=== PATIENT | female | born 1970 | race Hispanic/Latino ===

== ENCOUNTER 2017-07-20 21:20 | Emergency (ER) | payer SELFPAY ==
[~2017-07-20] VITALS: Ht 165.1 cm; Wt 136.1 kg
[2017-07-20] MEDS ORDERED: ONDANSETRON HCL INJ 2 MG/ML VIAL IV STA (21:45)
[2017-07-20] MEDS ORDERED: SODIUM CHLORIDE 0.9% 1000ML 1,000 ML IV ONE (21:45)
[2017-07-20] MEDS ORDERED: DIATRIZOATE MEGL/DIATRIZOA SOD 30 ML BTL PO ONE (21:54)
[2017-07-20 22:09] LABS: BILIRUBIN,URINE NEGATIVE (NEGATIVE); KETONES,URINE 2+ (NEGATIVE); LEUKOCYTE ESTERASE ,URINE NEGATIVE (NEGATIVE); NITRITE,URINE NEGATIVE (NEGATIVE); PROTEIN,URINE DIPSTICK 3+ (NEGATIVE); URINE UROBILINOGEN 0.2 mg/dL (0.2 - 1)
[2017-07-20 22:11] LABS: CLARITY,URINE CLEAR (CLEAR); COLOR,URINE YELLOW (YELLOW)
[2017-07-20 22:12] LABS: PREGNANCY TEST, URINE NEGATIVE (NEGATIVE)
[2017-07-20 22:20] LABS: BACTERIA,URINE FEW /HPF; EPITHELIAL CELLS,URINE MODERATE /LPF; RBC,URINE 0-5 /HPF (0-5); WBC,URINE (MAN) 0-5 /HPF (0-5)
[2017-07-20 22:31] LABS: BASOPHILS # (AUTO) 0.1 (0.0-0.1); BASOPHILS % 0.4 % (0.0-1.0); HEMATOCRIT 43.2 % (34.2-44.1); HEMOGLOBIN 14.4 g/dL (12.0-16.0); LYMPHOCYTES # (AUTO) 0.8 (1.0-3.2); MEAN CORPUSCULAR HEMOGLOBIN 28.3 pg (28-32); MEAN CORPUSCULAR HGB CONC 33.3 g/dL (31-35); MONOCYTES # (AUTO) 0.3 (0.2-0.8); MONOCYTES % 2.9 % (4.4-11.3); NEUTROPHILS # (AUTO) 10.1 (2.1-6.9); NEUTROPHILS % 89.2 % (38.7-80.0); PLATELET COUNT 350 x10e3/uL (140-360); RED BLOOD COUNT 5.08 x10e6/uL (3.6-5.1); RED CELL DISTRIBUTION WIDTH 14.6 % (11.7-14.4)
[2017-07-20 22:55] LABS: ALBUMIN/GLOBULIN RATIO 0.8 (0.8-2.0); ANION GAP 18.7 mmol/L (8-16); CALCIUM 9.8 mg/dL (8.4-10.2); CREATININE, SERUM 1.75 mg/dL (0.57-1.11); POTASSIUM 3.7 mmol/L (3.5-5.1)
--- NOTE | 2017-07-21 00:53 | Diagnostic Imaging Report ---
EXAM: CT Abdomen and Pelvis WITHOUT contrast INDICATION: Abdominal pain, vomiting, diarrhea COMPARISON: None. TECHNIQUE: Abdomen and pelvis were scanned utilizing a multidetector helical scanner from the lung base to the pubic symphysis without administration of IV contrast. Absence of intravenous contrast decreases sensitivity for detection of focal lesions and vascular pathology. Coronal and sagittal reformations were obtained. Routine protocol was performed. IV CONTRAST: None. ORAL CONTRAST: Gastrografin RADIATION DOSE: Total DLP: 1224.48 mGy*cm Estimated effective dose: (DLP x 0.015 x size factor) mSv COMPLICATIONS: None FINDINGS: LINES and TUBES: None. LOWER THORAX: Unremarkable HEPATOBILIARY: No focal hepatic lesions. No biliary ductal dilation. GALLBLADDER: There are cholecystectomy clips. SPLEEN: No splenomegaly. PANCREAS: No focal masses or ductal dilatation. ADRENALS: No adrenal nodules KIDNEYS/URETERS: No hydronephrosis. No cystic or solid mass lesions. No stones. GI TRACT: No abnormal distention, wall thickening, or evidence of bowel obstruction. There are diverticula within the colon without evidence of diverticulitis. Appendix is normal. PELVIC ORGANS/BLADDER: Fibroid uterus is visualized, slightly enlarged. The ovaries are present and appear normal. The bladder is compressed LYMPH NODES: No lymphadenopathy. VESSELS: There is mild atherosclerotic disease in the aorta and major arterial branches. PERITONEUM / RETROPERITONEUM: No free air or fluid. BONES: There are degenerative changes in the lumbar spine. SOFT TISSUES: Unremarkable. IMPRESSION: 1. No evidence of acute intra-abdominal or pelvic abnormality. 2. Enlarged multi fibroid uterus Signed by: Dr. Jeffery Martinez M.D. on 07/21/2017 12:50 AM
[2017-07-21] MEDS ORDERED: INSULIN REGULAR, HUMAN 100 UNIT/1 ML 3ML VIAL SQ ONE (01:00)
[2017-07-21] MEDS ORDERED: SODIUM CHLORIDE 0.9% 1000ML 1,000 ML IV ONE ×2 (01:00→03:15)
[2017-07-21 03:10] LABS: ANION GAP 17.4 mmol/L (8-16); CALCIUM 8.7 mg/dL (8.4-10.2); CREATININE, SERUM 1.48 mg/dL (0.57-1.11); POTASSIUM 3.4 mmol/L (3.5-5.1)
[2017-07-21] MEDS ORDERED: SODIUM CHLORIDE 0.9% 500ML 1,000 ML ONE (03:14)
== END 2017-07-21 06:20 | disposition home or self-care (01) ==
LOC: ER 21:20
DX: R10.33 Periumbilical pain (principal); R11.2 Nausea with vomiting, unspecified; R19.7 Diarrhea, unspecified; E86.9 Volume depletion, unspecified; E11.65 Type 2 diabetes mellitus with hyperglycemia; I10 Essential (primary) hypertension; J45.909 Unspecified asthma, uncomplicated
CPT/HCPCS: 36415; 74176; 80048; 80053; 81001; 81025; 82150; 82948; 83690; 85025; 87086; 93005; 96360; 96374; 99284; J2405; J7030 ×2; J7040

== ENCOUNTER 2019-11-22 20:04 | Inpatient (IN) | payer BC, MEDICARE ==
[~2019-11-22] VITALS: Ht 160 cm; Wt 148.5 kg
--- OUTSIDE RECORDS SUMMARY | 2019-11-22 20:09 | XMS REPORT ---
Author Author Admin, [employer] Organization Unknown Address Unknown Phone Unavailable PROBLEMS Condition Status Date Provider Notes Cough active Shawnee Curry DIABETES MELLITUS, TYPE II active Shawnee Curry Congestive heart failure active Shawnee Curry Hx of asthma active Shawnee Curry COPD active Shawnee Curry ENCOUNTERS Date Type Provider Location Encounter Diagn osis - Ambulatory Encounter Shawnee Curry Sa kellie Curry [facility] Practice UNK - Ambulatory Encounter Shawnee Curry Sa kellie Curry [facility] Practice UNK - Ambulatory Encounter Shawnee Sharathbee n Shawnee Currymac Chao [facility] Practice COPDHx of asth maCongestive heart failureDIABETES MELLITUS, TYPE IICough - Ambulatory Encounter Josefina ragland [facility] Contact Center UNK VITAL SIGNS Date Observation Value Provider temperature E&M 97.7 [degF] Shawnee Zapien " weight E&M 315 lbs. Kim Chao " weight in kilograms E&M 143.18 kg Iris Moisés terrell " height E&M 63 [in_i] Kim Chao " height in centimeters E&M 160.02 cm Iris G gloria Allergies No Known Allergy Information REASON FOR REFERRAL No Information Available RESULTS No Information Available HISTORY OF IMMUNIZATIONS No Information Available HISTORY OF MEDICATION USE Medication Instructions Dates Provider Comments ALBUTEROL SULFATE (2.5 MG/3ML) 0.083% INHALATION NEBUL IZATION SOLUTION 1 via Hand held neb every 4 - 6 hours as needed Shawnee Zapien SOCIAL HISTORY Date Observation Value Provider drug use, illicit Never Kim Chao " alcohol use Never Kim Chao " sex at Female Kim Chao " patient considered to be homeless No Kim Chao " if the patient is using/has used a vaping item, Current, Former, Never Used, Not asked No Kim Chao " smoking status never smoker Kim Chao FUNCTIONAL STATUS No Information Available MENTAL STATUS No Information Available MEDICAL EQUIPMENT No Information Available FAMILY HISTORY No Information Available INSURANCE PROVIDERS No Information Available ADVANCE DIRECTIVES No Information Available TREATMENT PLAN Date Name 2018 Novel Coronavirus (CoVI D-19), YAQUELIN Ofc Vst, New Level III Ofc Vst, New Level III HISTORY OF PROCEDURES No Information Available GOALS No Information Available HEALTH CONCERNS No Information Available
--- OUTSIDE RECORDS SUMMARY | 2019-11-22 20:09 | XMS REPORT ---
Author Author Admin, [employer] Organization Unknown Address Unknown Phone Unavailable PROBLEMS Condition Status Date Provider Notes Cough active Shawnee Curry DIABETES MELLITUS, TYPE II active Shawnee Curry Congestive heart failure active Shawnee Curry Hx of asthma active Shawnee Curry COPD active Shawnee Curry ENCOUNTERS Date Type Provider Location Encounter Diagn osis - Ambulatory Encounter Shawneeadriana Zapien [facility] Practice UNK - Ambulatory Encounter Shawneeadriana esparza Shawnee Curry [facility] UNK - Ambulatory Encounter Amanda Conner Teagan eric Marie [facility] UNK - Ambulatory Encounter Shawnee Curry Sa kellie Curry [facility] Practice UNK - Ambulatory Encounter Shawnee Curry Sa kellie Curry [facility] UNK - Ambulatory Encounter Shawnee Ron n Shawnee Curry Kim Chao [facility] Practice COPDHx of asth maCongestive heart failureDIABETES MELLITUS, TYPE IICough - Ambulatory Encounter Josefina Tinoco [facility] Contact Center UNK VITAL SIGNS Date Observation Value Provider oxygen saturation, oximetry 97 % Teagan eric Marie " temperature E&M 98.1 [degF] Zamzam Marie " pulse rate E&M 88 /min Zamzam Marie " blood pressure, diastolic 89 mm[Hg] Tia da Marie " blood pressure, systolic 164 mm[Hg] Griseld a Marie " method used to obtain blood pressure manual Zamzam Marie " temperature site oral Zamzam Ventur a " Blood Pressure Position 01 sitting Grise lda Marie " blood pressure, site #1 right arm Zamzam Marie " respiratory rate E&M 18 /min Zamzam Ve ntura " weight E&M 315 lbs. Zamzam Marie " weight in kilograms E&M 143.18 kg Zamzam Marie " height in centimeters E&M 160.02 cm Tia da Marie " height E&M 63 [in_i] Zamzam Marie temperature E&M 97.7 [degF] Shawnee Curry " weight E&M 315 lbs. Iris Jeremie " weight in kilograms E&M 143.18 kg Iris Gar xander " height E&M 63 [in_i] Iris Jeremie " height in centimeters E&M 160.02 cm Iris G gloria Allergies No Known Allergy Information REASON FOR REFERRAL No Information Available RESULTS Date Observation Value Provider Reference Range Interpretati on Location 2019NCoV (COVID-19) SARS cor onavirus 2 RNA ([facility]) in Respiratory specimen by YAQUELIN with probe detection (Other Lab) Not Detected [employer] Not Detected HISTORY OF IMMUNIZATIONS No Information Available HISTORY OF MEDICATION USE Medication Instructions Dates Provider Comments PROVENTIL HFA 108 (90 BASE) MCG/ACT INHALATION AEROSOL SOLUTION 2 puffs every 4 hours as needed Amanda Conner LANTUS 100 UNIT/ML SUBCUTANEOUS SOLUTION Amanda Conner CLONIDINE HCL 0.1 MG ORAL TABLET 1 by mouth twice a day Amanda Conner NIFEDIPINE ER TABLET EXTENDED RELEASE 24 HOUR Amanda Conner SINGULAIR 10 MG ORAL TABLET 1 by mouth nightly at bedtime 10/27 Amanda Conner TRADJENTA 5 MG ORAL TABLET Amanda Conner LEVOTHYROXINE SODIUM TABLET Amanda Conner IPRATROPIUM BROMIDE 0.02 % INHALATION SOLUTION Amanda Conner LISINOPRIL 20 MG ORAL TABLET 1 by mouth every day Columba Conner K-TAB 10 MEQ ORAL TABLET EXTENDED RELEASE 1 by mouth twice a day Amanda Ubaldo LASIX 40 MG ORAL TABLET 1 by mouth every am Amanda moon TESSALON PERLES 100 MG ORAL CAPSULE 1 by mouth 3 times a day as needed for cough Amanda Conner AZITHROMYCIN 250 MG ORAL TABLET 2 tablets by mouth on day one then one tablet by mouth each day for a total of 5 days Amandaemilie Conner ALBUTEROL SULFATE (2.5 MG/3ML) 0.083% INHALATION NEBUL IZATION SOLUTION 1 via Hand held neb every 4 - 6 hours as needed Shawnee Zapien SOCIAL HISTORY Date Observation Value Provider " is there any chance that you could be ? No Zamzam Marie " passive cigarette smoke exposure No Zamzam Marie " if the patient is using/has used a vaping item, Current, Former, Never Used, Not asked No Zamzam Marie " Exercise Program Referral T Tia Lott " Weight Management Counseling Provided T Zamzam Marie " Nutrition intervention T Zamzam Marie drug use, illicit Never Kim Chao " alcohol use Never Kim Chao " sex at Female Iris Jeremie " patient considered to be homeless No Kim Chao " if the patient is using/has used a vaping item, Current, Former, Never Used, Not asked No Kim Chao " smoking status never smoker Kim Chao FUNCTIONAL STATUS No Information Available MENTAL STATUS Date Observation Value Provider assessment of judgment and insight E&M fair Amanda Conner " mental status examination: orientation E &M oriented to time, place, and person Amanda Conner " assessment of mood and affect E&M no dep ression, anxiety, or agitation, very talkative- speaking in full sentences Amanda Conner MEDICAL EQUIPMENT No Information Available FAMILY HISTORY No Information Available INSURANCE PROVIDERS No Information Available ADVANCE DIRECTIVES No Information Available TREATMENT PLAN Date Name 2019 Novel Coronavirus (CoVI D-19), YAQUELIN 2019 Novel Coronavirus (CoVI D-19), YAQUELIN Est Patient Detailed - 50670 Ofc Vst, New Level III Ofc Vst, New Level III HISTORY OF PROCEDURES No Information Available GOALS No Information Available HEALTH CONCERNS No Information Available
--- OUTSIDE RECORDS SUMMARY | 2019-11-22 20:09 | XMS REPORT ---
Author Author Admin, [employer] [place] Organization Unknown Address Unknown Phone Unavailable PROBLEMS Condition Status Date Provider Notes Cough active Shawnee Curry DIABETES MELLITUS, TYPE II active Shawnee Curry Congestive heart failure active Shawnee Curry Hx of asthma active Shawnee Curry COPD active Shawnee Curry ENCOUNTERS Date Type Provider Location Encounter Diagn osis - Ambulatory Encounter Shawnee Zapien Sa kellieadriana Zapien [facility] Practice UNK - Ambulatory Encounter Shawneeadriana Velasquez n Shawnee Curry Kim Chao [facility] Practice COPDHx of asth maCongestive heart failureDIABETES MELLITUS, TYPE IICough - Ambulatory Encounter Josefina Tinoco [facility] Contact Center UNK VITAL SIGNS Date [...] No Information Available TREATMENT PLAN Date Name Ofc Vst, New Level III Ofc Vst, New Level III HISTORY OF PROCEDURES No Information Available GOALS No Information Available HEALTH CONCERNS No Information Available
--- OUTSIDE RECORDS SUMMARY | 2019-11-22 20:09 | XMS REPORT ---
Author Author [facility] Organization [facility] Address Unknown Phone Unavailable Care Team Providers Care [place] Room Worker Name Role Phone Tiffany BOYER Unavailable Unavailable Payers Payer Name Policy Type Policy Number Effective Date Expiration D ate Problems This patient has no known problems. Allergies, Adverse Reactions, Alerts Allergy Name Allergy Type Status Severity Reaction(s) Onset Date Inacti ve Date Treating Clinician Comments No Known Allergies DA Active U 2019-04-24 00:00:00 No Known Allergies DA Active U 2019-03-13 00:00:00 No Known Allergies DA Active U 2018-09-24 00:00:00 No Known Allergies DA Active U 2016-02-23 00:00:00 Medications This patient has no known medications. Encounters Start Date/Time End Date/Time Encounter Type Admission Type Att[facility] [place] Care Department Encounter ID 2019-11-18 00:00:00 2019-11-18 00:00:00 Outpatient [facility] [id number] 2019-09-24 10:52:11 2019-09-24 10:52:11 Outpatient [facility] [id number] 2019-09-23 00:00:00 2019-09-23 00:00:00 Outpatient [facility] [id number] 2019-09-22 00:00:00 2019-09-22 00:00:00 Outpatient [facility] [id number] 2019-09-20 15:02:05 2019-09-20 15:02:05 Outpatient [facility] [id number] 2019-09-01 00:00:00 2019-09-01 00:00:00 Outpatient [facility] [id number] 2019-08-26 12:08:26 2019-08-26 12:08:26 Outpatient [facility] [id number] 2019-08-26 10:40:08 2019-08-26 10:40:08 Outpatient [facility] [id number] 2019-08-26 00:00:00 2019-08-26 00:00:00 Outpatient [facility] [id number] 2019-08-09 11:15:46 2019-08-09 11:15:46 Outpatient [facility] [id number] 2019-08-09 10:19:01 2019-08-09 10:19:01 Outpatient [facility] [id number] 2019-08-09 00:00:00 2019-08-09 00:00:00 Outpatient [facility] [id number] 2019-07-22 11:54:11 2019-07-22 11:54:11 Outpatient [facility] [id number] 2019-07-22 11:00:23 2019-07-22 11:00:23 Outpatient [facility] [id number] 2019-06-28 00:00:00 2019-06-28 00:00:00 Outpatient [facility] [id number] 2019-06-16 00:00:00 2019-06-16 00:00:00 Outpatient [facility] [id number] 2019-06-04 00:00:00 2019-06-04 00:00:00 Outpatient [facility] [id number] 2019-05-25 13:07:41 2019-05-25 13:07:41 Outpatient [facility] [id number] 2019-05-14 00:00:00 2019-05-14 00:00:00 Outpatient [facility] [id number] 2019-05-14 00:00:00 2019-05-14 00:00:00 Outpatient [facility] [id number] 2019-05-13 14:10:19 2019-05-13 14:10:19 Outpatient [facility] [id number] 2019-05-13 13:22:07 2019-05-13 13:22:07 Outpatient [facility] [id number] 2019-05-13 00:00:00 2019-05-13 00:00:00 Outpatient [facility] [id number] 2019-05-03 15:07:21 2019-05-03 15:07:21 Outpatient [facility] [id number] 2019-05-03 13:55:13 2019-05-03 13:55:13 Outpatient [facility] [id number] 2019-05-03 00:00:00 2019-05-03 00:00:00 Outpatient [facility] [id number] 2019-04-30 00:00:00 2019-04-30 00:00:00 Outpatient [facility] [id number] 2019-04-30 00:00:00 2019-04-30 00:00:00 Outpatient [facility] [id number] 2019-04-22 13:19:50 2019-04-22 13:19:50 Outpatient [facility] [id number] 2019-04-08 00:00:00 2019-04-08 00:00:00 Outpatient [facility] [id number] 2019-04-05 13:51:24 2019-04-05 13:51:24 Outpatient [facility] [id number] 2019-04-05 12:46:24 2019-04-05 12:46:24 Outpatient [facility] [id number] 2019-04-05 00:00:00 2019-04-05 00:00:00 Outpatient [facility] [id number] 2019-03-22 09:36:10 2019-03-22 09:36:10 Outpatient [facility] [id number] 2019-03-22 09:35:51 2019-03-22 09:35:51 Outpatient [facility] [id number] 2019-03-03 10:18:48 2019-03-03 10:18:48 Outpatient [facility] [id number] 2019-03-03 00:00:00 2019-03-03 00:00:00 Outpatient [facility] [id number] 2019-02-15 14:47:15 2019-02-15 14:47:15 Outpatient [facility] [id number] 2019-02-11 00:00:00 2019-02-11 00:00:00 Outpatient [facility] [id number] 2019-02-11 00:00:00 2019-02-11 00:00:00 Outpatient [facility] [id number] 2019-01-29 00:00:00 2019-01-29 00:00:00 Outpatient [facility] [id number] 2019-01-29 00:00:00 2019-01-29 00:00:00 Outpatient [facility] [id number] 2019-01-08 09:00:51 2019-01-08 09:00:51 Outpatient [facility] [id number] 2019-01-08 08:49:29 2019-01-08 08:49:29 Outpatient [facility] [id number] 2019-01-08 00:00:00 2019-01-08 00:00:00 Outpatient [facility] [id number] 2019-01-08 00:00:00 2019-01-08 00:00:00 Outpatient [facility] [id number] 2019-01-08 00:00:00 2019-01-08 00:00:00 Outpatient [facility] [id number] 2018-12-17 00:00:00 2018-12-17 00:00:00 Outpatient [facility] [id number] 2018-12-16 00:00:00 2018-12-16 00:00:00 Outpatient [facility] [id number] 2018-12-16 00:00:00 2018-12-16 00:00:00 Outpatient [facility] [id number] 2018-12-14 10:25:36 2018-12-14 10:25:36 Outpatient [facility] [id number] 2018-12-14 08:51:48 2018-12-14 08:51:48 Outpatient [facility] [id number] 2018-12-03 00:00:00 2018-12-03 00:00:00 Outpatient [facility] [id number] 2018-11-30 00:00:00 2018-11-30 00:00:00 Outpatient [facility] [id number] 2018-11-19 16:42:28 2018-11-19 16:42:28 Outpatient [facility] [id number] 2018-11-19 14:04:12 2018-11-19 14:04:12 Outpatient [facility] [id number] 2018-11-18 00:00:00 2018-11-18 00:00:00 Outpatient [facility] [id number] 2018-11-18 00:00:00 2018-11-18 00:00:00 Outpatient [facility] [id number] 2018-11-17 13:05:44 2018-11-17 13:05:44 Outpatient [facility] [id number] 2018-11-11 14:52:54 2018-11-11 14:52:54 Outpatient [facility] [id number] 2018-11-11 12:55:18 2018-11-11 12:55:18 Outpatient [facility] [id number] 2018-11-04 00:00:00 2018-11-04 00:00:00 Outpatient [facility] [id number] 2018-10-30 12:08:49 2018-10-30 12:08:49 Outpatient [facility] [id number] 2018-10-20 14:51:05 2018-10-20 14:51:05 Outpatient [facility] [id number] 2018-10-20 13:37:40 2018-10-20 13:37:40 Outpatient [facility] [id number] 2018-10-09 09:22:36 2018-10-09 09:22:36 Outpatient [facility] [id number] 2018-10-08 11:41:18 2018-10-08 11:41:18 Outpatient [facility] [id number] 2018-10-08 00:00:00 2018-10-08 00:00:00 Outpatient [facility] [id number] 2018-09-28 08:50:26 2018-09-28 08:50:26 Outpatient [facility] [id number] 2018-09-21 00:00:00 2018-09-21 00:00:00 Outpatient [facility] [id number] 2018 14:51:22 2018 14:51:22 Outpatient [facility] [id number] 2018-09-07 15:22:38 2018-09-07 15:22:38 Outpatient [facility] [id number] 2018-09-07 13:44:27 2018-09-07 13:44:27 Outpatient [facility] [id number] 2018-09-03 00:00:00 2018-09-03 00:00:00 Outpatient [facility] [id number] 2018-08-20 00:00:00 2018-08-20 00:00:00 Outpatient [facility] [id number] 2018-08-13 00:00:00 2018-08-13 00:00:00 Outpatient [facility] [id number] 2018-07-31 00:00:00 2018-07-31 00:00:00 Outpatient [facility] [id number] 2018-07-23 00:00:00 2018-07-23 00:00:00 Outpatient [facility] [id number] 2018-07-15 14:04:51 2018-07-15 14:04:51 Outpatient [facility] [id number] 2018-07-13 11:49:05 2018-07-13 11:49:05 Outpatient [facility] [id number] 2018-07-02 00:00:00 2018-07-02 00:00:00 Outpatient [facility] [id number] 2018-06-25 00:00:00 2018-06-25 00:00:00 Outpatient [facility] [id number] 2018-05-27 00:00:00 2018-05-27 00:00:00 Outpatient [facility] [id number] 2018-05-08 00:00:00 2018-05-08 00:00:00 Outpatient [facility] [id number] 2018-05-04 00:00:00 2018-05-04 00:00:00 Outpatient [facility] [id number] 2018-05-01 00:00:00 2018-05-01 00:00:00 Outpatient [facility] [id number] 2018-04-23 00:00:00 2018-04-23 00:00:00 Outpatient [facility] [id number] 2018-04-22 00:00:00 2018-04-22 00:00:00 Outpatient [facility] [id number] 2018-04-20 00:00:00 2018-04-20 00:00:00 Outpatient [facility] [id number] 2018-04-20 00:00:00 2018-04-20 00:00:00 Outpatient [facility] [id number] 2018-04-17 00:00:00 2018-04-17 00:00:00 Outpatient [facility] [id number] 2018-04-13 00:00:00 2018-04-13 00:00:00 Outpatient [facility] [id number] 2018-04-09 00:00:00 2018-04-09 00:00:00 Outpatient [facility] [id number] 2018-04-07 00:00:00 2018-04-07 00:00:00 Outpatient [facility] [id number] 2018-04-07 00:00:00 2018-04-07 00:00:00 Outpatient [facility] [id number] 2018-03-30 13:49:36 2018-03-30 13:49:36 Outpatient [facility] [id number] 2018-03-25 00:00:00 2018-03-25 00:00:00 Outpatient [facility] [id number] 2018-03-20 13:00:27 2018-03-20 13:00:27 Outpatient [facility] [id number] 2018-03-16 00:00:00 2018-03-16 00:00:00 Outpatient [facility] [id number] 2018-03-10 00:00:00 2018-03-10 00:00:00 Outpatient [facility] [id number] 2018-02-26 14:10:38 2018-02-26 14:10:38 Outpatient [facility] [id number] 2018-02-19 00:00:00 2018-02-19 00:00:00 Outpatient [facility] [id number] 2018-02-13 00:00:00 2018-02-13 00:00:00 Outpatient [facility] [id number] 2018-02-10 00:00:00 2018-02-10 00:00:00 Outpatient [facility] [id number] 2018-02-09 00:00:00 2018-02-09 00:00:00 Outpatient [facility] [id number] 2018-02-09 00:00:00 2018-02-09 00:00:00 Outpatient [facility] [id number] 2018-01-29 12:54:51 2018-01-29 12:54:51 Outpatient [facility] [id number] 2018-01-26 11:47:35 2018-01-26 11:47:35 Outpatient [facility] [id number] 2018-01-26 09:23:23 2018-01-26 09:23:23 Outpatient [facility] [id number] 2018-01-19 09:20:12 2018-01-19 09:20:12 Outpatient [facility] [id number] 2018-01-19 08:02:16 2018-01-19 08:02:16 Outpatient [facility] [id number] 2017-12-15 00:00:00 2017-12-15 00:00:00 Outpatient [facility] [id number] 2017-11-13 11:13:36 2017-11-13 11:13:36 Outpatient [facility] [id number] 2017-11-07 00:00:00 2017-11-07 00:00:00 Outpatient [facility] [id number] 2017-10-30 00:00:00 2017-10-30 00:00:00 Outpatient [facility] [id number] 2017-10-23 00:00:00 2017-10-23 00:00:00 Outpatient [facility] [id number] 2017-10-16 15:43:24 2017-10-16 15:43:24 Outpatient [facility] [id number] 2017-10-16 00:00:00 2017-10-16 00:00:00 Outpatient [facility] [id number] 2017-09-02 11:14:56 2017-09-02 11:14:56 Outpatient [facility] [id number] 2017-09-02 09:48:40 2017-09-02 09:48:40 Outpatient [facility] [id number] 2017-09-02 00:00:00 2017-09-02 00:00:00 Outpatient [facility] [id number] 2017-08-28 00:00:00 2017-08-28 00:00:00 Outpatient [facility] [id number] 2017-08-14 15:06:22 2017-08-14 15:06:22 Outpatient [facility] [id number] 2017-06-26 00:00:00 2017-06-26 00:00:00 Outpatient [facility] [id number] 2017-06-26 00:00:00 2017-06-26 00:00:00 Outpatient [facility] [id number] 2017-06-18 00:00:00 2017-06-18 00:00:00 Outpatient [facility] [id number] 2017-06-16 00:00:00 2017-06-16 00:00:00 Outpatient [facility] [id number] 2017-05-19 00:00:00 2017-05-19 00:00:00 Outpatient [facility] [id number] 2017-04-24 10:42:54 2017-04-24 10:42:54 Outpatient [facility] [id number] 2017-04-24 08:40:25 2017-04-24 08:40:25 Outpatient [facility] [id number] 2012-11-19 08:14:32 2012-11-19 08:14:32 Outpatient [facility] [id number] Results Test Description Test Time Test Comments Text Results Atomic Results Result Comments BASIC METABOLIC PANEL 2019-10-22 14:32:00 SODIUM (test code = NA) 136 mmol/L 136-145 POTASSIUM (test code = K) 3.8 mmol/L 3.5-5.1 CHLORIDE (test code = CL) 103.0 mmol/L 98-107 CARBON DIOXIDE (test code = CO2) 27.0 mmol/L 21-32 ANION GAP (test code = GAP) 9.8 10-20 GLUCOSE (test code = GLU) 342 mg/dL 74-106 BLOOD UREA NITROGEN (test code = BUN) 20 mg/dL 7-18 GLOMERULAR FILTRATION RATE (test code = GFR) 40 mL/min >=6 0 Estimated GFR by using Modified MDRD formula.Chronic kidney disease is defined as either kidney damageor GFR <60 mL/min/1.73 m2 for >3 months. CREATININE (test code = CREAT) 1.40 mg/dL 0.55-1.02 * *Note change in reference range due to change in reagent. BUN/CREATININE RATIO (test code = BUN/CREA) 14.3 10-2 0 CALCIUM (test code = CA) 8.9 mg/dL 8.5-10.1 [id number] 14:32:00* Test Item Value Reference Range Comments TROPONIN-I (test code = TROPI) <0.015 ng/mL 0-0.045 BASIC METABOLIC [id number] 14:26:00* Test Item Value Reference Range Comments SODIUM (test code = NA) 136 mmol/L 136-145 POTASSIUM (test code = K) 3.8 mmol/L 3.5-5.1 CHLORIDE (test code = CL) 103.0 mmol/L 98-107 CARBON DIOXIDE (test code = CO2) mmol/L 21-32 ANION GAP (test code = GAP) 10-20 GLUCOSE (test code = GLU) mg/dL 74-106 BLOOD UREA NITROGEN (test code = BUN) mg/dL 7-18 GLOMERULAR FILTRATION RATE (test code = GFR) mL/min >=6 0 CREATININE (test code = CREAT) mg/dL 0.55-1.02 BUN/CREATININE RATIO (test code = BUN/CREA) 10-2 0 CALCIUM (test code = CA) mg/dL 8.5-10.1 [id number] 14:26:00* Test Item Value Reference Range Comments TROPONIN-I (test code = TROPI) ng/mL 0-0.045 - XR CHEST 1 [id number] 14:24:00 FAX: Lacho Ambrosio MD [phone] [place]: [address]: REG Name: MEÑO RYDER [facility] : 09/17[birth year]18 69 Age/S: 49/F [address] [facility] Unit #: [id number] Loc: [place] [address] Phys: Lacho Ambrosio MD Acct: [id number] Dis Date: Status: REG ER PHONE #: [phone] Exam Date: 10/22/2019 1403 FAX #: [phone] Reason: CHEST PAIN EXAMS: CPT CODE: [id number] XR CHEST 1 V 58794 HISTORY: Chest pain. COMPARISON: September 13, 2019. Location: [facility]. No acute infiltrates, effusion or congestion is noted. Suboptimal inspiration. Depe ndent changes. Cardiomegaly. IMPRESSION: No acute infiltrates, effusion or congestion. at 1424 Reported and sig ezequiel by: Jamil Norman M.D. CC: Lacho Ambrosio MD Technologist: KASANDRA CHAMORRO, RT(R) Trnscrd Date/Time/By: 10/22/2019 (3141) : By: [email or web address] Orig Print D/T: S: 10/22/2019 (6228) PAGE 1 Signed Report CBC W/O DIFF 2019-10-22 14:11:00* Test Item Value Reference Range Comments WHITE BLOOD CELL (test code = WBC) 5.3 K/mm3 4.5-12.5 RED BLOOD CELL (test code = RBC) 4.57 mill/mm3 3.7-5.2 HEMOGLOBIN (test code = HGB) 11.9 gram/dL 11.5-15.5 HEMATOCRIT (test code = HCT) 38.7 % 36.0-46.0 MEAN CELL VOLUME (test code = MCV) 84.7 fL 80-98 MEAN CELL HGB (test code = MCH) 26.0 picogram 27.0-33.0 MEAN CELL HGB CONCETRATION (test code = MCHC) 30.7 gram/dL 33 .0-36.0 RED CELL DISTRIBUTION WIDTH (test code = RDW) 14.7 % 11 .6-16.2 PLATELET COUNT (test code = PLT) 326 K/mm3 150-450 MEAN PLATELET VOLUME (test code = MPV) 9.7 fL 6.7-11.0 CBC W/O [id number] 14:10:00* Test Item Value Reference Range Comments WHITE BLOOD CELL (test code = WBC) K/mm3 4.5-12.5 RED BLOOD CELL (test code = RBC) mill/mm3 3.7-5.2 HEMOGLOBIN (test code = HGB) 11.9 gram/dL 11.5-15.5 HEMATOCRIT (test code = HCT) 38.7 % 36.0-46.0 MEAN CELL VOLUME (test code = MCV) fL 80-98 MEAN CELL HGB (test code = MCH) picogram 27.0-33.0 MEAN CELL HGB CONCETRATION (test code = MCHC) gram/dL 33 .0-36.0 RED CELL DISTRIBUTION WIDTH (test code = RDW) % 11 .6-16.2 PLATELET COUNT (test code = PLT) K/mm3 150-450 MEAN PLATELET VOLUME (test code = MPV) fL 6.7-11.0 [id number] 16:39:00* Test Item Value Reference Range Comments GLUBED (test code = GLUBED) 228 mg/dL 74-106 Perf ormed by certified toll relief operator at [facility] [id number] 14:14:00* Test Item Value Reference Range Comments GLUBED (test code = GLUBED) 243 mg/dL 74-106 Perf ormed by certified toll relief operator at [facility] [id number] 12:57:00* Test Item Value Reference Range Comments TROPONIN-I (test code = TROPI) 0.056 ng/mL 0-0.045 COMMENTS TO TACKER OFF: COLLECT 3 HOURS AFTER PREVIOUS SAMPLEBASIC METABOLIC [id number] 12:50:00* Test Item Value Reference Range Comments SODIUM (test code = NA) 139 mmol/L 136-145 POTASSIUM (test code = K) 3.6 mmol/L 3.5-5.1 CHLORIDE (test code = CL) 104.0 mmol/L 98-107 CARBON DIOXIDE (test code = CO2) 29.0 mmol/L 21-32 ANION GAP (test code = GAP) 9.6 10-20 GLUCOSE (test code = GLU) 261 mg/dL 74-106 BLOOD UREA NITROGEN (test code = BUN) 19 mg/dL 7-18 GLOMERULAR FILTRATION RATE (test code = GFR) 44 mL/min >=6 0 Estimated GFR by using Modified MDRD formula.Chronic kidney disease is defined as either kidney damageor GFR <60 mL/min/1.73 m2 for >3 months. CREATININE (test code = CREAT) 1.30 mg/dL 0.55-1.02 * *Note change in reference range due to change in reagent. BUN/CREATININE RATIO (test code = BUN/CREA) 14.6 10-2 0 CALCIUM (test code = CA) 8.9 mg/dL 8.5-10.1 LIPID PROFILE (CORONARY RISK)2019-09-14 12:50:00* Test Item Value Reference Range Comments TRIGLYCERIDES (test code = TRIG) 202 mg/dL 20-150 CHOLESTEROL (test code = CHOL) 146 mg/dL 0-200 CHOLESTEROL/HDL RATIO (test code = CHOLHDL) 2.0 RATIO 0-4. 9 RISK ASSOCIATED WITH CHOL/HDL RATIOS: Risk Male Female1/2 AVERAGE 3.43 3.27AVERAGE 4.97 4.442X AVERAGE 9.55 7.053X AVERAGE 23.39 11.04 REFERENCE VALUE IS RELATED TO RISK LEVELS ASRECOMMENDED BY THE DARI. HEART, LUNG, AND BLOOD INST. HDL CHOLESTEROL (test code = HDL) 62 mg/dL 40-60 LIPOPROTEIN LDL (test code = LDL) 59 mg/dL 100-129 Reference Interval: mg/dL mmol/L Optimal <100 <2.6Near/above optimal 100-129 2.6- 3.3Borderline High 130-159 3.4-4.1High 160-189 4.1-4.9Very High >=190 >=4.9========= This LDL result is a direct measurement.========= CBC W/AUTO [id number] 12:41:00* Test Item Value Reference Range Comments WHITE BLOOD CELL (test code = WBC) 4.6 K/mm3 4.5-12.5 RED BLOOD CELL (test code = RBC) 4.70 mill/mm3 3.7-5.2 HEMOGLOBIN (test code = HGB) 12.7 gram/dL 11.5-15.5 HEMATOCRIT (test code = HCT) 39.2 % 36.0-46.0 MEAN CELL VOLUME (test code = MCV) 83.4 fL 80-98 MEAN CELL HGB (test code = MCH) 27.0 picogram 27.0-33.0 MEAN CELL HGB CONCETRATION (test code = MCHC) 32.4 gram/dL 33 .0-36.0 RED CELL DISTRIBUTION WIDTH (test code = RDW) 13.6 % 11 .6-16.2 RED CELL DISTRIBUTION WIDTH SD (test code = RDW-SD) 41.4 fL 37.0-51.0 PLATELET COUNT (test code = PLT) 372 K/mm3 150-450 MEAN PLATELET VOLUME (test code = MPV) 9.7 fL 6.7-11.0 NEUTROPHIL % (test code = NT%) 57.9 % 39.0-69.0 IMMATURE GRANULOCYTE % (test code = IG%) 0.7 % 0.0-5.0 LYMPHOCYTE % (test code = LY%) 25.1 % 25.0-55.0 MONOCYTE % (test code = MO%) 12.6 % 0.0-10.0 EOSINOPHIL % (test code = EO%) 2.8 % 0.0-5.0 BASOPHIL % (test code = BA%) 0.9 % 0.0-1.0 NUCLEATED RBC % (test code = NRBC%) 0.0 % 0-0 NEUTROPHIL # (test code = NT#) 2.66 K/mm3 1.8-7.7 IMMATURE GRANULOCYTE # (test code = IG#) 0.03 x10 3/uL 0-0.03 LYMPHOCYTE # (test code = LY#) 1.15 K/mm3 1.0-5.0 MONOCYTE # (test code = MO#) 0.58 K/mm3 0-0.8 EOSINOPHIL # (test code = EO#) 0.13 K/mm3 0.0-0.5 BASOPHIL # (test code = BA#) 0.04 K/mm3 0.0-0.2 NUCLEATED RBC # (test code = NRBC#) 0.00 K/mm3 0.0-0.1 MANUAL DIFF REQUIRED (test code = MDIFF) NO [id number] 09:13:00* Test Item Value Reference Range Comments GLUBED (test code = GLUBED) 181 mg/dL 74-106 Perf ormed by certified toll relief operator at [facility] [id number] 06:09:00* Test Item Value Reference Range Comments TROPONIN-I (test code = TROPI) 0.078 ng/mL 0-0.045 P REVIOUSLY CALLED COMMENTS TO TACKER OFF: COLLECT 3 HOURS AFTER PREVIOUS SAMPLEPROTHROMBIN [id number] 23:27:00* Test Item Value Reference Range Comments PROTHROMBIN TIME PATIENT (test code = PTP) 10.2 seconds 9.0-1 4.0 INTERNATIONAL NORMAL RATIO (test code = INR) 0.9 0.8 -1.2 The therapeutic range for oral anticoagulant therapy formost indications is an international normalized ratio (INR)of between 2.0 and 3.0. The recommended therapeutic INRrange for various clinical situations is listed below: Clinical Situation INR range Pulmonary e mbolism treatment (2.0-3.0)Venous thrombosis treatmentVenous thrombosis prophylaxis (high risk surgery)Prevention of systemic embolism from: Acute myocardial infarction Valvular heart disease Atrial fibrillation Mechanical prosthetic heart valves (2.5-3.5) IS PATIENT ON ANTICOAGULANTS? NTHROMBOPLASTIN TIME [id number] 23:27:00* Test Item Value Reference Range Comments THROMBOPLASTIN TIME PARTIAL (test code = PTT) 34.3 seconds 25 .0-36.5 IS PATIENT ON ANTICOAGULANTS? NHEPATIC FUNCTION [id number] 23:17:00* Test Item Value Reference Range Comments TOTAL PROTEIN (test code = PROT) 7.9 gram/dL 6.4-8.2 ALBUMIN (test code = ALB) 3.5 g/dL 3.4-5.0 GLOBULIN (test code = GLOB) 4.4 gram/dL 2.7-4.2 ALBUMIN/GLOBULIN RATIO (test code = A/G) 0.8 0.75-1. 50 BILIRUBIN TOTAL (test code = BILT) 0.30 mg/dL 0.0-1.0 BILIRUBIN DIRECT (test code = BILD) 0.07 mg/dL 0.0-0.20 SGOT/AST (test code = AST) 35 IUnit/L 15-37 SGPT/ALT (test code = ALT) 40 IUnit/L 12-78 ALKALINE PHOSPHATASE TOTAL (test code = ALKP) 52 IUnit/L 45 -117 Note change in reference range due to change in reagent. THYROID STIMULATING [id number] 23:17:00* Test Item Value Reference Range Comments THYROID STIMULATING HORMONE (test code = TSH) 1.660 uIU/mL 0. 36-3.74 TSH REFERENCE RANGES: EUTHYROID: 0.35 - 4.3 mIU/mL HYPO : > 5.5 mIU/mL HYPER : < 0.35 mIU/mL [id number] 22:25:00* Test Item Value Reference Range Comments GLUBED (test code = GLUBED) 106 mg/dL 74-106 Perf ormed by certified toll relief operator at [facility] BASIC METABOLIC [id number] 19:03:00* Test Item Value Reference Range Comments SODIUM (test code = NA) 141 mmol/L 136-145 POTASSIUM (test code = K) 3.6 mmol/L 3.5-5.1 CHLORIDE (test code = CL) 107.0 mmol/L 98-107 CARBON DIOXIDE (test code = CO2) 32.0 mmol/L 21-32 ANION GAP (test code = GAP) 5.6 10-20 GLUCOSE (test code = GLU) 75 mg/dL 74-106 BLOOD UREA NITROGEN (test code = BUN) 17 mg/dL 7-18 GLOMERULAR FILTRATION RATE (test code = GFR) 48 mL/min >=6 0 Estimated GFR by using Modified MDRD formula.Chronic kidney disease is defined as either kidney damageor GFR <60 mL/min/1.73 m2 for >3 months. CREATININE (test code = CREAT) 1.20 mg/dL 0.55-1.02 * *Note change in reference range due to change in reagent. BUN/CREATININE RATIO (test code = BUN/CREA) 14.2 10-2 0 CALCIUM (test code = CA) 9.0 mg/dL 8.5-10.1 [id number] 19:03:00* Test Item Value Reference Range Comments TROPONIN-I (test code = TROPI) 0.180 ng/mL 0-0.045 R esults called to [id number] by [email or web address] 09/13/19 1902Critical results verified and read back by Nurse? Y BASIC METABOLIC [id number] 18:50:00* Test Item Value Reference Range Comments SODIUM (test code = NA) 141 mmol/L 136-145 POTASSIUM (test code = K) 3.6 mmol/L 3.5-5.1 CHLORIDE (test code = CL) 107.0 mmol/L 98-107 CARBON DIOXIDE (test code = CO2) mmol/L 21-32 ANION GAP (test code = GAP) 10-20 GLUCOSE (test code = GLU) mg/dL 74-106 BLOOD UREA NITROGEN (test code = BUN) mg/dL 7-18 GLOMERULAR FILTRATION RATE (test code = GFR) mL/min >=6 0 CREATININE (test code = CREAT) mg/dL 0.55-1.02 BUN/CREATININE RATIO (test code = BUN/CREA) 10-2 0 CALCIUM (test code = CA) mg/dL 8.5-10.1 [id number] 18:50:00* Test Item Value Reference Range Comments TROPONIN-I (test code = TROPI) ng/mL 0-0.045 BASIC METABOLIC [id number] 18:50:00* Test Item Value Reference Range Comments SODIUM (test code = NA) 141 mmol/L 136-145 POTASSIUM (test code = K) 3.6 mmol/L 3.5-5.1 CHLORIDE (test code = CL) 107.0 mmol/L 98-107 CARBON DIOXIDE (test code = CO2) mmol/L 21-32 ANION GAP (test code = GAP) 10-20 GLUCOSE (test code = GLU) mg/dL 74-106 BLOOD UREA NITROGEN (test code = BUN) mg/dL 7-18 GLOMERULAR FILTRATION RATE (test code = GFR) mL/min >=6 0 CREATININE (test code = CREAT) mg/dL 0.55-1.02 BUN/CREATININE RATIO (test code = BUN/CREA) 10-2 0 CALCIUM (test code = CA) 9.0 mg/dL 8.5-10.1 [id number] 18:50:00* Test Item Value Reference Range Comments TROPONIN-I (test code = TROPI) ng/mL 0-0.045 CBC W/O [id number] 18:43:00* Test Item Value Reference Range Comments WHITE BLOOD CELL (test code = WBC) 7.6 K/mm3 4.5-12.5 RED BLOOD CELL (test code = RBC) 4.69 mill/mm3 3.7-5.2 HEMOGLOBIN (test code = HGB) 12.6 gram/dL 11.5-15.5 HEMATOCRIT (test code = HCT) 39.9 % 36.0-46.0 MEAN CELL VOLUME (test code = MCV) 85.1 fL 80-98 MEAN CELL HGB (test code = MCH) 26.9 picogram 27.0-33.0 MEAN CELL HGB CONCETRATION (test code = MCHC) 31.6 gram/dL 33 .0-36.0 RED CELL DISTRIBUTION WIDTH (test code = RDW) 13.9 % 11 .6-16.2 PLATELET COUNT (test code = PLT) 392 K/mm3 150-450 MEAN PLATELET VOLUME (test code = MPV) 9.5 fL 6.7-11.0 CBC W/O [id number] 18:41:00* Test Item Value Reference Range Comments WHITE BLOOD CELL (test code = WBC) K/mm3 4.5-12.5 RED BLOOD CELL (test code = RBC) mill/mm3 3.7-5.2 HEMOGLOBIN (test code = HGB) 12.6 gram/dL 11.5-15.5 HEMATOCRIT (test code = HCT) 39.9 % 36.0-46.0 MEAN CELL VOLUME (test code = MCV) fL 80-98 MEAN CELL HGB (test code = MCH) picogram 27.0-33.0 MEAN CELL HGB CONCETRATION (test code = MCHC) gram/dL 33 .0-36.0 RED CELL DISTRIBUTION WIDTH (test code = RDW) % 11 .6-16.2 PLATELET COUNT (test code = PLT) K/mm3 150-450 MEAN PLATELET VOLUME (test code = MPV) fL 6.7-11.0 - XR CHEST 1 [id number] 14:55:00 FAX: Koby Hadley MD [place]: B St: PRE Name: MEÑO RYDER [facility] : [birth year] Age/S: 48/F [address] [facility] Unit #: [id number] Loc: [place] [address] Phys: Koby Hadley MD Acct: [id number] Dis Date: Status: PRE ER PHONE #: [phone] Exam Date: 09/13/2019 1445 FAX #: [phone] Reason: CHEST PAIN EXAMS: CPT CODE: [id number] XR CHEST 1 V 33916 HISTORY: Chest pain. COMPARISON: February 16, 2018. Location: [facility]. No acute infiltrates, effusion or congestion is noted. Suboptimal inspiration. Dep endent changes. Mild cardiomegaly. IMPRESSION: No acute infiltrates, effusion or congestion. Electronically Sign ed by Miriam Norman on 09/13/2019 at 1455 Reported a nd signed by: Jamil Norman M.D. CC: Koby Hadley MD Technologist: JORGE LEE(R) Trnscrd Date/Time/By: 09/13/2019 (4017) : By: Brianna [email or web address] Orig Print D/T: S: 09/13/2019 (0204) PAGE 1 Signed Report POLYP 2019-07-27 16:51:00 RUN DATE: 07/27/19 [facility] PAGE 1 RUN TIME: 1651 Specimen Inqui ry RUN USER: INTERFACE PATIENT: MEÑO MATA ACCT #: [id number] LOC: [facility] U #: [id number] AGE/SX: 48/F ROOM: RE07/23/19[facility] DR: Saad Norris MD : 68 BED: DIS: [place] [facility] [place]: SPEC #: [id number] RECD: 07/23/19-1409 STATUS: MACY QUIROGA #: [id number] ROLAND: 07/23/19-[address] [facility] [address]: Saad Norris MD ENTERED: 07/23/19140 SP TYPE: POLYP OTHR DR: Angela Doreen jolly or Family Physician No Primary Care PhysicianORDERED: GROSS COPIES TO: No Primary or Family Phys Saad Shepherd MD [address] [address] [phone] No Primary Care Physician Use by ED only for patient without primary care physician ED USE ONLY-Pt.w/o primary MD PROCEDURES: GROSS (-1505) TISSUES: TRANSVERSE COLON - BX CLINICAL HISTORY CO LLECTION DATE: 07/23/19 BLOOD IN STOOL FINAL DIAGNOSIS Transver se colon polyp, biopsy: COLONIC MUCOSA WITH MILD NONSPECIFIC CHRONIC INFL AMMATION AND REACTIVE EPITHELIAL CHANGE NO DISCRETE HYPERPLASTI C OR ADENOMATOUS CHANGE PRESENT NO CRYPTITIS OR CRYPT DISTORTION NEGATIVE FOR MALIGNANCY MULTIPLE LEVELS EXAMINED RRB/sm D 8 4915 CONTINUED ON NEXT PAGE R UN DATE: 07/27/19 [place] [facility] PAGE 2 RUN TIME: 1651 Specimen Inquiry RUN USER: INTERFACE SPEC #: [id number] PATIENT: MEÑO MATA #[id number] (Continued) MACROSCOPIC The specim en is received in formalin, labeled with the patient's name, identified as "haroldo scott polyp bx", and consists of kent biopsy tissue measuring 0.3 cm, submi tted for histologic evaluation. GROSS PERFORMED AT [facility] [address] [facility] [place] [address] (p)[phone] MICROSCOPIC All of the stains, including a ny controls performed, stain appropriately. MICROSCOPIC PERFORMED AT [facility] [address] [place] [address] [phone] PERFORMING SITE Diagnosis performed at : [facility] [address] [facility] [place] [address] --- --------- Signed SIGNATURE ON FILE Jarrod Schofield MD 1651 EN D OF REPORT BASIC METABOLIC [id number] 07:26:00* Test Item Value Reference Range Comments SODIUM (test code = NA) 139 mmol/L 136-145 POTASSIUM (test code = K) 3.3 mmol/L 3.5-5.1 CHLORIDE (test code = CL) 103.0 mmol/L 98-107 CARBON DIOXIDE (test code = CO2) 28.0 mmol/L 21-32 ANION GAP (test code = GAP) 11.3 10-20 GLUCOSE (test code = GLU) 107 mg/dL 74-106 BLOOD UREA NITROGEN (test code = BUN) 16 mg/dL 7-18 GLOMERULAR FILTRATION RATE (test code = GFR) 40 mL/min >=6 0 Estimated GFR by using Modified MDRD formula.Chronic kidney disease is defined as either kidney damageor GFR <60 mL/min/1.73 m2 for >3 months. CREATININE (test code = CREAT) 1.40 mg/dL 0.55-1.02 * *Note change in reference range due to change in reagent. BUN/CREATININE RATIO (test code = BUN/CREA) 11.4 10-2 0 CALCIUM (test code = CA) 8.5 mg/dL 8.5-10.1 [id number] 07:11:00* Test Item Value Reference Range Comments GLUBED (test code = GLUBED) 89 mg/dL 74-106 Perf ormed by certified toll relief operator at [facility] CBC W/AUTO [id number] 07:03:00* Test Item Value Reference Range Comments WHITE BLOOD CELL (test code = WBC) 5.9 K/mm3 4.5-12.5 RED BLOOD CELL (test code = RBC) 4.35 mill/mm3 3.7-5.2 HEMOGLOBIN (test code = HGB) 12.0 gram/dL 11.5-15.5 HEMATOCRIT (test code = HCT) 37.9 % 36.0-46.0 MEAN CELL VOLUME (test code = MCV) 87.1 fL 80-98 MEAN CELL HGB (test code = MCH) 27.6 picogram 27.0-33.0 MEAN CELL HGB CONCETRATION (test code = MCHC) 31.7 gram/dL 33 .0-36.0 RED CELL DISTRIBUTION WIDTH (test code = RDW) 14.1 % 11 .6-16.2 RED CELL DISTRIBUTION WIDTH SD (test code = RDW-SD) 45.1 fL 37.0-51.0 PLATELET COUNT (test code = PLT) 320 K/mm3 150-450 MEAN PLATELET VOLUME (test code = MPV) 9.3 fL 6.7-11.0 NEUTROPHIL % (test code = NT%) 57.7 % 39.0-69.0 IMMATURE GRANULOCYTE % (test code = IG%) 0.5 % 0.0-5.0 LYMPHOCYTE % (test code = LY%) 25.5 % 25.0-55.0 MONOCYTE % (test code = MO%) 11.7 % 0.0-10.0 EOSINOPHIL % (test code = EO%) 3.4 % 0.0-5.0 BASOPHIL % (test code = BA%) 1.2 % 0.0-1.0 NUCLEATED RBC % (test code = NRBC%) 0.0 % 0-0 NEUTROPHIL # (test code = NT#) 3.40 K/mm3 1.8-7.7 IMMATURE GRANULOCYTE # (test code = IG#) 0.03 x10 3/uL 0-0.03 LYMPHOCYTE # (test code = LY#) 1.50 K/mm3 1.0-5.0 MONOCYTE # (test code = MO#) 0.69 K/mm3 0-0.8 EOSINOPHIL # (test code = EO#) 0.20 K/mm3 0.0-0.5 BASOPHIL # (test code = BA#) 0.07 K/mm3 0.0-0.2 NUCLEATED RBC # (test code = NRBC#) 0.00 K/mm3 0.0-0.1 MANUAL DIFF REQUIRED (test code = MDIFF) NO - XR ABDOMEN AP 1 [id number] 11:55:00 FAX: Corinne Venegas DO [place]: B St: REG FAX: ISAURO GLOVER NP Name: MEÑO MATA [facility] : 1970 Age/S: 48/F [address] Unit #: [id number] Loc: [place] [address] Phys: ISAURO GLOVER NP Acct: [id number] Dis Date: Status: REG ER PHONE #: [phone] Exam Date: 04/24/2019 1146 FAX #: [phone] Reason: constipation EXAMS: CPT CODE: [id number] XR ABDOMEN AP 1 V 16504 HISTORY: constipation TECHNIQUE: AP abdomen x-ray COMPARISON: None FINDINGS: Mild rectosigmoid fecal retention. Nonspecific nonobstructed bowel gas pattern. No intra-abdominal mass effect. Cholecystectomy clips. Pelvic phleboliths. Degenerative changes of the spine and hips. IMPRESSION: Mild rectosigmoid fecal retention. Nonobstructive bowel gas pattern. at 1151 Reported and signed by: Leida Riley D.O. CC: Corinne Venegas DO; ISAURO GLOVER NP Technologist: RT DANETTE(Adán) Trnscrd Date/Time/By: 04/24/2019 (1 155) : By: [email or web address] Orig Print D/T: S: 04/24/2019 (8222) PAGE 1 Signed Report BASIC METABOLIC [id number] 11:51:00* Test Item Value Reference Range Comments SODIUM (test code = NA) 137 mmol/L 136-145 POTASSIUM (test code = K) 4.4 mmol/L 3.5-5.1 CHLORIDE (test code = CL) 105.0 mmol/L 98-107 CARBON DIOXIDE (test code = CO2) 27.0 mmol/L 21-32 ANION GAP (test code = GAP) 9.4 10-20 GLUCOSE (test code = GLU) 191 mg/dL 74-106 BLOOD UREA NITROGEN (test code = BUN) 20 mg/dL 7-18 GLOMERULAR FILTRATION RATE (test code = GFR) 34 mL/min >=6 0 Estimated GFR by using Modified MDRD formula.Chronic kidney disease is defined as either kidney damageor GFR <60 mL/min/1.73 m2 for >3 months. CREATININE (test code = CREAT) 1.60 mg/dL 0.55-1.02 * *Note change in reference range due to change in reagent. BUN/CREATININE RATIO (test code = BUN/CREA) 12.2 10-2 0 CALCIUM (test code = CA) 8.8 mg/dL 8.5-10.1 HEPATIC FUNCTION [id number] 11:51:00* Test Item Value Reference Range Comments TOTAL PROTEIN (test code = PROT) 7.8 gram/dL 6.4-8.2 ALBUMIN (test code = ALB) 3.5 g/dL 3.4-5.0 GLOBULIN (test code = GLOB) 4.3 gram/dL 2.7-4.2 ALBUMIN/GLOBULIN RATIO (test code = A/G) 0.8 0.75-1. 50 BILIRUBIN TOTAL (test code = BILT) 0.40 mg/dL 0.0-1.0 BILIRUBIN DIRECT (test code = BILD) 0.14 mg/dL 0.0-0.20 SGOT/AST (test code = AST) 64 IUnit/L 15-37 SGPT/ALT (test code = ALT) 60 IUnit/L 12-78 ALKALINE PHOSPHATASE TOTAL (test code = ALKP) 53 IUnit/L 45 -117 Note change in reference range due to change in reagent. [id number] 11:51:00* Test Item Value Reference Range Comments LIPASE (test code = LIP) 34 U/L 73.0-393.0 HCG SERUM [id number] 11:51:00* Test Item Value Reference Range Comments HCG SERUM QUAL (test code = HCGQL) NEGATIVE NEGATIVE This HCGQL test is NOT applicable for MALE patients.Check with nurse about probable order error.If Tumor Marker Test needed, nurse should order test "HCGTU"(Test #550.95024) BASIC METABOLIC [id number] 11:44:00* Test Item Value Reference Range Comments SODIUM (test code = NA) 137 mmol/L 136-145 POTASSIUM (test code = K) 4.4 mmol/L 3.5-5.1 CHLORIDE (test code = CL) 105.0 mmol/L 98-107 CARBON DIOXIDE (test code = CO2) mmol/L 21-32 ANION GAP (test code = GAP) 10-20 GLUCOSE (test code = GLU) mg/dL 74-106 BLOOD UREA NITROGEN (test code = BUN) mg/dL 7-18 GLOMERULAR FILTRATION RATE (test code = GFR) mL/min >=6 0 CREATININE (test code = CREAT) mg/dL 0.55-1.02 BUN/CREATININE RATIO (test code = BUN/CREA) 10-2 0 CALCIUM (test code = CA) mg/dL 8.5-10.1 HEPATIC FUNCTION [id number] 11:44:00* Test Item Value Reference Range Comments TOTAL PROTEIN (test code = PROT) gram/dL 6.4-8.2 ALBUMIN (test code = ALB) g/dL 3.4-5.0 GLOBULIN (test code = GLOB) gram/dL 2.7-4.2 ALBUMIN/GLOBULIN RATIO (test code = A/G) 0.75-1. 50 BILIRUBIN TOTAL (test code = BILT) mg/dL 0.0-1.0 BILIRUBIN DIRECT (test code = BILD) mg/dL 0.0-0.20 SGOT/AST (test code = AST) IUnit/L 15-37 SGPT/ALT (test code = ALT) IUnit/L 12-78 ALKALINE PHOSPHATASE TOTAL (test code = ALKP) IUnit/L 45 -117 [id number] 11:44:00* Test Item Value Reference Range Comments LIPASE (test code = LIP) U/L 73.0-393.0 HCG SERUM [id number] 11:44:00* Test Item Value Reference Range Comments HCG SERUM QUAL (test code = HCGQL) NEGATIVE NEGATIVE This HCGQL test is NOT applicable for MALE patients.Check with nurse about probable order error.If Tumor Marker Test needed, nurse should order test "HCGTU"(Test #550.27907) BASIC METABOLIC [id number] 11:42:00* Test Item Value Reference Range Comments SODIUM (test code = NA) mmol/L 136-145 POTASSIUM (test code = K) mmol/L 3.5-5.1 CHLORIDE (test code = CL) mmol/L 98-107 CARBON DIOXIDE (test code = CO2) mmol/L 21-32 ANION GAP (test code = GAP) 10-20 GLUCOSE (test code = GLU) mg/dL 74-106 BLOOD UREA NITROGEN (test code = BUN) mg/dL 7-18 GLOMERULAR FILTRATION RATE (test code = GFR) mL/min >=6 0 CREATININE (test code = CREAT) mg/dL 0.55-1.02 BUN/CREATININE RATIO (test code = BUN/CREA) 10-2 0 CALCIUM (test code = CA) mg/dL 8.5-10.1 HEPATIC FUNCTION [id number] 11:42:00* Test Item Value Reference Range Comments TOTAL PROTEIN (test code = PROT) gram/dL 6.4-8.2 ALBUMIN (test code = ALB) g/dL 3.4-5.0 GLOBULIN (test code = GLOB) gram/dL 2.7-4.2 ALBUMIN/GLOBULIN RATIO (test code = A/G) 0.75-1. 50 BILIRUBIN TOTAL (test code = BILT) mg/dL 0.0-1.0 BILIRUBIN DIRECT (test code = BILD) mg/dL 0.0-0.20 SGOT/AST (test code = AST) IUnit/L 15-37 SGPT/ALT (test code = ALT) IUnit/L 12-78 ALKALINE PHOSPHATASE TOTAL (test code = ALKP) IUnit/L 45 -117 [id number] 11:42:00* Test Item Value Reference Range Comments LIPASE (test code = LIP) U/L 73.0-393.0 HCG SERUM [id number] 11:42:00* Test Item Value Reference Range Comments HCG SERUM QUAL (test code = HCGQL) NEGATIVE NEGATIVE This HCGQL test is NOT applicable for MALE patients.Check with nurse about probable order error.If Tumor Marker Test needed, nurse should order test "HCGTU"(Test #550.50588) URINALYSIS [id number] 11:33:00* Test Item Value Reference Range Comments UA COLOR (test code = COLU) Dark-Yellow YELLOW UA APPEARANCE (test code = APPU) CLEAR CLEAR UA GLUCOSE DIPSTICK (test code = DGLUU) NEGATIVE mg/dL NEGATIVE UA BILIRUBIN DIPSTICK (test code = BILU) NEGATIVE mg/dL NEGATIV E UA KETONE DIPSTICK (test code = KETU) NEGATIVE mg/dL NEGATIVE UA SPECIFIC GRAVITY (test code = SGU) 1.011 1.001-1.03 5 UA BLOOD DIPSTICK (test code = RAZA) Negative mg/dL NEGATIVE UA PH DIPSTICK (test code = CHERYL) 6.5 5.0-8.0 UA PROTEIN DIPSTICK (test code = PROU) 10 (Trace) mg/dL NEGATIVE UA UROBILINIOGEN DIPSTICK (test code = URO) Normal mg/dL NEGA TIVE UA NITRITE DIPSTICK (test code = SONYA) NEGATIVE NEGATIVE UA LEUKOCYTE ESTERASE W REFLEX (test code = LEUUR) NEGATIVE Breanna/ uL NEGATIVE UA WBC (test code = WBCU) 0-5 per HPF 0-5 UA RBC (test code = RBCU) 0-2 #/HPF 0-5 UA EPITHELIAL CELLS (test code = EPIU) FEW per HPF FEW UA BACTERIA (test code = BACU) FEW #/HPF NONE UA MUCUS (test code = MUCU) FEW #/LPF FEW Urine Source? Clean CatchCBC W/O [id number] 11:28:00* Test Item Value Reference Range Comments WHITE BLOOD CELL (test code = WBC) 6.9 K/mm3 4.5-12.5 RED BLOOD CELL (test code = RBC) 5.03 mill/mm3 3.7-5.2 HEMOGLOBIN (test code = HGB) 13.4 gram/dL 11.5-15.5 HEMATOCRIT (test code = HCT) 41.2 % 36.0-46.0 MEAN CELL VOLUME (test code = MCV) 81.9 fL 80-98 MEAN CELL HGB (test code = MCH) 26.6 picogram 27.0-33.0 MEAN CELL HGB CONCETRATION (test code = MCHC) 32.5 gram/dL 33 .0-36.0 RED CELL DISTRIBUTION WIDTH (test code = RDW) 15.5 % 11 .6-16.2 PLATELET COUNT (test code = PLT) 369 K/mm3 150-450 MEAN PLATELET VOLUME (test code = MPV) 9.5 fL 6.7-11.0 URINALYSIS [id number] 19:17:00* Test Item Value Reference Range Comments UA COLOR (test code = COLU) Light-Yellow YELLOW UA APPEARANCE (test code = APPU) CLEAR CLEAR UA GLUCOSE DIPSTICK (test code = DGLUU) 200 (2+) mg/dL NEGATIVE UA BILIRUBIN DIPSTICK (test code = BILU) NEGATIVE mg/dL NEGATIV E UA KETONE DIPSTICK (test code = KETU) NEGATIVE mg/dL NEGATIVE UA SPECIFIC GRAVITY (test code = SGU) 1.011 1.001-1.03 5 UA BLOOD DIPSTICK (test code = RAZA) 0.03 mg/dL (Trace) mg/dL NEG ATIVE UA PH DIPSTICK (test code = CHERYL) 5.5 5.0-8.0 UA PROTEIN DIPSTICK (test code = PROU) 20 (Trace) mg/dL NEGATIVE UA UROBILINIOGEN DIPSTICK (test code = URO) Normal mg/dL NEGA TIVE UA NITRITE DIPSTICK (test code = SONYA) NEGATIVE NEGATIVE UA LEUKOCYTE ESTERASE W REFLEX (test code = LEUUR) 250 Breanna/u L (2+) Breanna/uL NEGATIVE UA WBC (test code = WBCU) 21-50 per HPF 0-5 UA RBC (test code = RBCU) 11-20 #/HPF 0-5 UA WBC CLUMPS (test code = WBCUCL) 7-10 /HPF NONE UA EPITHELIAL CELLS (test code = EPIU) FEW per HPF FEW UA BACTERIA (test code = BACU) FEW #/HPF NONE UA MUCUS (test code = MUCU) FEW #/LPF FEW Urine Source? Clean Catch- CT ABD PELVIS W/O [id number] 18:44:00 Name: MEÑO MATA [facility] : 1970 Age/S: 48 / F [address] [facility] Unit #: [id number] Loc: [place] [address] Phys: Romina Carey NP Acct: [id number] Di s Date: Status: REG ER PHONE #: [phone] Exam Date: 03/13/2019 1825 FAX #: [phone] Reason: Lower abdominal pain EXAMS: CPT CODE: [id number] CT ABD PELVIS W/O CONT 45167 HISTORY: Lower abdominal pain TECHNIQUE: 5mm axial CT images were obtained through the abd omen and pelvis without contrast. Sagittal and coronal reformatted images were generated. Automated exposure control for dose reduction. COMPARISON: 04/13/18 FINDINGS: Lung bases are cl ear. Cardiomegaly. Coronary artery calcification. Cholecystectomy. Hepatomegaly with fatty infiltration. Nonenhanced pancreas, spleen, adren al glands are unremarkable. Exophytic 2 cm inferior left renal hyp erdense cyst. Nonenhanced right kidney is unremarkable. No urinary calculu s or hydronephrosis. Limited evaluation the GI tract without oral contrast. Stomach, small bowel, appendix, and colon are unremarkable. No free air or free fluid. No lymphadenopathy. Aortoiliac athero sclerotic vascular calcification without aneurysm. Urinary bladder is unremarkable. Enlarged lobulated uterus suggesting underlying fibroids. Nonenhanced ovaries are grossly unremarkable. No pelvic free fluid. Small fat-containing umbilical hernia. Degenerative changes of the spine, sacral iliac joints, and hips. IMPRESSION: No acute findings on noncontrast CT of the abdomen/pelvis. at 1844 Reported and signed by: Leida Riley D.O. PAGE 1 Signed Report (CONTINUED) Name: MEÑO MATA [facility] : 01/1971 Age/S: 48 / F [address] [facility] Unit #: [id number] Loc: [place] [address] Phys: Rachell Carey NP Acct: [id number] Dis Sharad e: Status: REG ER PHONE #: [phone] Exam Date: 03/13/2019 182 FAX #: [phone] Reason: Lower abdominal pain EXAMS: CPT CODE: [id number] CT ABD PELVIS W/O CONT [id number] <Continued> CC: Rachell Carey WATERMELON INSPECTOR; Vladimir Leon DO Technologist:Yolette Hinkle RT(R)(CT) CTDI: DLP: Trnscb Date/Time: 03/13/2019 (1843) [email or web address] Orig Print D/T: S: 03/13/2019 (184) PAGE 2 Signed Report BASIC METABOLIC [id number] 18:08:00* Test Item Value Reference Range Comments SODIUM (test code = NA) 140 mmol/L 136-145 POTASSIUM (test code = K) 3.4 mmol/L 3.5-5.1 CHLORIDE (test code = CL) 105.0 mmol/L 98-107 CARBON DIOXIDE (test code = CO2) 25.0 mmol/L 21-32 ANION GAP (test code = GAP) 13.4 10-20 GLUCOSE (test code = GLU) 247 mg/dL 74-106 BLOOD UREA NITROGEN (test code = BUN) 18 mg/dL 7-18 GLOMERULAR FILTRATION RATE (test code = GFR) 37 mL/min >=6 0 Estimated GFR by using Modified MDRD formula.Chronic kidney disease is defined as either kidney damageor GFR <60 mL/min/1.73 m2 for >3 months. CREATININE (test code = CREAT) 1.50 mg/dL 0.55-1.02 * *Note change in reference range due to change in reagent. BUN/CREATININE RATIO (test code = BUN/CREA) 12.0 10-2 0 CALCIUM (test code = CA) 8.8 mg/dL 8.5-10.1 HEPATIC FUNCTION [id number] 18:08:00* Test Item Value Reference Range Comments TOTAL PROTEIN (test code = PROT) 7.9 gram/dL 6.4-8.2 ALBUMIN (test code = ALB) 3.2 g/dL 3.4-5.0 GLOBULIN (test code = GLOB) 4.7 gram/dL 2.7-4.2 ALBUMIN/GLOBULIN RATIO (test code = A/G) 0.7 0.75-1. 50 BILIRUBIN TOTAL (test code = BILT) 0.40 mg/dL 0.0-1.0 BILIRUBIN DIRECT (test code = BILD) 0.11 mg/dL 0.0-0.20 SGOT/AST (test code = AST) 28 IUnit/L 15-37 SGPT/ALT (test code = ALT) 47 IUnit/L 12-78 ALKALINE PHOSPHATASE TOTAL (test code = ALKP) 67 IUnit/L 45 -117 Note change in reference range due to change in reagent. [id number] 18:08:00* Test Item Value Reference Range Comments LIPASE (test code = LIP) 45 U/L 73.0-393.0 HCG SERUM [id number] 18:08:00* Test Item Value Reference Range Comments HCG SERUM QUAL (test code = HCGQL) NEGATIVE NEGATIVE This HCGQL test is NOT applicable for MALE patients.Check with nurse about probable order error.If Tumor Marker Test needed, nurse should order test "HCGTU"(Test #[id number]) [id number] 18:08:00* Test Item Value Reference Range Comments TROPONIN-I (test code = TROPI) <0.015 ng/mL 0-0.045 BASIC METABOLIC [id number] 17:48:00* Test Item Value Reference Range Comments SODIUM (test code = NA) 140 mmol/L 136-145 POTASSIUM (test code = K) 3.4 mmol/L 3.5-5.1 CHLORIDE (test code = CL) 105.0 mmol/L 98-107 CARBON DIOXIDE (test code = CO2) 25.0 mmol/L 21-32 ANION GAP (test code = GAP) 13.4 10-20 GLUCOSE (test code = GLU) 247 mg/dL 74-106 BLOOD UREA NITROGEN (test code = BUN) 18 mg/dL 7-18 GLOMERULAR FILTRATION RATE (test code = GFR) 37 mL/min >=6 0 Estimated GFR by using Modified MDRD formula.Chronic kidney disease is defined as either kidney damageor GFR <60 mL/min/1.73 m2 for >3 months. CREATININE (test code = CREAT) 1.50 mg/dL 0.55-1.02 * *Note change in reference range due to change in reagent. BUN/CREATININE RATIO (test code = BUN/CREA) 12.0 10-2 0 CALCIUM (test code = CA) 8.8 mg/dL 8.5-10.1 HEPATIC FUNCTION [id number] 17:48:00* Test Item Value Reference Range Comments TOTAL PROTEIN (test code = PROT) 7.9 gram/dL 6.4-8.2 ALBUMIN (test code = ALB) 3.2 g/dL 3.4-5.0 GLOBULIN (test code = GLOB) 4.7 gram/dL 2.7-4.2 ALBUMIN/GLOBULIN RATIO (test code = A/G) 0.7 0.75-1. 50 BILIRUBIN TOTAL (test code = BILT) 0.40 mg/dL 0.0-1.0 BILIRUBIN DIRECT (test code = BILD) 0.11 mg/dL 0.0-0.20 SGOT/AST (test code = AST) 28 IUnit/L 15-37 SGPT/ALT (test code = ALT) 47 IUnit/L 12-78 ALKALINE PHOSPHATASE TOTAL (test code = ALKP) 67 IUnit/L 45 -117 Note change in reference range due to change in reagent. [id number] 17:48:00* Test Item Value Reference Range Comments LIPASE (test code = LIP) 45 U/L 73.0-393.0 HCG SERUM [id number] 17:48:00* Test Item Value Reference Range Comments HCG SERUM QUAL (test code = HCGQL) NEGATIVE [id number] 17:48:00* Test Item Value Reference Range Comments TROPONIN-I (test code = TROPI) <0.015 ng/mL 0-0.045 BASIC METABOLIC [id number] 17:37:00* Test Item Value Reference Range Comments SODIUM (test code = NA) 140 mmol/L 136-145 POTASSIUM (test code = K) 3.4 mmol/L 3.5-5.1 CHLORIDE (test code = CL) 105.0 mmol/L 98-107 CARBON DIOXIDE (test code = CO2) mmol/L 21-32 ANION GAP (test code = GAP) 10-20 GLUCOSE (test code = GLU) mg/dL 74-106 BLOOD UREA NITROGEN (test code = BUN) mg/dL 7-18 GLOMERULAR FILTRATION RATE (test code = GFR) mL/min >=6 0 CREATININE (test code = CREAT) mg/dL 0.55-1.02 BUN/CREATININE RATIO (test code = BUN/CREA) 10-2 0 CALCIUM (test code = CA) mg/dL 8.5-10.1 HEPATIC FUNCTION [id number] 17:37:00* Test Item Value Reference Range Comments TOTAL PROTEIN (test code = PROT) gram/dL 6.4-8.2 ALBUMIN (test code = ALB) g/dL 3.4-5.0 GLOBULIN (test code = GLOB) gram/dL 2.7-4.2 ALBUMIN/GLOBULIN RATIO (test code = A/G) 0.75-1. 50 BILIRUBIN TOTAL (test code = BILT) mg/dL 0.0-1.0 BILIRUBIN DIRECT (test code = BILD) mg/dL 0.0-0.20 SGOT/AST (test code = AST) IUnit/L 15-37 SGPT/ALT (test code = ALT) IUnit/L 12-78 ALKALINE PHOSPHATASE TOTAL (test code = ALKP) IUnit/L 45 -117 [id number] 17:37:00* Test Item Value Reference Range Comments LIPASE (test code = LIP) U/L 73.0-393.0 HCG SERUM [id number] 17:37:00* Test Item Value Reference Range Comments HCG SERUM QUAL (test code = HCGQL) NEGATIVE [id number] 17:37:00* Test Item Value Reference Range Comments TROPONIN-I (test code = TROPI) ng/mL 0-0.045 CBC W/O [id number] 16:59:00* Test Item Value Reference Range Comments WHITE BLOOD CELL (test code = WBC) 6.7 K/mm3 4.5-12.5 RED BLOOD CELL (test code = RBC) 4.61 mill/mm3 3.7-5.2 HEMOGLOBIN (test code = HGB) 12.2 gram/dL 11.5-15.5 HEMATOCRIT (test code = HCT) 38.6 % 36.0-46.0 MEAN CELL VOLUME (test code = MCV) 83.7 fL 80-98 MEAN CELL HGB (test code = MCH) 26.5 picogram 27.0-33.0 MEAN CELL HGB CONCETRATION (test code = MCHC) 31.6 gram/dL 33 .0-36.0 RED CELL DISTRIBUTION WIDTH (test code = RDW) 14.8 % 11 .6-16.2 PLATELET COUNT (test code = PLT) 361 K/mm3 150-450 MEAN PLATELET VOLUME (test code = MPV) 9.4 fL 6.7-11.0 CBC W/O [id number] 16:53:00* Test Item Value Reference Range Comments WHITE BLOOD CELL (test code = WBC) K/mm3 4.5-12.5 RED BLOOD CELL (test code = RBC) mill/mm3 3.7-5.2 HEMOGLOBIN (test code = HGB) 12.2 gram/dL 11.5-15.5 HEMATOCRIT (test code = HCT) 38.6 % 36.0-46.0 MEAN CELL VOLUME (test code = MCV) fL 80-98 MEAN CELL HGB (test code = MCH) picogram 27.0-33.0 MEAN CELL HGB CONCETRATION (test code = MCHC) gram/dL 33 .0-36.0 RED CELL DISTRIBUTION WIDTH (test code = RDW) % 11 .6-16.2 PLATELET COUNT (test code = PLT) K/mm3 150-450 MEAN PLATELET VOLUME (test code = MPV) fL 6.7-11.0 DRUGS OF ABUSE SCREEN [id number] 15:13:00* Test Item Value Reference Range Comments UA PH DIPSTICK (test code = CHERYL) 6.0 5.0-8.0 URN COCAINE (test code = COCAURN) NEGATIVE <300 ng/mL URN CANNABINOIDS (test code = CANNABURN) NEGATIVE <50 ng/ mL URN AMPHETAMINE (test code = AMPHETURN) NEGATIVE <1000 ng /mL URN BARBITURATE (test code = BARBITURN) NEGATIVE <200 ng/ mL URN BENZODIAZEPINE (test code = BENZOURN) NEGATIVE <200 n g/mL URN OPIATES (test code = OPIATURN) POSITIVE <300 ng/mL This test provides only a preliminary test result. A morespecific alternate chemical method must be used in order toobtain a confirmed analytical result. Gas chromatography/mass spectrometry (GC/MS) is thepreferred confirmatory method. Other chemical confirmationmethods are available. Clinical consideration and professional judgment should be applied to any drug of abusetest result, particularly when preliminary positive resultsare used.Unconfirmed screening results must not be used fornon-medical purposes (e.g., employment testing, legaltesting). URN PHENCYCLIDINE (PCP) (test code = PHENCURN) NEGATIVE < 25 ng/mL URN METHADONE (test code = METHAURN) NEGATIVE <300 ng/mL DRUGS OF ABUSE SCREEN [id number] 14:57:00* Test Item Value Reference Range Comments UA PH DIPSTICK (test code = CHERYL) 5.0-8.0 URN COCAINE (test code = COCAURN) NEGATIVE <300 ng/mL URN CANNABINOIDS (test code = CANNABURN) NEGATIVE <50 ng/ mL URN AMPHETAMINE (test code = AMPHETURN) NEGATIVE <1000 ng /mL URN BARBITURATE (test code = BARBITURN) NEGATIVE <200 ng/ mL URN BENZODIAZEPINE (test code = BENZOURN) NEGATIVE <200 n g/mL URN OPIATES (test code = OPIATURN) POSITIVE <300 ng/mL This test provides only a preliminary test result. A morespecific alternate chemical method must be used in order toobtain a confirmed analytical result. Gas chromatography/mass spectrometry (GC/MS) is thepreferred confirmatory method. Other chemical confirmationmethods are available. Clinical consideration and professional judgment should be applied to any drug of abusetest result, particularly when preliminary positive resultsare used.Unconfirmed screening results must not be used fornon-medical purposes (e.g., employment testing, legaltesting). URN PHENCYCLIDINE (PCP) (test code = PHENCURN) NEGATIVE < 25 ng/mL URN METHADONE (test code = METHAURN) NEGATIVE <300 ng/mL URINALYSIS [id number] 14:35:00* Test Item Value Reference Range Comments UA COLOR (test code = COLU) LIGHT YELLOW YELLOW UA APPEARANCE (test code = APPU) CLEAR CLEAR UA GLUCOSE DIPSTICK (test code = DGLUU) NEGATIVE mg/dL NEGATIVE UA BILIRUBIN DIPSTICK (test code = BILU) NEGATIVE mg/dL NEGATIV E UA KETONE DIPSTICK (test code = KETU) Negative mg/dL NEGATIVE UA SPECIFIC GRAVITY (test code = SGU) 1.009 1.001-1.03 5 UA BLOOD DIPSTICK (test code = RAZA) Negative NEGATIVE UA PH DIPSTICK (test code = CHERYL) 6.0 5.0-8.0 UA PROTEIN DIPSTICK (test code = PROU) Negative mg/dL NEGATIVE UA UROBILINIOGEN DIPSTICK (test code = URO) NEGATIVE mg/dL NEGA TIVE UA NITRITE DIPSTICK (test code = SONYA) NEGATIVE NEGATIVE UA LEUKOCYTE ESTERASE W REFLEX (test code = LEUUR) NEGATIVE NEGATIVE UA WBC (test code = WBCU) 0-5 #/HPF 0-5 UA RBC (test code = RBCU) 0-2 #/HPF 0-5 UA EPITHELIAL CELLS (test code = EPIU) FEW per HPF FEW Urine Source? Clean CatchUR HCG [id number] 14:35:00* Test Item Value Reference Range Comments UR HCG QUAL (test code = HCGQLU) NEGATIVE This HCGQL test is NOT applicable for MALE patients.Check with nurse about probable order error.If Tumor Marker Test needed, nurse should order test "HCGTU"(Test #550.05314) Urine Source? Clean CatchURINALYSIS [id number] 14:32:00* Test Item Value Reference Range Comments UA COLOR (test code = COLU) YELLOW UA APPEARANCE (test code = APPU) CLEAR UA BILIRUBIN DIPSTICK (test code = BILU) NEGATIV E UA SPECIFIC GRAVITY (test code = SGU) 1.001-1.03 5 UA PH DIPSTICK (test code = CHERYL) 5.0-8.0 UA UROBILINIOGEN DIPSTICK (test code = URO) mg/dL 0.0- 0.2 UA NITRITE DIPSTICK (test code = SONYA) NEGATIVE UA LEUKOCYTE ESTERASE W REFLEX (test code = LEUUR) NEGATIVE UA WBC (test code = WBCU) per HPF 0-5 Urine Source? Clean CatchUR HCG [id number] 14:32:00* Test Item Value Reference Range Comments UR HCG QUAL (test code = HCGQLU) NEGATIVE This HCGQL test is NOT applicable for MALE patients.Check with nurse about probable order error.If Tumor Marker Test needed, nurse should order test "HCGTU"(Test #550.56640) Urine Source? Clean CatchURINALYSIS [id number] 14:32:00* Test Item Value Reference Range Comments UA COLOR (test code = COLU) LIGHT YELLOW YELLOW UA APPEARANCE (test code = APPU) CLEAR CLEAR UA GLUCOSE DIPSTICK (test code = DGLUU) NEGATIVE mg/dL NEGATIVE UA BILIRUBIN DIPSTICK (test code = BILU) NEGATIVE mg/dL NEGATIV E UA KETONE DIPSTICK (test code = KETU) Negative mg/dL NEGATIVE UA SPECIFIC GRAVITY (test code = SGU) 1.009 1.001-1.03 5 UA BLOOD DIPSTICK (test code = RAZA) Negative NEGATIVE UA PH DIPSTICK (test code = CHERYL) 6.0 5.0-8.0 UA PROTEIN DIPSTICK (test code = PROU) Negative mg/dL NEGATIVE UA UROBILINIOGEN DIPSTICK (test code = URO) NEGATIVE mg/dL NEGA TIVE UA NITRITE DIPSTICK (test code = SONYA) NEGATIVE NEGATIVE UA LEUKOCYTE ESTERASE W REFLEX (test code = LEUUR) NEGATIVE NEGATIVE UA WBC (test code = WBCU) per HPF 0-5 Urine Source? Clean CatchUR HCG [id number] 14:32:00* Test Item Value Reference Range Comments UR HCG QUAL (test code = HCGQLU) NEGATIVE This HCGQL test is NOT applicable for MALE patients.Check with nurse about probable order error.If Tumor Marker Test needed, nurse should order test "HCGTU"(Test #550.83890) Urine Source? Clean CatchCT ABDOMEN/PELVIS WO [place] [address] Patient Name: MEÑO MATA MR #: [id number] : 1970 Age/Sex: 46/F Req #: [id number] Adm Physician: Ordered by: YINKA BOYER MD Report #: [id number] Location: ER Room/Bed: Procedure: [id number] CT/CT ABDOMEN/PELVIS WO Exam Date: 07/20/17 Exam Time: 2325 REPORT STA TUS: Signed EXAM: CT Abdomen and Pelvis WITHOUT contrast INDICATION: Abdo rubi pain, vomiting, diarrhea COMPARISON: None. TECHNIQUE: Abdomen and pelv is were scanned utilizing a multidetector helical scanner from the lung base t o the pubic symphysis without administration of IV contrast. Absence of intrav enous contrast decreases sensitivity for detection of focal lesions and vascul ar pathology. Coronal and sagittal reformations were obtained. Routine protoco l was performed. IV CONTRAST: None. ORAL CONTRAST: Gastrografin RADIATION DOSE: Total DLP: 1224.48 mGy*cm Estimated effective dose: (DLP x 0.015 x size factor) mSv COMP LICATIONS: None FINDINGS: LINES and TUBES: None. LOWER THORAX: U nremarkable HEPATOBILIARY: No focal hepatic lesions. No biliary ductal dilation. GALLBLADDER: There are cholecystectomy clips. SPLEEN: No splenomegaly. PANCREAS: No focal masses or ductal dilatation. A DRENALS: No adrenal nodules KIDNEYS/URETERS: No hydronephrosis. No cys tic or solid mass lesions. No stones. GI TRACT: No abnormal distention, wall thickening, or evidence of bowel obstruction. There are diverticula with in the colon without evidence of diverticulitis. Appendix is normal. PEL CHAR ORGANS/BLADDER: Fibroid uterus is visualized, slightly enlarged. The ovari es are present and appear normal. The bladder is compressed LYMPH NODES: No lymphadenopathy. VESSELS: There is mild atherosclerotic disease in the aor ta and major arterial branches. PERITONEUM / RETROPERITONEUM: No free air or fluid. BONES: There are degenerative changes in the lumbar spine. SOFT TISSUES: Unremarkable. IMPRESSION: 1. No evidence of a cute intra-abdominal or pelvic abnormality. 2. Enlarged multi fibroid uterus Signed by: Dr. Jeffery Martinez M.D. on 07/21/2017 12:50 AM Dictated By: Chris APONTE MD COPY TO: YINKA BOYER MD
--- OUTSIDE RECORDS SUMMARY | 2019-11-22 20:09 | XMS REPORT ---
Author Author Admin, [place] Organization Unknown Address Unknown Phone Unavailable PROBLEMS Condition Status Date Provider Notes Cough active [facility] DIABETES MELLITUS, TYPE II active [facility] Congestive heart failure active [facility] Hx of asthma active [facility] COPD active [facility] ENCOUNTERS Date Type Provider Location Encounter Diagn osis - Ambulatory Encounter [facility] Zapien Sa kellieadriana Zapien [facility] UNK - Ambulatory Encounter Shawne[facility]riana Velasquez n [facility] Kim Chao [facility] COPDHx of asth maCongestive heart failureDIABETES MELLITUS, TYPE IICough - Ambulatory Encounter Josefina Tinoco [facility] Contact Center UNK VITAL SIGNS Date [...]
--- OUTSIDE RECORDS SUMMARY | 2019-11-22 20:09 | XMS REPORT | Clinical Summary ---
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 Active blood glucose Use as 1 Each 0 meterIndications: Type 2 directed 8 diabetes mellitus with complication, with long-term current use of insulin Active fluticasone-salmeterol Inhale 1 Puff 3 Each 1 0 (ADVAIR) 250-50 mcg/dose by mouth 2 9 diskus times daily. inhalerIndications: Moderate persistent asthmatic bronchitis with acute exacerbation Active ipratropium (ATROVENT) Inhale 2.5 mL 250 mL 3 0 0.02 % nebulizer by mouth 4 9 solutionIndications: times daily. Asthmatic bronchitis, severe persistent, uncomplicated, RAD (reactive airway disease), severe persistent, uncomplicated Active mometasone (NASONEX) 50 Use 2 Sprays 17 g 5 0 mcg/actuation nasal in each 9 sprayIndications: nostril Seasonal allergic daily. rhinitis, unspecified trigger Active polyethylene glycol Add lukewarm 4000 mL 0 02/15 (GOLYTELY) 236-22.74-6.74 drinking 9 -5.86 gram oral water to the solutionIndications: fill charis (4 Family history of colon liters) and cancer in mother shake. Drink as directed by your doctor.. Active clotrimazole (LOTRIMIN) 1 Apply to 30 g 6 % topical affected area 9 creamIndications: 2 times Onychomycosis daily. Active insulin REGULAR 100 Inject 40 120 mL 3 unit/mL Units under 9 injectionIndications: the skin 3 Type II diabetes mellitus times daily (before meals) Active BD INSULIN SYRINGE Inject 1 200 Each 6 01 ULTRA-FINE 1 mL 31 gauge Syringe under 9 x 11/26 SyrgIndications: the skin 3 Type 2 diabetes mellitus times daily. with complication, with long-term current use of insulin Active insulin detemir U-100 Inject 40 129 mL 3 05/14 (LEVEMIR FLEXTOUCH U-100 units in the 9 INSULN) 100 unit/mL (3 morning and mL) PenIndications: Type 100 units in 2 diabetes mellitus with the evening, other specified all before complication meals. Active gabapentin (NEURONTIN) Take 1 tablet 90 tablet 1 0 600 mg tabletIndications: by mouth at 0 Type 2 diabetes mellitus bedtime with hyperglycemia, with nightly. long-term current use of insulin Active ergocalciferol (VITAMIN Take 1 12 capsule 1 D2) 1,250 mcg (50,000 capsule by 0 unit) capsuleIndications: mouth weekly. Vitamin D deficiency Active pen needle, diabetic 31 Inject under 200 Each 0 0 gauge x 09/26" the skin 2 0 needlesIndications: Type times daily. 2 diabetes mellitus with complication, with long-term current use of insulin Active cetirizine (ZYRTEC) 10 mg Take 1 tablet 90 tablet 3 tabletIndications: by mouth 0 Seasonal allergic daily. rhinitis, unspecified trigger Active albuterol (PROVENTIL) 2.5 Inhale 3 mL 300 mL 3 mg /3 mL (0.083 %) by mouth 0 nebulizer every 4 hours solutionIndications: as needed for Asthmatic bronchitis, Wheezing or severe persistent, Shortness of uncomplicated Breath. 09/23/2020 Active Cyclobenzaprine Take 1 tablet 30 tablet 0 09/24/19 2 (FLEXERIL) 5 mg by mouth 3 0 tabletIndications: Acute times daily midline low back pain as needed for without sciatica Muscle Spasms. Active furosemide (LASIX) 40 mg Take 1 tablet 30 tablet 3 tabletIndications: by mouth 0 Localized edema daily. Active montelukast (SINGULAIR) Take 1 tablet 90 tablet 3 10 mg tabletIndications: by mouth at 0 Moderate persistent bedtime asthma without nightly. complication Active cloNIDine HCL (CATAPRES) Take 1 tablet 90 tablet 3 0.1 mg tabletIndications: by mouth 3 0 Essential hypertension times daily. Active dicyclomine (BENTYL) 10 Take 1 30 capsule 1 mg capsuleIndications: capsule by 0 Irritable bowel syndrome mouth 4 times with diarrhea daily (before meals and nightly). Active hydrOXYzine (ATARAX) 25 Take 2 30 tablet 1 mg tabletIndications: tablets by 0 Insomnia, unspecified mouth nightly type at bedtime as needed for insomnia. Active acetaminophen-codeine Take 1 tablet 20 tablet 0 (TYLENOL/CODEINE #3) by mouth 0 300-30 mg per every 4 hours tabletIndications: as needed for Chronic bilateral low Pain Refilled back pain with bilateral for pcp. sciatica Active linaGLIPtin (TRADJENTA) 5 Take 1 tablet 90 tablet 3 mg tabletIndications: by mouth 0 Type 2 diabetes mellitus daily. with hyperglycemia, with long-term current use of insulin Active levothyroxine (SYNTHROID) Take 1 tablet 90 tablet 3 25 mcg tabletIndications: by mouth 0 Hypothyroidism daily. Active albuterol 90 Inhale 2 20.1 g 3 mcg/actuation Puffs by 0 inhalerIndications: mouth 4 times Moderate persistent daily as asthmatic bronchitis with needed for acute exacerbation Wheezing. Active atorvastatin (LIPITOR) 20 Take 1 tablet 90 tablet 3 mg tabletIndications: by mouth at 0 Hyperlipidemia, bedtime unspecified nightly. hyperlipidemia type Active omeprazole (PRILOSEC) 20 Take 1 180 capsule 3 0 mg delayed release capsule by 0 capsuleIndications: mouth 2 times Gastroesophageal reflux daily. disease with esophagitis Active ketoconazole (NIZORAL) 2 WASH SCALP 3 240 mL 6 % shampooIndications: TIMES WEEKLY 0 Tinea capitis FOR SEBORRHEA. Active lisinopriL (PRINIVIL) 20 Take 1 tablet 90 tablet 1 mg tabletIndications: by mouth 0 Essential hypertension daily. Active NIFEdipine (PROCARDIA XL) Take 1 tablet 30 tablet 2 90 mg extended release by mouth 0 tabletIndications: daily. Essential hypertension Active lancets 28 Use 3 times 100 Each 2 gaugeIndications: Type 2 daily 0 diabetes mellitus with complication, with long-term current use of insulin Active mupirocin calcium Apply to 15 g 0 11/08/19 2 (BACTROBAN) 2 % topical affected area 0 creamIndications: Abscess 3 times of female genitalia daily. Active hydrocortisone Insert 1 12 1 (ANUSOL-HC) 25 mg rectal Suppository Suppository 0 suppositoryIndications: rectally 2 Hemorrhoids, unspecified times daily hemorrhoid type as needed for hemorrhoids. Active acyclovir (ZOVIRAX) 800 Take 1 tablet 42 tablet 0 mg tabletIndications: by mouth 3 0 Skin infection times daily. Active blood glucose test Use 3 times 100 Each 3 02 stripsIndications: Type 2 daily to test 0 diabetes mellitus with blood sugar.. complication, with long-term current use of insulin Active potassium chloride Take 1 tablet 60 tablet 3 11/07 (KLOR-CON M20) 20 mEq by mouth 2 0 extended release times daily. tabletIndications: Hypokalemia Active diclofenac (VOLTAREN) 1 % Apply 2 g to 100 g 1 gelIndications: Acute affected area 0 midline low back pain 4 times daily without sciatica Lower back. 08/26/2019 Discontinued (Therapy comple maxine) Melatonin 5 mg Take 1 tablet 30 tablet 3 TabIndications: by mouth 8 Psychophysiological nightly at insomnia bedtime as needed for Other (insomnia). 02/09/2019 Discontinued (Reorder) fluticasone (FLONASE) 50 Use 2 Sprays 16 g 5 mcg/actuation nasal in each 8 sprayIndications: nostril Seasonal allergic daily. rhinitis, unspecified trigger 04/14/2019 Discontinued (Reorder) ketoconazole (NIZORAL) 2 WASH SCALP 3 240 mL 6 % shampooIndications: TIMES WEEKLY 8 Tinea capitis FOR SEBORRHEA. 12/14/2018 Discontinued (Therapy comple maxine) medroxyPROGESTERone Take 1 tablet 10 tablet 0 06/14 (PROVERA) 10 mg by mouth 8 tabletIndications: daily. Menorrhagia with regular cycle 05/18/2019 Discontinued insulin detemir U-100 Inject 40 129 mL 3 06/15 (LEVEMIR FLEXTOUCH U-100 units in the 8 INSULN) 100 unit/mL (3 morning and mL) PenIndications: Type 100 units in 2 diabetes mellitus with the evening, other specified all before complication meals. 02/09/2019 Discontinued (Reorder) gabapentin (NEURONTIN) Take 1 tablet 90 tablet 1 0 600 mg tabletIndications: by mouth at 9 Type 2 diabetes mellitus bedtime with hyperglycemia, with nightly. long-term current use of insulin 01/11/2019 Discontinued (Reorder) lancets 28 Use 3 times 100 Each 3 gaugeIndications: Type 2 daily 9 diabetes mellitus with complication, with long-term current use of insulin 03/15/2019 Discontinued (Reorder) INSULIN SYRINGE 1mL Use to inject 200 Syringe 2 08/15 30GX5/16" (MONOJECT medication 3 9 ULTRACOMFORT INSULIN SYR times daily. 1ML 30GX5/16") Use a new syringe-needleIndications syringe each : Type 2 diabetes time. mellitus with complication, with long-term current use of insulin 09/11/2019 Discontinued (Reorder) pen needle, diabetic 31 Inject under 200 Each 3 0 gauge x 3/16" the skin 2 9 needlesIndications: Type times daily. 2 diabetes mellitus with complication, with long-term current use of insulin 09/11/2019 Discontinued (Reorder) cetirizine (ZYRTEC) 10 mg Take 1 tablet 90 tablet 3 tabletIndications: by mouth 9 Seasonal allergic daily. rhinitis, unspecified trigger 10/14/2019 Discontinued (Reorder) montelukast (SINGULAIR) Take 1 tablet 90 tablet 3 10 mg tabletIndications: by mouth at 9 Moderate persistent bedtime asthma without nightly. complication 09/18/2019 Discontinued (Reorder) albuterol (PROVENTIL) 2.5 Inhale 3 mL 300 mL 3 mg /3 mL (0.083 %) by mouth 9 nebulizer every 4 hours solutionIndications: as needed for Asthmatic bronchitis, Wheezing or severe persistent, Shortness of uncomplicated Breath. 11/07/2019 Discontinued (Reorder) albuterol 90 Inhale 2 20.1 g 3 mcg/actuation Puffs by 9 inhalerIndications: mouth 4 times Moderate persistent daily as asthmatic bronchitis with needed for acute exacerbation Wheezing. 02/09/2019 Discontinued (Reorder) cloNIDine HCl (CATAPRES) Take 1 tablet 90 tablet 3 0.1 mg tabletIndications: by mouth 3 9 Essential hypertension times daily. 04/14/2019 Discontinued (Reorder) lisinopril (PRINIVIL) 20 Take 1 tablet 90 tablet 1 mg tabletIndications: by mouth 9 Essential hypertension daily. 04/14/2019 Discontinued (Reorder) fenofibrate Take 1 tablet 90 tablet 1 nanocrystallized (TRICOR) by mouth 9 145 mg tabletIndications: daily. Hyperlipidemia, unspecified hyperlipidemia type 02/09/2019 Discontinued (Reorder) furosemide (LASIX) 40 mg Take 1 tablet 30 tablet 3 tabletIndications: by mouth 9 Localized edema daily. 12/05/2018 Discontinued (Reorder) dicyclomine (BENTYL) 10 Take 1 30 capsule 1 mg capsuleIndications: capsule by 9 Irritable bowel syndrome mouth 4 times with diarrhea daily (before meals and nightly). 10/21/2019 Discontinued linaGLIPtin (TRADJENTA) 5 Take 1 tablet 90 tablet 3 mg tabletIndications: by mouth 9 Type 2 diabetes mellitus daily. with hyperglycemia, with long-term current use of insulin 03/15/2019 Discontinued (Reorder) potassium chloride Take 1 tablet 60 tablet 3 10/20 (KLOR-CON M20) 20 mEq by mouth 2 9 extended release times daily. tabletIndications: Hypokalemia 11/07/2019 Discontinued (Reorder) atorvastatin (LIPITOR) 20 Take 1 tablet 90 tablet 3 mg tabletIndications: by mouth at 9 Hyperlipidemia, bedtime unspecified nightly. hyperlipidemia type 10/21/2019 Discontinued levothyroxine (SYNTHROID) Take 1 tablet 90 tablet 3 25 mcg tabletIndications: by mouth 9 Hypothyroidism daily. 11/07/2019 Discontinued (Reorder) omeprazole (PRILOSEC) 20 Take 1 180 capsule 3 0 mg delayed release capsule by 9 capsuleIndications: mouth 2 times Gastroesophageal reflux daily. disease with esophagitis 12/14/2018 Discontinued (Reorder) acetaminophen-codeine Take 1 tablet 20 tablet 0 (TYLENOL/CODEINE #3) by mouth 9 300-30 mg per every 4 hours tabletIndications: as needed for Chronic bilateral low Pain. back pain with bilateral sciatica 05/13/2019 Discontinued (Reorder) NIFEdipine (PROCARDIA XL) Take 1 tablet 90 tablet 1 90 mg extended release by mouth 9 tabletIndications: daily. Essential hypertension 03/15/2019 Discontinued (Reorder) blood glucose test Use 3 times 100 Each 3 01 stripsIndications: Type 2 daily to test 9 diabetes mellitus with blood sugar.. complication, with long-term current use of insulin 02/09/2019 Discontinued (Reorder) insulin REGULAR 100 Inject 40 90 mL 0 unit/mL Units under 9 injectionIndications: the skin 3 Type II diabetes mellitus times daily (before meals) 08/26/2019 Discontinued (Therapy comple maxine) busPIRone (BUSPAR) 5 mg Take 1 tablet 90 tablet 2 tabletIndications: by mouth 3 9 Generalized anxiety times daily. disorder 02/15/2019 Discontinued (Alternate ther apy) traZODone (DESYREL) 50 mg Take 2 60 tablet 2 tabletIndications: tablets by 9 Insomnia, unspecified mouth nightly type at bedtime as needed for Sleep. 01/11/2019 Discontinued (Reorder) acyclovir (ZOVIRAX) 800 Take 1 tablet 42 tablet 0 mg tabletIndications: by mouth 3 9 Skin infection times daily. 04/05/2019 Discontinued (Reorder) mupirocin (BACTROBAN) 2 % Apply to 22 g 0 ointmentIndications: affected area 9 Sebaceous cyst 3 times daily for 7 days. 02/09/2019 Discontinued (Reorder) dicyclomine (BENTYL) 10 Take 1 30 capsule 1 mg capsuleIndications: capsule by 9 Irritable bowel syndrome mouth 4 times with diarrhea daily (before meals and nightly). 01/11/2019 Discontinued (Reorder) acetaminophen-codeine Take 1 tablet 20 tablet 0 (TYLENOL/CODEINE #3) by mouth 9 300-30 mg per every 4 hours tabletIndications: as needed for Chronic bilateral low Pain. back pain with bilateral sciatica 06/12/2019 tropicamide (MYDRIACYL) Instill 1 15 mL 0 0.5 % ophthalmic Drop in each 9 solutionIndications: Type eye once as 2 diabetes mellitus with needed for up complication, with to 1 dose long-term current use of (for poor insulin retina scan image). 12/24/2018 cephALEXin (KEFLEX) 500 Take 1 40 capsule 0 mg capsuleIndications: capsule by 9 Recurrent boils mouth 4 times daily for 10 days. 02/09/2019 Discontinued (Reorder) acyclovir (ZOVIRAX) 800 Take 1 tablet 42 tablet 0 mg tabletIndications: by mouth 3 9 Skin infection times daily. 04/14/2019 Discontinued (Reorder) acetaminophen-codeine Take 1 tablet 20 tablet 0 (TYLENOL/CODEINE #3) by mouth 9 300-30 mg per every 4 hours tabletIndications: as needed for Chronic bilateral low Pain Refilled back pain with bilateral for pcp. sciatica 05/13/2019 Discontinued (Reorder) lancets 28 Use 3 times 100 Each 3 gaugeIndications: Type 2 daily 9 diabetes mellitus with complication, with long-term current use of insulin 06/14/2019 Discontinued (Reorder) cloNIDine HCl (CATAPRES) Take 1 tablet 90 tablet 3 0.1 mg tabletIndications: by mouth 3 9 Essential hypertension times daily. 06/14/2019 Discontinued (Reorder) furosemide (LASIX) 40 mg Take 1 tablet 30 tablet 3 tabletIndications: by mouth 9 Localized edema daily. 04/22/2019 Discontinued insulin REGULAR 100 Inject 40 90 mL 0 unit/mL Units under 9 injectionIndications: the skin 3 Type II diabetes mellitus times daily (before meals) 04/14/2019 Discontinued (Reorder) dicyclomine (BENTYL) 10 Take 1 30 capsule 1 mg capsuleIndications: capsule by 9 Irritable bowel syndrome mouth 4 times with diarrhea daily (before meals and nightly). 02/11/2019 Discontinued (Alternate ther apy) fluticasone propionate Use 2 Sprays 16 g 5 (FLONASE) 50 in each 9 mcg/actuation nasal nostril sprayIndications: daily. Seasonal allergic rhinitis, unspecified trigger 04/14/2019 Discontinued (Reorder) acyclovir (ZOVIRAX) 800 Take 1 tablet 42 tablet 0 mg tabletIndications: by mouth 3 9 Skin infection times daily. 08/13/2019 Discontinued (Reorder) gabapentin (NEURONTIN) Take 1 tablet 90 tablet 1 0 600 mg tabletIndications: by mouth at 9 Type 2 diabetes mellitus bedtime with hyperglycemia, with nightly. long-term current use of insulin 04/05/2019 Discontinued (Reorder) hydrOXYzine (ATARAX) 50 Take 1 tablet 30 tablet 2 mg tabletIndications: by mouth 9 Insomnia, unspecified nightly at type bedtime as needed (insomnia). 08/13/2019 Discontinued (Reorder) ergocalciferol (VITAMIN Take 1 12 capsule 1 D2) 1,250 mcg (50,000 capsule by 9 unit) capsuleIndications: mouth weekly. Vitamin D deficiency 05/18/2019 Discontinued INSULIN SYRINGE 1mL Use to inject 200 Syringe 2 30GX5/16" (MONOJECT medication 3 9 ULTRACOMFORT INSULIN SYR times daily. 1ML 30GX5/16") Use a new syringe-needleIndications syringe each : Type 2 diabetes time. mellitus with complication, with long-term current use of insulin 07/15/2019 Discontinued (Reorder) blood glucose test Use 3 times 100 Each 3 03/18/ 01 stripsIndications: Type 2 daily to test 9 diabetes mellitus with blood sugar.. complication, with long-term current use of insulin 07/15/2019 Discontinued (Reorder) potassium chloride Take 1 tablet 60 tablet 3 03/16 (KLOR-CON M20) 20 mEq by mouth 2 9 extended release times daily. tabletIndications: Hypokalemia 04/15/2019 cephALEXin (KEFLEX) 500 Take 1 30 capsule 0 mg capsuleIndications: capsule by 9 Dysuria, Boil, breast mouth 3 times daily for 10 days. 05/25/2019 Discontinued (Alternate ther apy) hydrOXYzine (ATARAX) 25 Take 2 120 tablet 1 mg tabletIndications: tablets by 9 Insomnia, unspecified mouth nightly type at bedtime as needed (insomnia). 05/12/2019 mupirocin (BACTROBAN) 2 % Apply to 22 g 0 ointmentIndications: affected area 9 Sebaceous cyst 3 times daily for 7 days. 06/14/2019 Discontinued (Reorder) lisinopril (PRINIVIL) 20 Take 1 tablet 90 tablet 1 mg tabletIndications: by mouth 9 Essential hypertension daily. 06/14/2019 Discontinued (Reorder) fenofibrate Take 1 tablet 90 tablet 1 nanocrystallized (TRICOR) by mouth 9 145 mg tabletIndications: daily. Hyperlipidemia, unspecified hyperlipidemia type 05/13/2019 Discontinued (Reorder) acyclovir (ZOVIRAX) 800 Take 1 tablet 42 tablet 0 mg tabletIndications: by mouth 3 9 Skin infection times daily. 06/14/2019 Discontinued (Reorder) dicyclomine (BENTYL) 10 Take 1 30 capsule 1 mg capsuleIndications: capsule by 9 Irritable bowel syndrome mouth 4 times with diarrhea daily (before meals and nightly). 11/07/2019 Discontinued (Reorder) ketoconazole (NIZORAL) 2 WASH SCALP 3 240 mL 6 % shampooIndications: TIMES WEEKLY 9 Tinea capitis FOR SEBORRHEA. 05/13/2019 Discontinued (Reorder) acetaminophen-codeine Take 1 tablet 20 tablet 0 (TYLENOL/CODEINE #3) by mouth 9 300-30 mg per every 4 hours tabletIndications: as needed for Chronic bilateral low Pain Refilled back pain with bilateral for pcp. sciatica 05/25/2019 Discontinued (Alternate ther apy) nitrofurantoin Take 1 14 capsule 0 mono/m-crystals capsule by 9 (MACROBID) 100 mg mouth 2 times capsuleIndications: daily. Dysuria 08/16/2019 Discontinued NIFEdipine (PROCARDIA XL) Take 1 tablet 90 tablet 0 90 mg extended release by mouth 9 tabletIndications: daily. Essential hypertension 06/14/2019 Discontinued (Reorder) acyclovir (ZOVIRAX) 800 Take 1 tablet 42 tablet 0 mg tabletIndications: by mouth 3 9 Skin infection times daily. 06/14/2019 Discontinued (Reorder) acetaminophen-codeine Take 1 tablet 20 tablet 0 (TYLENOL/CODEINE #3) by mouth 9 300-30 mg per every 4 hours tabletIndications: as needed for Chronic bilateral low Pain Refilled back pain with bilateral for pcp. sciatica 08/16/2019 Discontinued lancets 28 Use 3 times 100 Each 2 gaugeIndications: Type 2 daily 9 diabetes mellitus with complication, with long-term current use of insulin 06/04/2019 sulfamethoxazole-trimetho Take 1 tablet 20 tablet 0 prim (BACTRIM DS) 800-160 by mouth 2 9 mg per tabletIndications: times daily Urinary tract infection for 10 days. without hematuria, site unspecified 05/26/2019 fluconazole (DIFLUCAN) Take 1 tablet 1 tablet 0 1 150 mg tabletIndications: by mouth once 9 Vaginal yeast infection for 1 dose. 08/13/2019 Discontinued (Reorder) hydrOXYzine (ATARAX) 25 Take 2 30 tablet 1 mg tabletIndications: tablets by 9 Insomnia, unspecified mouth nightly type at bedtime as needed for insomnia. 07/15/2019 Discontinued (Reorder) acyclovir (ZOVIRAX) 800 Take 1 tablet 42 tablet 0 mg tabletIndications: by mouth 3 9 Skin infection times daily. 10/14/2019 Discontinued (Reorder) cloNIDine HCL (CATAPRES) Take 1 tablet 90 tablet 3 0.1 mg tabletIndications: by mouth 3 9 Essential hypertension times daily. 10/12/2019 Discontinued (Reorder) furosemide (LASIX) 40 mg Take 1 tablet 30 tablet 3 tabletIndications: by mouth 9 Localized edema daily. 11/07/2019 Discontinued (Reorder) lisinopriL (PRINIVIL) 20 Take 1 tablet 90 tablet 1 mg tabletIndications: by mouth 9 Essential hypertension daily. 11/07/2019 Discontinued (Reorder) fenofibrate Take 1 tablet 90 tablet 1 nanocrystallized (TRICOR) by mouth 9 145 mg tabletIndications: daily. Hyperlipidemia, unspecified hyperlipidemia type 08/13/2019 Discontinued (Reorder) dicyclomine (BENTYL) 10 Take 1 30 capsule 1 mg capsuleIndications: capsule by 9 Irritable bowel syndrome mouth 4 times with diarrhea daily (before meals and nightly). 07/15/2019 Discontinued (Reorder) acetaminophen-codeine Take 1 tablet 20 tablet 0 (TYLENOL/CODEINE #3) by mouth 9 300-30 mg per every 4 hours tabletIndications: as needed for Chronic bilateral low Pain Refilled back pain with bilateral for pcp. sciatica 09/11/2019 Discontinued (Reorder) acyclovir (ZOVIRAX) 800 Take 1 tablet 42 tablet 0 mg tabletIndications: by mouth 3 0 Skin infection times daily. 11/07/2019 Discontinued (Reorder) blood glucose test Use 3 times 100 Each 3 02 stripsIndications: Type 2 daily to test 0 diabetes mellitus with blood sugar.. complication, with long-term current use of insulin 11/07/2019 Discontinued (Reorder) potassium chloride Take 1 tablet 60 tablet 3 07/16 (KLOR-CON M20) 20 mEq by mouth 2 0 extended release times daily. tabletIndications: Hypokalemia 08/26/2019 Discontinued (Reorder) acetaminophen-codeine Take 1 tablet 20 tablet 0 (TYLENOL/CODEINE #3) by mouth 0 300-30 mg per every 4 hours tabletIndications: as needed for Chronic bilateral low Pain Refilled back pain with bilateral for pcp. sciatica 08/13/2019 Discontinued (Reorder) mupirocin calcium Apply to 15 g 0 08/09/19 2 (BACTROBAN) 2 % topical affected area 0 creamIndications: Abscess 3 times of female genitalia daily. 08/19/2019 clindamycin (CLEOCIN HCL) Take 1 30 capsule 0 300 mg capsule by 0 capsuleIndications: mouth 3 times Abscess of female daily for 10 genitalia days. 10/14/2019 Discontinued (Reorder) dicyclomine (BENTYL) 10 Take 1 30 capsule 1 mg capsuleIndications: capsule by 0 Irritable bowel syndrome mouth 4 times with diarrhea daily (before meals and nightly). 09/11/2019 Discontinued (Reorder) mupirocin calcium Apply to 15 g 0 08/17/19 2 (BACTROBAN) 2 % topical affected area 0 creamIndications: Abscess 3 times of female genitalia daily. 10/14/2019 Discontinued (Reorder) hydrOXYzine (ATARAX) 25 Take 2 30 tablet 1 mg tabletIndications: tablets by 0 Insomnia, unspecified mouth nightly type at bedtime as needed for insomnia. 11/07/2019 Discontinued (Reorder) NIFEdipine (PROCARDIA XL) Take 1 tablet 30 tablet 2 90 mg extended release by mouth 0 tabletIndications: daily. Essential hypertension 11/07/2019 Discontinued (Reorder) lancets 28 Use 3 times 100 Each 2 gaugeIndications: Type 2 daily 0 diabetes mellitus with complication, with long-term current use of insulin 09/05/2019 clindamycin (CLEOCIN HCL) Take 2 60 capsule 0 300 mg capsules by 0 capsuleIndications: mouth 3 times Folliculitis daily for 10 days. 09/11/2019 Discontinued (Reorder) acetaminophen-codeine Take 1 tablet 20 tablet 0 (TYLENOL/CODEINE #3) by mouth 0 300-30 mg per every 4 hours tabletIndications: as needed for Chronic bilateral low Pain Refilled back pain with bilateral for pcp. sciatica 10/14/2019 Discontinued (Reorder) acyclovir (ZOVIRAX) 800 Take 1 tablet 42 tablet 0 mg tabletIndications: by mouth 3 0 Skin infection times daily. 11/07/2019 Discontinued (Reorder) mupirocin calcium Apply to 15 g 0 09/17/19 2 (BACTROBAN) 2 % topical affected area 0 creamIndications: Abscess 3 times of female genitalia daily. 10/14/2019 Discontinued (Reorder) acetaminophen-codeine Take 1 tablet 20 tablet 0 (TYLENOL/CODEINE #3) by mouth 0 300-30 mg per every 4 hours tabletIndications: as needed for Chronic bilateral low Pain Refilled back pain with bilateral for pcp. sciatica 11/07/2019 Discontinued (Reorder) hydrocortisone Insert 1 12 1 (ANUSOL-HC) 25 mg rectal Suppository Suppository 0 suppositoryIndications: rectally 2 Hemorrhoids, unspecified times daily hemorrhoid type as needed for hemorrhoids. 11/07/2019 Discontinued (Reorder) diclofenac (VOLTAREN) 1 % Apply 2 g to 100 g 1 gelIndications: Acute affected area 0 midline low back pain 4 times daily without sciatica Lower back. 11/07/2019 Discontinued (Reorder) acyclovir (ZOVIRAX) 800 Take 1 tablet 42 tablet 0 mg tabletIndications: by mouth 3 0 Skin infection times daily. 11/08/2019 Discontinued (Therapy comple maxine) fenofibrate Take 1 tablet 90 tablet 1 nanocrystallized (TRICOR) by mouth 0 145 mg tabletIndications: daily. Hyperlipidemia, unspecified hyperlipidemia type Status Hospital, Clinic, or Ordered Dose Route Frequency Start End Date Other Facility Date Administered Medication Discontinued ketorolac (TORADOL) 15 mg IM ONCE 09/24/19 injection 15 20 0 mgIndications: Acute midline low back pain without sciatica Discontinued ketorolac (TORADOL) 15 mg IM ONCE 09/24/19 injection 15 20 0 mgIndications: Acute midline low back pain without sciatica Ended ketorolac (TORADOL) 30 mg IM ONCE 09/24/19 injection 30 20 0 mgIndications: Acute midline low back pain without sciatica Active Problems Problem Noted Date Type 2 diabetes mellitus with stage 2 chronic kidney disease, with 01/02/2018 long-term current use of insulin Dysuria 07/17/2015 Suprapubic pain 07/17/2015 Lower abdominal pain 07/17/2015 UTI (urinary tract infection)-needs f/up 10/05/2014 CKD (chronic kidney disease) stage 3, GFR 30-59 ml/mi n 09/30/2014 Stress 09/30/2014 Hyperlipidemia HTN (hypertension) Morbid obesity Diabetes mellitus RAD (reactive airway disease) CHF (congestive heart failure) Overview: per pt report Thyroid disease Abnormal LFTs 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 Vitamin D deficiency Family history of colon cancer in melvi r Fibroid Umbilical hernia Renal mass Coronary atherosclerosis Abnormal CT of the abdomen Overview: diverticuli seen in colon Iron deficiency Microalbuminuria PRIYA positive Encounters Care Team Description Date Type Specialty Renee Corley MD Hypertriglyceridemia (Primary Dx) 11/08/2019 Orders Only Family Practice Adrien Hernandez MD Acute midline low back pain without scia christian 11/07/2019 Refill [facility] Marco Dockery Jr., MD Type 2 diabetes mellitus with complicati on, with long- term current use of insulin; Hypokalemia 11/07/[address] [facility] Nikia Mccoy MD Hyperlipidemia, unspecified hyperlipidem ia type; Gastroesophageal reflux disease with esophagitis; Tinea capitis; Essential hypertension; Type 2 diabetes mellitus with complication, with long-term current use of insulin; Abscess of female genitalia; Hemorrhoids, unspecified hemorrhoid type; Skin infection; Chronic bilateral low back pain with bilateral sciatica 11/07/2019 Refill Family Practice Kadeem Fitzpatrick MD Moderate persistent asthmatic bronchitis with acute exacerbation 11/07/2019 Refill Pulmonology Nikia Mccoy MD Hypothyroidism 10/21/2019 Refill [facility] Nikia Mccoy MD Type 2 diabetes mellitus with hyperglyce rachel, with long-term current use of insulin 10/21/2019 Refill [facility] Nikia Mccoy MD Essential hypertension; Irritable bowel syndrome with diarrhea; Insomnia, unspecified type; Skin infection; Chronic bilateral low back pain with bilateral sciatica 10/14/2019 Refill [facility] Kadeem Fitzaptrick MD Moderate persistent asthma without compl ication 10/14/2019 Refill Pulmonology Nikia Mccoy MD Localized edema 10/12/2019 Refill [facility] Behzad Girard ResidentMD Mohamed, Hesham, MD Acute midline low back pain without scia christian (Primary Dx) 09/24/2019 Office Visit Family Practice Nikia Mccoy MD Screen for colon cancer (Primary Dx); Hemorrhoids, unspecified hemorrhoid type; Type 2 diabetes mellitus with stage 2 chronic kidney disease, with long-term current use of insulin; CKD (chronic kidney disease) stage 3, GFR 30-59 ml/min; Chronic congestive heart failure, unspecified heart failure type; Reactive airway disease without complication, unspecified asthma severity, unspecified whether persistent; Essential hypertension 09/20/[address] [facility] Kadeem Fitzpatrick MD Asthmatic bronchitis, severe persistent, uncomplicated 09/18/2019 Refill Pulmonology Nikia Mccoy MD Abscess of female genitalia; Chronic bilateral low back pain with bilateral sciatica 09/11/[address] [facility] Kadeem Fitzpatrick MD Seasonal allergic rhinitis, unspecified trigger; Skin infection 09/11/2019 Refill Pulmonology Kadeem Bautista III, MD Type 2 diabetes mellitus with complicati on, with long- term current use of insulin 09/11/[address] [facility] Nikia Mccoy MD Type 2 diabetes mellitus with stage 2 ch ronic kidney disease, with long-term current use of insulin; Essential hypertension; CKD (chronic kidney disease) stage 3, GFR 30-59 ml/min; Hyperlipidemia, unspecified hyperlipidemia type 08/26/2019 Lab Appointment Lab Nikia Mccoy MD Type 2 diabetes mellitus with stage 2 ch ronic kidney disease, with long-term current use of insulin (Primary Dx); Hyperlipidemia, unspecified hyperlipidemia type; Essential hypertension; Morbid obesity; Reactive airway disease without complication, unspecified asthma severity, unspecified whether persistent; Chronic congestive heart failure, unspecified heart failure type; Thyroid disease; CKD (chronic kidney disease) stage 3, GFR 30-59 ml/min; Depression, unspecified depression type; Folliculitis; Chronic bilateral low back pain with bilateral sciatica 08/26/[address] [facility] Nikia Mccoy MD Depression, unspecified depression type 08/26/2019 Orders Only [facility] Dontrell Meeks RN 08/26/2019 Patient Patient Education Education Nikia Mccoy MD Essential hypertension; Type 2 diabetes mellitus with complication, with long-term current use of insulin 08/16/[address] [facility] Adrien Hernandez MD Insomnia, unspecified type 08/13/2019 Refill [facility] Renee Corley MD Abscess of female genitalia 08/13/2019 Refill Family Practice Marco Dockery Jr., MD Chronic bilateral low back pain with james ateral sciatica 08/13/2019 Refill Family Practice Ora Ortiz MD Generalized anxiety disorder 08/13/2019 Refill Psychiatry Nikia Mccoy MD Type 2 diabetes mellitus with hyperglyce rachel, with long-term current use of insulin; Vitamin D deficiency; Essential hypertension; Type 2 diabetes mellitus with complication, with long-term current use of insulin; Irritable bowel syndrome with diarrhea 08/13/2019 Refill [facility] Renee Corley MD Abscess of female genitalia (Primary Dx) ; Dietary counseling for Above / Below Normal BMI; Exercise counseling for Above Normal BMI Only!; Type 2 diabetes mellitus without complication, with long-term current use of insulin; Mood swings 08/09/[address] [facility] Renee Corley MD Mood swings 08/09/2019 Orders Only [facility] Aldo Carlisle NP Tinnitus of both ears (Primary Dx); Sensorineural hearing loss (SNHL) of both ears 07/22/2019 Office Visit Ent-Otolaryngology Nikia Mccoy MD Soria, Stephanie 07/22/2019 Hospital Audiology Encounter Aldo Carlisle NP Sensorineural hearing loss (SNHL) of bot h ears 07/22/2019 Orders Only Ent-Otolaryngology Nikia Mccoy MD Type 2 diabetes mellitus with complicati on, with long-term current use of insulin; Hypokalemia; Chronic bilateral low back pain with bilateral sciatica 07/15/2019 Refill [facility] Kdaeem Fitzpatrick MD Skin infection 07/15/2019 Refill Pulmonology Adrien Hernandez MD Urinary tract infection without hematuri a, site unspecified 06/14/2019 Refill [facility] Nikia Mccoy MD Essential hypertension; Localized edema; Hyperlipidemia, unspecified hyperlipidemia type; Irritable bowel syndrome with diarrhea; Chronic bilateral low back pain with bilateral sciatica 06/14/2019 Refill [facility] Kadeem Fitzpatrick MD Skin infection 06/14/2019 Refill Pulmonology Christy Gray 05/26/2019 Nutrition Nutrition Nikia Mccoy MD Mohamed, Hesham MD Urinary tract infection without hematuri a, site unspecified (Primary Dx); Dysuria; Vaginal yeast infection; Insomnia, unspecified type 05/25/2019 Office Visit Family Practice Bharat Parisi MD Type 2 diabetes mellitus with other spec ified complication 05/18/2019 Refill [facility] Nikia Mccoy MD Type 2 diabetes mellitus with complicati on, with long-term current use of insulin 05/14/2019 Refill Family Practice Monik Thacker MD Dysuria (Primary Dx) 05/13/2019 Office Visit [facility] Marco Dockery Jr., MD Type 2 diabetes mellitus with complicati on, with long- term current use of insulin 05/13/2019 Refill [facility] Ora Ortiz MD Generalized anxiety disorder 05/13/2019 Refill Psychiatry Nikia Mccoy MD Chronic bilateral low back pain with james ateral sciatica 05/13/[address] [facility] Kadeem Fitzpatrick MD Skin infection 05/13/2019 Refill Pulmonology Kadeem Bautista III, MD Essential hypertension 05/13/2019 Refill Family Practice Carla Hernández DO Diarrhea, unspecified type (Primary Dx); Generalized abdominal pain; CKD (chronic kidney disease) stage 3, GFR 30-59 ml/min; Type 2 diabetes mellitus with complication, with long-term current use of insulin; Needs flu shot 05/03/2019 Office Visit Family Practice Shari Quan RN 04/30/2019 Nurse Triage Selin Parker DDS Dental calculus (Primary Dx) 04/22/2019 Office Visit Gianluca Feldman 04/22/2019 Nutrition Nutrition Nikia Mccoy MD Type II diabetes mellitus 04/22/2019 Refill [facility] Marco Dockery Jr., MD Chronic bilateral low back pain with james ateral sciatica 04/14/2019 Refill [facility] Ora Ortiz MD Generalized anxiety disorder 04/14/2019 Refill Psychiatry Bharat Parisi MD Tinea capitis 04/14/2019 Refill [facility] Nikia Mccoy MD Irritable bowel syndrome with diarrhea; Dysuria; Boil, breast 04/14/2019 Refill [facility] Kadeem Fitzpatrick MD Skin infection 04/14/2019 Refill Pulmonology Kadeem Bautista III, MD Essential hypertension; Hyperlipidemia, unspecified hyperlipidemia type 04/14/2019 Refill [facility] Nikia Mccoy MD Dysuria 04/05/2019 Lab Appointment Lab Nikia Mccoy MD Type 2 diabetes mellitus with complicati on, unspecified whether manager long term care insulin use (Primary Dx); Dysuria; Boil, breast; Tinnitus of both ears; Insomnia, unspecified type 04/05/2019 Office Visit [facility] Nikia Mccoy MD Tinnitus of both ears 04/05/[address] [facility] Emiliano Olson LVN Sebaceous cyst 04/05/[address] [facility] Nikia Mccoy MD Insomnia, unspecified type 04/05/2019 Refill [facility] Nikia Mccoy MD 03/22/2019 Hospital Radiology Encounter Nikia Mccoy MD Abnormal mammogram of right breast 03/22/2019 Hospital Radiology Encounter Marco Dockery Jr., MD Chronic bilateral low back pain with james ateral sciatica 03/15/[address] [facility] Ora Ortiz MD Generalized anxiety disorder 03/15/2019 Refill Psychiatry Nikia Mccoy MD Hypokalemia 03/15/[address] [facility] Kadeem Fitzpatrick MD Skin infection 03/15/2019 Refill Pulmonology Kadeem Bautista III, MD Type 2 diabetes mellitus with complicati on, with long- term current use of insulin 03/15/[address] 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 (Primary Dx); Screening examination for sexually transmitted disease; Encounter for other contraceptive management; Depression, unspecified depression type 03/03/2019 Office Visit Gynecology Sue Guidry ResidentMD Depression, unspecified depression type 03/03/2019 Orders Only Gynecology Nikia Mccoy MD Abnormal mammogram of right breast (Prim jane Dx); Insomnia, unspecified type; Class 3 severe obesity with serious comorbidity and body mass index (BMI) of 50.0 to 59.9 in adult, unspecified obesity type; Hyperlipidemia, unspecified hyperlipidemia type; Essential hypertension; Chronic congestive heart failure, unspecified heart failure type; CKD (chronic kidney disease) stage 3, GFR 30-59 ml/min; Type 2 diabetes mellitus with stage 2 chronic kidney disease, with long-term current use of insulin; Vitamin D deficiency; Family history of colon cancer in mother; Onychomycosis; Food insecurity 02/15/2019 Office Visit [facility] Ora Ortiz MD Generalized anxiety disorder; Insomnia, unspecified type 02/11/2019 Refill Psychiatry Ora Ortiz MD Generalized anxiety disorder; Insomnia, unspecified type 02/09/2019 Refill Psychiatry Nikia Mccoy MD Type 2 diabetes mellitus with hyperglyce rachel, with long-term current use of insulin 02/09/[address] [facility] Kadeem Fitzpatrick MD Seasonal allergic rhinitis, unspecified trigger; Skin infection 02/09/2019 Refill Pulmonology Kadeem Bautista III, MD Essential hypertension; Localized edema; Type II diabetes mellitus; Irritable bowel syndrome with diarrhea 02/09/[address] [facility] Marco Dockery Jr., MD Abnormal finding on breast imaging (Prim jane Dx) 01/26/[address] [facility] Kadeem Fitzpatrick MD Seasonal allergic rhinitis, unspecified trigger 01/12/2019 Refill Pulmonology Bharat Parisi MD Type 2 diabetes mellitus with complicati on, with long-term current use of insulin 01/11/2019 Refill [facility] Nikia Mccoy MD Chronic bilateral low back pain with james ateral sciatica 01/11/[address] [facility] Kdaeem Fitzpatrick MD Seasonal allergic rhinitis, unspecified trigger; Skin infection 01/11/2019 Refill Pulmonology Ann Red RN 01/08/2019 Nurse Only Kadeem Fitzpatrick MD Moderate persistent asthmatic bronchitis with acute exacerbation 12/14/2018 Ancillary Radiology Procedure Nikia Mccoy MD Type 2 diabetes mellitus with complicati on, with long-term current use of insulin (Primary Dx); Chronic bilateral low back pain with bilateral sciatica; Breast cancer screening; Recurrent boils; Injury of coccyx, subsequent encounter 12/14/[address] [facility] Kadeem Bautista III, MD Irritable bowel syndrome with diarrhea 12/05/2018 Refill [facility] after 11/21/2018 Immunizations Name Administration Dates Next Due Albuterol 0.083% (3ml) 10/12/2010, 10/12/2010 Ceftriazone 1gm 11/14/2016, 10/12/2010 Injection Clonidine 0.1mg Tab 11/07/2012 Clonidine 0.2mg Tab 04/02/2013, 09/15/2012 Influenza Vaccine 06/15/2015, 05/09/2014, , 07/09/2011, 08/21/2010 Influenza Vaccine, 04/24/2017 Seasonal, Injectable Influenza, 05/03/2019, 07/13/2018 Vaccine<FLUCELVAX>(Multi- Dose) LIDOCAINE (PF) 10 MG/ML 11/14/2016, 10/12/2010 (1 %) INJECTION Methylpredinsone Inj 04/02/2013 PPV 23 Pneumococcal 08/21/2010 Polysaccaride Pneumococcal 13-valent 08/15/2016 conj 0.5 mL injection Tdap Tetanus, diphtheria, 10/16/2012, 09/15/2012 (De ferred: acellular pertussis Unavailable-Patient to retu rn for vaccine later) Vaccine Triamcinolone 40mg/ml Inj 11/14/2016, 02/09/2015, , 10/12/2010 Tropicamide 0.5% Eye-Kylah 01/08/2019, 01/26/2018 15ml Family History Medical History Relation Name Comments Diabetes Father Type I per pt Heart Father of [place] at a ge 60 Hypertension Father Cancer Maternal prostate Grandfather Hypertension Mother Other Mother pt denies family hx of sz/cva; spouse with sz disorder Asthma Sister Relation Name Status Comments Brother Alive Brother Alive Father Maternal Grandfather Maternal Grandmother Mother Paternal Grandfather Paternal Grandmother Sister Alive Social History Date Tobacco Use Types Packs/Day Years Used Never Smoker Smokeless Tobacco: Never Used Tobacco Cessation: Counseling Given: No Drinks/Week oz/Week Comments Alcohol Use 0 Standard drinks or equivalent 0.0 No Education Answer Date Recorded What is the highest level of school you have 12th grade 12/14/2018 completed or the highest degree you hav e received? Financial Resource Strain Answer Date Recorde d How hard is it for you to pay for the very basics Not hard at all 12/14/2018 like food, housing, medical care, and h eating? Food Insecurity Answer Date Recorded Within the past 12 months, you worried that your Often li e 12/14/2018 food would run out before you got money to buy more. Within the past 12 months, the food you bought Often true 12/14/2018 just didn't last and you didn't have mo seb to get more. Transportation Needs Answer Date Recorded In the past 12 months, has lack of transportation Yes 12/14/2018 kept you from medical appointments or f rom getting medications? In the past 12 months, has lack of transportation Yes 12/14/2018 kept you from meetings, work, or gettin g things needed for daily living? Sex Assigned at Date Recorded Not on file Industry Job Start Date Occupation Not on file Not on file Not on file Travel End Travel History Travel Start No recent travel history available. Last Filed Vital Signs Reading Time Taken Comments Vital Sign 141/83 09/24/2019 10:52 AM CDT Blood Pressure 79 09/24/2019 10:52 AM CDT Pulse 36.7 C (98.1 F) 09/24/2019 10:52 AM CDT Temperature 18 09/24/2019 10:52 AM CDT Respiratory Rate 94% 09/20/2019 3:02 PM CDT Oxygen Saturation - - Inhaled Oxygen Concentration 145 kg (319 lb 9.6 oz) 09/24/2019 10:52 AM CDT Weight 160 cm (5' 3") 09/24/2019 10:52 AM CDT Height 56.61 09/24/2019 10:52 AM CDT Body Mass Index Plan of Treatment Health Maintenance Due Date Last Done Comments CORONARY ARTERY DISEASE 01/09/2020 01/08/2019, , 01/19/2018, AGE 18 AND UP Additional history exists DM Retinal Exam (Yearly) 01/09/2020 01/08/2019, 0 01/26/2018, 09/13/2016, Additional history exists DM Foot Exam (Yearly) 02/16/2020 02/15/2019, 070 03/2018, 11/27/2016, Additional history exists Breast Cancer Scrn 03/22/2020 03/22/2019, 018, 09/13/2016, (Yearly) Additional history exists IMM Influenza Seasonal 04/13/2020 05/03/2019, , 04/24/2017 Oct to September (>/= 19 yrs) DM HGBA1C (Yearly) 08/09/2020 08/09/2019, 019, 01/08/2019, Additional history exists Cervical Cancer Scrn (5 03/22/2021 03/22/2016 Yrs) Colonoscopy 3yr 08/03/2022 08/03/2019 (Previou sly completed - External) Goals Goal Patient Associated Recent Progress Patient-Stat Aut hor Goal Type Problems ed? 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 with stage 2 chronic kidney disease, with long-term current use of insulin URINALYSIS Routine 08/26/2019 Type 2 diabetes mellitus 12:09 PM CEMENTER MACHINE APPLICATOR with stage 2 chronic kidney disease, with long-term current use of insulin LIVER PROFILE Routine 08/26/2019 Hyperlipidemia, 12:09 PM CEMENTER MACHINE APPLICATOR unspecified hyperlipidemia type Essential hypertension BASIC METABOLIC PANEL Routine 08/26/2019 Essentia l hypertension 12:09 PM CEMENTER MACHINE APPLICATOR CKD (chronic kidney disease) stage 3, GFR 30-59 ml/min URINALYSIS Routine 08/26/2019 Type 2 diabetes mellitus 12:09 PM CEMENTER MACHINE APPLICATOR with stage 2 chronic kidney disease, with long-term current use of insulin URINE DRUG SCREEN Routine 08/26/2019 Depression, unspecified 12:09 PM CEMENTER MACHINE APPLICATOR depression type HEMOGLOBIN A1C Routine 08/09/2019 Type 2 diabetes mellitus 11:16 AM CEMENTER MACHINE APPLICATOR without complication, with long-term current use of insulin URINALYSIS Routine 05/25/2019 Dysuria MICROSCOPIC-REFLEX 2:12 PM CEMENTER MACHINE APPLICATOR URINALYSIS STAT 05/25/2019 Dysuria 2:12 PM CEMENTER MACHINE APPLICATOR URINALYSIS STAT 05/25/2019 Dysuria 2:12 PM CEMENTER MACHINE APPLICATOR URINE CULTURE Routine 05/13/2019 Dysuria 2:10 PM CDT URINALYSIS Routine 05/13/2019 Dysuria 2:10 PM CDT URINALYSIS Routine 05/13/2019 Dysuria 2:10 PM CDT CBC Routine 05/03/2019 Generalized abd ominal 3:07 PM CDT pain CBC/DIFF Routine 05/03/2019 Generalized abd ominal 3:07 PM CDT pain COMPREHENSIVE METABOLIC Routine 05/03/2019 Diarrh ea, unspecified PANEL 3:07 PM CDT type HEPATITIS PANEL Routine 05/03/2019 Diarrhea, unsp ecified 3:07 PM CDT type URINE CULTURE Routine 04/05/2019 Dysuria 1:54 PM CDT URINALYSIS Routine 04/05/2019 Dysuria 1:54 PM CDT URINALYSIS Routine 04/05/2019 Dysuria 1:54 PM CDT CBC Routine 04/05/2019 Type 2 diabetes mellitus 1:54 PM CDT with complication, unspecified whether manager long term care insulin use CBC/DIFF Routine 04/05/2019 Type 2 diabetes mellitus 1:54 PM CDT with complication, unspecified whether manager long term care insulin use BASIC METABOLIC PANEL Routine 04/05/2019 Type 2 d iabetes mellitus 1:54 PM CDT with complication, unspecified whether manager long term care insulin use LIVER PROFILE Routine 04/05/2019 Type 2 diabetes mellitus 1:54 PM CDT with complication, unspecified whether skilled nursing insulin use HEMOGLOBIN A1C Routine 04/05/2019 Type 2 diabetes mellitus 1:54 PM CDT with complication, unspecified whether skilled nursing insulin use MAMMO BREAST ULTRASOUND Routine 03/22/2019 Abnorm al mammogram UNILATERAL, LTD 11:46 AM CDT MAMMOGRAM BILAT DIAG Routine 03/22/2019 Abnormal mammogram of DIGITAL 11:10 AM CDT right breast POC URINE Routine 03/03/2019 Encounter for other 12:00 PM CDT contraceptive management GENITAL WET MOUNT WITH Routine 03/03/2019 Screeni ng examination for TITI 11:32 AM CDT sexually transmitte d disease CHLAM/GC DNA AMPLI Routine 03/03/2019 Screening e xamination for 11:32 AM CDT sexually transmitted disease DIABETIC FOOT EXAM Routine 02/15/2019 Type 2 diab etes mellitus 3:30 PM CDT with stage 2 chronic kidney disease, with long-term current use of insulin OPHTHALMOLOGY RETINAL Routine 01/08/2019 Type 2 d iabetes mellitus SCAN 9:44 AM CDT with complication, with long-term current use of insulin LIVER PROFILE Routine 01/08/2019 Type 2 diabetes mellitus 8:52 AM CDT with complication, with long-term current use of insulin BASIC METABOLIC PANEL Routine 01/08/2019 Type 2 d iabetes mellitus 8:52 AM CDT with complication, with long-term current use of insulin FREE T4 Routine 01/08/2019 Type 2 diabetes mellitus 8:52 AM CDT with complication, with long-term current use of insulin THYROID STIMULATING Routine 01/08/2019 Type 2 venice betes mellitus HORMONE (TSH) 8:52 AM CDT with complication, with long-term current use of insulin LIPID PROFILE Routine 01/08/2019 Type 2 diabetes mellitus 8:52 AM CDT with complication, with long-term current use of insulin CBC Routine 01/08/2019 Type 2 diabetes mellitus 8:51 AM CDT with complication, with long-term current use of insulin CBC/DIFF Routine 01/08/2019 Type 2 diabetes mellitus 8:51 AM CDT with complication, with long-term current use of insulin VIT D, 25-HYDROXY Routine 01/08/2019 Type 2 diabe cortney mellitus 8:51 AM CDT with complication, with long-term current use of insulin HEMOGLOBIN A1C Routine 01/08/2019 Type 2 diabetes mellitus 8:51 AM CDT with complication, with long-term current use of insulin XRAY CHEST 2 VIEWS Routine 12/14/2018 Moderate pe rsistent 10:32 AM CDT asthmatic bronchitis with acute exacerbation after 11/21/2018 Results * Urinalysis (08/26/2019 12:09 PM CEMENTER MACHINE APPLICATOR) Only the most recent of 4 results within the time period is included. Color Yellow Colorless, Straw, [facility] Clarity Clear Clear [facility] Spec [place], 1.012 1.001 - 1.035 [facility] pH, Ur 6.0 5.0 - 8.0 [facility] Protein, Ur 1+ (A) Negative mg/dL [facility] Glucose, Ur 3+ (A) Negative mg/dL [facility] Ketone, Ur Negative Negative mg/dL [facility] Bilirubin, Ur Negative Negative mg/dL [facility] Nitrite, Ur Negative Negative [facility] Leukocyte Negative Negative mg/dL [facility] Blood, Ur Negative Negative mg/dL [facility] WBC 3 0 - 5 /HPF [facility] Epithelial Cell 2 (H) <=1 /HPF [facility] Urobilinogen, <1.0 <1.0 EU/dL [facility] Specimen Urine Performing Organization Address City/State/Zipcode Ph one Number [facility] [address] [place] [address] * Urine Drug Screen (08/26/2019 12:09 PM CEMENTER MACHINE APPLICATOR) Opiate, Ur Positive (A) Negative [facility] Comment: [facility] Calibrated Standard: Morphine Positive if urine level > or = 300 ng/dL Amphetamine Negative Negative [facility] Comment: [facility] Calibrated Standard: D-Methamphetamine Positive if urine level > or = 1000 ng/mL Barbiturate Negative Negative [facility] Comment: [facility] Calibrated Standard: Secobarbital Positive if urine level is > or = 200 ng/mL Benzodiazepine Negative Negative [facility] Comment: [facility] Calibrated Standard: Lormethazepam Positive if urine level is > or = 200 ng/mL Cocaine Negative Negative [facility] Comment: [facility] Calibrated Standard: Benzoylecgonine Positive if urine level > or = 300 ng/dL PCP Negative Negative [facility] Comment: [facility] Calibrated Standard: Phencyclidine Positive if urine level > or = 25 ng/dL Cannabinoid Negative Negative [facility] Comment: [facility] Calibrated Standard: 11 nor-delta(9)-THC carboxylic acid Positive if urine level > or = 50 ng/mL Specimen Urine - Voided, urine Performing Organization Address [facility] one Number [facility] [address] [place] [address] [phone] * Liver Profile (08/26/2019 12:09 PM CEMENTER MACHINE APPLICATOR) Only the most recent of 3 results within the time period is included. Total Protein 7.1 6.0 - 8.3 g/dL [facility] Bilirubin, 0.3 0.2 - 1.2 mg/dL [facility] Total [facility] Alkaline 52 34 - 104 U/L [facility] Phosphatase [facility] AST 16 13 - 39 U/L [facility] Direct 0.1 0.0 - 0.2 mg/dL [facility] Bilirubin [facility] ALT 23 7 - 52 U/L [facility] Albumin 4.0 3.7 - 5.3 g/dL [facility] Specimen Blood Performing Organization Address [facility] one Number [facility] [address] [place] [address] [phone] * Urine Culture (08/26/2019 12:09 PM CEMENTER MACHINE APPLICATOR) Only the most recent of 3 results within the time period is included. Urine Culture Urogenital mario [facility] Specimen Urine - Clean Catch Mid Stream Performing Organization Address [facility] one Number [facility] [address] [place] [address] * Basic Metabolic Panel (08/26/2019 12:09 PM CEMENTER MACHINE APPLICATOR) Only the most recent of 3 results within the time period is included. Sodium 136 136 - 145 mmol/L [facility] Potassium 4.0 3.5 - 5.1 mmol/L [facility] Chloride 100 98 - 107 mmol/L [facility] CO2 28 21 - 31 mmol/L [facility] Urea Nitrogen 17.0 7.0 - 25.0 mg/dL [facility] Creatinine 1.2 0.6 - 1.2 mg/dL [facility] Glucose 232 (H) 70 - 110 mg/dL [facility] Calcium 9.1 8.6 - 10.3 mg/dL [facility] GFR, Estimated 48 (L) >=90 mL/min/1.73 m2 [facility] Anion Gap 8 5 - 16 mmol/L [facility] Specimen Blood Performing Organization Address [facility] one Number [facility] [address] [place] [address] [phone] * Hemoglobin A1C (08/09/2019 11:16 AM CEMENTER MACHINE APPLICATOR) Only the most recent of 3 results within the time period is included. Hemoglobin A1c 7.5 (H) 4.3 - 6.1 % [facility] Estimated 169 (H) 70 - 110 mg/dL [facility] Average Glucose [facility] Specimen Blood Performing Organization Address [facility] one Number [facility] [address] [place] [address] * URINALYSIS, MICROSCOPIC (05/25/2019 2:12 PM CEMENTER MACHINE APPLICATOR) RBC 1-4 0 - 4 /HPF [facility] WBC 5-20 (A) 0 - 5 /HPF [facility] Epithelial Cell <1/HPF <1 /HPF [facility] Bacteria Few (A) None seen /HPF [facility] Yeast Present (A) None seen /HPF [facility] Specimen Urine Performing Organization Address [facility] one Number [facility] * CBC/Diff (05/03/2019 3:07 PM CDT) Only the most recent of 3 results within the time period is included. WBC 6.9 4.5 - 11.0 K/uL [facility] RBC 4.53 4.20 - 5.40 M/uL [facility] Hemoglobin 12.2 12.0 - 16.0 g/dL [facility] Hematocrit 39.1 37.0 - 47.0 % [facility] MCV 86.3 82.0 - 92.0 fL [facility] MCH 26.9 (L) 27.0 - 32.0 pg [facility] MCHC 31.2 (L) 32.0 - 36.0 g/dL [facility] RDW 51.6 (H) 36.4 - 46.3 fL [facility] Platelet 364 150 - 400 K/uL [facility] Mean Platelet 9.6 9.4 - 12.4 fL [facility] Volume [facility] Percent NRBC 0.0 % [facility] Neutrophil 59.1 34.0 - 70.0 % [facility] Lymphs 28.6 20.0 - 50.0 % [facility] Monocytes 9.2 5.0 - 12.0 % [facility] Eos 1.7 0.7 - 5.0 % [facility] Basos 0.7 0.1 - 1.2 % [facility] Immature 0.7 (H) 0.0 - 0.5 % [facility] Granulocytes [facility] Neutrophils 4.06 1.56 - 6.13 K/uL [facility] (Absolute) [facility] Lymphs 1.97 1.18 - 3.74 K/uL [facility] (Absolute) [facility] Monocytes(Absol 0.63 (H) 0.24 - 0.36 K/uL [facility] hiwot) [facility] Eos (Absolute) 0.12 0.04 - 0.36 K/uL [facility] Baso (Absolute) 0.05 0.01 - 0.08 K/uL [facility] Immature Grans 0.05 (H) 0.00 - 0.03 K/uL [facility] (Abs) [facility] Absolute NRBC 0.00 K/uL [facility] Specimen Blood Performing Organization Address City/State/Zipcode Ph one Number [facility] [address] [place] [address] [phone] * Comprehensive Metabolic Panel (05/03/2019 3:07 PM CDT) Sodium 137 136 - 145 mmol/L [facility] Potassium 4.6 3.5 - 5.1 mmol/L [facility] Chloride 104 98 - 107 mmol/L [facility] CO2 25 21 - 31 mmol/L [facility] Glucose 143 (H) 70 - 110 mg/dL [facility] Calcium 9.2 8.6 - 10.3 mg/dL [facility] Urea Nitrogen 22.0 7.0 - 25.0 mg/dL [facility] Creatinine 1.7 (H) 0.6 - 1.2 mg/dL [facility] Alkaline 44 34 - 104 U/L [facility] Phosphatase [facility] ALT 41 7 - 52 U/L [facility] AST 19 13 - 39 U/L [facility] Bilirubin, 0.3 0.2 - 1.2 mg/dL [facility] Total [facility]OR[facility] Total Protein 7.0 6.0 - 8.3 g/dL [facility] GFR, Estimated 32 (L) >=90 mL/min/1.73 m2 [facility] Albumin 4.0 3.7 - 5.3 g/dL [facility] Anion Gap 8 5 - 16 mmol/L [facility] Specimen Blood Performing Organization Address [facility] Ph one Number [facility] [address] [place] [address] * Hepatitis Panel (05/03/2019 3:07 PM CDT) Hep C Vir Ab Negative Negative [facility] IgG [facility] Hep B Surface Negative Negative [facility] Ag [facility] Hep A Vir Ab Negative Negative [facility] IgM [facility] Hep B Core Ab Negative Negative [facility] IgM [facility] Specimen Blood Performing Organization Address [facility] Ph one Number [facility] [address] [place] [address] * MAMMO BREAST ULTRASOUND [facility] (03/22/2019 11:46 AM CDT) Specimen Impressions Performed At IMPRESSION: BENIGN SMS Superficial sebaceous cysts in the righ t breast are benign. Clinical follow up with antibiotic ther apy is recommended to ensure resolution. There is no sonograp hic evidence of malignancy. A 1 year screening mammogram is recomme nded. This document has been electronically s igned. Angie Castelan M.D. eal/:03/22/2019 13:45:38 copy to: Bharat Parisi M.D., [facility], 4621, ph: , fax: Manager Service Desk: Ginna Morgan, [facility] [place] letter sent: Mammography Normal Mamm ogram BI-RADS: 0 Indeterminate Ultrasound BI-RADS: 2 [facility] [id number] 19938 R92.8 R92.8 Narrative Performed At #[id number] - MAMMOGRAM BILAT DIAG DIGITAL SMS BILATERAL DIGITAL DIAGNOSTIC MAMMOGRAM 3D/2D WITH CAD: 03/22/2019 CLINICAL: 48 y/o female, no family hx o f breast cancer. Abnormal Mammogram In 2018, Lost To Follow Up. S he also presents with multiple ulceration of the lower outer right breast. Comparison is made to exams dated: , 09/13/2016 [facility], 01/26/2014 [facility], 12/20/2013 [facility], and 10/06/2010 [facility]. The tissue of both breasts is predomina tely fatty. Tomosynthesis was used. Current study was also evaluated with a Computer Aided Detection (CAD) system. The mass in the upper outer quadrant of the right breast is unchanged in size dating back to at 2013 after accounting for differences in imaging technique. No significant masses, calcifications, or other findings are seen in either breast. There are multiple superficial abscesse s in the lower outer quadrant of the right breast, marked by circular markers. INCOMPLETE: NEEDS ADDITIONAL IMAGING EV ALUATION There is no mammographic evidence of di sease. Palpable areas od abscess in the right breast are indeter minate. Right breast ultrasound is recommended to further ev aluate the abscesses. This document has been electronically s igned. #[id number] - MAMMO BREAST ULTRASOUND [facility] ULTRASOUND OF RIGHT BREAST: 03/22/2019 Comparison is made to exams dated: , 09/13/2016 [facility], 01/26/2014 [facility], 12/20/2013 [facility], and 10/06/2010 [facility]. Color flow and real-time ultrasound of the right breast were performed. There are 3 sebaceous cysts in the 9 o' clock axis extending from 12 cm to 6 cm from the nipple. The most distal sebaceous cyst is not well circumscribed and appears rupt ured. There is no cystic or solid mass in the underlying breast tissue. Procedure Note Interface, Rad/Mammog In - 03/22/2019 2:23 PM CDT #[id number] - MAMMOGRAM BILAT DIAG DIGITAL BILATERAL DIGITAL DIAGNOSTIC MAMMOGRAM 3D/2D WITH CAD: 03/22/2019 CLINICAL: 48 y/o female, no family hx of breast cancer. Abnormal Mammogram In 2018, Lost To Follow Up. She also presents with multiple ulceration of the lower outer right breast. Comparison is made to exams dated: 01/26/2018, 09/13/2016 [facility], 01/26/2014 [facility], 12/20/2013 [facility], and [facility]. The tissue of both breasts is predominately fatty. Tomosynthesis was used. Current study was also evaluated with a Computer Aided Detection (CAD) system. The mass in the upper outer quadrant of the right breast is unchanged in size dating back to at least 2013 after accounting for differences in imaging technique. No significant masses, calcifications, or other findings are seen in either breast. There are multiple superficial abscesses in the lower outer quadrant of the right breast, marked by circular markers. INCOMPLETE: NEEDS ADDITIONAL IMAGING EVALUATION There is no mammographic evidence of disease. Palpable areas od abscess in the right breast are indeterminate. Right breast ultrasound is recommended to further evaluate the abscesses. This document has been electronically signed. #[id number] - MAMMO BREAST ULTRASOUND [facility] ULTRASOUND OF RIGHT BREAST: 03/22/2019 Comparison is made to exams dated: 01/26/2018, 09/13/2016 [facility], 01/26/2014 [facility] [place], 12/20/2013 [facility], and [facility]. Color flow and real-time ultrasound of the right breast were performed. There are 3 sebaceous cysts in the 9 o'clock axis extending from 12 cm to 6 cm from the nipple. The most distal sebaceous cyst is not well circumscribed and appears ruptured. There is no cystic or solid mass in the underlying breast tissue. IMPRESSION IMPRESSION: BENIGN Superficial sebaceous cysts in the right breast are benign. Clinical follow up with antibiotic therapy is recommended to ensure resolution. There is no sonographic evidence of malignancy. A 1 year screening mammogram is recommended. This document has been electronically signed. Angie Castelan M.D. eal/:03/22/2019 13:45:38 copy to: Bharat Parisi M.D., [facility], [address]21, ph: , fax: [phone] Manager Service Desk: Ginna Morgan [facility] letter sent: Mammography Normal Mammogram BI-RADS: 0 Indeterminate Ultrasound BI-RADS: 2 Benign [id number] 48056 R92.8 R92.8 Performing Organization Address City/State/Zipcode Ph one Number SMS * MAMMOGRAM BILAT DIAG DIGITAL (03/22/2019 11:10 AM CDT) Specimen Impressions Performed At IMPRESSION: BENIGN SMS Superficial sebaceous cysts in the righ t breast are benign. Clinical follow up with antibiotic ther apy is recommended to ensure resolution. There is no sonograp hic evidence of malignancy. A 1 year screening mammogram is recomme nded. This document has been electronically s igned. Angie Castelan M.D. eal/:03/22/2019 13:45:38 copy to: Bharat Parisi M.D., [facility], 4621, ph: , fax: Manager Service Desk: Ginna Morgan, [facility] letter sent: Mammography Normal Mamm ogram BI-RADS: 0 Indeterminate Ultrasound BI-RADS: 2 [facility] ign [id number] 50193 R92.8 R92.8 Narrative Performed At #[id number] - MAMMOGRAM BILAT DIAG DIGITAL SMS BILATERAL DIGITAL DIAGNOSTIC MAMMOGRAM 3D/2D WITH CAD: 03/22/2019 CLINICAL: 48 y/o female, no family hx o f breast cancer. Abnormal Mammogram In 2018, Lost To Follow Up. S he also presents with multiple ulceration of the lower outer right breast. Comparison is made to exams dated: , 09/13/2016 [facility], 01/26/2014 [facility], 12/20/2013 [facility], and 10/06/2010 [facility]. The tissue of both breasts is predomina tely fatty. Tomosynthesis was used. Current study was also evaluated with a Computer Aided Detection (CAD) system. The mass in the upper outer quadrant of the right breast is unchanged in size dating back to at 2013 after accounting for differences in imaging technique. No significant masses, calcifications, or other findings are seen in either breast. There are multiple superficial abscesse s in the lower outer quadrant of the right breast, marked by circular markers. INCOMPLETE: NEEDS ADDITIONAL IMAGING EV ALUATION There is no mammographic evidence of di sease. Palpable areas od abscess in the right breast are indeter minate. Right breast ultrasound is recommended to further ev aluate the abscesses. This document has been electronically s igned. #[id number] - MAMMO BREAST ULTRASOUND [facility], [facility]TD ULTRASOUND OF RIGHT BREAST: 03/22/2019 Comparison is made to exams dated: , 09/13/2016 [facility], 01/26/2014 [facility], 12/20/2013 [facility], and 10/06/2010 [facility]. Color flow and real-time ultrasound of the right breast were performed. There are 3 sebaceous cysts in the 9 o' clock axis extending from 12 cm to 6 cm from the nipple. The most distal sebaceous cyst is not well circumscribed and appears rupt ured. There is no cystic or solid mass in the underlying breast tissue. Procedure Note Interface, Rad/Mammog In - 03/22/2019 2:23 PM CDT #[id number] - MAMMOGRAM BILAT DIAG DIGITAL BILATERAL DIGITAL DIAGNOSTIC MAMMOGRAM 3D/2D WITH CAD: 03/22/2019 CLINICAL: 48 y/o female, no family hx of breast cancer. Abnormal Mammogram In 2018, Lost To Follow Up. She also presents with multiple ulceration of the lower outer right breast. Comparison is made to exams dated: 01/26/2018, 09/13/2016 [facility], 01/26/2014 [facility], 12/20/2013 [facility], and [facility]. The tissue of both breasts is predominately fatty. Tomosynthesis was used. Current study was also evaluated with a Computer Aided Detection (CAD) system. The mass in the upper outer quadrant of the right breast is unchanged in size dating back to at least 2013 after accounting for differences in imaging technique. No significant masses, calcifications, or other findings are seen in either breast. There are multiple superficial abscesses in the lower outer quadrant of the right breast, marked by circular markers. INCOMPLETE: NEEDS ADDITIONAL IMAGING EVALUATION There is no mammographic evidence of disease. Palpable areas od abscess in the right breast are indeterminate. Right breast ultrasound is recommended to further evaluate the abscesses. This document has been electronically signed. #[id number] - MAMMO BREAST ULTRASOUND UNILATERAL, LTD ULTRASOUND OF RIGHT BREAST: 03/22/2019 Comparison is made to exams dated: 01/26/2018, 09/13/2016 [facility], 01/26/2014 [facility] [place], 12/20/2013 [facility], and [facility]. Color flow and real-time ultrasound of the right breast were performed. There are 3 sebaceous cysts in the 9 o'clock axis extending from 12 cm to 6 cm from the nipple. The most distal sebaceous cyst is not well circumscribed and appears ruptured. There is no cystic or solid mass in the underlying breast tissue. IMPRESSION IMPRESSION: BENIGN Superficial sebaceous cysts in the right breast are benign. Clinical follow up with antibiotic therapy is recommended to ensure resolution. There is no sonographic evidence of malignancy. A 1 year screening mammogram is recommended. This document has been electronically signed. Angie Castelan M.D. eal/:03/22/2019 13:45:38 copy to: Bharat Parisi M.D., [facility], [address]21, ph: , fax: [phone] Manager Service Desk: Ginna Morgan, [facility] letter sent: Mammography Normal Mammogram BI-RADS: 0 Indeterminate Ultrasound BI-RADS: 2 Benign [id number] R92.8 R92.8 Performing Organization Address City/State/Zipcode Ph one Number SMS * POC URINE (03/03/2019 12:00 PM CDT) POC NEG Neg - Neg PASS Pass - Pass Control Specimen * Chlam/GC DNA Amplification (03/03/2019 11:32 AM CDT) Chlamydia Negative Negative [facility] N. gonorrhoeae Negative Negative [facility] Specimen Genital - Cervix, endocervix Narrative Performed At This test utilizes Exoprise Aptima Combo 2 Assay for target amplification of rRNA [facility] for the qualitative detection of Chlamy venice trachomatis and Neisseria gonorrhoeae. Performing Organization Address [facility] Ph one Number [facility] [address] [place] [address] * Genital Wet Mount with TITI (03/03/2019 11:32 AM CDT) Yeast by Wet No Yeast seen [facility] Mount [facility] Yeast by TITI No Yeast seen [facility] Clue Cells No Clue cells seen [facility] Epithelial Epithelial cells seen [facility] Cells [facility] WBCs No WBCs seen [facility] Trichomonas No Trichomonas seen [facility] Specimen Genital - Cervix, NOS Performing Organization Address [facility] Ph one Number [facility] [address] [place] [address] [phone] * DIABETIC FOOT EXAM (02/15/2019 3:30 PM CDT) Narrative Performed At Nikia Mccoy MD 02/15/2019 3:49 PM Diabetic Foot Exam was performed at 02/15 3:38 PM. Right foot sensation is normal, right foot pulses are normal, right foot appearance is abnormal. Left foot sensation is n ormal, left foot pulses are normal, left foot appearance is abnormal. Onych omycosis of great toenail right foot * OPHTHALMOLOGY RETINAL SCAN (01/08/2019 9:44 AM CDT) RETINAL NORMAL IRIS SCAN-FINAL RESULT Right Diabetic None IRIS Retinopathy Right Macular None IRIS Edema Right Other None IRIS Suspected Conditions Right Image Gradeable Image IRIS Quality Left Diabetic None IRIS Retinopathy Left Macular None IRIS Edema Left Other None IRIS Suspected Conditions Left Image Gradeable Image IRIS Quality Specimen Narrative Performed At Retinal Study Result for FLOWER BAHENA JOVITA, ryann 48 y/o, F (: 1970, ) presented to [facility] on 01-08-2019 for a retinal imaging study of the left and r ight eyes. Based on the findings of the study, the following is recommended for FLOWER BAHENA Normal Scan: Please advise the patient to return for another scan in 1 year. Interpreting Provider's Comments: No comments provided Right Eye Findings: Normal Result. Negative for Diabetic Retinopathy. Left Eye Findings: Normal Result. Negative for Diabetic Retinopathy. This result was electronically signed Porter Gunn MD, , Taxonomy: [id number] on 01-08-2019 04:2 9:50 [facility] time. NOTE: Any pathology noted on this venice betic retinal evaluation should be confirmed by an appropriate ophthalmic examination. Performing Organization Address [facility] one Number IRIS * TSH [Thyroid Stimulating Hormone] (01/08/2019 8:52 AM CDT) TSH 2.37 0.57 - 3.74 uIU/mL [facility] Comment: [facility] If , please see the following reference ranges (not verified by lab): 1st Trimester: 0.05 -3.70 uIU/mL 2nd Trimester: 0.31 -4.35 uIU/mL 3rd Trimester: 0.41 - 5.18 uIU/mL Specimen Blood Performing Organization Address [facility] one Number [facility] [address] [place] [address] * Free T4 (01/08/2019 8:52 AM CDT) Free T4 0.91 0.61 - 1.18 ng/dl [facility] Specimen Blood Performing Organization Address [facility] one Number [facility] [address] [place] [address] * Lipid Profile (01/08/2019 8:52 AM CDT) Triglyceride 205 (H) <150 mg/dL [facility] Comment: [facility] Normal: < 150.0 mg/dL Borderline: 150-199 mg/dL High: 200-499 mg/dL Very High: >= 500 mg/dL Cholesterol 145.0 <=200.0 mg/dL [facility] Comment: [facility] Desirable: < 200.0 mg/dL Borderline: 200 - 240 mg/dL High Risk: > 240 mg/dL HDL 50.0 See Reference Range [facility] Comment: Narrative. mg/dL LABORATORY Increased CHD Risk: < 40.0 mg/dL Decreased CHD Risk: > 60 mg/dL LDL 54 <100 mg/dL [facility] Comment: [facility] Optimal: < 100.0 mg/dL Near Optimal: 120-129 mg/dL Borderline: 130-159 mg/dL High: 160-189 mg/dL Very High: >=190 mg/dL Specimen Blood Performing Organization Address [facility] one Number [facility] [address] [place] [address] [phone] * Vitamin D, 25-Hydroxycalciferol (01/08/2019 8:51 AM CDT) Vit D, 13.7 (L) 30.0 - 100.0 ng/mL [facility] 25-Hydroxy [facility] Vitamin D Deficient (A) Sufficient [facility] Interpretation [facility]ORY Specimen Blood Performing Organization Address [facility] one Number [facility] LABORATORY [address] [place] [address] * XRAY CHEST 2 VIEWS (12/14/2018 10:32 AM CDT) Specimen Impressions Performed At IMPRESSION: [facility] No acute thoracic abnormality or signif icant change when compared to the previous chest x-ray on 09/12/2014. Dictated By: John Quan MD, 12/14 11:20 AM I have reviewed the study and agree wit h the findings in this report. Signed By: Chandler Looney MD, 12/14/2018 6 :04 PM Narrative Performed At EXAMINATION: XRAY CHEST 2 VIEWS, Frontal and latera l SMS INDICATION: EARLY FRIDAY AM BEFORE 8:40 AM FOR FOLLOW UP ASTHMATIC BRONCHITIS COMPARISON: 09/12/2014 chest x-ray FINDINGS: TUBES/LINES: None LUNGS: No consolidations or edema. PLEURA: No effusions or pneumothorax. HEART/MEDIASTINUM: Stable mildly enla rged cardiac silhouette. MUSCULOSKELETAL: No acute findings. UPPER ABDOMEN: Normal Procedure Note Interface, Rad/Mammog In - 12/14/2018 6:09 PM CDT EXAMINATION: XRAY CHEST 2 VIEWS, Frontal and lateral INDICATION: EARLY FRIDAY AM BEFORE 8:40 AM FOR FOLLOW UP ASTHMATIC BRONCHITIS COMPARISON: 09/12/2014 chest x-ray FINDINGS: TUBES/LINES: None LUNGS: No consolidations or edema. PLEURA: No effusions or pneumothorax. HEART/MEDIASTINUM: Stable mildly enlarged cardiac silhouette. MUSCULOSKELETAL: No acute findings. UPPER ABDOMEN: Normal IMPRESSION IMPRESSION: No acute thoracic abnormality or significant change when compared to the previous chest x-ray on 09/12/2014. Dictated By: John Quan MD, 12/14/2018 11:20 AM I have reviewed the study and agree with the findings in this report. Signed By: Chandler Looney MD, 12/14/2018 6:04 PM Performing Organization Address City/State/Zipcode Ph one Number SMS after 11/21/2018 Insurance Type Payer Benefit Subscriber ID Effective Phone Address Plan / Dates Group [employer] HMO [employer] xxxxxxxxx 2019-P [phone] [facility] [address] [place] [address] [facility] [employer] [employer]CIAL xxxxxx 2019 [address] [facility] [place] [address] [address] [place] [address]
--- OUTSIDE RECORDS SUMMARY | 2019-11-22 20:09 | XMS REPORT ---
Author Author Admin, [place] Organization Unknown Address Unknown Phone Unavailable Problems No Known Problems ENCOUNTERS Date Type Provider Location Encounter Diagn osis - Ambulatory Encounter Josefina Tinoco [facility] Services Contact Center UNK VITAL SIGNS No Information Available Allergies No Known Allergy Information REASON FOR REFERRAL No Information Available RESULTS No Information Available HISTORY OF IMMUNIZATIONS No Information Available Medications No Known Medication Information SOCIAL HISTORY No Information Available FUNCTIONAL STATUS No Information Available MENTAL STATUS No Information Available MEDICAL EQUIPMENT No Information Available FAMILY HISTORY No Information Available INSURANCE PROVIDERS No Information Available ADVANCE DIRECTIVES No Information Available TREATMENT PLAN No Information Available HISTORY OF PROCEDURES No Information Available GOALS No Information Available HEALTH CONCERNS No Information Available
--- OUTSIDE RECORDS SUMMARY | 2019-11-22 20:09 | XMS REPORT ---
Author Author Admin, [employer] Organization Unknown Address Unknown Phone Unavailable PROBLEMS Condition Status Date Provider Notes Cough active Shawnee Curry DIABETES MELLITUS, TYPE II active Shawnee Curry Congestive heart failure active Shawnee Curry Hx of asthma active Shawnee Curry COPD active Shawnee Curry ENCOUNTERS Date Type Provider Location Encounter Diagn osis - Ambulatory Encounter Shawnee Curry Sa kellie Curry [facility] UNK - Ambulatory Encounter Shawnee Curry Sa kellie Curry [facility] UNK - Ambulatory Encounter Shawnee Sharathbee n Shawnee Currymac Chao [facility] COPDHx of asth maCongestive heart failureDIABETES MELLITUS, TYPE IICough - Ambulatory Encounter Josefina ragland [facility] Services Contact Center UNK VITAL [...]
--- OUTSIDE RECORDS SUMMARY | 2019-11-22 20:09 | XMS REPORT ---
Author Author Admin, [place] Organization Unknown Address Unknown Phone Unavailable PROBLEMS Condition Status Date Provider Notes Cough active Shawnee Curry DIABETES MELLITUS, TYPE II active Shawnee Curry Congestive heart failure active Shawnee Curry Hx of asthma active Shawnee Curry COPD active Shawnee Curry ENCOUNTERS Date Type Provider Location Encounter Diagn osis - Ambulatory Encounter Shawneeadriana Velasquez n Shawnee Curry [employer] [facility] UNK - Ambulatory Encounter Amanda Medinais eric Marie [facility] UNK - Ambulatory Encounter Shawene Curry Sa kellie Curry [facility] UNK - Ambulatory Encounter Shawnee Curry Sa kellie Curry [facility] UNK - Ambulatory Encounter Shawnee Sharathbee n Shawnee Curry Kim Chao [facility] Practice COPDHx of asth maCongestive heart failureDIABETES MELLITUS, TYPE IICough - Ambulatory Encounter Josefina Tinoco [facility] Services Contact Center UNK VITAL SIGNS [...] Marie " height E&M 63 [in_i] Zamzam Amrie temperature E&M 97.7 [degF] Shawnee Curry " [...] by mouth twice a day Amanda Conner LASIX 40 MG ORAL TABLET 1 by mouth every am Amanda moon TESSALON PERLES 100 MG ORAL CAPSULE 1 by mouth 3 times a day as needed for cough Amanda Conner AZITHROMYCIN 250 MG ORAL TABLET 2 tablets by mouth on day one then one tablet by mouth each day for a total of 5 days Amanda Conner ALBUTEROL SULFATE (2.5 MG/3ML) 0.083% INHALATION [...] (CoVI D-19), YAQUELIN Est Patient Detailed - 61302 Ofc Vst, New Level III Ofc Vst, New Level III HISTORY OF PROCEDURES No Information Available GOALS No Information Available HEALTH CONCERNS No Information Available
[2019-11-22] MEDS ORDERED: SODIUM CHLORIDE 0.9% 1000ML 1,000 ML IV STA (20:34)
[2019-11-22] MEDS ORDERED: VANCOMYCIN 1GM/NS 250 ML 250 ML IV STA (20:34)
[2019-11-22 20:55] LABS: BASOPHILS # (AUTO) 0.1 (0.0-0.1); BASOPHILS % 0.6 % (0.0-1.0); EOSINOPHILS # (AUTO) 0.2 (0.0-0.4); EOSINOPHILS % 1.9 % (0.0-6.0); HEMATOCRIT 38.4 % (34.2-44.1); HEMOGLOBIN 11.9 g/dL (12.0-16.0); LYMPHOCYTES # (AUTO) 1.4 (1.0-3.2); LYMPHOCYTES % 16.7 % (18.0-39.1); MEAN CORPUSCULAR HEMOGLOBIN 25.1 pg (28-32); MEAN CORPUSCULAR VOLUME 80.8 fL (81-99); MONOCYTES % 12.3 % (4.4-11.3); NEUTROPHILS # (AUTO) 5.6 (2.1-6.9); NEUTROPHILS % 67.5 % (38.7-80.0); PLATELET COUNT 327 x10e3/uL (140-360); RED BLOOD COUNT 4.75 x10e6/uL (3.6-5.1)
[2019-11-22] MEDS ORDERED: ONDANSETRON HCL INJ 2MG/ML 2ML 2 MG/ML VIAL IV PRN (21:00)
[2019-11-22] MEDS ORDERED: ACETAMINOPHEN 325 MG TAB PO PRN (21:00)
[2019-11-22 21:15] LABS: ALBUMIN 3.1 g/dL (3.5-5.0); ALBUMIN/GLOBULIN RATIO 0.7 (0.8-2.0); ANION GAP 16.7 mmol/L (8-16); CALCIUM 9.5 mg/dL (8.4-10.2); CREATININE, SERUM 1.67 mg/dL (0.57-1.11); POTASSIUM 3.7 mmol/L (3.5-5.1)
--- NOTE | 2019-11-22 21:38 | Emergency Department Note ---
History of Present Illnes History of Present Illness Chief Complaint: Skin Rash or Abscess Stated Complaint: SHORTNESS OF BREATH, BIG BOIL History of Present Illness This is a 49 year old female with right lower abdominal wall boil which self erupted prior to arrival . Historian: Patient Onset (how long ago): week(s) (3) Location: right lower abdominal wall abscess Radiation: abdomen Severity: moderate Onset quality: gradual Duration (how long): week(s) (3) Timing of current episode: constant Progression: worsening Chronicity: new Relieving factors: none Exacerbating factors: none Treatments prior to arrival: none Past Medical/Family History Physician Review I have reviewed the patient's past medical and family history. Any updates have been documented here. Past Medical History Recent Fever: Yes Clinical Suspicion of Infectio: Yes New/Unexplained Change in Ment: No Past Medical History: Hypertension, Diabetes Other Medical History: IBS-D Past Surgical History: None Social History Smoking Cessation: Never Smoker Alcohol Use: None Any Illegal Drug Use: No Other Last Tetanus: UNK Review of Systems Review of Systems Constitutional: no symptoms, fever EENTM: no symptoms Cardiovascular: no symptoms Gastointestinal/Abdominal: no symptoms, abdominal pain Genitourinary: no symptoms Musculoskeletal: no symptoms Integumentary: no symptoms, change in color Neurological: no symptoms Psychological: no symptoms Endocrine: no symptoms Hematological/Lymphatic: no symptoms Review of other systems All other systems reviewed and negative. Physical Exam Related Data Allergies: Coded Allergies: No Known Allergies (Verified , 08/22/07) Triage Vital Signs Vital Signs Date Time Temp Pulse Resp B/P (MAP) Pulse Ox O2 Delivery O2 Flow Rate FiO2 11/22/19 20:33 100.6 96 17 158/86 96 11/23/19 00:09 Room Air Physical Exam CONSTITUTIONAL Constitutional: well-developed, morbidly obese HENT HENT: normocephalic, atraumatic, oropharynx clear/moist, nose normal HENT - Ear: left ext ear normal, right ext ear normal EYES Eyes: PERRL, conjunctivae normal NECK Neck: ROM normal PULMONARY Pulmonary: effort normal, breath sounds normal CARDIOVASCULAR Cardiovascular: regular rhythm, heart sounds normal, capillary refill normal, normal rate GASTROINTESTINAL Abdominal: other (RLQ abdominal wall tenderness) GENITOURINARY Genitourinary: exam deferred SKIN Skin: other (area of induration RLQ 6 cm in length with extensive overlying erythema) MUSCULOSKELETAL Musculoskeletal: ROM normal NEUROLOGICAL Neurological: alert, oriented x 3, no gross motor or sensory deficits PSYCHOLOGICAL Psychiatric/behavioral: mood/affect normal, judgement normal Results Laboratory Lab results reviewed: Yes Imaging Y: Yes Impressions [facility] [address] [address] Patient Name: MEÑO MATA MR #: [id number] : 1970 Age/Sex: 49/F Req #: [id number] Adm Physician: HARLAN NGUYỄN MD Ordered by: JACQUELINE DIOP DO Report #: [id number] Location: [facility] Room/Bed: [place] [address] Procedure: [id number] CT/CT ABDOMEN/PELVIS WO Exam Date: 11/22/19 Exam Time: 2217 REPORT STATUS: Signed EXAM: CT Abdomen and Pelvis WITHOUT contrast INDICATION: ^RLQ abscess ^[id number] ^[id number] COMPARISON: CT abdomen pelvis 07/20/2017 TECHNIQUE: Abdomen and pelvis were scanned utilizing a multidetector helical scanner from the lung base to the pubic symphysis without administration of IV contrast. Absence of intravenous contrast decreases sensitivity for detection of focal lesions and vascular pathology. Coronal and sagittal reformations were obtained. Routine protocol was performed. IV CONTRAST: None ORAL CONTRAST: None COMPLICATIONS: None RADIATION DOSE: Total DLP: 2114 mGy*cm Estimated effective dose: (DLP x 0.015 x size factor) mSv CTDIvol has been reviewed. It is below the limits set by the Radiation Protocol Committee (RPC). Dose modulation, iterative reconstruction, and/or weight based adjustment of the mA/kV was utilized to reduce the radiation dose to as low as reasonably achievable. FINDINGS: LINES and TUBES: None. LOWER THORAX: Unremarkable HEPATOBILIARY: Hepatomegaly. Fatty infiltration of the liver. No gross hepatic lesion is identified when allowing for lack of intravenous contrast. No biliary duct dilatation. GALLBLADDER: Surgically absent. SPLEEN: No splenomegaly. PANCREAS: No focal masses or ductal dilatation. ADRENALS: No adrenal nodules KIDNEYS/URETERS: No hydronephrosis. No cystic or solid mass lesions. No stones. GI TRACT: No abnormal distention, wall thickening, or evidence of bowel obstruction. Scattered colonic diverticuli. Appendix is normal. PELVIC ORGANS/BLADDER: Fibroid uterus. LYMPH NODES: No lymphadenopathy. VESSELS: Scattered calcified atherosclerosis. PERITONEUM / RETROPERITONEUM: No free air or fluid. BONES: No acute osseous abnormality. SOFT TISSUES: Tiny umbilical hernia. Of note, origins of the anterior abdominal soft tissues are excluded from view due to the patient's body habitus. IMPRESSION: 1. No acute abdominal or pelvic abnormality. 2. Enlarged fatty liver. Signed by: Cas Walker MD on 11/22/2019 11:19 PM Dictated By: CAS WALKER MD 18 Transcribed By: DAVID on 11/22/192318 COPY TO: JACQUELINE DIOP Assessment & Plan Assessment & Plan Problems: (1) Hyperglycemia (2) Abdominal wall abscess (3) Cellulitis, abdominal wall Assessment & Plan Diagnosis: 1) Hyperglycemia 2) R lower abdominal wall cellulitis 3) R lower abdominal abscess Plan: Admit to Medicine service with General Surgical consult Depart Disposition: ADMITTED Last Vital Signs Date Time Temp Pulse Resp B/P (MAP) Pulse Ox O2 Delivery O2 Flow Rate FiO2 11/25/19 17:29 135/72 11/25/19 16:11 96.7 86 20 98 11/25/19 12:18 Room Air Home Meds Reported Medications Gabapentin (GABAPENTIN) 600 Mg Tablet, 600 MG PO HS 11/22/19 Fenofibrate Nanocrystallized (Fenofibrate) 145 Mg Tablet, 145 MG PO DAILY 11/22/19 Montelukast Sodium (MONTELUKAST SODIUM) 10 Mg Tablet, 10 MG PO HS 11/22/19 Mometasone Furoate (Mometasone Furoate) 17 Gm Tornado.pump, 1 INH INH BID PRN for SHORTNESS OF BREATH 11/22/19 Omeprazole (OMEPRAZOLE) 20 Mg Capsule.dr, 20 MG PO BID 11/22/19 Atorvastatin Calcium (ATORVASTATIN CALCIUM) 20 Mg Tablet, 20 MG PO DAILY 11/22/19 Potassium Chloride (POTASSIUM CHLORIDE) 20 Meq Tab.er.prt, 20 MEQ PO DAILY 11/22/19 Nifedipine (NIFEDIPINE ER) 90 Mg Tab.er.24, 90 MG PO DAILY 11/22/19 Ketoconazole (NIZORAL) 120 Ml Shampoo, 1 APPFUL TOP DAILY PRN for .DANDRUFF 11/22/19 Furosemide (FUROSEMIDE) 40 Mg Tablet, 40 MG PO DAILY 11/22/19 Acetaminophen/Codeine* (TYLENOL # 3*) 1 Ea Tab, 1 TAB PO Q4HR PRN for MODERATE PAIN (4-6) 11/22/19 Lisinopril (PRINAVIL / ZESTRIL) 20 Mg Tablet, 20 MG PO DAILY 11/22/19 Clonidine Hcl (CLONIDINE HCL) 0.1 Mg Tablet, 0.1 MG PO TID 11/22/19 Linagliptin (TRADJENTA) 5 Mg Tablet, 5 MG PO DAILY 11/22/19 Levothyroxine Sodium (LEVOTHYROXINE SODIUM) 25 Mcg Tablet, 25 MCG PO DAILY 11/22/19 Acyclovir (ACYCLOVIR) 800 Mg Tablet, 800 MG PO Q8H PRN for .SORES OUTBREAK 11/22/19 Albuterol Sulfate (ALBUTEROL SULFATE) 2.5 Mg/3 Ml Vial.neb, 1 INH INH DAILY 11/22/19 Dicyclomine Hcl (DICYCLOMINE HCL) 10 Mg Capsule, 10 MG PO BID PRN for ABDOMINAL PAIN 11/22/19 Hydroxyzine Hcl (HYDROXYZINE HCL) 25 Mg Tablet, 50 MG PO HS 11/22/19 Insulin Regular, Human (HUMULIN R) 100 Unit/1 Ml Vial, 40 UNIT SQ TIDWM 11/22/19 Insulin Detemir (Levemir Flextouch) 100 Unit/1 Ml Insuln.pen, 40 UNITS SC DAILY, UNIT 11/22/19 Insulin Detemir (Levemir Flextouch) 100 Unit/1 Ml Insuln.pen, 100 UNITS SQ HS 11/22/19 Attestation Medications in the ED Sodium Chloride 1,000 ml @ 0 mls/hr Q0M STAT IV Last administered on 11/22/19at 21:20; Admin Dose 999 MLS/HR; Start 11/22/19 at 20:34; Stop 11/22/19 at 22:30; Status DC Vancomycin HCl 250 ml @ 166.667 mls/hr ONCE STAT IV Last administered on 11/22/19at 21:20; Admin Dose 166.667 MLS/HR; Start 11/22/19 at 20:34; Stop 11/22/19 at 22:30; Status DC JACQUELINE DIOP DO November 22, 2019 20:33
[2019-11-22] MEDS ORDERED: GABAPENTIN600 MG PO (21:48)
[2019-11-22] MEDS ORDERED: DICYCLOMINE HCL10 MG PO (21:48)
[2019-11-22] MEDS ORDERED: MONTELUKAST SOD10 MG PO (21:48)
[2019-11-22] MEDS ORDERED: POTASSIUM CHLO20 ME1 PO (21:48)
[2019-11-22] MEDS ORDERED: NIZORAL120 ML TOP (21:48)
[2019-11-22] MEDS ORDERED: CLONIDINE HCL0.1 MG PO (21:48)
[2019-11-22] MEDS ORDERED: ALBUTEROL2.5 MG/3 M INH (21:48)
[2019-11-22] MEDS ORDERED: FENOFIBRATE145 M1 PO (21:48)
[2019-11-22] MEDS ORDERED: FUROSEMIDE40 MG PO (21:48)
[2019-11-22] MEDS ORDERED: LEVOTHYROXINE25 MCG PO (21:48)
[2019-11-22] MEDS ORDERED: LEVEMIR FL100 UNIT/1 SQ (21:48)
[2019-11-22] MEDS ORDERED: MOMETASONE FURO17 GM INH (21:48)
[2019-11-22] MEDS ORDERED: LEVEMIR FL100 UNIT/1 SC (21:48)
[2019-11-22] MEDS ORDERED: TRADJENTA5 MG PO (21:48)
[2019-11-22] MEDS ORDERED: HUMULIN R100 UNIT/2 SQ (21:48)
[2019-11-22] MEDS ORDERED: HYDROXYZINE HCL25 MG PO (21:48)
[2019-11-22] MEDS ORDERED: TYLENOL # 31 EA PO (21:48)
[2019-11-22] MEDS ORDERED: NIFEDIPINE ER90 M1 PO (21:48)
[2019-11-22] MEDS ORDERED: ACYCLOVIR800 MG PO (21:48)
[2019-11-22] MEDS ORDERED: LISINOPRIL20 MG PO (21:48)
[2019-11-22] MEDS ORDERED: ATORVASTATIN CA20 MG PO (21:48)
[2019-11-22] MEDS ORDERED: OMEPRAZOLE20 MG PO (21:48)
[2019-11-22] MEDS ORDERED: DEXTROSE 50% SYRINGE 50 ML IV PRN (22:00)
--- NOTE | 2019-11-22 23:23 | Diagnostic Imaging Report ---
EXAM: CT Abdomen and Pelvis WITHOUT contrast INDICATION: ^RLQ abscess ^[id number] ^2218 COMPARISON: CT abdomen pelvis 07/20/2017 TECHNIQUE: Abdomen and pelvis were scanned utilizing a multidetector helical scanner from the lung base to the pubic symphysis without administration of IV contrast. Absence of intravenous contrast decreases sensitivity for detection of focal lesions and vascular pathology. Coronal and sagittal reformations were obtained. Routine protocol was performed. IV CONTRAST: None ORAL CONTRAST: None COMPLICATIONS: None RADIATION DOSE: Total DLP: 2114 mGy*cm Estimated effective dose: (DLP x 0.015 x size factor) mSv CTDIvol has been reviewed. It is below the limits set by the Radiation Protocol Committee (RPC). Dose modulation, iterative reconstruction, and/or weight based adjustment of the mA/kV was utilized to reduce the radiation dose to as low as reasonably achievable. FINDINGS: LINES and TUBES: None. LOWER THORAX: Unremarkable HEPATOBILIARY: Hepatomegaly. Fatty infiltration of the liver. No gross hepatic lesion is identified when allowing for lack of intravenous contrast. No biliary duct dilatation. GALLBLADDER: Surgically absent. SPLEEN: No splenomegaly. PANCREAS: No focal masses or ductal dilatation. ADRENALS: No adrenal nodules KIDNEYS/URETERS: No hydronephrosis. No cystic or solid mass lesions. No stones. GI TRACT: No abnormal distention, wall thickening, or evidence of bowel obstruction. Scattered colonic diverticuli. Appendix is normal. PELVIC ORGANS/BLADDER: Fibroid uterus. LYMPH NODES: No lymphadenopathy. VESSELS: Scattered calcified atherosclerosis. PERITONEUM / RETROPERITONEUM: No free air or fluid. BONES: No acute osseous abnormality. SOFT TISSUES: Tiny umbilical hernia. Of note, origins of the anterior abdominal soft tissues are excluded from view due to the patient's body habitus. IMPRESSION: 1. No acute abdominal or pelvic abnormality. 2. Enlarged fatty liver. Signed by: Sly Romano MD on 11/22/2019 11:19 PM
--- NOTE | 2019-11-22 23:30 | NUR ---
Received patient from ER via wheelchair. AAOx4. Able to make needs known. Respirations even and unlabored, No SOB/ respiratory distress noted. Pt able to ambulate without assistance. Abcess to right lower quadrant about 3cm wide. Appears to be scabbed over but is draining small amounts of reddish green drainage. Pt denies any pain or discomfort at this time. Bed is in locked and low position, pt has non skid socks on and has call light in reach. Will continue to monitor.
[2019-11-22 23:45] VITALS: BP 152/98
[2019-11-23] VITALS (9 sets, daily range): BP systolic 113–152; BP diastolic 60–98
[2019-11-23] MEDS ORDERED: GABAPENTIN 300 MG CAP PO ONE (01:00)
[2019-11-23] MEDS: MORPHINE SULFATE INJ 4 MG/ML INJ 1ML IV PRN ×2 (01:08→09:00)
[2019-11-23 06:17] LABS: BASOPHILS % 0.6 % (0.0-1.0); EOSINOPHILS # (AUTO) 0.2 (0.0-0.4); HEMATOCRIT 34.4 % (34.2-44.1); HEMOGLOBIN 10.8 g/dL (12.0-16.0); LYMPHOCYTES # (AUTO) 1.4 (1.0-3.2); MEAN CORPUSCULAR HEMOGLOBIN 25.5 pg (28-32); MEAN CORPUSCULAR HGB CONC 31.4 g/dL (31-35); MEAN CORPUSCULAR VOLUME 81.1 fL (81-99); MONOCYTES % 14.3 % (4.4-11.3); NEUTROPHILS % 60.1 % (38.7-80.0); PLATELET COUNT 278 x10e3/uL (140-360); RED BLOOD COUNT 4.24 x10e6/uL (3.6-5.1); RED CELL DISTRIBUTION WIDTH 15.3 % (11.7-14.4)
[2019-11-23 07:00] LABS: ALBUMIN 2.5 g/dL (3.5-5.0); ALBUMIN/GLOBULIN RATIO 0.7 (0.8-2.0); ANION GAP 11.6 mmol/L (8-16); CALCIUM 8.5 mg/dL (8.4-10.2); CREATININE, SERUM 1.24 mg/dL (0.57-1.11); POTASSIUM 3.6 mmol/L (3.5-5.1)
--- NOTE | 2019-11-23 07:25 | NUR ---
PT IN BED SLEEPING NO DISTRESS NOTED,NO S/S DISCOMFORT.
[2019-11-23] MEDS: INSULIN REGULAR, HUMAN 100 UNIT/1 ML 3ML VIAL SQ SCH ×5 (07:30→21:13)
--- NOTE | 2019-11-23 09:00 | NUR ---
PT C/O ABD PAIN MEDICATED,DRSG APPLIED TO WOUND TO ABD,PURILENT DRAINAGE NOTED
--- NOTE | 2019-11-23 09:55 | NUR ---
ASSESSMENT: Spiritual concern Pt concerned about family relationships, changes and grieving mother's (from 2017). 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 Intervention: Provided unhurried empathic listening. Facilitated illness review and storytelling. Provided prayer. Provided information on how to reach outdoor fitness trainer, if needed. Outcome: Pt expressed appreciation for visit. TONIO SHEPPARD Senior Telecommunications Consultant Spiritual Care Department O: [phone]
[2019-11-23] MEDS ORDERED: MOMETASONE FUROATE INH PRN (13:30)
[2019-11-23] MEDS ORDERED: ACYCLOVIR 200 MG CAP PO PRN (13:30)
[2019-11-23] MEDS ORDERED: DICYCLOMINE HCL 10 MG CAP PO PRN (13:30)
[2019-11-23] MEDS ORDERED: ACETAMINOPHEN/CODEINE 300MG - 30MG TAB PO PRN (13:30)
[2019-11-23] MEDS ORDERED: KETOCONAZOLE 2% SHAMPOO 4OZ BTL TOP PRN (13:30)
[2019-11-23] MEDS: CLONIDINE HCL 0.1 MG TAB PO SCH ×2 (15:00→21:13)
[2019-11-23] MEDS: PANTOPRAZOLE SOD 40 MG TABEC PO SCH (17:00)
--- NOTE | 2019-11-23 17:59 | NUR ---
PT UP IN BED NO DISTRESS NTOED,DENIES PAIN
[2019-11-23] MEDS ORDERED: CEFEPIME 1GM/NS 0.9% 50 ML 50 ML IV ONE (20:15)
[2019-11-23] MEDS ORDERED: VANCOMYCIN 750MG/NS 150ML IVPB 150 ML IV SCH (20:15)
[2019-11-23] MEDS ORDERED: SODIUM CHLORIDE 0.9% 250ML 250 ML ONE (20:59)
[2019-11-23] MEDS ORDERED: INSULIN DETEMIR 100 UNIT SQ SCH (21:00)
[2019-11-23] MEDS: HYDROXYZINE HCL 25 MG TAB PO SCH (21:13)
[2019-11-23] MEDS: CEFEPIME 1GM/NS 0.9% 50 ML 50 ML IV SCH (21:13)
[2019-11-23] MEDS: GABAPENTIN 300 MG CAP PO SCH (21:14)
[2019-11-23] MEDS: MONTELUKAST SODIUM 10 MG TAB PO SCH (21:14)
[2019-11-23] MEDS: INSULIN GLARGINE 100 UNITS/ML VIAL SQ SCH (21:46)
[2019-11-23] MEDS: SODIUM CHLORIDE 0.9% 1000ML 1,000 ML IV SCH (21:54)
[2019-11-23] MEDS: VANCOMYCIN 750MG/NS 150ML IVPB 150 ML IV SCH (21:54)
[2019-11-24] VITALS (8 sets, daily range): BP systolic 110–153; BP diastolic 53–85
--- NOTE | 2019-11-24 00:12 | History and Physical ---
PRIMARY CARE PHYSICIAN: Not listed. CONSULTING PHYSICIAN: Dr. Barnard of Surgery. CHIEF COMPLAINT: Abscess, right abdomen. HISTORY OF PRESENT ILLNESS: The patient is a 49-year-old female with prior history of multiple abscesses in different locations, admitted with complaints of abscess of the right lower quadrant of her abdomen. The patient states this has been going on for about 3 weeks and she has had fever and chills associated with it. She denies any sick contacts or recent travel. PAST MEDICAL HISTORY: Hypertension, type 2 diabetes mellitus, COPD, CHF of unknown type, asthma, osteoarthritis, IBS-diarrhea, chronic abscess to the abdomen, hypothyroidism, hyperlipidemia, morbid obesity, abscesses at the leg/breast/vagina in the past, pneumonia x2, anxiety. PAST SURGICAL HISTORY: Cholecystectomy, right shoulder. I and D of boil [place] [address] Barnard. FAMILY HISTORY: Father had type 1 diabetes mellitus. Mother had type 2 diabetes mellitus and Parkinson's dementia. Brother had end-stage renal disease. SOCIAL HISTORY: Denies any previous history of tobacco, alcohol, or illicit drugs. She lives with her business objects consultant. 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 ALLERGIES: NO KNOWN ALLERGIES. MEDICATIONS: See medication reconciliation. REVIEW OF SYSTEMS: CONSTITUTIONAL: The patient states she has gained about 10 pounds of last 3-4 months, has been having fever and chills. EYES: No complaints. EARS, NOSE, AND THROAT: No complaints of issues. RESPIRATORY: Secondhand smoke. Some shortness of breath with dry cough. Denies phlegm. GENITOURINARY: Denies difficulty urinating. PSYCHIATRIC: History of anxiety. INTEGUMENTARY: Aforementioned chief complaint of right lower quadrant abdominal abscess. CARDIOVASCULAR: Denies chest pain or palpitations. GASTROINTESTINAL: Last bowel movement on 11/22/2019. Denies nausea, vomiting, diarrhea, or constipation. MUSCULOSKELETAL: She does have joint pain with osteoarthritis. NEUROLOGIC: Denies headache or dizziness. ENDOCRINE: Known diabetic. HEMATOLOGIC: Denies bleeding or bruising. OBJECTIVE: VITAL SIGNS: Temperature 98.6, heart rate 90, blood pressure 139/77, respirations 18, and oxygen saturation 95% on room air. Height 5 feet 3 inches. Weight 327 pounds. BMI 57.91. GENERAL: Supine in bed on her left side. LUNGS: Generally clear to auscultation. Difficult to discern specific lung sounds due to body habitus. HEENT: Extraocular eye movements intact. NECK: Supple. CARDIOVASCULAR: Regular rate and rhythm. No murmur. ABDOMEN: Bowel sounds positive. Soft. No guarding. Right lower quadrant with approximately 6 cm size erythema with about 3.5 cm black central area with some purulent yellow drainage. EXTREMITIES: Right lower extremity is obviously larger than left lower extremity, which the patient states is chronic. No clubbing or cyanosis. No obvious edema. NEUROLOGICAL: GCS 15. Nonfocal. DIAGNOSTIC STUDIES AND LABORATORY DATA: Yesterday, WBC 8.28, hemoglobin 11.9, hematocrit 38.4, platelets 327. Sodium 133, potassium 3.7, chloride 94, CO2 of 26, BUN 25, creatinine 1.67, estimated GFR 32, glucose 431. Fingerstick blood glucose 348. Lactic acid 1.8, calcium 9.5, total bilirubin 0.3, AST 13, ALT 22, alkaline phosphatase 100, total protein 7.6, albumin 3.1. Coronavirus collected yesterday is pending. Blood cultures x2 remain pending. Imaging; CT of the abdomen and pelvis completed yesterday showed no acute abdominal or pelvic abnormality and large fatty liver, tiny umbilical hernia. Today's laboratory data shows WBC 6.71, hemoglobin 10.8, hematocrit 34.4, platelets 278. Sodium 135, potassium 3.6, chloride 100, CO2 of 27, BUN 26, creatinine 1.24, estimated GFR 46, glucose 327. Fingerstick blood glucose levels 321, 333, 281, and 313. Calcium 8.5, total bilirubin 0.7, AST 134, ALT 64, alkaline phosphatase 95, total protein 6.1, albumin 2.5. ASSESSMENT AND PLAN: 1. Right lower quadrant abdominal wall cellulitis with abscess. Surgery consulted for possible incision and drainage. Vancomycin was given in the ER. We will go ahead and give vancomycin and cefepime IV antibiotics. Monitor white blood cell count and temperature. 2. Acute hyponatremia, improving. Monitor. 3. Controlled hypertension. Resume home medications and monitor blood pressure. 4. Uncontrolled type 2 diabetes mellitus with hyperglycemia. Assess hemoglobin A1c. Monitor fingerstick blood glucose levels before meals and at bedtime. She is on Lantus 40 units subcu daily and 100 units subcu at bedtime, as well as regular insulin 40 units subcu t.i.d. with meals. Continue sliding scale insulin before meals and at bedtime. 5. Chronic obstructive pulmonary disease without acute exacerbation. Monitor pulmonary status. 6. Congestive heart failure, unknown type. Orders entered for a 12-lead ECG and echocardiogram for cardiac clearance to be read by Dr. Reyes. 7. Asthma without exacerbation. Monitor pulmonary status. 8. Hypothyroidism. Continue home dose of levothyroxine and check TSH level. 9. Irritable bowel syndrome/diarrhea. Home medication of Bentyl resumed. 10. Hyperlipidemia. Home medications fenofibrate and atorvastatin resumed. 11. Morbid obesity with BMI 57.91. Dietary restrictions. 12. Right lower extremity swelling. We will check right lower extremity venous Doppler ultrasound to rule out DVT. 13. Acute kidney injury. Creatinine 1.24 (1.67) monitor for improvement. We will give gentle hydration with normal saline at 50 mL an hour. 14. Prophylaxis. Protonix. H and P time spent 60 minutes. Billing code [id number]. Dictated by Juanito Fisher NP MD EVELIA VogtP/MODL /[id number]
[2019-11-24 01:30] LABS: CLARITY,URINE CLEAR (CLEAR); COLOR,URINE YELLOW (YELLOW); LEUKOCYTE ESTERASE ,URINE NEGATIVE (NEGATIVE); NITRITE,URINE NEGATIVE (NEGATIVE); PROTEIN,URINE DIPSTICK >=300 (NEGATIVE)
[2019-11-24 01:31] LABS: BILIRUBIN,URINE NEGATIVE (NEGATIVE); KETONES,URINE NEGATIVE (NEGATIVE); URINE UROBILINOGEN 0.2 mg/dL (0.2 - 1)
[2019-11-24 02:00] LABS: BACTERIA,URINE FEW /HPF
[2019-11-24 02:01] LABS: EPITHELIAL CELLS,URINE FEW /LPF; YEAST,URINE FEW
[2019-11-24] MEDS: MORPHINE SULFATE INJ 4 MG/ML INJ 1ML IV PRN ×2 (02:07→20:59)
[2019-11-24] MEDS: LEVOTHYROXINE SODIUM 25 MCG TABLET PO SCH (05:49)
--- NOTE | 2019-11-24 07:10 | NUR ---
Bedside report and walking rounds completed with on coming nurse. Patient in bed with call light within reach. No issues or concerns noted.
[2019-11-24 07:20] LABS: BASOPHILS % 0.7 % (0.0-1.0); EOSINOPHILS # (AUTO) 0.2 (0.0-0.4); EOSINOPHILS % 3.1 % (0.0-6.0); HEMATOCRIT 35.3 % (34.2-44.1); HEMOGLOBIN 10.9 g/dL (12.0-16.0); LYMPHOCYTES # (AUTO) 1.2 (1.0-3.2); LYMPHOCYTES % 21.6 % (18.0-39.1); MEAN CORPUSCULAR HEMOGLOBIN 25.2 pg (28-32); MEAN CORPUSCULAR HGB CONC 30.9 g/dL (31-35); MEAN CORPUSCULAR VOLUME 81.7 fL (81-99); MONOCYTES # (AUTO) 0.6 (0.2-0.8); MONOCYTES % 11.2 % (4.4-11.3); NEUTROPHILS # (AUTO) 3.6 (2.1-6.9); NEUTROPHILS % 62.5 % (38.7-80.0); PLATELET COUNT 213 x10e3/uL (140-360); RED BLOOD COUNT 4.32 x10e6/uL (3.6-5.1); RED CELL DISTRIBUTION WIDTH 15.5 % (11.7-14.4)
[2019-11-24] MEDS: ALBUTEROL SULF 0.083% NEB SOLN 3 ML NEB INH SCH (07:45)
[2019-11-24 07:49] LABS: ALBUMIN 2.5 g/dL (3.5-5.0); ALBUMIN/GLOBULIN RATIO 0.6 (0.8-2.0); ANION GAP 10.7 mmol/L (8-16); CALCIUM 7.7 mg/dL (8.4-10.2); CHOL/HDL RATIO 2.5 (3.0-3.6); CREATININE, SERUM 1.37 mg/dL (0.57-1.11); MAGNESIUM 1.9 MG/DL (1.3-2.1); PHOSPHORUS 2.9 MG/DL (2.3-4.7); POTASSIUM 3.7 mmol/L (3.5-5.1)
[2019-11-24 08:08] LABS: THYROID STIMULATING HORMONE 2.685 uIU/mL (0.350-4.940)
[2019-11-24] MEDS: INSULIN REGULAR, HUMAN 100 UNIT/1 ML 3ML VIAL SQ SCH ×7 (08:09→20:58)
[2019-11-24] MEDS: (Linagliptin (Tradjenta) 5 MG) PO SCH (09:00)
[2019-11-24] MEDS ORDERED: NON-FORMULARY MEDICATION (Insulin Detemir (Levemir Flextouch) 40 UNITS) SC SCH (09:00)
[2019-11-24] MEDS ORDERED: INSULIN GLARGINE 100 UNITS/ML VIAL SQ SCH (09:00)
[2019-11-24] MEDS ORDERED: FUROSEMIDE 40 MG TAB PO SCH (09:00)
[2019-11-24] MEDS ORDERED: NON-FORMULARY MEDICATION (Linagliptin (Tradjenta) 5 MG) PO SCH (09:00)
[2019-11-24] MEDS: ATORVASTATIN 20 MG TAB PO SCH (09:29)
[2019-11-24] MEDS: POTASSIUM CHLORIDE 20 MEQ TAB CR PO SCH (09:29)
[2019-11-24] MEDS: PANTOPRAZOLE SOD 40 MG TABEC PO SCH ×2 (09:29→16:40)
[2019-11-24] MEDS: LISINOPRIL 20 MG TAB PO SCH (09:29)
[2019-11-24] MEDS: CLONIDINE HCL 0.1 MG TAB PO SCH ×3 (09:29→20:58)
[2019-11-24] MEDS: FENOFIBRATE 145 MG TAB PO SCH (09:30)
[2019-11-24] MEDS: NIFEDIPINE CR 30 MG TAB PO SCH (09:30)
--- NOTE | 2019-11-24 09:52 | Consultation ---
DATE OF CONSULTATION: Pulmonary Critical Care consultation CHIEF COMPLAINT: Elevated blood sugars, abdominal wall abscess and fatigue. HISTORY OF PRESENT ILLNESS: The patient is a 49-year-old woman. She has a history of prior skin abscesses as well as severe diabetes. She takes 100 units of Lantus in the evening and at night as well as high doses of regular insulin during the day. She notes some fever and chills. She has some swelling and abscess in the skin and subcutaneous tissue of her abdominal wall in the right lower quadrant. It has started draining spontaneously, but is still painful. The patient does not complain of chest pain or cough. She is not having difficulty breathing. When she came to the emergency department, her blood sugars were in the 300 to 400 range. PAST SURGICAL HISTORY: 1. Status post cholecystectomy. 2. Status post shoulder surgery. 3. Status post incision and drainage of prior abscesses. PAST MEDICAL HISTORY: 1. Diabetes. 2. Hypertension. 3. Hypothyroidism. 4. Morbid obesity. FAMILY HISTORY: History of diabetes as well as Parkinson's disease and end-stage renal disease. SOCIAL HISTORY: The patient is not a drinker or smoker. ALLERGIES: THERE ARE NO KNOWN DRUG ALLERGIES. REVIEW OF SYSTEMS: The patient did have some fevers at home, but is now afebrile. She does not complain of headache. She has no neck pain. She is not complaining of chest pain. She denies difficulty breathing. She does have some pain in her abdominal wall as well as some drainage from the abscess. She does not complain of worsening leg edema. She has no focal neurological complaints. PHYSICAL EXAMINATION: VITAL SIGNS: The blood pressure is 125/70 and saturation is 95%. The pulse is 75 and the respiratory rate is 18. HEENT: Shows no facial swelling or erythema. CARDIAC: Reveals regular rate and rhythm with normal S1 and S2. LUNGS: Auscultation of lungs shows decreased breath sounds at the bases. There is no wheezing. ABDOMEN: Soft. There is a partially drained abscess in the right lower quadrant. There is a small amount of fluctuance around the area. EXTREMITIES: Shows some leg edema. NEUROLOGICAL: Shows no focal abnormalities. RADIOGRAPHIC DATA: Echocardiogram shows a preserved ejection fraction with some mild left ventricular hypertrophy. There are no significant valvular abnormalities. CT scan of the abdomen and pelvis shows no acute abnormalities. There is an enlarged liver suggestive of fatty liver. LABORATORY DATA: BUN to creatinine ratio is 25 to 1.37 and the potassium is 3.7. The sodium is 134. Blood sugars are in the 245 to 350 range. Hemoglobin A1c is 10.8 and calcium is 7.7. AST is 131 and ALT is 146. Albumin is 2.5. White blood cell count is 5.7, hemoglobin is 10.9. The platelet count is 213. Urinalysis shows 10 to 20 white blood cells. IMPRESSION: 1. Diabetes out of control. 2. Abdominal wall abscess with cellulitis. 3. Anemia, unspecified. 4. Acute kidney injury. 5. Morbid obesity. 6. Steatohepatitis. PLAN: 1. Continue cefepime and vancomycin. The patient will need a vancomycin trough level. 2. Surgical consultation for possible incision and drainage. 3. Continue normal saline. 4. Monitor renal function. 5. DVT prophylaxis. 6. Head of bed as tolerated. MD KIRK Sampson/ARINA /[id number]
--- NOTE | 2019-11-24 10:48 | Consultation ---
DATE OF CONSULTATION: 11/24/2019 CHIEF COMPLAINT: Abdominal wall abscess. HISTORY OF PRESENT ILLNESS: This patient is a 49-year-old female with history of diabetes and prior history of subcutaneous abscess in the torso area complaining of a 3-week history of evolving skin infection in the right lower quadrant with associated fever and chills. The patient denied history of trauma or insect bites. PAST MEDICAL HISTORY: Positive for metabolic syndrome with hypertension, hyperlipidemia, and diabetes. She also has heart failure with COPD, asthma, osteoarthritis, IBS, hypothyroidism, morbid obesity, history of pneumonia, and anxiety disorder. PAST SURGICAL HISTORY: Positive for cholecystectomy and right shoulder I and D of abscess. ALLERGIES: THE PATIENT HAS NO DRUG ALLERGIES. SOCIAL HABITS: She denies smoking or alcohol abuse. REVIEW OF SYSTEMS: No chest pain, shortness of breath, cough, or fever. PHYSICAL EXAMINATION: VITAL SIGNS: Stable. She is afebrile. GENERAL: She is awake and alert, in mild to moderate discomfort. HEENT: Sclerae are nonicteric. NECK: Supple. LUNGS: Clear. HEART: Regular rate and rhythm. ABDOMEN: Soft. In the right lower quadrant, there is a 3 cm area of necrotic skin and soft tissue with some exudative drainage consistent with abscess formation. EXTREMITIES: No cyanosis or edema. LABORATORY DATA: White cell count is 5.7, hemoglobin of 10.9, creatinine of 1.3, and glucose of 245. CT of the abdomen showed no acute abnormalities. ASSESSMENT: Abdominal wall abscess. PLAN: I and D of abdominal wall abscess under local anesthesia given the patient's morbid obesity status and superficial nature of the infection. MD JOSE R Lee/MODL /[id number]
--- NOTE | 2019-11-24 12:29 | NUR ---
Dr Barnard at bed side done I&D, Dressing applied, wound culture obtained, patient not in any distress
--- NOTE | 2019-11-24 13:29 | Operative Report ---
DATE OF PROCEDURE: 11/24/2019 SURGEON: Momo Barnard MD PREOPERATIVE DIAGNOSIS: Abdominal wall abscess. POSTOPERATIVE DIAGNOSIS: Abdominal wall abscess. PROCEDURE: Incision and drainage of abdominal wall abscess. ANESTHESIA: Local. INDICATION: A 49-year-old female with 1-week history of redness and tenderness in the abdominal wall on the right side, consistent with abscess formation. The patient has consented for debridement under anesthesia local with all attendant risks discussed. PROCEDURE FINDINGS: Subcutaneous abscess in the right lower quadrant. DESCRIPTION OF PROCEDURE: The patient was brought, placed in the supine position in her hospital bed. Abdomen was prepped with Betadine and draped in sterile fashion. Local anesthesia 1% lidocaine was injected at the periphery of the abscess cavity at the necrotic skin margin. We proceeded to use a scalpel to make a cruciate incision at the center abscess entering the cavity. Purulent material was obtained and swab specimen done for culture and sensitivity. Necrotic skin and soft tissue were excised with a scalpel and the cavity was digitally explored to break up all loculations. Cavity was measured approximately 3 cm. Irrigation then carried out. Wound packing with iodoform gauze. Dressing applied. The patient tolerated procedure well. BLOOD LOSS: 5 mL. Momo Barnard MD DNL/MODL /[id number]
[2019-11-24] MEDS: SODIUM CHLORIDE 0.9% 1000ML 1,000 ML IV SCH (16:55)
--- NOTE | 2019-11-24 19:54 | NUR ---
Received bedside report from day nurse. Patient awake and sitting in recliner chair, no s/s of distress at this time. Instructed to call for assistance, verbalized understanding. All safety measures in place. Will continue to monitor.
[2019-11-24] MEDS: MONTELUKAST SODIUM 10 MG TAB PO SCH (20:58)
[2019-11-24] MEDS: INSULIN GLARGINE 100 UNITS/ML VIAL SQ SCH (20:58)
[2019-11-24] MEDS: CEFEPIME 1GM/NS 0.9% 50 ML 50 ML IV SCH (20:58)
[2019-11-24] MEDS: HYDROXYZINE HCL 25 MG TAB PO SCH (20:58)
[2019-11-24] MEDS: GABAPENTIN 300 MG CAP PO SCH (20:58)
[2019-11-24] MEDS: VANCOMYCIN 750MG/NS 150ML IVPB 150 ML IV SCH (21:38)
--- NOTE | 2019-11-24 21:44 | NUR ---
Juanito DIRECTOR CLINICAL DATA here to see patient. Received orders to increase fluids to 100 ml/hr.
--- NOTE | 2019-11-24 22:00 | NUR ---
Per Juanito DESK LIEUTENANT, PM Lantus dose changed from 100 units to 115 units. Informed DESK LIEUTENANT that 100 units of Lantus already administered earlier tonight. Per DESK LIEUTENANT, give another 15 units now.
--- NOTE | 2019-11-24 23:51 | Progress Note ---
DATE: 11/24/2019 SUBJECTIVE: The patient is sitting on the edge of the bed, awake and alert. States her pain level is approximately 3/10 currently. Denies any other complaints at present. She did have a bowel movement today. Currently on ADA diet. MEDICATIONS: Reviewed. OBJECTIVE: VITAL SIGNS: Temperature 97.8, heart rate 75, blood pressure 125/70, respirations 18, and oxygen saturation 95% on room air. Intake 580 mL and output 700 mL. GENERAL: Awake and alert. LUNGS: Clear to auscultation. HEENT: EOMI. NECK: Supple. CARDIOVASCULAR: Regular rate and rhythm. No murmur. Normal saline infusing at 50 mL an hour in to her peripheral IV. ABDOMEN: Bowel sounds are positive. Soft and tender on the right with dressing clean, dry, and intact. No drainage noted. EXTREMITIES: Right lower extremity slightly larger than left lower extremity. No clubbing or cyanosis, marked edema. NEUROLOGICAL: GCS 15, nonfocal. DIAGNOSTIC LABORATORY DATA: Sodium 134, potassium 3.7, chloride 102, CO2 of 25, BUN 25, creatinine 1.37, and glucose 245. Estimated GFR 41. Hemoglobin A1c 10.8%. Fingerstick blood glucose levels 271, 259, and 325. Calcium 7.7, phosphorus 2.9, and magnesium 1.9. Total bilirubin 0.4, AST 131, ALT 146, alkaline phosphatase 96, total protein 6.4, albumin 2.5, triglycerides 149, cholesterol 140, LDL 54, and HDL 56. TSH 2.685. WBC 5.73, hemoglobin 10.9, hematocrit 35.3, and platelets 213. Urinalysis with specific gravity 1.025, protein greater than equal to 300, glucose 2+. Negative ketones, negative nitrite, negative leukocyte esterase, rbc's 6 to 10, wbc's 11 to 20, few yeast, few bacteria, few epithelial cells. Vancomycin trough level 7.6. On 11/21, Coronavirus PCR was negative. Wound culture Gram stain preliminary with no organisms. Wound culture is still pending. Urine culture is pending. Blood cultures x2 collected on 11/21, no growth after 48 hours. Imaging on 11/22, venous Doppler ultrasound of the right lower extremity was negative for DVT. Echocardiogram today showed ejection fraction of 50%. A 12-lead ECG on 11/22 showed normal sinus rhythm with a heart rate of 89. ASSESSMENT AND PLAN: 1. Right lower quadrant abdominal wall cellulitis with abscess, status post bedside debridement on 11/[address] Barnard. Continue IV antibiotics, cefepime and vancomycin. Remains afebrile. WBC 5.73. 2. Acute kidney injury with dehydration. Creatinine 1.73 (1.67), estimated GFR 41 (32). Normal saline is infusing at 50 mL an hour. We will ask the RN to increase rate to 100 mL an hour. 3. Acute hyponatremia, improving. Sodium 134 (133), monitor. 4. Controlled hypertension. Continue home antihypertensives. 5. Uncontrolled type 2 diabetes mellitus with hyperglycemia. Hemoglobin A1c 10.8%. Fingerstick blood glucose level today ranged from 271 to 325. She has been on Lantus 40 units subcu daily and 100 units subcu at bedtime. We will increase Lantus to 50 units subcu daily and 115 units subcu at bedtime, that, along with the increase in normal saline IV fluids, should help control blood sugar. Dietitian consulted for ADA diet education. The patient states that when she had insurance previously, she saw Dr. Moss with Endocrinology, however, currently she does not have a PCP. 6. Chronic obstructive pulmonary disease without acute exacerbation. Monitor pulmonary status. 7. Chronic diastolic congestive heart failure. EF of 50%. 8. Asthma without exacerbation. Monitor pulmonary status. 9. Hypothyroidism. TSH 2.685. Continue home dose of levothyroxine. 10. Irritable bowel syndrome/diarrhea. Continue Bentyl. The patient denies any current diarrhea. 11. Hyperlipidemia. Continue fenofibrate and atorvastatin. 12. Morbid obesity with BMI 57.91. Dietary restrictions, PT evaluate and treat. The patient ambulated today. 13. Right lower extremity swelling, this is chronic. Venous Doppler ultrasound was negative for deep vein thrombosis. 14. Prophylaxis. Protonix. Time spent 40 minutes. Billing code [id number]. Dictated by Juanito Fisher NP MD EVELIA VogtP/MODL /[id number]
--- NOTE | 2019-11-24 23:52 | NUR ---
Report given to oncoming nurse. Patient in stable condition, no s/s of distress at this time.
[2019-11-25] VITALS (7 sets, daily range): BP systolic 114–162; BP diastolic 69–90
--- NOTE | 2019-11-25 | NUR ---
pt received. no ss of distress noted. no co pain at time. will cont to follow poc. call rodriguez within reach.
--- NOTE | 2019-11-25 04:19 | NUR ---
pt resting. no ss of distress noted. call rodriguez within reach.
[2019-11-25 06:11] LABS: ALBUMIN 2.4 g/dL (3.5-5.0); ALBUMIN/GLOBULIN RATIO 0.6 (0.8-2.0); ANION GAP 12.4 mmol/L (8-16); CALCIUM 7.7 mg/dL (8.4-10.2); CREATININE, SERUM 1.18 mg/dL (0.57-1.11); POTASSIUM 4.4 mmol/L (3.5-5.1)
[2019-11-25] MEDS: LEVOTHYROXINE SODIUM 25 MCG TABLET PO SCH (06:12)
[2019-11-25] MEDS: SODIUM CHLORIDE 0.9% 1000ML 1,000 ML IV SCH ×2 (06:12→16:08)
[2019-11-25 06:54] LABS: BASOPHILS # (AUTO) 0.1 (0.0-0.1); BASOPHILS % 0.8 % (0.0-1.0); EOSINOPHILS # (AUTO) 0.2 (0.0-0.4); EOSINOPHILS % 3.6 % (0.0-6.0); HEMATOCRIT 34.9 % (34.2-44.1); HEMOGLOBIN 10.7 g/dL (12.0-16.0); LYMPHOCYTES # (AUTO) 1.5 (1.0-3.2); LYMPHOCYTES % 23.6 % (18.0-39.1); MEAN CORPUSCULAR HEMOGLOBIN 25.4 pg (28-32); MEAN CORPUSCULAR HGB CONC 30.7 g/dL (31-35); MEAN CORPUSCULAR VOLUME 82.7 fL (81-99); MONOCYTES # (AUTO) 0.7 (0.2-0.8); MONOCYTES % 11.5 % (4.4-11.3); NEUTROPHILS # (AUTO) 3.8 (2.1-6.9); NEUTROPHILS % 59.4 % (38.7-80.0); PLATELET COUNT 302 x10e3/uL (140-360); RED BLOOD COUNT 4.22 x10e6/uL (3.6-5.1); RED CELL DISTRIBUTION WIDTH 15.6 % (11.7-14.4)
[2019-11-25] MEDS: ALBUTEROL SULF 0.083% NEB SOLN 3 ML NEB INH SCH (07:30)
[2019-11-25] MEDS: INSULIN REGULAR, HUMAN 100 UNIT/1 ML 3ML VIAL SQ SCH ×7 (07:46→20:32)
[2019-11-25] MEDS: INSULIN GLARGINE 100 UNITS/ML VIAL SQ SCH (07:48)
[2019-11-25] MEDS: FENOFIBRATE 145 MG TAB PO SCH (08:33)
[2019-11-25] MEDS: NIFEDIPINE CR 30 MG TAB PO SCH (08:33)
[2019-11-25] MEDS: LISINOPRIL 20 MG TAB PO SCH (08:33)
[2019-11-25] MEDS: ATORVASTATIN 20 MG TAB PO SCH (08:34)
[2019-11-25] MEDS: PANTOPRAZOLE SOD 40 MG TABEC PO SCH ×2 (08:34→17:30)
[2019-11-25] MEDS: (Linagliptin (Tradjenta) 5 MG) PO SCH (08:34)
[2019-11-25] MEDS: POTASSIUM CHLORIDE 20 MEQ TAB CR PO SCH (08:34)
[2019-11-25] MEDS: CLONIDINE HCL 0.1 MG TAB PO SCH ×3 (08:34→20:30)
--- NOTE | 2019-11-25 17:53 | NUR ---
Nutrition Screen Note RD Recommendation for Physician: - Continue current diet - Recommend outpatient CDE/DM education upon discharge Plan of Care: RD following, monitoring for tolerance and adequacy - diet education provided 11/24 Nutrition reason for involvement: MD Consult- DM diet education, MST trigger Primary Diagnose(s): R abd wall cellulitis and abscess PMH: HTN, DM2, chronic abscesses, COPD, CHF, OA, IBS Ht: 63 in Wt: 327.38 lb BMI: 58 kg/m2 IBW: [address] Assessment: (11/24) 49 YOF admitted for R abd wall abscess and cellulitis. Pt seen today per MST screen and MD consult for DM diet education. Pt with A1C of 10.8 on admit and current BMI of 58. Pt educated on DM2 nutrition therapy emphasizing CHO sources, CHO counting, Pt educated on label reading, portion control, meal planning, and foods to avoid. All questions and concerns addressed at time of visit, handouts provided. Chart reviewed. Labs and meds reviewed. Will continue to monitor. Current Diet: 1800 ADA Malnutrition Evaluation (11/25/19) The patient does not meet criteria for a specified degree of malnutrition at this time. Will re-evaluate at follow-up as appropriate. Diet Education Needs Assessment: Diet education indicated, pt receptive- diet education provided 11/24. Learner(s): pt, pt's friend Barriers: none Cultural/Language Modifications: none Readiness: ready Method: handouts, discussion Topics: DM2 nutrition therapy- CHO sources, CHO counting, meal planning, foods to avoid Understanding/Compliance: fair Diet tolerance: tolerating po Nutrition Care Level: low Signed: Renetta Cintron RD, LD, [facility]
--- NOTE | 2019-11-25 19:05 | NUR ---
Received change of shift report from AM nurse. Walking rounds completed. Patient in bed resting quitly at this time.
[2019-11-25] MEDS ORDERED: HYDRALAZINE HCL 20 MG/ML VIAL IV PRN (20:00)
[2019-11-25] MEDS ORDERED: SODIUM CHLORIDE 0.9% 250ML 250 ML IV ONE (20:15)
[2019-11-25] MEDS: CEFEPIME 1GM/NS 0.9% 50 ML 50 ML IV SCH (20:29)
[2019-11-25] MEDS: HYDROXYZINE HCL 25 MG TAB PO SCH (20:30)
[2019-11-25] MEDS: MONTELUKAST SODIUM 10 MG TAB PO SCH (20:31)
[2019-11-25] MEDS: GABAPENTIN 300 MG CAP PO SCH (20:31)
--- NOTE | 2019-11-25 20:35 | NUR ---
Patient arrived to floor via w/c. Addendum: 11/26/19 at 0634 by Daniela Aragon RN error wrong patient.
[2019-11-25] MEDS ORDERED: INSULIN GLARGINE 100 UNITS/ML VIAL SQ SCH (21:00)
[2019-11-25] MEDS: VANCOMYCIN 750MG/NS 150ML IVPB 150 ML IV SCH (21:30)
--- NOTE | 2019-11-25 22:11 | Progress Note ---
DATE: 11/25/2019 SUBJECTIVE: The patient is sitting on the edge of the bed. Still having occasional chills, but has been afebrile today. Right abdominal pain rated 8 on a scale of 0-10. She did ambulate with physical therapy today and received teaching from the dietitian regarding diabetic diet. MEDICATIONS: Reviewed. OBJECTIVE: VITAL SIGNS: Temperature 97.0, heart rate 79, blood pressure 162/83, respirations 20, oxygen saturation 96%, and T-max 98.2. GENERAL: Awake and alert. LUNGS: Clear to auscultation. HEENT: EOMI. NECK: Supple. CARDIOVASCULAR: Regular rate and rhythm without murmur. Normal saline infusing at 50 mL an hour into her peripheral IV. ABDOMEN: Large pannus. Bowel sounds positive. Soft, slightly tender on the right with dressing clean, dry, and intact. No drainage. No SHAMEKA drain. EXTREMITIES: Right lower extremity is slightly larger than left lower extremity. No clubbing, cyanosis, or edema. NEUROLOGICAL: GCS 15, nonfocal. LABORATORY DATA: WBC 6.43, hemoglobin 10.7, hematocrit 34.9, and platelets 302. Sodium 133, potassium 4.4, chloride 103, CO2 of 22, BUN 23, creatinine 1.18, estimated GFR 48, and glucose 184. Fingerstick blood glucose levels 179, 216, 282, and 284. Calcium 7.7, total bilirubin 0.2, AST 66, ALT 109, and alkaline phosphatase 82. Total protein 6.4, albumin 2.4. No new imaging studies. ASSESSMENT AND PLAN: 1. Right lower quadrant abdominal wall cellulitis with abscess, status post bedside debridement of abdominal wall subcutaneous abscess with I and D on 11/[address] Barnard. Continue IV antibiotics, cefepime, and vancomycin. Surgery following. WBC 6.43. Remains afebrile. 2. Acute kidney injury with dehydration. Creatinine 1.18 (1.37). Estimated GFR 48 (41). Normal saline infusing at 50 mL an hour, order was entered last night to increase rate to 100 mL an hour. Discussed with RN and 250 mL normal saline bolus ordered to be given now and rate to be increased to 100 mL an hour. 3. Acute hyponatremia, sodium 133 (134). Monitor increase normal saline IV fluid rate to 100 mL an hour. 4. Controlled hypertension. Continue clonidine 0.1 mg t.i.d., lisinopril 20 mg daily and on nifedipine 90 mg daily. 5. Uncontrolled type 2 diabetes mellitus with hyperglycemia. Hemoglobin A1c 10.8%. FSBG today ranged from 179 to 284. Last night Lantus increased to 50 units subcu daily and 115 units subcu at bedtime. Diabetic teaching today by dietitian regarding diet increase normal saline to 100 mL an hour. 6. Chronic obstructive pulmonary disease without an acute exacerbation. Monitor pulmonary status. 7. Chronic diastolic congestive heart failure. EF of 50%. We will continue MIRELLA inhibitor, Lasix. 8. Asthma without exacerbation. Monitor pulmonary status. 9. Hypothyroidism. Continue levothyroxine. 10. Irritable bowel syndrome/diarrhea. Continue Bentyl. 11. Hyperlipidemia. Continue fenofibrate and atorvastatin. 12. Morbid obesity with BMI 57.91. Dietary restrictions PT evaluation and treat. The patient ambulated today. 13. Chronic right lower extremity swelling. 14. Prophylaxis. Protonix. Time spent 40 minutes. Billing code [id number]. Dictated by Juanito Fisher NP MD EVELIA VogtP/FLORENCIOL /[id number]
[2019-11-26 04:00] VITALS: BP 136/77
[2019-11-26] MEDS: LEVOTHYROXINE SODIUM 25 MCG TABLET PO SCH (05:37)
[2019-11-26 06:08] LABS: BASOPHILS # (AUTO) 0.1 (0.0-0.1); BASOPHILS % 1.1 % (0.0-1.0); EOSINOPHILS # (AUTO) 0.2 (0.0-0.4); EOSINOPHILS % 3.6 % (0.0-6.0); HEMATOCRIT 33.1 % (34.2-44.1); HEMOGLOBIN 10.1 g/dL (12.0-16.0); LYMPHOCYTES # (AUTO) 1.3 (1.0-3.2); MEAN CORPUSCULAR HEMOGLOBIN 25.4 pg (28-32); MEAN CORPUSCULAR HGB CONC 30.5 g/dL (31-35); MEAN CORPUSCULAR VOLUME 83.2 fL (81-99); MONOCYTES # (AUTO) 0.7 (0.2-0.8); MONOCYTES % 14.2 % (4.4-11.3); NEUTROPHILS # (AUTO) 2.5 (2.1-6.9); NEUTROPHILS % 52.6 % (38.7-80.0); PLATELET COUNT 306 x10e3/uL (140-360); RED BLOOD COUNT 3.98 x10e6/uL (3.6-5.1); RED CELL DISTRIBUTION WIDTH 15.6 % (11.7-14.4)
[2019-11-26] MEDS: ALBUTEROL SULF 0.083% NEB SOLN 3 ML NEB INH SCH (06:20)
[2019-11-26 06:29] LABS: ALBUMIN 2.3 g/dL (3.5-5.0); ALBUMIN/GLOBULIN RATIO 0.7 (0.8-2.0); CREATININE, SERUM 1.12 mg/dL (0.57-1.11)
--- NOTE | 2019-11-26 06:34 | NUR ---
Patient resting quitly at this time. Continue monitor.
--- NOTE | 2019-11-26 06:35 | NUR ---
Patient request pain meds. for abd pain. Meds given as ordered by Continue monitor. BS 284. Insulin given per sliding to left upper arm. Addendum: 11/26/19 at 0638 by Daniela Aragon RN time 11-25-19 at 2100.
[2019-11-26] MEDS ORDERED: SODIUM CHLORIDE 0.9% 500ML 500 ML IV ONE (07:40)
[2019-11-26 07:43] VITALS: BP_SYST 100
[2019-11-26] MEDS: INSULIN REGULAR, HUMAN 100 UNIT/1 ML 3ML VIAL SQ SCH ×6 (07:52→16:42)
[2019-11-26] MEDS: FENOFIBRATE 145 MG TAB PO SCH (08:24)
[2019-11-26] MEDS: POTASSIUM CHLORIDE 20 MEQ TAB CR PO SCH (08:24)
[2019-11-26 08:25] VITALS: BP 100/77
[2019-11-26] MEDS: PANTOPRAZOLE SOD 40 MG TABEC PO SCH ×2 (08:35→16:41)
[2019-11-26] MEDS: ATORVASTATIN 20 MG TAB PO SCH (08:35)
[2019-11-26] MEDS: (Linagliptin (Tradjenta) 5 MG) PO SCH (09:00)
[2019-11-26] MEDS: INSULIN GLARGINE 100 UNITS/ML VIAL SQ SCH (09:22)
[2019-11-26] MEDS: SODIUM CHLORIDE 0.9% 1000ML 1,000 ML IV SCH (11:00)
[2019-11-26] MEDS: MORPHINE SULFATE INJ 4 MG/ML INJ 1ML IV PRN (11:14)
[2019-11-26 11:23] VITALS: BP 134/82
[2019-11-26] MEDS: CLONIDINE HCL 0.1 MG TAB PO SCH ×2 (12:11→16:40)
[2019-11-26] MEDS: LISINOPRIL 20 MG TAB PO SCH (12:11)
[2019-11-26] MEDS: NIFEDIPINE CR 30 MG TAB PO SCH (12:11)
--- NOTE | 2019-11-26 12:27 | NUR ---
Patient up in bed eating lunch, not in any distress, PT worked with her. call light in reach
[2019-11-26 15:40] VITALS: BP 162/82
[2019-11-26] MEDS ORDERED: HUMULIN R100 UNIT/2 SQ (15:57)
[2019-11-26] MEDS ORDERED: BACTRIM DS TAB1 EACH PO (15:57)
[2019-11-26] MEDS ORDERED: METFORMIN HCL500 MG PO (15:57)
[2019-11-26] MEDS ORDERED: CIPRO500 MG PO (15:57)
[2019-11-26] MEDS ORDERED: POTASSIUM CHLO10 ME1 PO (15:57)
[2019-11-26] MEDS ORDERED: ULTRAM50 MG PO (15:57)
[2019-11-26] MEDS ORDERED: Insulin Glargine SQ ×2 (15:57)
[2019-11-26] MEDS ORDERED: LASIX20 MG PO (15:57)
--- NOTE | 2019-11-26 16:10 | NUR ---
dressing changed and patient tolerated well
--- NOTE | 2019-11-26 17:38 | NUR ---
Discharge paperwork and prescription given, not in any distress, she is waiting for her ride, dressing is intact
--- NOTE | 2019-11-26 19:17 | NUR ---
Patient D/C home. Off floor via w/c to personal car.
--- NOTE | 2019-11-27 01:26 | Discharge Summary ---
HOSPITAL COURSE: The patient is a 49-year-old female with prior history of multiple abscesses in different locations, admitted with complaints of abscess of the right lower quadrant of her abdomen. The patient states that this has been going on for about 3 weeks and she has had fever and chills associated with that. She had a previous large deep abscess at the right shoulder, which Dr. Barnard had previously completed an ID on. She denies any sick contacts or recent travel prior to admission. ADMITTING DIAGNOSES: 1. Right lower quadrant abdominal wall cellulitis with abscess. 2. Acute hyponatremia, improving. 3. Controlled hypertension. 4. Uncontrolled type 2 diabetes mellitus with hyperglycemia. 5. Chronic obstructive pulmonary disease without acute exacerbation. 6. Congestive heart failure, unknown type. 7. Asthma without exacerbation. 8. Hypothyroidism. 9. Irritable bowel syndrome/diarrhea. 10. Hyperlipidemia. 11. Morbid obesity with BMI of 57.91. 12. Right lower extremity swelling. 13. Acute kidney injury. DISCHARGE DIAGNOSES: 1. Right lower quadrant abdominal wall cellulitis with abscess, status post bedside debridement of abdominal wall subcutaneous abscess with I and D on 11/24/[address] Barnard. 2. Acute kidney injury with dehydration. 3. Acute hyponatremia. 4. Controlled hypertension. 5. Uncontrolled type 2 diabetes mellitus with hyperglycemia. 6. Chronic obstructive pulmonary disease without exacerbation. 7. Chronic diastolic congestive heart failure with EF of 50%. 8. Asthma without exacerbation. 9. Hypothyroidism. 10. Irritable bowel syndrome/diarrhea. 11. Hyperlipidemia. 12. Morbid obesity with BMI of 57.91. 13. Chronic right lower extremity swelling. 14. Mild transaminitis. The patient was on IV antibiotics, vancomycin and cefepime during her stay. WBC 4.66 today, BUN 19, creatinine 1.12. Estimated GFR of 51. On admission, her WBC was 8.28. She was dehydrated on admission with a creatinine of 1.67. Fingerstick blood glucose levels as high as 348 on admission. She does have a large pannus and has insulin resistance. Her most recent fingerstick blood glucose level was 221. Today, AST 33, ALT 77, alkaline phosphatase 82. Total protein 5.7, albumin 2.3. Sodium 136, potassium 4.0. Vancomycin trough level on 11/23 was 7.6. On 11/21, her Coronavirus PCR was negative. Blood culture x2 showed no growth after 72 hours. Urine culture was negative. MRSA screen was negative. Preliminary wound culture shows no growth after 2 days. She has been on clonidine 0.1 mg t.i.d., lisinopril 20 mg daily, and nifedipine 90 mg daily. Hemoglobin A1c was 10.8%. During hospitalization, her Lantus was increased to 50 units subcutaneously daily and 115 units subcu at bedtime. We will discharge her on metformin 1000 mg p.o. b.i.d. and return her Lantus to each usual dose of 40 units subcu daily and 100 units subcu at bedtime along with regular insulin sliding scale medium dose. Echocardiogram completed 11/22 shows estimated ejection fraction of 50%. Right lower extremity venous Doppler ultrasound was negative for DVT and this is a chronic issue of right leg swelling. As she was dehydrated on admission, we have been giving IV boluses. I have decreased her oral Lasix from 40 mg daily to 20 mg daily and decrease the potassium from 20 mEq daily to 10 mEq every 48 hours. Continue ADA diet. Activity level as tolerated. Follow up with Dr. Mcfarlane in 1-2 weeks. She does not currently have a PCP. Follow up with Dr. Barnard in 2 weeks. Dictated by Juanito Fisher NP MD JAIDEN Vogt/ARINA /[id number]
== END 2019-11-26 19:46 | disposition home or self-care (01) | DRG 571 ==
LOC: ER 20:04 → ERHOLD 20:57 → MED/SURG3 23:34
PROVIDERS: ADMIT Internal Medicine; ATTEND Internal Medicine
PROC: 0JB80ZZ Excision of Abdomen Subcutaneous Tissue and Fascia, Open Approach (ICD-10-PCS; principal; 2019-11-24)
DX: L02.211 Cutaneous abscess of abdominal wall (principal); E87.1 Hypo-osmolality and hyponatremia; Z68.43 Body mass index [BMI] 50.0-59.9, adult; I50.32 Chronic diastolic (congestive) heart failure; E11.65 Type 2 diabetes mellitus with hyperglycemia; I10 Essential (primary) hypertension; E66.01 Morbid (severe) obesity due to excess calories; J45.909 Unspecified asthma, uncomplicated; E03.9 Hypothyroidism, unspecified; K58.9 Irritable bowel syndrome, unspecified; E78.5 Hyperlipidemia, unspecified; I11.0 Hypertensive heart disease with heart failure; E86.0 Dehydration; J44.9 Chronic obstructive pulmonary disease, unspecified; F41.9 Anxiety disorder, unspecified; M19.90 Unspecified osteoarthritis, unspecified site
CPT/HCPCS: 36415; 74176; 80053; 80061; 80202; 81001; 82948; 83036; 83605; 83735; 84100; 84443; 85025; 87040; 87071; 87081; 87086; 87205; 87635; 93005; 93306; 93971; 94640; 96372; 97139; 99284; J0692; J1815; J1817; J2270; J2405; J3370; J3410; J7030; J7050

== ENCOUNTER 2019-12-04 19:44 | Inpatient (IN) | payer MEDICARE, OTHER ==
[~2019-12-04] VITALS: Ht 160 cm; Wt 146.2 kg
[~2019-12-04 19:44] MED LIST: ACYCLOVIR800 MG PO; ALBUTEROL2.5 MG/3 M INH; ATORVASTATIN CA20 MG PO; BACTRIM DS TAB1 EACH PO; CIPRO500 MG PO; CLONIDINE HCL0.1 MG PO; DICYCLOMINE HCL10 MG PO; FENOFIBRATE145 M1 PO; FUROSEMIDE40 MG PO; GABAPENTIN600 MG PO; HUMULIN R100 UNIT/2 SQ; HYDROXYZINE HCL25 MG PO; Insulin Glargine SQ; LASIX20 MG PO; LEVEMIR FL100 UNIT/1 SC; LEVEMIR FL100 UNIT/1 SQ; LEVOTHYROXINE25 MCG PO; LISINOPRIL20 MG PO; METFORMIN HCL500 MG PO; MOMETASONE FURO17 GM INH; MONTELUKAST SOD10 MG PO; NIFEDIPINE ER90 M1 PO; NIZORAL120 ML TOP; OMEPRAZOLE20 MG PO; POTASSIUM CHLO10 ME1 PO; POTASSIUM CHLO20 ME1 PO; TRADJENTA5 MG PO; TYLENOL # 31 EA PO; ULTRAM50 MG PO
--- OUTSIDE RECORDS SUMMARY | 2019-12-04 19:47 | XMS REPORT | Clinical Summary ---
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 Name Role Phone Buddy Mireles DDS 6 Christy Elam NP PCP Nikia Mccoy MD PCP Renee Corley MD PCP Allergies No Known Allergies Medications End Date [...] back pain without scia christian 11/07/2019 Refill [facility] Marco Docekry Jr., MD Type 2 diabetes mellitus with complicati on, with long- term current use of insulin; Hypokalemia 11/07/2019 Refill [facility] Nikia Mccoy MD Hyperlipidemia, unspecified hyperlipidem ia [...] Pulmonology Nikia Mccoy MD Hypothyroidism 10/21/2019 Refill [facility] Nikia Mccoy MD Type 2 diabetes mellitus with hyperglyce rachel, with long-term current use of insulin 10/21/2019 Refill [facility] Nikia Mccoy MD Essential hypertension; Irritable bowel syndrome with diarrhea; Insomnia, unspecified type; Skin infection; Chronic bilateral low back pain with bilateral sciatica 10/14/2019 Refill [facility] Kadeem Fitzpatrick MD Moderate persistent asthma without compl ication 10/14/2019 Refill Pulmonology Nikia Mccoy MD Localized edema 10/12/2019 Refill [facility] Behzad Girard ResidentMD Mohamed, Hesham, MD [...] whether persistent; Essential hypertension 09/20/2019 Office Visit [facility] Kadeem Fitzpatrick MD Asthmatic bronchitis, severe persistent, uncomplicated 09/18/2019 Refill Pulmonology Nikia Mccoy MD Abscess of female genitalia; Chronic bilateral low back pain with bilateral sciatica 09/11/2019 Refill [facility] Kadeem Fitzpatrick MD Seasonal allergic rhinitis, unspecified trigger; Skin infection 09/11/2019 Refill Pulmonology Kadeem Bautista III, MD Type 2 diabetes mellitus with complicati on, with long- term current use of insulin 09/11/2019 Refill [facility] Nikia Mccoy MD Type 2 diabetes mellitus [...] pain with bilateral sciatica 08/26/2019 Office Visit [facility] Nikia Mccoy MD Depression, unspecified depression type 08/26/2019 Orders Only [facility] Dontrell Meeks RN 08/26/2019 Patient Patient Education Education Nikia Mccoy MD Essential hypertension; Type 2 diabetes mellitus with complication, with long-term current use of insulin 08/16/2019 Refill [facility] Adrien Hernandez MD Insomnia, unspecified type 08/13/2019 Refill [facility] Renee Corley MD Abscess of female [...] Irritable bowel syndrome with diarrhea 08/13/2019 Refill [facility] Renee Corley MD Abscess of female genitalia (Primary Dx) ; Dietary counseling for Above / Below Normal BMI; Exercise counseling for Above Normal BMI Only!; Type 2 diabetes mellitus without complication, with long-term current use of insulin; Mood swings 08/09/2019 Office Visit [facility] Renee Corley MD Mood swings 08/09/2019 Orders Only [facility] Aldo Carlisle NP Tinnitus of both [...] back pain with bilateral sciatica 07/15/2019 Refill [facility] Kadeem Fitzpatrick MD Skin infection 07/15/2019 Refill Pulmonology Adrien Hernandez MD Urinary tract infection without hematuri a, site unspecified 06/14/2019 Refill [facility] Nikia Mcocy MD Essential hypertension; Localized edema; Hyperlipidemia, unspecified hyperlipidemia type; Irritable bowel syndrome with diarrhea; Chronic bilateral low back pain with bilateral sciatica 06/14/2019 Refill [facility] Kadeem Fitzpatrick MD Skin infection 06/14/2019 Refill Pulmonology Christy Gray 05/26/2019 Nutrition Nutrition Nikia Mccoy MD Mohamed, Hesham MD Urinary tract infection without hematuri a, site unspecified (Primary Dx); Dysuria; Vaginal yeast infection; Insomnia, unspecified type 05/25/2019 Office Visit Family Practice Bharat Parisi MD Type 2 diabetes mellitus with other spec ified complication 05/18/2019 Refill [facility] Nikia Mccoy MD Type 2 diabetes mellitus with complicati on, with long-term current use of insulin 05/14/2019 Refill Family Practice Monik Thacker MD Dysuria (Primary Dx) 05/13/2019 Office Visit [facility] Marco Dockery Jr., MD Type 2 diabetes mellitus with complicati on, with long- term current use of insulin 05/13/2019 Refill [facility] Ora Ortiz MD Generalized anxiety disorder 05/13/2019 Refill Psychiatry Nikia Mccoy MD Chronic bilateral low back pain with james ateral sciatica 05/13/2019 Refill [facility] Kadeem Fitzpatrick MD Skin infection 05/13/2019 Refill [...] MD Type II diabetes mellitus 04/22/2019 Refill [facility] Marco Dockery Jr., MD Chronic bilateral low back pain with james ateral sciatica 04/14/2019 Refill [facility] Ora Ortiz MD Generalized anxiety disorder 04/14/2019 Refill Psychiatry Bharat Parisi MD Tinea capitis 04/14/2019 Refill [facility] Nikia Mccoy MD Irritable bowel syndrome with diarrhea; Dysuria; Boil, breast 04/14/2019 Refill [facility] Kadeem Fitzpatrick MD Skin infection 04/14/2019 Refill Pulmonology Kadeem Bautista III, MD Essential hypertension; Hyperlipidemia, unspecified hyperlipidemia type 04/14/2019 Refill [facility] Nikia Mccoy MD Dysuria 04/05/2019 Lab Appointment Lab Nikia Mccoy MD Type 2 diabetes mellitus with complicati on, unspecified whether terminal carman insulin use (Primary Dx); Dysuria; Boil, breast; Tinnitus of both ears; Insomnia, unspecified type 04/05/2019 Office Visit [facility] Nikia Mccoy MD Tinnitus of both ears 04/05/2019 Orders Only [facility] Emiliano Olson LVN Sebaceous cyst 04/05/2019 Refill [facility] Nikia Mccoy MD Insomnia, unspecified type 04/05/2019 Refill [facility] Nikia Mccoy MD 03/22/2019 Hospital Radiology Encounter Nikia Mccoy MD Abnormal mammogram of right breast 03/22/2019 Hospital Radiology Encounter Marco Dockery Jr., MD Chronic bilateral low back pain with james ateral sciatica 03/15/2019 Refill [facility] Ora Ortiz MD Generalized anxiety disorder 03/15/2019 Refill Psychiatry Nikia Mccoy MD Hypokalemia 03/15/2019 Refill [facility] Kadeem Fitzpatrick MD Skin infection 03/15/2019 Refill Pulmonology Kadeem Bautista III, MD Type 2 diabetes mellitus with complicati on, with long- term current use of insulin 03/15/2019 Refill [facility] Gia Weinstein, [place] 03/12/2019 Nurse Triage Sue [...] mother; Onychomycosis; Food insecurity 02/15/2019 Office Visit [facility] Ora Ortiz MD Generalized anxiety disorder; Insomnia, unspecified type 02/11/2019 Refill Psychiatry Ora Ortiz MD Generalized anxiety disorder; Insomnia, unspecified type 02/09/2019 Refill Psychiatry Nikia Mccoy MD Type 2 diabetes mellitus with hyperglyce rachel, with long-term current use of insulin 02/09/2019 Refill [facility] Kadeem Fitzpatrick MD Seasonal allergic rhinitis, unspecified trigger; Skin infection 02/09/2019 Refill Pulmonology Kadeem Bautista III, MD Essential hypertension; Localized edema; Type II diabetes mellitus; Irritable bowel syndrome with diarrhea 02/09/2019 Refill [facility] Marco Dockery Jr., MD Abnormal finding on breast imaging (Prim jane Dx) 01/26/2019 Orders Only [facility] Kadeem Fitzpatrick MD Seasonal allergic rhinitis, unspecified trigger 01/12/2019 Refill Pulmonology Bharat Parisi MD Type 2 diabetes mellitus with complicati on, with long-term current use of insulin 01/11/2019 Refill [facility] Nikia Mccoy MD Chronic bilateral low back pain with james ateral sciatica 01/11/2019 Refill [facility] Kadeem Fitzpatrick MD Seasonal allergic rhinitis, unspecified [...] of coccyx, subsequent encounter 12/14/2018 Office Visit [facility] Kadeem Bautista III, MD Irritable bowel syndrome with diarrhea 12/05/2018 Refill [facility] after 12/03/2018 Immunizations Name Administration Dates Next Due Albuterol [...] Type I per pt Heart Father of [place] at a ge 60 Hypertension Father Cancer [...] 08/26/2019 Type 2 diabetes mellitus 12:09 PM SOURCING INTERN with stage 2 chronic kidney disease, with long-term current use of insulin URINALYSIS Routine 08/26/2019 Type 2 diabetes mellitus 12:09 PM SOURCING INTERN with stage 2 chronic kidney disease, with long-term current use of insulin LIVER PROFILE Routine 08/26/2019 Hyperlipidemia, 12:09 PM SOURCING INTERN unspecified hyperlipidemia type Essential hypertension BASIC METABOLIC PANEL Routine 08/26/2019 Essentia l hypertension 12:09 PM SOURCING INTERN CKD (chronic kidney disease) stage 3, GFR 30-59 ml/min URINALYSIS Routine 08/26/2019 Type 2 diabetes mellitus 12:09 PM SOURCING INTERN with stage 2 chronic kidney disease, with long-term current use of insulin URINE DRUG SCREEN Routine 08/26/2019 Depression, unspecified 12:09 PM SOURCING INTERN depression type HEMOGLOBIN A1C Routine 08/09/2019 Type 2 diabetes mellitus 11:16 AM SOURCING INTERN without complication, with long-term current use of insulin URINALYSIS Routine 05/25/2019 Dysuria MICROSCOPIC-REFLEX 2:12 PM SOURCING INTERN URINALYSIS STAT 05/25/2019 Dysuria 2:12 PM SOURCING INTERN URINALYSIS STAT 05/25/2019 Dysuria 2:12 PM SOURCING INTERN URINE CULTURE Routine 05/13/2019 Dysuria 2:10 PM [...] 1:54 PM CDT with complication, unspecified whether terminal carman insulin use CBC/DIFF Routine 04/05/2019 Type 2 diabetes mellitus 1:54 PM CDT with complication, unspecified whether terminal carman insulin use BASIC METABOLIC PANEL Routine 04/05/2019 Type 2 d iabetes mellitus 1:54 PM CDT with complication, unspecified whether terminal carman insulin use LIVER PROFILE Routine 04/05/2019 Type 2 diabetes mellitus 1:54 PM CDT with complication, unspecified whether mcc insulin use HEMOGLOBIN A1C Routine 04/05/2019 Type 2 diabetes mellitus 1:54 PM CDT with complication, unspecified whether mcc insulin use MAMMO BREAST ULTRASOUND Routine 03/22/2019 [...] CDT asthmatic bronchitis with acute exacerbation after 12/03/2018 Results * Urinalysis (08/26/2019 12:09 PM SOURCING INTERN) Only the most recent of 4 results within the time period is included. Color Yellow Colorless, Straw, [facility] Yellow [facility] Clarity Clear Clear [facility] Spec [place], 1.012 1.001 - 1.035 [facility] Ur [facility] pH, Ur 6.0 5.0 - [...] Number [facility] [address] [place] [address] * Urine Drug Screen (08/26/2019 12:09 PM SOURCING INTERN) Opiate, Ur Positive (A) Negative [facility] [...] Urine - Voided, urine Performing Organization Address [facility] one Number [facility] [address] [place] [address] [phone] * Liver Profile (08/26/2019 12:09 PM SOURCING INTERN) Only the most recent of 3 results [...] [facility] Specimen Blood Performing Organization Address [facility] one Number [facility] [address] [place] [address] * Urine Culture (08/26/2019 12:09 PM SOURCING INTERN) Only the most recent of 3 results within the time period is included. Urine Culture Urogenital mario [facility] Specimen Urine - Clean Catch [place] Stream Performing Organization Address [facility] one Number [facility] [address] [place] [address] [phone] * Basic Metabolic Panel (08/26/2019 12:09 PM SOURCING INTERN) Only the most recent of 3 results [...] [facility] Specimen Blood Performing Organization Address [facility] one Number [facility] [address] [place] [address] * Hemoglobin A1C (08/09/2019 11:16 AM SOURCING INTERN) Only the most recent of 3 results within the time period is included. Hemoglobin A1c 7.5 (H) 4.3 - 6.1 % [facility] Estimated 169 (H) 70 - 110 mg/dL [facility] Average Glucose LABORATORY Specimen Blood Performing Organization Address [facility] one Number [facility] [address] [place] [address] * URINALYSIS, MICROSCOPIC (05/25/2019 2:12 PM SOURCING INTERN) RBC 1-4 0 - 4 /HPF [facility] WBC 5-20 (A) 0 - 5 /HPF [facility] Epithelial Cell <1/HPF <1 /HPF [facility] Bacteria Few (A) None seen /HPF [facility] Yeast Present (A) None seen /HPF [facility] Specimen Urine Performing Organization Address [facility] one Number [facility] * CBC/Diff (05/03/2019 [...] Ph one Number [facility] [address] [place] [address] [phone] * Comprehensive Metabolic Panel (05/03/2019 3:07 PM [...] [facility] Specimen Blood Performing Organization Address [facility] Ph one Number [facility] [address] [place] [address] [phone] * Hepatitis Panel (05/03/2019 3:07 PM CDT) Hep C Vir Ab Negative Negative [facility] IgG [facility] Hep B Surface Negative Negative [facility] Ag [facility] Hep A Vir Ab Negative Negative [facility] IgM [facility] Hep B Core Ab Negative Negative [facility] IgM [facility] Specimen Blood Performing Organization Address [facility] Ph one Number [facility] [address] [place] [address] [phone] * MAMMO BREAST ULTRASOUND [facility] (03/22/2019 11:46 AM CDT) Specimen [...] eal/:03/22/2019 13:45:38 copy to: Bharat Parisi M.D., [facility], 4621, ph: , fax: [phone] Orthopedic Shoe Fitter: Ginna Morgan, [facility] [place] letter sent: Mammography Normal Mamm ogram BI-RADS: 0 Indeterminate Ultrasound BI-RADS: 2 Everardo ign [id number] [id number] R92.8 R92.8 Narrative Performed At #[id number] - MAMMOGRAM BILAT DIAG DIGITAL SMS BILATERAL DIGITAL DIAGNOSTIC MAMMOGRAM 3D/2D WITH CAD: 03/22/2019 CLINICAL: 48 y/o female, no family hx o f breast cancer. Abnormal Mammogram In 2018, Lost To Follow Up. S he also presents with multiple ulceration of the lower outer right breast. Comparison is made to exams dated: , 09/13/2016 [facility], 01/26/2014 [facility], 12/20/2013 [facility], and 10/06/2010 [facility]. The tissue of both breasts is predomina [...] This document has been electronically s igned. #[id number] - MAMMO BREAST ULTRASOUND [facility] ULTRASOUND OF RIGHT BREAST: 03/22/2019 Comparison is made to exams dated: , 09/13/2016 [facility], 01/26/2014 [facility], 12/20/2013 [facility], and 10/06/2010 [facility]. Color flow and real-time ultrasound of the [...] Rad/Mammog In - 03/22/2019 2:23 PM CDT #[id number] - MAMMOGRAM BILAT DIAG DIGITAL BILATERAL DIGITAL DIAGNOSTIC MAMMOGRAM 3D/2D WITH CAD: 03/22/2019 CLINICAL: 48 y/o female, no family hx of breast cancer. Abnormal Mammogram In 2018, Lost To Follow Up. She also presents with multiple ulceration of the lower outer right breast. Comparison is made to exams dated: 01/26/2018, 09/13/2016 [facility], 01/26/2014 [facility], 12/20/2013 [facility], and [facility]. The tissue of both breasts is predominately [...] abscesses. This document has been electronically signed. #[id number] - MAMMO BREAST ULTRASOUND UNILATERAL, LTD ULTRASOUND OF RIGHT BREAST: 03/22/2019 Comparison is made to exams dated: 01/26/2018, 09/13/2016 [facility], 01/26/2014 [facility] [place], 12/20/2013 [facility], and [facility]. Color flow and real-time ultrasound of the [...] eal/:03/22/2019 13:45:38 copy to: Bharat Parisi M.D., [facility], 4621, ph: , fax: [phone] Orthopedic Shoe Fitter: Ginna Morgan [facility] letter sent: Mammography Normal Mammogram BI-RADS: 0 Indeterminate Ultrasound BI-RADS: 2 Benign [id number] 26841 R92.8 R92.8 Performing Organization Address City/State/Zipcode Ph [...] eal/:03/22/2019 13:45:38 copy to: Bharat Parisi M.D., [facility], [address]21, ph: , fax: Orthopedic Shoe Fitter: Ginna Morgan, [facility] letter sent: Mammography Normal Mamm ogram BI-RADS: 0 Indeterminate Ultrasound BI-RADS: 2 Everardo ign [id number] 78373 R92.8 R92.8 Narrative Performed At #[id number] - MAMMOGRAM BILAT DIAG DIGITAL SMS BILATERAL DIGITAL DIAGNOSTIC MAMMOGRAM 3D/2D WITH CAD: 03/22/2019 CLINICAL: 48 y/o female, no family hx o f breast cancer. Abnormal Mammogram In 2018, Lost To Follow Up. S he also presents with multiple ulceration of the lower outer right breast. Comparison is made to exams dated: , 09/13/2016 [facility], 01/26/2014 [facility], 12/20/2013 [facility], and 10/06/2010 [facility]. The tissue of both breasts is predomina [...] This document has been electronically s igned. #[id number] - MAMMO BREAST ULTRASOUND UNI LATERAL, LTD ULTRASOUND OF RIGHT BREAST: 03/22/2019 Comparison is made to exams dated: , 09/13/2016 [facility], 01/26[facility]2014 [facility], 12/20/2013 [facility], and 10/06/2010 [facility]. Color flow and real-time ultrasound of the [...] Rad/Mammog In - 03/22/2019 2:23 PM CDT #[id number] - MAMMOGRAM BILAT DIAG DIGITAL BILATERAL DIGITAL DIAGNOSTIC MAMMOGRAM 3D/2D WITH CAD: 03/22/2019 CLINICAL: 48 y/o female, no family hx of breast cancer. Abnormal Mammogram In 2018, Lost To Follow Up. She also presents with multiple ulceration of the lower outer right breast. Comparison is made to exams dated: 01/26/2018, 09/13/2016 [facility], 01/26/2014 [facility], 12/20/2013 [facility], and [facility]. The tissue of both breasts is predominately [...] abscesses. This document has been electronically signed. #[id number] - MAMMO BREAST ULTRASOUND UNILATERAL, LTD ULTRASOUND OF RIGHT BREAST: 03/22/2019 Comparison is made to exams dated: 01/26/2018, 09/13/2016 [facility], 01/26/2014 [facility] [place], 12/20/2013 [facility], and [facility]. Color flow and real-time ultrasound of the [...] eal/:03/22/2019 13:45:38 copy to: Bharat Parisi M.D., [facility], [address], ph: , fax: [phone] Orthopedic Shoe Fitter: Ginna Morgan, [facility] letter sent: Mammography Normal Mammogram BI-RADS: 0 Indeterminate Ultrasound BI-RADS: 2 Benign [id number] R92.8 R92.8 Performing Organization Address City/State/Zipcode Ph one Number SMS * POC URINE (03/03/2019 12:00 PM CDT) POC NEG Neg - Neg PASS Pass - Pass Control Specimen * Chlam/GC DNA Amplification (03/03/2019 11:32 AM CDT) Chlamydia Negative Negative [facility] trachomatis LABORATORY N. gonorrhoeae Negative Negative [facility] Specimen Genital - Cervix, endocervix Narrative Performed At This test utilizes [employer] Aptima Combo 2 Assay for target amplification of rRNA [facility] for the qualitative detection of Chlamy venice trachomatis and Neisseria gonorrhoeae. Performing Organization Address [facility] Ph one Number [facility] [address] [place] [address] * Genital Wet [place] with TITI (03/03/2019 [...] Genital - Cervix, NOS Performing Organization Address [facility] Ph one Number [facility] [address] [place] [address] [phone] * DIABETIC FOOT EXAM (02/15/2019 3:30 PM [...] y/o, F (: 1970, ) presented to [facility] on 01-08-2019 for a retinal imaging study [...] electronically signed Porter Gunn MD, , Taxonomy: [id number] on 01-08-2019 04:2 9:50 [facility] time. NOTE: Any pathology noted on this venice betic retinal evaluation should be confirmed by an appropriate ophthalmic examination. Performing Organization Address [facility] one Number IRIS * TSH [Thyroid Stimulating Hormone] (01/08/2019 8:52 AM CDT) TSH 2.37 0.57 - 3.74 uIU/mL [facility] Comment: LABORATORY If , please see the following reference ranges (not verified by lab): 1st Trimester: 0.05 -3.70 uIU/mL 2nd Trimester: 0.31 -4.35 uIU/mL 3rd Trimester: 0.41 - 5.18 uIU/mL Specimen Blood Performing Organization Address [facility] one Number [facility] [address] [place] [address] * Free T4 (01/08/2019 8:52 AM CDT) Free T4 0.91 0.61 - 1.18 ng/dl [facility] Specimen Blood Performing Organization Address [facility] one Number [facility] [address] [place] [address] * Lipid Profile (01/08/2019 8:52 AM CDT) [...] Organization Address [facility] one Number [facility] [address] [place] [address] * Vitamin D, 25-Hydroxycalciferol (01/08/2019 8:51 AM CDT) Vit D, 13.7 (L) 30.0 - 100.0 ng/mL [facility] 25-Hydroxy LABORATORY Vitamin D Deficient (A) Sufficient [facility] Interpretation LABORATORY Specimen Blood Performing Organization Address [facility] one Number [facility] [address] [place] [address] [phone] * XRAY CHEST 2 VIEWS (12/14/2018 10:32 AM CDT) Specimen Impressions Performed At IMPRESSION: [facility] No acute thoracic abnormality or signif icant [...] Address City/State/Zipcode Ph one Number SMS after 12/03/2018 Insurance Type Payer Benefit Subscriber ID Effective Phone Address Plan / Dates Group [employer] HMO [employer] xxxxxxxxx 2019-P [address] [facility] [address] [place] [address] [employer] xxxxxx 2019 [address] [facility] [employer] [address] [place] [address]
--- OUTSIDE RECORDS SUMMARY | 2019-12-04 19:48 | XMS REPORT ---
Author Author [facility] t Organization [facility] Address [address] [place] [address] Phone Unavailable Care Team Providers Care Editor School Photograph Name Role Phone NONSTAFF PCP Unavailable HARLAN NGUYỄN Attphys Unavailable Thiago Morel MD, Donovan Duran Attphys [phone] David TERRELL, Adrien Attphys Sarkis TERRELL, Marco Attphys Nadine TERRELL, Nikia Attphys Amari TERRELL, Jennifer Quan Attphys Shaji NavarreteMD, A Elenidonovan Attphys [phone] Michele TERRELL, W Kadeem Attphys Constantino DESAI, Lanette Jon Attphys Unavailable Angel TERRELL, Candy Payan Attphys Daniel Donita Attphys Unavailable Orestes 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, Aldo Attphys Marina Christy Attphys Unavailable Ailin TERRELL, Bharat Attphys Kedar TERRELL, Monik Attphys Edgar LAW, Carla Attphys Kadeem DESAI, Ariana Mccarthy Attphys Unavailable Keith DDS, KaryJarochoYohan Attphys Gianluca Delgado Attphys Unavailable Wesley COOPERN, Emiliano Attphys Unavailable Corinna DESAI, Gia Attphys Unavailable Chao NavarreteMD, D Sue Attphys Teofilo DESAI, F Ann Attphys Unavailable Tiffany BOYER Attphys Unavailable HARLAN NGUYỄN Admphys Unavailable Payers Payer Name Policy Type Policy Number Effective Date Expiration Date S ource [employer] MEDICARE [facility]ANTAGE [facility] [id number], [place] [address] xxxxxxxxx 2019 00:00:00 [facility] PLANFINANCIAL ASSISTANCE PROGRAMxxx [id number] [place] [address] xxxxxx 2019 00:00:00 2019-07 23:59:59 [facility] Advance Directives Directive Decision Effective Date Termination Date Comments Sour ce Yes N/A [facility] Problems Condition Name Condition Details Condition Category Status Onset Date Resolution Date Last Treatment Date Treating Clinician Comments Source Type 2 diabetes mellitus with stage 2 ch ronic kidney disease, with long-term current use of insulin Type 2 diabetes mellitus with stage 2 ch ronic kidney disease, with long-term current use of insulin Disease Active 2018-01-02 00:00:00 [facility] Dysuria Dysuria Disease Active 2015-07-17 00:00:00 [facility] Suprapubic pain Suprapubic pain Disease Active 2015-07-17 00:00:00 [facility] Lower abdominal pain Lower abdominal pain Disease Active 00:00:00 [facility] UTI (urinary tract infection)-needs f/up UTI (urinary tract infection)-needs f/up Disease Active 2014-10-05 00:00:00 [facility] CKD (chronic kidney disease) stage 3, GFR 30-59 ml/min CKD (chronic kidney disease) stage 3, GFR 30-59 ml/min Disease Active 2014-09-30 00:00:00 [facility] Stress Stress Disease Active 2014-09-30 00:00:00 [facility] Hyperglycemia Problem [facility] Abscess of abdominal wall Problem [facility] Cellulitis of abdominal wall Problem [facility] Hyperlipidemia Hyperlipidemia Disease Active [facility] HTN (hypertension) HTN (hypertension) Disease Active [facility] Morbid obesity Morbid obesity Disease Active [facility] Diabetes mellitus Diabetes mellitus Disease Active [facility] RAD (reactive airway disease) RAD (reactive airway disease) Disease Active [facility] CHF (congestive heart failure) CHF (congestive heart failure) Disease Active Overview: per pt report [facility] ealt Thyroid disease Thyroid disease Disease Active [facility] Abnormal LFTs Abnormal LFTs Disease Active [facility] 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 2) infection Disease Active [facility] Vitamin D deficiency Vitamin D deficiency Disease Active [facility] Family history of colon cancer in mother Family histor y of colon cancer in mother Disease Active [facility] Fibroid Fibroid Disease Active [facility] Umbilical hernia Umbilical hernia Disease Active [facility] Renal mass Renal mass Disease Active [facility] Coronary atherosclerosis Coronary atherosclerosis Disease Active [facility] Abnormal CT of the abdomen Abnormal CT of the abdomen Disease Active Overview: diverticuli seen in colon [facility] Iron deficiency Iron deficiency Disease Active [facility] Microalbuminuria Microalbuminuria Disease Active [facility] PRIYA positive PRIYA positive Disease Active [facility] Allergies, Adverse Reactions, Alerts Allergy Name Allergy Type Status Severity Reaction(s) Onset Date Inacti ve Date Treating Clinician Comments Source No Known Allergies DA Active U 2019-04-24 00:00:00 [facility] No Known Allergies DA Active U 2019-03-13 00:00:00 [facility] No Known Allergies DA Active U 2018-09-24 00:00:00 [facility] No Known Allergies DA Active U 2016-02-23 00:00:00 [facility] Family History Family Member Diagnosis Comments Start Date Stop Date Source Natural father Diabetes Gamal Dougherty [facility] Natural father Heart Gamal Dougherty [facility] Natural father [facility] Maternal grandfather Cancer [facility] Natural mother Hypertension Gamal Mendez ea Natural mother Other Gamal Dougherty [facility] Natural sister Asthma Gamal Dougherty [facility] Social History Social Habit Start Date Stop Date Quantity Comments Source Sex Assigned At [facility] Alcohol intake 2019-09-27 00:00:00 2019-09-27 00:00:00 [facility] Education 2018-12-14 00:00:00 2018-12-14 00:00:00 12 [facility] Financial 2018-12-14 00:00:00 2018-12-14 00:00:00 [facility] Food Worry 2018-12-14 00:00:00 2018-12-14 00:00:00 [facility] Food Scarcity 2018-12-14 00:00:00 2018-12-14 00:00:00 [facility] SDOH Transport Med 2018-12-14 00:00:00 2018-12-14 00:00:00 [facility] Transport Non-Med 2018-12-14 00:00:00 2018-12-14 00:00:0 0 1 [facility] Smoking Status Start Date Stop Date Source Never smoker [facility] Medications Ordered Medication Name Filled Medication Name Start Date Stop Da te Current Medication? Ordering Clinician Indication Dosage Frequency Signature (SIG) Comments Components Source Ciprofloxacin Hcl (Cipro) 500 Mg TABLET Ciprofloxacin Hcl (C ipro) 500 Mg TABLET 2019-11-26 15:57:00 Yes 500 [facility] Furosemide (Lasix) 20 Mg TABLET Furosemide (Lasix) 20 Mg TAB LET 2019-11-26 15:57:00 Yes 20 [facility] Insulin Regular, Human (Humulin R) 100 Unit/1 Ml VIAL Insulin Regular, Human (Humulin R) 100 Unit/1 Ml VIAL 2019-11-26 15:57:00 Yes 0 [facility] Metformin Hcl Metformin Hcl 2019-11-26 15:57:00 Yes 1000 [facility] Potassium Chloride Potassium Chloride 2019-11-26 15:57:00 Yes 10 [facility] Sulfamethoxazole/Trimethoprim (Bactrim Ds Tablet) 1 Ea ch TABLET Sulfamethoxazole/Trimethoprim (Bactrim Ds Tablet) 1 Each TABLET 2019-11-26 15:57:00 Yes 1 [facility] Tramadol Hcl (Ultram) 50 Mg TABLET Tramadol Hcl (Ultram) 50 Mg TABLET 2019-11-26 15:57:00 Yes 50 [facility] albuterol 90 mcg/actuation inhaler 2019-11-08 00:00:00 Yes Moderate persistent asthmatic bronchitis with acute exacerbation 2{puff} Inhale 2 Puffs by mouth 4 times daily as needed for Wheezing. [facility] atorvastatin (LIPITOR) 20 mg tablet 2019-11-08 00:00:00 Yes Hyperlipidemia, unspecified hyperlipidemia type 20mg Take 1 tablet by mouth at bedtime nightly. [facility] omeprazole (PRILOSEC) 20 mg delayed release capsule 11-07 00:00:00 Yes Gastroesophageal reflux disease with esophagitis 20mg Q.5D Take 1 capsule by mouth 2 times daily. [facility] ketoconazole (NIZORAL) 2 % shampoo 2019-11-08 00:00:00 Y es Tinea capitis WASH SCALP 3 TIMES WEEKLY FOR SEBORRHEA. [facility] lisinopriL (PRINIVIL) 20 mg tablet 2019-11-08 00:00:00 Yes Essential hypertension 20mg QD Take 1 tablet by mouth daily. [facility] NIFEdipine (PROCARDIA XL) 90 mg extended release tablet 2019-11-08 00:00:00 Yes Essential hypertension 90mg QD Take 1 tablet by mouth da bolivar. [facility] lancets 28 gauge 2019-11-08 00:00:00 Yes Type 2 diabetes mellitus with complication, with long-term current use of insulin Use 3 times daily [facility] mupirocin calcium (BACTROBAN) 2 % topical cream 2019-11-08 0 0:00:00 Yes Abscess of female genitalia Apply to affected area 3 times daily. [facility] hydrocortisone (ANUSOL-HC) 25 mg rectal suppository 11-07 00:00:00 Yes Hemorrhoids, unspecified hemorrhoid type 25mg Insert 1 Suppository rectally 2 times daily as needed for hemorrhoids. [facility] acyclovir (ZOVIRAX) 800 mg tablet 2019-11-08 00:00:00 Ye s Skin infection 800mg Take 1 tablet by mouth 3 times daily. [facility] blood glucose test strips 2019-11-08 00:00:00 Yes Type 2 diabetes mellitus with complication, with long-term current use of insulin Use 3 times daily to test blood sugar.. [facility] potassium chloride (KLOR-CON M20) 20 mEq extended release ta blet 2019-11-08 00:00:00 Yes Hypokalemia 20meq Q.5D Take 1 tablet by mo ut 2 times daily. [facility] diclofenac (VOLTAREN) 1 % gel 2019-11-08 00:00:00 Yes Acute midline low back pain without sciatica 2g Apply 2 g to affected area 4 times daily Lower back. [facility] fenofibrate nanocrystallized (TRICOR) 145 mg tablet 2019-11-08 00:00:00 2019-11-08 00:00:00 No Hyperlipidemia, unspecified hyperl ipidemia type 145mg QD Take 1 tablet by mouth daily. [facility] linaGLIPtin (TRADJENTA) 5 mg tablet 2019-10-22 00:00:00 Yes Type 2 diabetes mellitus with hyperglycemia, with long-term current use of insulin 5mg QD Take 1 tablet by mouth daily. [facility] levothyroxine (SYNTHROID) 25 mcg tablet 2019-10-22 00:00:00 Yes Hypothyroidism 25ug QD Take 1 tablet by mouth daily. [facility] montelukast (SINGULAIR) 10 mg tablet 2019-10-14 00:00:00 Yes Moderate persistent asthma without complication 10mg T humaira 1 tablet by mouth at bedtime nightly. [facility] cloNIDine HCL (CATAPRES) 0.1 mg tablet 2019-10-14 00:00:00 Yes Essential hypertension .1mg Take 1 tablet by mouth 3 times daily. [facility] dicyclomine (BENTYL) 10 mg capsule 2019-10-14 00:00:00 Yes Irritable bowel syndrome with diarrhea 10mg Take 1 capsule by mouth 4 times daily (before meals and nightly). [facility] hydrOXYzine (ATARAX) 25 mg tablet 2019-10-14 00:00:00 Yes Insomnia, unspecified type 50mg Take 2 tablets by mo ut nightly at bedtime as needed for insomnia. [facility] acetaminophen-codeine (TYLENOL/CODEINE #3) 300-30 mg per tab let 2019-10-14 00:00:00 Yes Chronic bilateral low back pain with bilateral sciatica 1{tbl} Take 1 tablet by mouth every 4 hours as needed for Pain Refilled for pcp. [facility] acyclovir (ZOVIRAX) 800 mg tablet 2019-10-14 00:00:00 2019 00:00:00 No Skin infection 800mg Take 1 tablet by mouth 3 times tyler y. [facility] furosemide (LASIX) 40 mg tablet 2019-10-12 00:00:00 Yes Localized edema 40mg QD Take 1 tablet by mouth daily. [facility] ketorolac (TORADOL) injection 30 mg 2019-09-24 11:45:0 0 2019-09-24 11:15:00 No Acute midline low back pain without sciatica 30mg [facility] ketorolac (TORADOL) injection 15 mg 2019-09-24 11:30:0 0 2019-09-24 11:36:14 No Acute midline low back pain without sciatica 15mg [facility] ketorolac (TORADOL) injection 15 mg 2019-09-24 11:15:0 0 2019-09-24 11:16:05 No Acute midline low back pain without sciatica 15mg [facility] Cyclobenzaprine (FLEXERIL) 5 mg tablet 2019-09-12 3 00:00:00 2020-09-23 23:59:00 Yes Acute midline low back pain without sciatica 5m g Take 1 tablet by mouth 3 times daily as needed for Muscle Spasms. [facility] diclofenac (VOLTAREN) 1 % gel 2019-09-24 00:00:00 2019-11-07 00:00:00 No Acute midline low back pain without sciatica 2g Apply 2 g to affected area 4 times daily Lower back. [facility] albuterol (PROVENTIL) 2.5 mg /3 mL (0.083 %) nebulizer solut ion 2019-09-20 00:00:00 Yes Asthmatic bronchitis, severe persistent, uncomplicated 2.5mg Inhale 3 mL by mouth every 4 hours as needed for Wheezing or Shortness of Breath. [facility] hydrocortisone (ANUSOL-HC) 25 mg rectal suppository 2019-09-20 00:00:00 2019-11-07 00:00:00 No Hemorrhoids, unspecified hemorrhoid ty pe 25mg Insert 1 Suppository rectally 2 times daily as needed for hemorrhoids. [facility] cetirizine (ZYRTEC) 10 mg tablet 2019 00:00:00 Yes Seasonal allergic rhinitis, unspecified trigger 10mg QD Take 1 tablet by mouth daily . [facility] mupirocin calcium (BACTROBAN) 2 % topical cream 2019 00:00:00 2019-11-07 00:00:00 No Abscess of female genitalia Apply to affected area 3 times daily. [facility] acyclovir (ZOVIRAX) 800 mg tablet 2019 00:00:00 2019 00:00:00 No Skin infection 800mg Take 1 tablet by mouth 3 times tyler y. [facility] acetaminophen-codeine (TYLENOL/CODEINE #3) 300-30 mg per tab let 2019 00:00:00 2019-10-14 00:00:00 No Chronic bila teral low back pain with bilateral sciatica 1{tbl} Take 1 tablet by juan th every 4 hours as needed for Pain Refilled for pcp. [facility] pen needle, diabetic 31 gauge x 3/16" needles 2019-09-13 00: 00:00 Yes Type 2 diabetes mellitus with complication, with long-term current use of insulin Q.5D Inject under the skin 2 times daily. [facility] acetaminophen-codeine (TYLENOL/CODEINE #3) 300-30 mg per tab let 2019-08-26 00:00:00 2019-09-11 00:00:00 No Chronic bila teral low back pain with bilateral sciatica 1{tbl} Take 1 tablet by juan th every 4 hours as needed for Pain Refilled for pcp. [facility] clindamycin (CLEOCIN HCL) 300 mg capsule 2019-08 00:00:00 2019-09-05 23:59:00 No Folliculitis 600mg Take 2 capsu les by mouth 3 times daily for 10 days. [facility] gabapentin (NEURONTIN) 600 mg tablet 2019-08-17 00:00:00 Yes Type 2 diabetes mellitus with hyperglycemia, with long-term current use of insulin 600mg Take 1 tablet by mouth at bedtime nightly. [facility] ergocalciferol (VITAMIN D2) 1,250 mcg (50,000 unit) capsule 2019-08-17 00:00:00 Yes Vitamin D deficiency [id number] Take 1 cap elmer by mouth weekly. [facility] NIFEdipine (PROCARDIA XL) 90 mg extended release tablet 2019-08-17 00:00:00 2019-11-07 00:00:00 No Essential hypertension 90mg QD Take 1 tablet by mouth daily. [facility] lancets 28 gauge 2019-08-17 00:00:00 2019-11-07 00:00:00 No Type 2 diabetes mellitus with complication, with long-term current use of insulin Use 3 times daily [facility] dicyclomine (BENTYL) 10 mg capsule 2019-08-17 00:00:00 202 00:00:00 No Irritable bowel syndrome with diarrhea 10mg Take 1 capsule by mouth 4 times daily (before meals and nightly). [facility] hydrOXYzine (ATARAX) 25 mg tablet 2019-08-17 00:00:00 2019 00:00:00 No Insomnia, unspecified type 50mg Take 2 tablets by mouth nightly at bedtime as needed for insomnia. [facility] mupirocin calcium (BACTROBAN) 2 % topical cream 2019-08-17 00:00:00 2019-09-11 00:00:00 No Abscess of female genitalia Apply to affected area 3 times daily. [facility] clindamycin (CLEOCIN HCL) 300 mg capsule 2019-07 00:00:00 2019-08-19 23:59:00 No Abscess of female genitalia 300mg Take 1 capsule by mouth 3 times daily for 10 days. [facility] mupirocin calcium (BACTROBAN) 2 % topical cream 2019-08-09 00:00:00 2019-08-13 00:00:00 No Abscess of female genitalia Apply to affected area 3 times daily. [facility] blood glucose test strips 2019-07-16 00:00:00 2019-11-07 00: 00:00 No Type 2 diabetes mellitus with complication, with long-term current use of insulin Use 3 times daily to test blood sugar.. [facility] potassium chloride (KLOR-CON M20) 20 mEq extended release ta blet 2019-07-16 00:00:00 2019-11-07 00:00:00 No Hypokalemia 20meq Q.5D Take 1 tablet by mouth 2 times daily. [facility] acetaminophen-codeine (TYLENOL/CODEINE #3) 300-30 mg per tab let 2019-07-16 00:00:00 2019-08-26 00:00:00 No Chronic bila teral low back pain with bilateral sciatica 1{tbl} Take 1 tablet by juan th every 4 hours as needed for Pain Refilled for pcp. [facility] acyclovir (ZOVIRAX) 800 mg tablet 2019-07-15 00:00:00 2019 00:00:00 No Skin infection 800mg Take 1 tablet by mouth 3 times tyler yKaycee [facility] lisinopriL (PRINIVIL) 20 mg tablet 2019-06-16 00:00:00 00:00:00 No Essential hypertension 20mg QD Take 1 tablet by mouth tyler yKaycee [facility] fenofibrate nanocrystallized (TRICOR) 145 mg tablet 2019-06-16 00:00:00 2019-11-07 00:00:00 No Hyperlipidemia, unspecified hyperl ipidemia type 145mg QD Take 1 tablet by mouth daily. [facility] cloNIDine HCL (CATAPRES) 0.1 mg tablet 4 00:00:00 2019-10-14 00:00:00 No Essential hypertension .1mg Take 1 tablet by mouth 3 times daily. [facility] furosemide (LASIX) 40 mg tablet 2019-06-16 00:00:00 00:00:00 No Localized edema 40mg QD Take 1 tablet by mouth daily. [facility] dicyclomine (BENTYL) 10 mg capsule 2019-06-16 00:00:00 00:00:00 No Irritable bowel syndrome with diarrhea 10mg Take 1 capsule by mouth 4 times daily (before meals and nightly). [facility] acetaminophen-codeine (TYLENOL/CODEINE #3) 300-30 mg per tab let 2019-06-16 00:00:00 2019-07-15 00:00:00 No Chronic bila teral low back pain with bilateral sciatica 1{tbl} Take 1 tablet by juan th every 4 hours as needed for Pain Refilled for pcp. [facility] acyclovir (ZOVIRAX) 800 mg tablet 2019-06-14 00:00:00 2019 00:00:00 No Skin infection 800mg Take 1 tablet by mouth 3 times tyler y. [facility] insulin detemir U-100 (LEVEMIR FLEXTOUCH U-100 INSULN) 100 u nit/mL (3 mL) Pen 2019-05-25 00:00:00 Yes Type 2 diabe cortney mellitus with other specified complication Inject 40 units in t he morning and 100 units in the evening, all before meals. [facility] hydrOXYzine (ATARAX) 25 mg tablet 2019-05-25 00:00:00 2019 00:00:00 No Insomnia, unspecified type 50mg Take 2 tablets by mouth nightly at bedtime as needed for insomnia. [facility] sulfamethoxazole-trimethoprim (BACTRIM DS) 800-160 mg per ta blet 2019-05-25 00:00:00 2019-06-04 23:59:00 No Urinary trac t infection without hematuria, site unspecified 1{tbl} Q.5D Take 1 tablet by mouth 2 times daily for 10 days. [facility] fluconazole (DIFLUCAN) 150 mg tablet 2019-05-25 00:00: 00 2019-05-26 23:59:00 No Vaginal yeast infection 150mg Take 1 tablet by mouth once for 1 dose. [facility] BD INSULIN SYRINGE ULTRA-FINE 1 mL 31 gauge x 5/16 Syrg 2019-05-18 00:00:00 Yes Type 2 diabetes mellitus wit h complication, with long-term current use of insulin 1{syringe} Inject 1 Syringe under the skin 3 times daily. [facility] acetaminophen-codeine (TYLENOL/CODEINE #3) 300-30 mg per tab let 2019-05-18 00:00:00 2019-06-14 00:00:00 No Chronic bila teral low back pain with bilateral sciatica 1{tbl} Take 1 tablet by juan th every 4 hours as needed for Pain Refilled for pcp. [facility] acyclovir (ZOVIRAX) 800 mg tablet 2019-05-17 00:00:2018 00:00:00 No Skin infection 800mg Take 1 tablet by mouth 3 times tyler seaman [facility] NIFEdipine (PROCARDIA XL) 90 mg extended release tablet 2019-05-14 00:00:00 2019-08-16 00:00:00 No Essential hypertension 90mg QD Take 1 tablet by mouth daily. [facility] lancets 28 gauge 2019-05-14 00:00:00 2019-08-16 00:00:00 No Type 2 diabetes mellitus with complication, with long-term current use of insulin Use 3 times daily [facility] nitrofurantoin mono/m-crystals (MACROBID) 100 mg capsule 2019-05-13 00:00:00 2019-05-25 00:00:00 No Dysuria 100mg Q.5D Take 1 capsule by mouth 2 times daily. [facility] insulin REGULAR 100 unit/mL injection 2019-04-22 00:00:00 Yes Type II diabetes mellitus 40U Q.[id number] Inject 40 Units u nder the skin 3 times daily (before meals) [facility] ketoconazole (NIZORAL) 2 % shampoo 2019-04-15 00:00:00 00:00:00 No Tinea capitis WASH SCALP 3 TIMES WEEKLY FOR SEBORR HEA. [facility] lisinopril (PRINIVIL) 20 mg tablet 2019-04-15 00:00:00 03-25-02 00:00:00 No Essential hypertension 20mg QD Take 1 tablet by mouth tyler seaman [facility] fenofibrate nanocrystallized (TRICOR) 145 mg tablet 2019-04-15 00:00:00 2019-06-14 00:00:00 No Hyperlipidemia, unspecified hyperl ipidemia type 145mg QD Take 1 tablet by mouth daily. [facility] dicyclomine (BENTYL) 10 mg capsule 2019-04-15 00:00:00 03-25-02 00:00:00 No Irritable bowel syndrome with diarrhea 10mg Take 1 capsule by mouth 4 times daily (before meals and nightly). [facility] acyclovir (ZOVIRAX) 800 mg tablet 2019-04-15 00:00:00 2018 00:00:00 No Skin infection 800mg Take 1 tablet by mouth 3 times tyler seaman [facility] acetaminophen-codeine (TYLENOL/CODEINE #3) 300-30 mg per tab let 2019-04-15 00:00:00 2019-05-13 00:00:00 No Chronic bila teral low back pain with bilateral sciatica 1{tbl} Take 1 tablet by juan th every 4 hours as needed for Pain Refilled for pcp. [facility] hydrOXYzine (ATARAX) 25 mg tablet 2019-04-05 00:00:00 2018 00:00:00 No Insomnia, unspecified type 50mg Take 2 tablets by mouth nightly at bedtime as needed (insomnia). [facility] mupirocin (BACTROBAN) 2 % ointment 2019-04-05 00:00:00 03-23-30 23:59:00 No Sebaceous cyst Apply to affected area 3 times tyler y for 7 days. [facility] cephALEXin (KEFLEX) 500 mg capsule 2019-04-05 00:00:00 03-23-03 23:59:00 No Boil, breast 500mg Take 1 capsule by mouth 3 times daily for 10 days. [facility] blood glucose test strips 2019-03-18 00:00:00 2019-07-15 00: 00:00 No Type 2 diabetes mellitus with complication, with long-term current use of insulin Use 3 times daily to test blood sugar.. [facility] INSULIN SYRINGE 1mL 30GX5/16" (MONOJECT ULTRACOMFORT INSULIN SYR 1ML 30GX5/16") syringe-needle 2019-03-18 00:00:00 2019-05-18 00:00:00 No Type 2 diabetes mellitus with complication, with long-term current use of insulin 1{each} Use to inject medication 3 times daily. Use a new syringe each time. [facility] potassium chloride (KLOR-CON M20) 20 mEq extended release ta blet 2019-03-16 00:00:00 2019-07-15 00:00:00 No Hypokalemia 20meq Q.5D Take 1 tablet by mouth 2 times daily. [facility] polyethylene glycol (GOLYTELY) 236-22.74-6.74 -5.86 gram ora l solution 2019-02-15 00:00:00 Yes Family history of colon cancer in mother Add lukewarm drinking water to the fill charis (4 liters) and shake. Drink as directed by your doctor.. [facility] clotrimazole (LOTRIMIN) 1 % topical cream 2019-02-15 00:00:0 0 Yes Onychomycosis Q.5D Apply to affected area 2 times daily. [facility] ergocalciferol (VITAMIN D2) 1,250 mcg (50,000 unit) capsule 2019-02-15 00:00:00 2019-08-13 00:00:00 No Vitamin D deficiency 88193P Take 1 capsule by mouth weekly. [facility] hydrOXYzine (ATARAX) 50 mg tablet 2019-02-15 00:00:00 2018 00:00:00 No Insomnia, unspecified type 50mg Take 1 tablet by mouth nightly at bedtime as needed (insomnia). [facility] gabapentin (NEURONTIN) 600 mg tablet 2019-02-11 00:00: 00 2019-08-13 00:00:00 No Type 2 diabetes mellitus wit h hyperglycemia, with long-term current use of insulin 600mg Take 1 tablet by mouth at bedtime nightly. [facility] cloNIDine HCl (CATAPRES) 0.1 mg tablet 1 00:00:00 2019-06-14 00:00:00 No Essential hypertension .1mg Take 1 tablet by mouth 3 times daily. [facility] furosemide (LASIX) 40 mg tablet 2019-02-11 00:00:00 00:00:00 No Localized edema 40mg QD Take 1 tablet by mouth daily. [facility] insulin REGULAR 100 unit/mL injection 2019-02-11 00:00 :00 2019-04-22 00:00:00 No Type II diabetes mellitus 40U [id number] Inject 40 Units under the skin 3 times daily (before meals) [facility] dicyclomine (BENTYL) 10 mg capsule 2019-02-11 00:00:00 201 03-23-02 00:00:00 No Irritable bowel syndrome with diarrhea 10mg Take 1 capsule by mouth 4 times daily (before meals and nightly). [facility] acyclovir (ZOVIRAX) 800 mg tablet 2019-02-10 00:00:00 2018 00:00:00 No Skin infection 800mg Take 1 tablet by mouth 3 times tyler y. [facility] fluticasone propionate (FLONASE) 50 mcg/actuation nasal spra y 2019-02-10 00:00:00 2019-02-11 00:00:00 No Seasonal all ergic rhinitis, unspecified trigger 2{spray} QD Use 2 Sprays in each nostril daily. [facility] acetaminophen-codeine (TYLENOL/CODEINE #3) 300-30 mg per tab let 2019-01-24 00:00:00 2019-04-14 00:00:00 No Chronic bila teral low back pain with bilateral sciatica 1{tbl} Take 1 tablet by juan th every 4 hours as needed for Pain Refilled for pcp. [facility] mometasone (NASONEX) 50 mcg/actuation nasal spray 2019-01-12 00:00:00 Yes Seasonal allergic rhinitis, unspecified trigger 2{spray} QD Use 2 Sprays in each nostril daily. [facility] lancets 28 gauge 2019-01-12 00:00:00 2019-05-13 00:00:00 No Type 2 diabetes mellitus with complication, with long-term current use of insulin Use 3 times daily [facility] acyclovir (ZOVIRAX) 800 mg tablet 2019-01-12 00:00:00 2018 00:00:00 No Skin infection 800mg Take 1 tablet by mouth 3 times tyler y. [facility] tropicamide (MYDRIACYL) 0.5 % ophthalmic solution 2018-12-14 00:00:00 2019-06-12 23:59:00 No Type 2 diabetes michaela itus with complication, with long- term current use of insulin 1[drp] Instill 1 Dr op in each eye once as needed for up to 1 dose (for poor retina scan image). 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 [facility] cephALEXin (KEFLEX) 500 mg capsule 2018-12-14 00:00:00 201 03-19-13 23:59:00 No Recurrent boils 500mg Take 1 capsule by mouth 4 times daily for 10 days. [facility] dicyclomine (BENTYL) 10 mg capsule 2018-12-09 00:00:00 201 07-30 00:00:00 No Irritable bowel syndrome with diarrhea 10mg Take 1 capsule by mouth 4 times daily (before meals and nightly). [facility] mupirocin (BACTROBAN) 2 % ointment 2018-11-19 00:00:00 03-22-23 00:00:00 No Sebaceous cyst Apply to affected area 3 times tyler y for 7 days. [facility] acyclovir (ZOVIRAX) 800 mg tablet 2018-11-19 00:00:00 2018 00:00:00 No Skin infection 800mg Take 1 tablet by mouth 3 times tyler y. [facility] busPIRone (BUSPAR) 5 mg tablet 2018-11-09 00:00:00 2019-08-14 00:00:00 No Generalized anxiety disorder 5mg Take 1 tablet by mouth 3 time s daily. [facility] traZODone (DESYREL) 50 mg tablet 2018-11-09 00:00:00 2019-02 00:00:00 No Insomnia, unspecified type 100mg Take 2 tablet s by mouth nightly at bedtime as needed for Sleep. [facility] NIFEdipine (PROCARDIA XL) 90 mg extended release tablet 2018-11-06 00:00:00 2019-05-13 00:00:00 No Essential hypertension 90mg QD Take 1 tablet by mouth daily. [facility] blood glucose test strips 2018-11-06 00:00:00 2019-03-15 00: 00:00 No Type 2 diabetes mellitus with complication, with long-term current use of insulin Use 3 times daily to test blood sugar.. [facility] insulin REGULAR 100 unit/mL injection 2018-11-06 00:00 :00 2019-02-09 00:00:00 No Type II diabetes mellitus 40U [id number] Inject 40 Units under the skin 3 times daily (before meals) [facility] atorvastatin (LIPITOR) 20 mg tablet 2018-10-20 00:00:0 0 2019-11-07 00:00:00 No Hyperlipidemia, unspecified hyperlipidemia type 20mg Take 1 tablet by mouth at bedtime nightly. [facility] omeprazole (PRILOSEC) 20 mg delayed release capsule 2018-10-20 00:00:00 2019-11-07 00:00:00 No Gastroesophageal reflux disease wi th esophagitis 20mg Q.5D Take 1 capsule by mouth 2 times daily. [facility] linaGLIPtin (TRADJENTA) 5 mg tablet 2018-10-20 00:00:0 0 2019-10-21 00:00:00 No Type 2 diabetes mellitus wit h hyperglycemia, with long-term current use of insulin 5mg QD Take 1 tablet by mouth daily. [facility] levothyroxine (SYNTHROID) 25 mcg tablet 00:00:00 2019-10-21 00:00:00 No Hypothyroidism 25ug QD Take 1 tablet by mouth d ej. [facility] potassium chloride (KLOR-CON M20) 20 mEq extended release ta blet 2018-10-20 00:00:00 2019-03-15 00:00:00 No Hypokalemia 20meq Q.5D Take 1 tablet by mouth 2 times daily. 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 [facility] lisinopril (PRINIVIL) 20 mg tablet 2018-10-06 00:00:00 03-23-02 00:00:00 No Essential hypertension 20mg QD Take 1 tablet by mouth tyler seaman [facility] fenofibrate nanocrystallized (TRICOR) 145 mg tablet 2018-10-06 00:00:00 2019-04-14 00:00:00 No Hyperlipidemia, unspecified hyperl ipidemia type 145mg QD Take 1 tablet by mouth daily. [facility] cloNIDine HCl (CATAPRES) 0.1 mg tablet 2018-09-12 6 00:00:00 2019-02-09 00:00:00 No Essential hypertension .1mg Take 1 tablet by mouth 3 times daily. [facility] furosemide (LASIX) 40 mg tablet 2018-10-06 00:00:00 00:00:00 No Localized edema 40mg QD Take 1 tablet by mouth daily. [facility] dicyclomine (BENTYL) 10 mg capsule 2018-10-06 00:00:00 03-18-25 00:00:00 No Irritable bowel syndrome with diarrhea 10mg Take 1 capsule by mouth 4 times daily (before meals and nightly). [facility] fluticasone-salmeterol (ADVAIR) 250-50 mcg/dose diskus inhal er 2018 00:00:00 Yes Moderate persist ent asthmatic bronchitis with acute exacerbation 1{puff} Q.5D Inhale 1 Puff by mouth 2 times daily. [facility] ipratropium (ATROVENT) 0.02 % nebulizer solution 2018 00:00:00 Yes RAD (reactive airway disease), severe persistent, uncomplicated .5mg Inhale 2.5 mL by mouth 4 times daily. [facility] alth albuterol 90 mcg/actuation inhaler 2018 00:00:00 00:00:00 No Moderate persistent asthmatic bronchitis with acute exacerbation 2{puff} Inhale 2 Puffs by mouth 4 times daily as needed for Wheezing. [facility] montelukast (SINGULAIR) 10 mg tablet 2018 00:00: 00 2019-10-14 00:00:00 No Moderate persistent asthma without complication 10mg Take 1 tablet by mouth at bedtime nightly. [facility] albuterol (PROVENTIL) 2.5 mg /3 mL (0.083 %) nebulizer solut ion 2018 00:00:00 2019-09-18 00:00:00 No Asthmatic br onchitis, severe persistent, uncomplicated 2.5mg Inhale 3 mL by mouth every 4 hours as needed for Wheezing or Shortness of Breath. [facility] cetirizine (ZYRTEC) 10 mg tablet 2018 00:00:00 2019-08 00:00:00 No Seasonal allergic rhinitis, unspecified trigger 10mg QD Take 1 tablet by mouth daily. [facility] pen needle, diabetic 31 gauge x 3/16" needles 20 01-09-24 00:00:00 2019-09-11 00:00:00 No Type 2 diabetes michaela itus with complication, with long-term current use of insulin Q.5D Inject under the skin 2 times daily. [facility] INSULIN SYRINGE 1mL 30GX5/16" (MONOJECT ULTRACOMFORT INSULIN SYR 1ML 30GX5/16") syringe-needle 2018-09-07 00:00:00 2019-03-15 00:00:00 No Type 2 diabetes mellitus with complication, with long-term current use of insulin 1{each} Use to inject medication 3 times daily. Use a new syringe each time. [facility] lancets 28 gauge 2018-08-11 00:00:00 2019-01-11 00:00:00 No Type 2 diabetes mellitus with complication, with long-term current use of insulin Use 3 times daily [facility] gabapentin (NEURONTIN) 600 mg tablet 2018-08-07 00:00: 00 2019-02-09 00:00:00 No Type 2 diabetes mellitus wit h hyperglycemia, with long-term current use of insulin 600mg Take 1 tablet by mouth at bedtime nightly. [facility] insulin detemir U-100 (LEVEMIR FLEXTOUCH U-100 INSULN) 100 u nit/mL (3 mL) Pen 2018-07-13 00:00:00 2019-05-18 00:00:00 No Type 2 d iabetes mellitus with other specified complication Inject 40 units in the morning and 100 units in the evening, all before meals. [facility] blood glucose meter 2018-07-08 00:00:00 Yes Type 2 diabetes mellitus with complication, with long-term current use of insulin 1{each} Us e as directed [facility] medroxyPROGESTERone (PROVERA) 10 mg tablet 07-03 00:00:00 2018-12-14 00:00:00 No Menorrhagia with regular cycle 10mg QD Take 1 tablet by mouth daily. [facility] ketoconazole (NIZORAL) 2 % shampoo 2018-03-30 00:00:00 201 03-23-02 00:00:00 No Tinea capitis WASH SCALP 3 TIMES WEEKLY FOR SEBORR HEA. [facility] Melatonin 5 mg Tab 2017-11-13 00:00:00 2019-08-26 00:00:00 N o Psychophysiological insomnia 1{tbl} Take 1 tabl et by mouth nightly at bedtime as needed for Other (insomnia). [facility]alt fluticasone (FLONASE) 50 mcg/actuation nasal spray 2017-11-13 00:00:00 2019-02-09 00:00:00 No Seasonal allergic rhinitis, unspecified trigger 2{spray} QD Use 2 Sprays in each nostril daily. [facility] Nebulizer & Compressor For Neb Ruth Ann 2016-07-25 00:00:00 Yes Asthmatic bronchitis, severe persistent, with acute exacerbation 1{device} 1 Device by [facility].(Non-Drug; Combo Route) route 4 times daily. [facility] Acetaminophen/Codeine Phosphate (Tylenol # 3*) 1 Ea TA B Acetaminophen/Codeine Phosphate (Tylenol # 3*) 1 Ea TAB Yes 1 [facility] Acyclovir Acyclovir Yes 800 [facility] Albuterol Sulfate Albuterol Sulfate Yes 1 [facility] Atorvastatin Calcium Atorvastatin Calcium Yes 20 [facility] Clonidine Hcl Clonidine Hcl Yes .1 [facility] Dicyclomine Hcl Dicyclomine Hcl Yes 10 [facility] Fenofibrate Nanocrystallized (Fenofibrate) 145 Mg TABL ET Fenofibrate Nanocrystallized (Fenofibrate) 145 Mg TABLET Yes 145 [facility] Gabapentin Gabapentin Yes 600 [facility] Hydroxyzine Hcl Hydroxyzine Hcl Yes 50 [facility] Insulin Detemir (Levemir Flextouch) 100 Unit/[address]PEN Insulin Detemir (Levemir Flextouch) 100 Unit/1 Ml INSULN.PEN Yes 100 [facility] Insulin Detemir (Levemir Flextouch) 100 Unit/[address]PEN Insulin Detemir (Levemir Flextouch) 100 Unit/1 Ml INSULN.PEN Yes 40 [facility] Ketoconazole (Nizoral) 120 Ml SHAMPOO Ketoconazole (Nizoral) 120 Ml SHAMPOO Yes 1 [facility] Levothyroxine Sodium Levothyroxine Sodium Yes 25 [facility] Linagliptin (Tradjenta) 5 Mg TABLET Linagliptin (Tradjenta) 5 Mg TABL ET Yes 5 [facility] Lisinopril (Prinavil / Zestril) 20 Mg TABLET Lisinopri l (Prinavil / Zestril) 20 Mg TABLET Yes 20 [facility] Mometasone Furoate Mometasone Furoate Yes 1 [facility] Montelukast Sodium Montelukast Sodium Yes 10 [facility] Nifedipine (Nifedipine Er) 90 Mg TAB.ER.24 Nifedipine (Nifedipine Er) 90 Mg TAB.ER.24 Yes 90 [facility] Omeprazole Omeprazole Yes 20 [facility] Furosemide Furosemide 2019-11-26 00:00:00 No 40 [facility] Insulin Regular, Human (Humulin R) 100 Unit/1 Ml VIAL Insulin Regular, Human (Humulin R) 100 Unit/1 Ml VIAL 2019-11-26 00:00:00 No 40 [facility] Potassium Chloride Potassium Chloride 2019-11-26 00:00:00 No 20 [facility] Immunizations Ordered Immunization Name Filled Immunization Name Date Status Comments Source Influenza, Vaccine<FLUCELVAX>(Multi-Dose) 2019-05-03 00:00 :00 Completed [facility] Tropicamide 0.5% Eye-Kylah 15ml 2019-01-08 00:00:00 Complete d [facility] Influenza, Vaccine<FLUCELVAX>(Multi-Dose) 2018-07-13 00:00 :00 Completed [facility] Tropicamide 0.5% Eye-[facility]ylah 15ml 2018-01-26 00:00:00 Complete d [facility] Influenza Vaccine, Seasonal, Injectable 2017-04-24 00:00:0 0 Completed [facility] Ceftriazone 1gm Injection 2016-11-14 00:00:00 Completed [facility] LIDOCAINE (PF) 10 MG/ML (1 %) INJECTION 2016-11-14 00:00:0 0 Completed [facility] Triamcinolone 40mg/ml Inj 2016-11-14 00:00:00 Completed [facility] Pneumococcal 13-valent conj 0.5 mL injection 2016-08-15 00 :00:00 Completed [facility] Influenza Vaccine 2015-06-15 00:00:00 Completed [facility] Triamcinolone 40mg/ml Inj 2015-02-09 00:00:00 Completed [facility] Influenza Vaccine 2014-05-09 00:00:00 Completed [facility] Influenza Vaccine 2013-05-06 00:00:00 Completed [facility] Methylpredinsone Inj 2013-04-02 00:00:00 Completed [facility] Clonidine 0.2mg Tab 2013-04-02 00:00:00 Completed [facility] Clonidine 0.1mg Tab 2012-11-07 00:00:00 Completed [facility] Tdap Tetanus, diphtheria, acellular pertussis Vaccine 2012-10-16 00:00:00 Completed [facility] Clonidine 0.2mg Tab 2012-09-15 00:00:00 Completed [facility] Influenza Vaccine 2011-07-09 00:00:00 Completed [facility] Triamcinolone 40mg/ml Inj 2010-10-19 00:00:00 Completed [facility] Triamcinolone 40mg/ml Inj 2010-10-12 00:00:00 Completed [facility] Ceftriazone 1gm Injection 2010-10-12 00:00:00 Completed [facility] LIDOCAINE (PF) 10 MG/ML (1 %) INJECTION 2010-10-12 00:00:0 0 Completed [facility] Albuterol 0.083% (3ml) 2010-10-12 00:00:00 Completed [facility] Albuterol 0.083% (3ml) 2010-10-12 00:00:00 Completed [facility] Influenza Vaccine 2010-08-21 00:00:00 Completed [facility] PPV 23 Pneumococcal Polysaccaride 2010-08-21 00:00:00 Comp leted [facility] Vital Signs Vital Name Observation Time Observation Value Comments Source Body Temperature 2019-11-26 15:40:00 98.3 [degF] [facility] Weight 2019-11-24 04:54:00 327.38 [lb_av] [facility] BMI (Body Mass Index) 2019-11-24 04:54:00 58.0 kg/m2 [facility] Systolic blood pressure 2019-09-24 10:52:00 141 mm[Hg] [facility] Diastolic blood pressure 2019-09-24 10:52:00 83 mm[Hg] [facility] Heart rate 2019-09-24 10:52:00 79 /min [facility] Body temperature 2019-09-24 10:52:00 36.72 Kaylynn Charla [facility] Respiratory rate 2019-09-24 10:52:00 18 /min Charla is [facility] Body height 2019-09-24 10:52:00 160 cm [facility] Body weight 2019-09-24 10:52:00 144.97 kg [facility] BMI 2019-09-24 10:52:00 56.61 kg/m2 [facility] Oxygen saturation in Arterial blood by Pulse oximetry 09-19 15:02:00 94 /min [facility] Procedures Procedure Date / Time Performed Performing Clinician [facility] e CT of abdomen and pelvis without contrast 2019-11-22 00:00:00 [facility] URINE DRUG SCREEN 2019-08-26 18:09:00 Nikia Mccoy [facility] URINALYSIS 2019-08-26 18:09:[address] [facility] h BASIC METABOLIC PANEL 2019-08-26 18:09:00 Nikia Mccoy [facility] LIVER PROFILE 2019-08-26 18:09:[address] [facility] h URINALYSIS 2019-08-26 18:09:[address] [facility] h URINE CULTURE 2019-08-26 18:09:00 Nikia Mccoy [facility] HEMOGLOBIN A1C 2019-08-09 17:16:00 Renee Corley [facility] URINALYSIS 2019-05-25 20:12:00 Adrien Hernandez [facility] URINALYSIS 2019-05-25 20:12:00 Adrien Hernandze [facility] URINALYSIS MICROSCOPIC-REFLEX 2019-05-25 20:12:00 [facility] URINALYSIS 2019-05-13 19:10:00 [facility] 2019-05-13 19:10:00 [facility] URINE CULTURE 2019-05-13 19:10:00 Monik Thacker [facility] HEPATITIS PANEL 2019-05-03 20:07:00 Carla Hernández [facility] COMPREHENSIVE METABOLIC PANEL 2019-05-03 20:07:00 Carla Hernández [facility] CBC/DIFF 2019-05-03 20:07:00 Carla Hernández [facility] CBC 2019-05-03 20:07:00 Carla Hernández [facility] HEMOGLOBIN A1C 2019-04-05 18:54:00 [facility] LIVER PROFILE 2019-04-05 18:54:00 NadineNikia [facility] BASIC METABOLIC PANEL 2019-04-05 18:54:00 Nadine Nikia [facility] CBC/DIFF 2019-04-05 18:54:00 [facility] 2019-04-05 18:54:00 Nadine Nikiaaquilino Yeung [facility] h URINALYSIS 2019-04-05 18:54:00 [facility] 2019-04-05 18:54:00 Sherry Mccoyaquilino Yeung [facility] h URINE CULTURE 2019-04-05 18:54:[address] [facility] h MAMMO BREAST ULTRASOUND UNILATERAL, LTD 2019-03-22 16:46:38 [facility] DIGITAL 2019-03-22 16:10:59 [facility]INE 2019-03-03 17:00:00 Sue Guidry [facility] CHLAM/GC DNA AMPLI 2019-03-03 16:32:00 Sue Guidry [facility] GENITAL WET M[place] WITH TITI 2019-03-03 16:32:00 Sue Guidry [facility] DIABETIC FOOT EXAM 2019-02-15 20:30:17 Nikia Mccoy OPHTHALMOLOGY RETINAL SCAN 2019-01-08 14:44:02 Nikia Mccoy [facility] LIPID PROFILE 2019-01-08 13:52:00 Sherry Mccoymi [facility] THYROID STIMULATING HORMONE (TSH) 2019-01-08 13:52:00 Sherry Mccoy aquilino [facility] FREE T4 2019-01-08 13:52:00 Nikia Mccoy [facility] BASIC METABOLIC PANEL 2019-01-08 13:52:00 Nadine Nikia [facility] LIVER PROFILE 2019-01-08 13:52:[address] [facility] h HEMOGLOBIN A1C 2019-01-08 13:51:00 [facility], [facility]-HYDROXY 2019-01-08 13:51:00 Nikia Mccoy [facility] CBC/DIFF 2019-01-08 13:51:00 [facility] 2019-01-08 13:51:00 Nikia Mccoy [facility] h XRAY CHEST 2 VIEWS 2018-12-14 15:32:22 Kadeem Fitzpatrick [facility] Plan of Care Planned Activity Planned Date Details Comments Source Scheduled Test 2022-08-03 00:00:00 Colonoscopy 3yr [c ode = Colonoscopy 3yr] [facility] Scheduled Test 2021-03-22 00:00:00 Cervical Cancer Sc rn (5 Yrs) [code = Cervical Cancer Scrn (5 Yrs)] [facility] Scheduled Test 2020-08-09 00:00:00 DM HGBA1C (Yearly) [code = DM HGBA1C (Yearly)] [facility] Scheduled Test 2020-04-13 00:00:00 IMM Influenza Seas onal Apr to September (>/= 19 yrs) [code = IMM Influenza Seasonal Apr to September (>/= 19 yrs)] [facility] Scheduled Test 2020-03-22 00:00:00 Breast Cancer Scrn (Yearly) [code = Breast Cancer Scrn (Yearly)] [facility] Scheduled Test 2020-02-16 00:00:00 DM Foot Exam (Year ly) [code = DM Foot Exam (Yearly)] [facility] Scheduled Test 2020-01-09 00:00:00 CORONARY ARTERY DI SEASE AGE 18 AND UP [code = CORONARY ARTERY DISEASE AGE 18 AND UP] [facility] Scheduled Test 2020-01-09 00:00:00 DM Retinal Exam (Y early) [code = DM Retinal Exam (Yearly)] [facility] Scheduled Test Serum or plasma tr ough vancomycin level at trough (mass/volume) [code = 4092-3] [facility] Instructions Skin Abscess [facility] Instructions Rash - Nonspecific [facility] Encounters Start Date/Time End Date/Time Encounter Type Admission Type Attendi [facility] Care Department Encounter ID Source 2019-11-22 20:57:00 2019-11-26 19:46:00 Discharged Inpatient 1 HARLAN NGUYỄN [facility] [id number] [facility] 2019-11-18 00:00:00 2019-11-18 00:00:00 Outpatient [facility] [id number] [facility] 2019-09-24 10:52:11 2019-09-24 10:52:11 Outpatient [facility] [id number] [facility] 2019-09-23 00:00:00 2019-09-23 00:00:00 Outpatient [facility] [id number] [facility] 2019-09-22 00:00:00 2019-09-22 00:00:00 Outpatient [facility] [id number] [facility] 2019-09-20 15:02:05 2019-09-20 15:02:05 Outpatient [facility] [id number] [facility] 2019-09-01 00:00:00 2019-09-01 00:00:00 Outpatient [facility] [id number] [facility] 2019-08-26 12:08:26 2019-08-26 12:08:26 Outpatient [facility] [id number] [facility] 2019-08-26 10:40:08 2019-08-26 10:40:08 Outpatient [facility] [id number] [facility] 2019-08-26 00:00:00 2019-08-26 00:00:00 Outpatient [facility] [id number] [facility] 2019-08-09 11:15:46 2019-08-09 11:15:46 Outpatient [facility] [id number] [facility] 2019-08-09 10:19:01 2019-08-09 10:19:01 Outpatient [facility] [id number] [facility] 2019-08-09 00:00:00 2019-08-09 00:00:00 Outpatient [facility] [id number] [facility] 2019-07-22 11:54:11 2019-07-22 11:54:11 Outpatient [facility] [id number] [facility] 2019-07-22 11:00:23 2019-07-22 11:00:23 Outpatient [facility] [id number] [facility] 2019-06-28 00:00:00 2019-06-28 00:00:00 Outpatient [facility] [id number] [facility] 2019-06-16 00:00:00 2019-06-16 00:00:00 Outpatient [facility] [id number] [facility] 2019-06-04 00:00:00 2019-06-04 00:00:00 Outpatient [facility] [id number] [facility] 2019-05-25 13:07:41 2019-05-25 13:07:41 Outpatient [facility] [id number] [facility] [facility] 2019-05-14 00:00:00 2019-05-14 00:00:00 Outpatient [facility] [id number] [facility] 2019-05-14 00:00:00 2019-05-14 00:00:00 Outpatient [facility] [id number] [facility] 2019-05-13 14:10:19 2019-05-13 14:10:19 Outpatient [facility] [id number] [facility] 2019-05-13 13:22:07 2019-05-13 13:22:07 Outpatient [facility] [id number] [facility] 2019-05-13 00:00:00 2019-05-13 00:00:00 Outpatient [facility] [id number] [facility] 2019-05-03 15:07:21 2019-05-03 15:07:21 Outpatient [facility] [id number] [facility] 2019-05-03 13:55:13 2019-05-03 13:55:13 Outpatient [facility] [id number] [facility] 2019-05-03 00:00:00 2019-05-03 00:00:00 Outpatient [facility] [id number] [facility] 2019-04-30 00:00:00 2019-04-30 00:00:00 Outpatient [facility] [id number] [facility] 2019-04-30 00:00:00 2019-04-30 00:00:00 Outpatient [facility] [id number] [facility] 2019-04-22 13:19:50 2019-04-22 13:19:50 Outpatient [facility] [id number] [facility] 2019-04-08 00:00:00 2019-04-08 00:00:00 Outpatient [facility] [id number] [facility] 2019-04-05 13:51:24 2019-04-05 13:51:24 Outpatient [facility] [id number] [facility] 2019-04-05 12:46:24 2019-04-05 12:46:24 Outpatient [facility] [id number] [facility] 2019-04-05 00:00:00 2019-04-05 00:00:00 Outpatient [facility] [id number] [facility] 2019-03-22 09:36:10 2019-03-22 09:36:10 Outpatient [facility] [id number] [facility] 2019-03-22 09:35:51 2019-03-22 09:35:51 Outpatient [facility] [id number] [facility] 2019-03-03 10:18:48 2019-03-03 10:18:48 Outpatient [facility] [id number] [facility] 2019-03-03 00:00:00 2019-03-03 00:00:00 Outpatient [facility] [id number] [facility] 2019-02-15 14:47:15 2019-02-15 14:47:15 Outpatient [facility] [id number] [facility] 2019-02-11 00:00:00 2019-02-11 00:00:00 Outpatient [facility] [id number] [facility] 2019-02-11 00:00:00 2019-02-11 00:00:00 Outpatient [facility] [id number] [facility] 2019-01-29 00:00:00 2019-01-29 00:00:00 Outpatient [facility] [id number] [facility] 2019-01-29 00:00:00 2019-01-29 00:00:00 Outpatient [facility] [id number] [facility] 2019-01-08 09:00:51 2019-01-08 09:00:51 Outpatient [facility] [id number] [facility] 2019-01-08 08:49:29 2019-01-08 08:49:29 Outpatient [facility] [id number] [facility] 2019-01-08 00:00:00 2019-01-08 00:00:00 Outpatient [facility] [id number] [facility] 2019-01-08 00:00:00 2019-01-08 00:00:00 Outpatient [facility] [id number] [facility] 2019-01-08 00:00:00 2019-01-08 00:00:00 Outpatient [facility] [id number] [facility] 2018-12-17 00:00:00 2018-12-17 00:00:00 Outpatient [facility] [id number] [facility] 2018-12-16 00:00:00 2018-12-16 00:00:00 Outpatient [facility] [id number] [facility] 2018-12-16 00:00:00 2018-12-16 00:00:00 Outpatient [facility] [id number] [facility] 2018-12-14 10:25:36 2018-12-14 10:25:36 Outpatient [facility] [id number] [facility] 2018-12-14 08:51:48 2018-12-14 08:51:48 Outpatient [facility] [id number] [facility] 2018-12-03 00:00:00 2018-12-03 00:00:00 Outpatient [facility] [id number] [facility] 2018-11-30 00:00:00 2018-11-30 00:00:00 Outpatient [facility] [id number] [facility] 2018-11-19 16:42:28 2018-11-19 16:42:28 Outpatient [facility] [id number] [facility] 2018-11-19 14:04:12 2018-11-19 14:04:12 Outpatient [facility] [id number] [facility] 2018-11-18 00:00:00 2018-11-18 00:00:00 Outpatient [facility] [id number] [facility] 2018-11-18 00:00:00 2018-11-18 00:00:00 Outpatient [facility] [id number] [facility] 2018-11-17 13:05:44 2018-11-17 13:05:44 Outpatient [facility] [id number] [facility] 2018-11-11 14:52:54 2018-11-11 14:52:54 Outpatient [facility] [id number] [facility] 2018-11-11 12:55:18 2018-11-11 12:55:18 Outpatient [facility] [id number] [facility] 2018-11-04 00:00:00 2018-11-04 00:00:00 Outpatient [facility] [id number] [facility] 2018-10-30 12:08:49 2018-10-30 12:08:49 Outpatient [facility] [id number] [facility] 2018-10-20 14:51:05 2018-10-20 14:51:05 Outpatient [facility] [id number] [facility] 2018-10-20 13:37:40 2018-10-20 13:37:40 Outpatient [facility] [id number] [facility] 2018-10-09 09:22:36 2018-10-09 09:22:36 Outpatient [facility] [id number] [facility] 2018-10-08 11:41:18 2018-10-08 11:41:18 Outpatient [facility] [id number] [facility] 2018-10-08 00:00:00 2018-10-08 00:00:00 Outpatient [facility] [id number] [facility] 2018-09-28 08:50:26 2018-09-28 08:50:26 Outpatient [facility] [id number] [facility] 2018-09-21 00:00:00 2018-09-21 00:00:00 Outpatient [facility] [id number] [facility] 2018 14:51:22 2018 14:51:22 Outpatient [facility] [id number] [facility] 2018-09-07 15:22:38 2018-09-07 15:22:38 Outpatient [facility] [id number] [facility] 2018-09-07 13:44:27 2018-09-07 13:44:27 Outpatient [facility] [id number] [facility] 2018-09-03 00:00:00 2018-09-03 00:00:00 Outpatient [facility] [id number] [facility] 2018-08-20 00:00:00 2018-08-20 00:00:00 Outpatient [facility] [id number] [facility] 2018-08-13 00:00:00 2018-08-13 00:00:00 Outpatient [facility] [id number] [facility] 2018-07-31 00:00:00 2018-07-31 00:00:00 Outpatient [facility] [id number] [facility] 2018-07-23 00:00:00 2018-07-23 00:00:00 Outpatient [facility] [id number] [facility] 2018-07-15 14:04:51 2018-07-15 14:04:51 Outpatient [facility] [id number] [facility] 2018-07-13 11:49:05 2018-07-13 11:49:05 Outpatient [facility] [id number] [facility] 2018-07-02 00:00:00 2018-07-02 00:00:00 Outpatient [facility] [id number] [facility] 2018-06-25 00:00:00 2018-06-25 00:00:00 Outpatient [facility] [id number] [facility] 2018-05-27 00:00:00 2018-05-27 00:00:00 Outpatient [facility] [id number] [facility] 2018-05-08 00:00:00 2018-05-08 00:00:00 Outpatient [facility] [id number] [facility] 2018-05-04 00:00:00 2018-05-04 00:00:00 Outpatient [facility] [id number] [facility] 2018-05-01 00:00:00 2018-05-01 00:00:00 Outpatient [facility] [id number] [facility] 2018-04-23 00:00:00 2018-04-23 00:00:00 Outpatient [facility] [id number] [facility] 2018-04-22 00:00:00 2018-04-22 00:00:00 Outpatient [facility] [id number] [facility] 2018-04-20 00:00:00 2018-04-20 00:00:00 Outpatient [facility] [id number] [facility] 2018-04-20 00:00:00 2018-04-20 00:00:00 Outpatient [facility] [id number] [facility] 2018-04-17 00:00:00 2018-04-17 00:00:00 Outpatient [facility] [id number] [facility] 2018-04-13 00:00:00 2018-04-13 00:00:00 Outpatient [facility] [id number] [facility] 2018-04-09 00:00:00 2018-04-09 00:00:00 Outpatient [facility] [id number] [facility] 2018-04-07 00:00:00 2018-04-07 00:00:00 Outpatient [facility] [id number] [facility] 2018-04-07 00:00:00 2018-04-07 00:00:00 Outpatient [facility] [id number] [facility] 2018-03-30 13:49:36 2018-03-30 13:49:36 Outpatient [facility] [id number] [facility] 2018-03-25 00:00:00 2018-03-25 00:00:00 Outpatient [facility] [id number] [facility] 2018-03-20 13:00:27 2018-03-20 13:00:27 Outpatient [facility] [id number] [facility] 2018-03-16 00:00:00 2018-03-16 00:00:00 Outpatient [facility] [id number] [facility] 2018-03-10 00:00:00 2018-03-10 00:00:00 Outpatient [facility] [id number] [facility] 2018-02-26 14:10:38 2018-02-26 14:10:38 Outpatient [facility] [id number] [facility] 2018-02-19 00:00:00 2018-02-19 00:00:00 Outpatient [facility] [id number] [facility] 2018-02-13 00:00:00 2018-02-13 00:00:00 Outpatient [facility] [id number] [facility] 2018-02-10 00:00:00 2018-02-10 00:00:00 Outpatient [facility] [id number] [facility] 2018-02-09 00:00:00 2018-02-09 00:00:00 Outpatient [facility] [id number] [facility] 2018-02-09 00:00:00 2018-02-09 00:00:00 Outpatient [facility] [id number] [facility] 2018-01-29 12:54:51 2018-01-29 12:54:51 Outpatient [facility] [id number] [facility] 2018-01-26 11:47:35 2018-01-26 11:47:35 Outpatient [facility] [id number] [facility] 2018-01-26 09:23:23 2018-01-26 09:23:23 Outpatient [facility] [id number] [facility] 2018-01-19 09:20:12 2018-01-19 09:20:12 Outpatient [facility] [id number] [facility] 2018-01-19 08:02:16 2018-01-19 08:02:16 Outpatient [facility] [id number] [facility] 2017-12-15 00:00:00 2017-12-15 00:00:00 Outpatient [facility] [id number] [facility] 2017-11-13 11:13:36 2017-11-13 11:13:36 Outpatient [facility] [id number] [facility] 2017-11-07 00:00:00 2017-11-07 00:00:00 Outpatient [facility] [id number] [facility] 2017-10-30 00:00:00 2017-10-30 00:00:00 Outpatient [facility] [id number] [facility] 2017-10-23 00:00:00 2017-10-23 00:00:00 Outpatient [facility] [id number] [facility] 2017-10-16 15:43:24 2017-10-16 15:43:24 Outpatient [facility] [id number] [facility] 2017-10-16 00:00:00 2017-10-16 00:00:00 Outpatient [facility] [id number] [facility] 2017-09-02 11:14:56 2017-09-02 11:14:56 Outpatient [facility] [id number] [facility] 2017-09-02 09:48:40 2017-09-02 09:48:40 Outpatient [facility] [id number] [facility] 2017-09-02 00:00:00 2017-09-02 00:00:00 Outpatient [facility] [id number] [facility] 2017-08-28 00:00:00 2017-08-28 00:00:00 Outpatient [facility] [id number] [facility] 2017-08-14 15:06:22 2017-08-14 15:06:22 Outpatient [facility] [id number] [facility] 2017-06-26 00:00:00 2017-06-26 00:00:00 Outpatient [facility] [id number] [facility] 2017-06-26 00:00:00 2017-06-26 00:00:00 Outpatient [facility] [id number] [facility] 2017-06-18 00:00:00 2017-06-18 00:00:00 Outpatient [facility] [id number] [facility] 2017-06-16 00:00:00 2017-06-16 00:00:00 Outpatient [facility] [id number] [facility] 2017-05-19 00:00:00 2017-05-19 00:00:00 Outpatient [facility] [id number] [facility] 2017-04-24 10:42:54 2017-04-24 10:42:54 Outpatient [facility] [id number] [facility] 2017-04-24 08:40:25 2017-04-24 08:40:25 Outpatient [facility] [id number] [facility] 2012-11-19 08:14:32 2012-11-19 08:14:32 Outpatient [facility] [id number] [facility] Results Test Description Test Time Test Comments Results Result Comments Source Capillary blood glucose measurement by glucometer (mas s/volume) 2019-11-26 15:44:00 Test Item Bedside Glucose (test code = 35667-7) [facility] (number/volume)2019-11-26 06:00:00* Test Item Value Reference Range Interpretation Comments White Blood Count (test code = 6690-2) 4.66 [facility] (number/volume)2019-11-26 06:00:00* Test Item Value Reference Range Interpretation Comments Red Blood Count (test code = 789-8) 3.98 [facility] (moles/volume)2019-11-26 06:00:00* Test Item Value Reference Range Interpretation Comments Hemoglobin (test code = 31974-6) 10.1 [facility] hematocrit (volume fraction)2019-11-26 06:00:00* Test Item Value Reference Range Interpretation Comments Hematocrit (test code = 4544-3) 33.1 [facility] mean corpuscular osptop6980-61-22 06:00:00* Test Item Value Reference Range Interpretation Comments Mean Corpuscular Volume (test code = 787-2) 83.2 [facility] mean corpuscular hemoglobin (mass per erythrocyte)2019-11-26 06:00:00* Test Item Value Reference Range Interpretation Comments Mean Corpuscular Hemoglobin (test code = 785-6) 25.4 [facility] mean corpuscular hemoglobin concentration measurement (mass/volume)2019-11-26 06:00:00* Test Item Value Reference Range Interpretation Comments Mean Corpuscular Hemoglobin Concent (test code = 786-4) 30.5 [facility] HospitalRDW IpmXh-Thw6818-81-15 06:00:00* Test Item Value Reference Range Interpretation Comments Red Cell Distribution Width (test code = 17214-4) 15.6 [facility] platelet count (count/volume)2019-11-26 06:00:00* Test Item Value Reference Range Interpretation Comments Platelet Count (test code = 777-3) 306 [facility] segmented neutrophil count as percentage of total nittazhcmu7522-80-90 06:00:00* Test Item Value Reference Range Interpretation Comments Neutrophils (%) (Auto) (test code = 49806-0) 52.6 [facility] lymphocyte count as percentage ot total qcvhlsrnym6188-15-65 06:00:00* Test Item Value Reference Range Interpretation Comments Lymphocytes (%) (Auto) (test code = 736-9) 27.0 [facility] monocyte count as percentage of total kdlvhegtzc2864-86-43 06:00:00* Test Item Value Reference Range Interpretation Comments Monocytes (%) (Auto) (test code = 5905-5) 14.2 [facility] eosinophil count as percentage of total jhcfexjugy0491-43-88 06:00:00* Test Item Value Reference Range Interpretation Comments Eosinophils (%) (Auto) (test code = 713-8) 3.6 [facility] basophil count as percentage of total oghhnojmhy5101-79-07 06:00:00* Test Item Value Reference Range Interpretation Comments Basophils (%) (Auto) (test code = 706-2) 1.1 [facility] HospitalFluoroscopic procedure less than one hour ydfwprma2395-12-85 06:00:00* Test Item Value Reference Range Interpretation Comments IM GRANULOCYTES % (test code = IM GRANULOCYTES %) 1.5 [facility] neutrophil count 2019-11-26 06:00:00* Test Item Value Reference Range Interpretation Comments Neutrophils # (Auto) (test code = 751-8) 2.5 [facility] lymphocytes count (number/volume) 2019-11-26 06:00:00* Test Item Value Reference Range Interpretation Comments Lymphocytes # (Auto) (test code = 79938-0) 1.3 [facility] monocytes automated count (number/volume)2019-11-26 06:00:00* Test Item Value Reference Range Interpretation Comments Monocytes # (Auto) (test code = 742-7) 0.7 [facility] eosinophil count 2019-11-26 06:00:00* Test Item Value Reference Range Interpretation Comments Eosinophils # (Auto) (test code = 711-2) 0.2 [facility] basophil count (count/volume)2019-11-26 06:00:00* Test Item Value Reference Range Interpretation Comments Basophils # (Auto) (test code = 704-7) 0.1 [facility] HospitalFlu[facility] procedure less than one hour wzqfwkmo0624-29-23 06:00:00* Test Item Value Reference Range Interpretation Comments Absolute Immature Granulocyte (auto (cortney t code = Absolute Immature Granulocyte (auto) 0.07 [facility] sodium [facility] (moles/volume)2019-11-26 06:00:00* Test Item Value Reference Range Interpretation Comments Sodium Level (test code = 2951-2) 136 [facility] potassium measurement (moles/volume)2019-11-26 06:00:00* Test Item Value Reference Range Interpretation Comments Potassium Level (test code = 2823-3) 4.0 [facility] chloride measurement (moles/volume)2019-11-26 06:00:00* Test Item Value Reference Range Interpretation Comments Chloride Level (test code = 2075-0) 105 [facility] carbon dioxide, total measurement (moles/volume)2019-11-26 06:00:00* Test Item Value Reference Range Interpretation Comments Carbon Dioxide Level (test code = 2028-9) 26 [facility] anion peq8675-87-73 06:00:00* Test Item Value Reference Range Interpretation Comments Anion Gap (test code = 90373-5) 9.0 [facility] urea nitrogen measurement (mass/volume)2019-11-26 06:00:00* Test Item Value Reference Range Interpretation Comments Blood Urea Nitrogen (test code = 3094-0) 19 [facility] creatinine measurement (mass/volume)2019-11-26 06:00:00* Test Item Value Reference Range Interpretation Comments Creatinine (test code = 2160-0) 1.12 [facility] urea nitrogen/creatinine mass jgwhs2685-14-02 06:00:00* Test Item Value Reference Range Interpretation Comments BUN/Creatinine Ratio (test code = 3097-3) 17 [facility] HospitalEstimated glomerular filtration rate (GFR) fpwagseqglzph2742-42-49 06:00:00* Test Item Value Reference Range Interpretation Comments Estimat Glomerular Filtration Rate (test code = 930675356) 51 [facility] HospitalGlucose rdjvgbxzzjz7077-91-42 06:00:00* Test Item Value Reference Range Interpretation Comments Glucose Level (test code = GGI5653) 253 [facility] calcium measurement (mass/volume)2019-11-26 06:00:00* Test Item Value Reference Range Interpretation Comments Calcium Level (test code = 05842-6) 8.0 [facility] total bilirubin measurement (mass/volume)2019-11-26 06:00:00* Test Item Value Reference Range Interpretation Comments Total Bilirubin (test code = 1975-2) 0.2 [facility] HospitalFluoroscopic procedure less than one hour txgdwhfb5168-51-59 06:00:00* Test Item Value Reference Range Interpretation Comments Aspartate Amino Transf (AST/SGOT) (test code = Aspartate Amino Transf (AST/SGOT)) 33 [facility] alanine aminotransferase measurement (enzymatic activity/volume)2019-11-26 06:00:00* Test Item Value Reference Range Interpretation Comments Alanine Aminotransferase (ALT/SGPT) (test code = 1742-6) 77 [facility] protein measurement (mass/volume)2019-11-26 06:00:00* Test Item Value Reference Range Interpretation Comments Total Protein (test code = 2885-2) 5.7 [facility] albumin measurement (mass/volume)2019-11-26 06:00:00* Test Item Value Reference Range Interpretation Comments Albumin (test code = 1751-7) 2.3 [facility] HospitalPlasma globulin measurement (mass/volume) 2019-11-26 06:00:00* Test Item Value Reference Range Interpretation Comments Globulin (test code = 01437-4) 3.4 [facility] albumin/globulin mass xowri3110-82-09 06:00:00* Test Item Value Reference Range Interpretation Comments Albumin/Globulin Ratio (test code = 1759-0) 0.7 [facility] alkaline phosphatase measurement (enzymatic activity/volume)2019-11-26 06:00:00* Test Item Value Reference Range Interpretation Comments Alkaline Phosphatase (test code = 6768-6) 82 [facility] HospitalFluoroscopic procedure less than one hour lthhpxdd3770-96-39 06:55:00* Test Item Value Reference Range Interpretation Comments Hemoglobin A1c Percent (test code = Hemoglobin A1c Percent) 10.8 [facility] HospitalPhosphorus jlmiemhmugb4685-06-22 06:55:00 * Test Item Value Reference Range Interpretation Comments Phosphorus Level (test code = BQG4676) 2.9 [facility] magnesium measurement (mass/volume)2019-11-24 06:55:00* Test Item Value Reference Range Interpretation Comments Magnesium Level (test code = 14158-7) 1.9 [facility] triglyceride measurement (mass/volume)2019-11-24 06:55:00* Test Item Value Reference Range Interpretation Comments Triglycerides Level (test code = 2571-8) 149 [facility] cholesterol measurement (mass/volume)2019-11-24 06:55:00* Test Item Value Reference Range Interpretation Comments Cholesterol Level (test code = 2093-3) 140 [facility] cholesterol in LDL measurement (mass/volume)2019-11-24 06:55:00* Test Item Value Reference Range Interpretation Comments LDL Cholesterol (test code = 2089-1) 54 [facility] cholesterol in HDL measurement (mass/volume)2019-11-24 06:55:00* Test Item Value Reference Range Interpretation Comments HDL Cholesterol (test code = 2085-9) 56 [facility] total cholesterol/cholesterol in HDL mass axnne4050-70-59 06:55:00* Test Item Value Reference Range Interpretation Comments Cholesterol/HDL Ratio (test code = 9830-1) 2.5 [facility] thyrotropin measurement by detection limit <= 0.005 miu/l (units/volume)2019-11-24 06:55:00* Test Item Value Reference Range Interpretation Comments Thyroid Stimulating Hormone (TSH) (test code = 86866-0) 2.685 [facility] trough vancomycin level at trough (mass/volume)2019-11-24 06:55:00* Test Item Value Reference Range Interpretation Comments Vancomycin Level Trough (test code = 4092-3) 7.6 [facility] HospitalU[facility] color tllzftsovsrhr2085-96-69 01:17:00* Test Item Value Reference Range Interpretation Comments Urine Color (test code = 5778-6) YELLOW [facility] HospitalU[facility] zuqrnhe9312-22-88 01:17:00* Test Item Value Reference Range Interpretation Comments Urine Clarity (test code = 96948-2) [facility] by Test strip 2019-11-24 01:17:00* Test Item Value Reference Range Interpretation Comments Urine Specific [place] (test code = 5811-5) 1.025 [facility] by automated test [id number] 01:17:00* Test Item Value Reference Range Interpretation Comments Urine pH (test code = 35745-6) 6.5 [facility] leukocyte esterase detection by [id number] 01:17:00* Test Item Value Reference Range Interpretation Comments Urine Leukocyte Esterase (test code = 5799-2) NEGATIVE [facility] nitrite [id number] 01:17:00* Test Item Value Reference Range Interpretation Comments Urine Nitrite (test code = 80496-0) NEGATIVE [facility] protein measurement by test strip (mass/volume)2019-11-24 01:17:00* Test Item Value Reference Range Interpretation Comments Urine Protein (test code = 5804-0) >=300 [facility] glucose fubwbebrg6464-38-70 01:17:00* Test Item Value Reference Range Interpretation Comments Urine Glucose (UA) (test code = 2349-9) 2+ [facility] ketones detection by automated test ljvub0656-70-68 01:17:00* Test Item Value Reference Range Interpretation Comments Urine Ketones (test code = 21009-5) NEGATIVE [facility] urobilinogen measurement by test strip (mass/volume)2019-11-24 01:17:00* Test Item Value Reference Range Interpretation Comments Urine Urobilinogen (test code = 72372-5) 0.2 [facility] total bilirubin measurement (mass/volume)2019-11-24 01:17:00* Test Item Value Reference Range Interpretation Comments Urine Bilirubin (test code = 1978-6) NEGATIVE [facility] erythrocytes ydsbjidxp9788-93-77 01:17:00* Test Item Value Reference Range Interpretation Comments Urine Blood (test code = 59685-3) NEGATIVE [facility] HospitalAutomated urine sediment leukocyte count by microscopy (number/high power field)2019-11-24 01:17:00* Test Item Value Reference Range Interpretation Comments Urine WBC (test code = 5821-4) 06-02 [facility] HospitalErythrocytes detection in urine sediment by light roqyhyfsuo8224-60-49 01:17:00* Test Item Value Reference Range Interpretation Comments Urine RBC (test code = 16129-1) - [facility] HospitalBacteria detection in urine sediment by light jrazzmjsui8738-73-24 01:17:00* Test Item Value Reference Range Interpretation Comments Urine Bacteria (test code = 18880-9) FEW [facility] HospitalEpithelial cells detection in urine sediment by light bvqeekmuhf0128-34-29 01:17:00* Test Item Value Reference Range Interpretation Comments Urine Epithelial Cells (test code = 22823-6) FEW [facility] HospitalYeast detection in urine sediment by light enggaixccv3188-25-15 01:17:00* Test Item Value Reference Range Interpretation Comments Urine Yeast (test code = 62187-5) FEW [facility] HospitalCT [facility]BDOM[facility]/PELVIS [id number] 23:15:00 [facility] [address] [address] Patient Name: MEÑO MATA MR #: [id number] : 1970 Age/Sex: 49/F Req #: [id number] Adm Physician: HARLAN NGUYỄN MD Ordered by: JACQUELINE DIOP DO Report #: [id number] [facility]: [facility] Room/Bed: [place] [address] Procedure: CT/CT ABDOMEN/PE LVIS WO Exam Date: 11/22/19 Exam Time: 8 REPORT STATUS: Signed EXAM: CT Abdomen a nd Pelvis WITHOUT contrast INDICATION: RLQ abscess [id number] 2 218 COMPARISON: CT abdomen pelvis 07/20/2017 TECHNIQUE: Abdomen and pelvis we re scanned utilizing a multidetector helical scanner from the lung base to the pubic symphysis without administration of IV contrast. Absence of intravenous contrast decreases sensitivity for detection of focal lesions and vascular pa thology. Coronal and sagittal reformations were obtained. Routine protocol was performed. IV CONTRAST: None ORAL CONTRAST: None COMPLICATIONS: None RADIATION DOSE: Total DLP: 2114 mGy*cm Estimated effective dose: (DLP x 0.015 x size factor) mSv CTDIvol has bee n reviewed. It is below the limits set by the Radiation Protocol Committee (RP C). Dose modulation, iterative reconstruction, and/or weight based adjust ment of the mA/kV was utilized to reduce the radiation dose to as low as reaso nably achievable. FINDINGS: LINES and TUBES: None. LOWER THORA X: Unremarkable HEPATOBILIARY: Hepatomegaly. Fatty infiltration of the fouzia er. No gross hepatic lesion is identified when allowing for lack of intravenou s contrast. No biliary duct dilatation. GALLBLADDER: Surgically absent. SPLEEN: No splenomegaly. PANCREAS: No focal masses or ductal dilatatio n. ADRENALS: No adrenal nodules KIDNEYS/URETERS: No hydronephro sis. No cystic or solid mass lesions. No stones. GI TRACT: No abnormal d istention, wall thickening, or evidence of bowel obstruction. Scattered colon ic diverticuli. Appendix is normal. PELVIC ORGANS/BLADDER: Fibroid uterus. LYMPH NODES: No lymphadenopathy. VESSELS: Scattered calcified atheros clerosis. PERITONEUM / RETROPERITONEUM: No free air or fluid. BONES: N o acute osseous abnormality. SOFT TISSUES: Tiny umbilical hernia. Of note, origins of the anterior abdominal soft tissues are excluded from view due to t he patient's body habitus. IMPRESSION: 1. No acute abdominal or pelvic abnormality. 2. Enlarged fatty liver. Signed by: Sly Walker MD on 11/22/2019 11:19 PM Dictated By: SLY WALKER MD Electronically Sign ed By: SLY WALKER MD on 11/22/19 7549 Transcribed By: DAVID on 11/22/19 2 319 COPY TO: JACQUELINE DIOP Fluoroscopic procedure less than one hour qujmorkq9251-87-54 22:37:00* Test Item Value Reference Range Interpretation Comments Coronavirus (PCR) (test code = Coronavirus (PCR)) NOT DETECTED [facility] HospitalFluoroscopic procedure less than one hour ffhaaowo1851-46-79 20:40:00* Test Item Value Reference Range Interpretation Comments Lactic Acid Level (test code = Lactic Acid Level) 1.8 [facility] HospitalBlood nhyflza6596-80-47 20:40:00* Test Item Value Reference Range Interpretation Comments Blood Culture (test code = 95640056) NO GROWTH AFTER 72 HOURS [facility] HospitalBASIC METABOLIC [id number] 14:32:00 * Test Item Value Reference Range Interpretation Comments SODIUM (test code = NA) 136 mmol/L 136-145 N POTASSIUM (test code = K) 3.8 mmol/L 3.5-5.1 N CHLORIDE (test code = CL) 103.0 mmol/L 98-107 N CARBON DIOXIDE (test code = CO2) 27.0 mmol/L 21-32 N ANION GAP (test code = GAP) 9.8 10-20 L GLUCOSE (test code = GLU) 342 mg/dL 74-106 H BLOOD UREA NITROGEN (test code = BUN) 20 mg/dL 7-18 H GLOMERULAR FILTRATION RATE (test code = GFR) 40 mL/min >=60 Estimated GFR by using Modified MDRD formula.Chronic kidney disease is defined as either kidney damageor GFR <60 mL/min/1.73 m2 for >3 months. CREATININE (test code = CREAT) 1.40 mg/dL 0.55-1.02 H Note change in reference range due to change in reagent. BUN/CREATININE RATIO (test code = BUN/CREA) 14.3 10-20 N CALCIUM (test code = CA) 8.9 mg/dL 8.5-10.1 N [id number] 14:32:00* Test Item Value Reference Range Interpretation Comments TROPONIN-I (test code = TROPI) <0.015 ng/mL 0-0.045 N BASIC METABOLIC [id number] 14:26:00* Test Item Value Reference Range Interpretation Comments SODIUM (test code = NA) 136 mmol/L 136-145 N POTASSIUM (test code = K) 3.8 mmol/L 3.5-5.1 N CHLORIDE (test code = CL) 103.0 mmol/L 98-107 N CARBON DIOXIDE (test code = CO2) mmol/L 21-32 ANION GAP (test code = GAP) 10-20 GLUCOSE (test code = GLU) mg/dL 74-106 BLOOD UREA NITROGEN (test code = BUN) mg/dL 7-18 GLOMERULAR FILTRATION RATE (test code = GFR) mL/min >=60 CREATININE (test code = CREAT) mg/dL 0.55-1.02 BUN/CREATININE RATIO (test code = BUN/CREA) 10-20 CALCIUM (test code = CA) mg/dL 8.5-10.1 [id number] 14:26:00* Test Item Value Reference Range Interpretation Comments TROPONIN-I (test code = TROPI) ng/mL 0-0.045 - XR CHEST 1 [id number] 14:24:00 FAX: Lacho Ambrosio MD [phone] [place]: St: REG Name: MEÑO RYDER [facility] : [birth year] 69 Age/S: 49/F [address] [facility] Unit #: [id number] Loc: [place] [address] Phys: Lacho Ambrosio MD Acct: [id number] Dis Date: Status: REG ER PHONE #: [phone] Exam Date: 10/22/2019 1403 FAX #: [phone] Reason: CHEST PAIN EXAMS: CPT CODE: [id number] XR CHEST 1 V 68031 HISTORY: Chest pain. COMPARISON: September 13, 2019. Location: [facility]. No acute infiltrates, effusion or congestion is noted. Suboptimal inspiration. Depe ndent changes. Cardiomegaly. IMPRESSION: No acute infiltrates, effusion or congestion. at 1424 Reported and sig ezequiel by: Jamil Norman M.D. CC: Lacho Ambrosio MD Technologist: RT LINDA(R) Trnscrd Date/Time/By: 10/22/2019 (2310) : By: [email or web address] Orig Print D/T: S: 10/22/2019 (1845) PAGE 1 Signed Report CBC W/O DIFF 2019-10-22 14:11:00* Test Item Value Reference Range Interpretation Comments WHITE BLOOD CELL (test code = WBC) 5.3 K/mm3 4.5-12.5 N RED BLOOD CELL (test code = RBC) 4.57 mill/mm3 3.7-5.2 N HEMOGLOBIN (test code = HGB) 11.9 gram/dL 11.5-15.5 N HEMATOCRIT (test code = HCT) 38.7 % 36.0-46.0 N MEAN CELL VOLUME (test code = MCV) 84.7 fL 80-98 N MEAN CELL HGB (test code = MCH) 26.0 picogram 27.0-33.0 L MEAN CELL HGB CONCETRATION (test code = MCHC) 30.7 gram/dL 33.0-36. 0 L RED CELL DISTRIBUTION WIDTH (test code = RDW) 14.7 % 11.6-16. 2 N PLATELET COUNT (test code = PLT) 326 K/mm3 150-450 N MEAN PLATELET VOLUME (test code = MPV) 9.7 fL 6.7-11.0 N CBC W/O [id number] 14:10:00* Test Item Value Reference Range Interpretation Comments WHITE BLOOD CELL (test code = WBC) K/mm3 4.5-12.5 RED BLOOD CELL (test code = RBC) mill/mm3 3.7-5.2 HEMOGLOBIN (test code = HGB) 11.9 gram/dL 11.5-15.5 N HEMATOCRIT (test code = HCT) 38.7 % 36.0-46.0 N MEAN CELL VOLUME (test code = MCV) fL 80-98 MEAN CELL HGB (test code = MCH) picogram 27.0-33.0 MEAN CELL HGB CONCETRATION (test code = MCHC) gram/dL 33.0-36. 0 RED CELL DISTRIBUTION WIDTH (test code = RDW) % 11.6-16. 2 PLATELET COUNT (test code = PLT) K/mm3 150-450 MEAN PLATELET VOLUME (test code = MPV) fL 6.7-11.0 [id number] 16:39:00* Test Item Value Reference Range Interpretation Comments GLUBED (test code = GLUBED) 228 mg/dL 74-106 H Performed by certified broaching machine operator at [facility] [id number] 14:14:00* Test Item Value Reference Range Interpretation Comments GLUBED (test code = GLUBED) 243 mg/dL 74-106 H Performed by certified broaching machine operator at [facility] [id number] 12:57:00* Test Item Value Reference Range Interpretation Comments TROPONIN-I (test code = TROPI) 0.056 ng/mL 0-0.045 HH COMMENTS TO GEODUCK DIVER: COLLECT 3 HOURS AFTER PREVIOUS SAMPLEBASIC METABOLIC [id number] 12:50:00* Test Item Value Reference Range Interpretation Comments SODIUM (test code = NA) 139 mmol/L 136-145 N POTASSIUM (test code = K) 3.6 mmol/L 3.5-5.1 N CHLORIDE (test code = CL) 104.0 mmol/L 98-107 N CARBON DIOXIDE (test code = CO2) 29.0 mmol/L 21-32 N ANION GAP (test code = GAP) 9.6 10-20 L GLUCOSE (test code = GLU) 261 mg/dL 74-106 H BLOOD UREA NITROGEN (test code = BUN) 19 mg/dL 7-18 H GLOMERULAR FILTRATION RATE (test code = GFR) 44 mL/min >=60 Estimated GFR by using Modified MDRD formula.Chronic kidney disease is defined as either kidney damageor GFR <60 mL/min/1.73 m2 for >3 months. CREATININE (test code = CREAT) 1.30 mg/dL 0.55-1.02 H Note change in reference range due to change in reagent. BUN/CREATININE RATIO (test code = BUN/CREA) 14.6 10-20 N CALCIUM (test code = CA) 8.9 mg/dL 8.5-10.1 N LIPID PROFILE (CORONARY RISK)2019-09-14 12:50:00* Test Item Value Reference Range Interpretation Comments TRIGLYCERIDES (test code = TRIG) 202 mg/dL 20-150 H CHOLESTEROL (test code = CHOL) 146 mg/dL 0-200 N CHOLESTEROL/HDL RATIO (test code = CHOLHDL) 2.0 RATIO 0-4.9 N RISK ASSOCIATED WITH CHOL/HDL RATIOS: Risk Male Female1/2 AVERAGE 3.43 3.27AVERAGE 4.97 4.442X AVERAGE 9.55 7.053X AVERAGE 23.39 11.04 REFERENCE VALUE IS RELATED TO RISK LEVELS ASRECOMMENDED BY THE DARI. HEART, LUNG, AND BLOOD INST. HDL CHOLESTEROL (test code = HDL) 62 mg/dL 40-60 H LIPOPROTEIN LDL (test code = LDL) 59 mg/dL 100-129 L Reference Interval: mg/dL mmol/L Optimal <100 <2.6Near/above optimal 100-129 2.6- 3.3Borderline High 130-159 3.4-4.1High 160-189 4.1-4.9Very High >=190 >=4.9========= This LDL result is a direct measurement.========= CBC W/AUTO [id number] 12:41:00* Test Item Value Reference Range Interpretation Comments WHITE BLOOD CELL (test code = WBC) 4.6 K/mm3 4.5-12.5 N RED BLOOD CELL (test code = RBC) 4.70 mill/mm3 3.7-5.2 N HEMOGLOBIN (test code = HGB) 12.7 gram/dL 11.5-15.5 N HEMATOCRIT (test code = HCT) 39.2 % 36.0-46.0 N MEAN CELL VOLUME (test code = MCV) 83.4 fL 80-98 N MEAN CELL HGB (test code = MCH) 27.0 picogram 27.0-33.0 N MEAN CELL HGB CONCETRATION (test code = MCHC) 32.4 gram/dL 33.0-36. 0 L RED CELL DISTRIBUTION WIDTH (test code = RDW) 13.6 % 11.6-16. 2 N RED CELL DISTRIBUTION WIDTH SD (test code = RDW-SD) 41.4 fL 37 .0-51.0 N PLATELET COUNT (test code = PLT) 372 K/mm3 150-450 N MEAN PLATELET VOLUME (test code = MPV) 9.7 fL 6.7-11.0 N NEUTROPHIL % (test code = NT%) 57.9 % 39.0-69.0 N IMMATURE GRANULOCYTE % (test code = IG%) 0.7 % 0.0-5.0 N LYMPHOCYTE % (test code = LY%) 25.1 % 25.0-55.0 N MONOCYTE % (test code = MO%) 12.6 % 0.0-10.0 H EOSINOPHIL % (test code = EO%) 2.8 % 0.0-5.0 N BASOPHIL % (test code = BA%) 0.9 % 0.0-1.0 N NUCLEATED RBC % (test code = NRBC%) 0.0 % 0-0 N NEUTROPHIL # (test code = NT#) 2.66 K/mm3 1.8-7.7 N IMMATURE GRANULOCYTE # (test code = IG#) 0.03 x10 3/uL 0-0.03 N LYMPHOCYTE # (test code = LY#) 1.15 K/mm3 1.0-5.0 N MONOCYTE # (test code = MO#) 0.58 K/mm3 0-0.8 N EOSINOPHIL # (test code = EO#) 0.13 K/mm3 0.0-0.5 N BASOPHIL # (test code = BA#) 0.04 K/mm3 0.0-0.2 N NUCLEATED RBC # (test code = NRBC#) 0.00 K/mm3 0.0-0.1 N MANUAL DIFF REQUIRED (test code = MDIFF) NO [id number] 09:13:00* Test Item Value Reference Range Interpretation Comments GLUBED (test code = GLUBED) 181 mg/dL 74-106 H Performed by certified broaching machine operator at [facility] [id number]-[id number] 06:09:00* Test Item Value Reference Range Interpretation Comments TROPONIN-I (test code = TROPI) 0.078 ng/mL 0-0.045 HH PREVIOUSLY CALLED COMMENTS TO GEODUCK DIVER: COLLECT 3 HOURS AFTER PREVIOUS SAMPLEPROTHROMBIN [id number] 23:27:00* Test Item Value Reference Range Interpretation Comments PROTHROMBIN TIME PATIENT (test code = PTP) 10.2 seconds 9.0-14.0 N INTERNATIONAL NORMAL RATIO (test code = INR) 0.9 0.8-1.2 N The therapeutic range for oral anticoagulant therapy [...] (2.5-3.5) IS PATIENT ON ANTICOAGULANTS? NTHROMBOPLASTIN TIME [id number] 23:27:00* Test Item Value Reference Range Interpretation Comments THROMBOPLASTIN TIME PARTIAL (test code = PTT) 34.3 seconds 25.0-36. 5 N IS PATIENT ON ANTICOAGULANTS? NHEPATIC FUNCTION [id number] 23:17:00* Test Item Value Reference Range Interpretation Comments TOTAL PROTEIN (test code = PROT) 7.9 gram/dL 6.4-8.2 N ALBUMIN (test code = ALB) 3.5 g/dL 3.4-5.0 N GLOBULIN (test code = GLOB) 4.4 gram/dL 2.7-4.2 H ALBUMIN/GLOBULIN RATIO (test code = A/G) 0.8 0.75-1.50 N BILIRUBIN TOTAL (test code = BILT) 0.30 mg/dL 0.0-1.0 N BILIRUBIN DIRECT (test code = BILD) 0.07 mg/dL 0.0-0.20 N SGOT/AST (test code = AST) 35 IUnit/L 15-37 N SGPT/ALT (test code = ALT) 40 IUnit/L 12-78 N ALKALINE PHOSPHATASE TOTAL (test code = ALKP) 52 IUnit/L 45-117 N Note change in reference range due to change in reagent. THYROID STIMULATING [id number] 23:17:00* Test Item Value Reference Range Interpretation Comments THYROID STIMULATING HORMONE (test code = TSH) 1.660 uIU/mL 0.36-3.7 4 N TSH REFERENCE RANGES: EUTHYROID: 0.35 - 4.3 mIU/mL HYPO : > 5.5 mIU/mL HYPER : < 0.35 mIU/mL [id number] 22:25:00* Test Item Value Reference Range Interpretation Comments GLUBED (test code = GLUBED) 106 mg/dL 74-106 N Performed by certified broaching machine operator at [facility] BASIC METABOLIC [id number] 19:03:00* Test Item Value Reference Range Interpretation Comments SODIUM (test code = NA) 141 mmol/L 136-145 N POTASSIUM (test code = K) 3.6 mmol/L 3.5-5.1 N CHLORIDE (test code = CL) 107.0 mmol/L 98-107 N CARBON DIOXIDE (test code = CO2) 32.0 mmol/L 21-32 N ANION GAP (test code = GAP) 5.6 10-20 L GLUCOSE (test code = GLU) 75 mg/dL 74-106 N BLOOD UREA NITROGEN (test code = BUN) 17 mg/dL 7-18 N GLOMERULAR FILTRATION RATE (test code = GFR) 48 mL/min >=60 Estimated GFR by using Modified MDRD formula.Chronic kidney disease is defined as either kidney damageor GFR <60 mL/min/1.73 m2 for >3 months. CREATININE (test code = CREAT) 1.20 mg/dL 0.55-1.02 H Note change in reference range due to change in reagent. BUN/CREATININE RATIO (test code = BUN/CREA) 14.2 10-20 N CALCIUM (test code = CA) 9.0 mg/dL 8.5-10.1 N [id number] 19:03:00* Test Item Value Reference Range Interpretation Comments TROPONIN-I (test code = TROPI) 0.180 ng/mL 0-0.045 Results called to [id number] by V.[email or web address].KP1 09/13/19 1902Critical results verified and read back by Nurse? Y BASIC METABOLIC [id number] 18:50:00* Test Item Value Reference Range Interpretation Comments SODIUM (test code = NA) 141 mmol/L 136-145 N POTASSIUM (test code = K) 3.6 mmol/L 3.5-5.1 N CHLORIDE (test code = CL) 107.0 mmol/L 98-107 N CARBON DIOXIDE (test code = CO2) mmol/L 21-32 ANION GAP (test code = GAP) 10-20 GLUCOSE (test code = GLU) mg/dL 74-106 BLOOD UREA NITROGEN (test code = BUN) mg/dL 7-18 GLOMERULAR FILTRATION RATE (test code = GFR) mL/min >=60 CREATININE (test code = CREAT) mg/dL 0.55-1.02 BUN/CREATININE RATIO (test code = BUN/CREA) 10-20 CALCIUM (test code = CA) mg/dL 8.5-10.1 [id number] 18:50:00* Test Item Value Reference Range Interpretation Comments TROPONIN-I (test code = TROPI) ng/mL 0-0.045 BASIC METABOLIC [id number] 18:50:00* Test Item Value Reference Range Interpretation Comments SODIUM (test code = NA) 141 mmol/L 136-145 N POTASSIUM (test code = K) 3.6 mmol/L 3.5-5.1 N CHLORIDE (test code = CL) 107.0 mmol/L 98-107 N CARBON DIOXIDE (test code = CO2) mmol/L 21-32 ANION GAP (test code = GAP) 10-20 GLUCOSE (test code = GLU) mg/dL 74-106 BLOOD UREA NITROGEN (test code = BUN) mg/dL 7-18 GLOMERULAR FILTRATION RATE (test code = GFR) mL/min >=60 CREATININE (test code = CREAT) mg/dL 0.55-1.02 BUN/CREATININE RATIO (test code = BUN/CREA) 10-20 CALCIUM (test code = CA) 9.0 mg/dL 8.5-10.1 N [id number] 18:50:00* Test Item Value Reference Range Interpretation Comments TROPONIN-I (test code = TROPI) ng/mL 0-0.045 CBC W/O [id number] 18:43:00* Test Item Value Reference Range Interpretation Comments WHITE BLOOD CELL (test code = WBC) 7.6 K/mm3 4.5-12.5 N RED BLOOD CELL (test code = RBC) 4.69 mill/mm3 3.7-5.2 N HEMOGLOBIN (test code = HGB) 12.6 gram/dL 11.5-15.5 N HEMATOCRIT (test code = HCT) 39.9 % 36.0-46.0 N MEAN CELL VOLUME (test code = MCV) 85.1 fL 80-98 N MEAN CELL HGB (test code = MCH) 26.9 picogram 27.0-33.0 L MEAN CELL HGB CONCETRATION (test code = MCHC) 31.6 gram/dL 33.0-36. 0 L RED CELL DISTRIBUTION WIDTH (test code = RDW) 13.9 % 11.6-16. 2 N PLATELET COUNT (test code = PLT) 392 K/mm3 150-450 N MEAN PLATELET VOLUME (test code = MPV) 9.5 fL 6.7-11.0 N CBC W/O [id number] 18:41:00* Test Item Value Reference Range Interpretation Comments WHITE BLOOD CELL (test code = WBC) K/mm3 4.5-12.5 RED BLOOD CELL (test code = RBC) mill/mm3 3.7-5.2 HEMOGLOBIN (test code = HGB) 12.6 gram/dL 11.5-15.5 N HEMATOCRIT (test code = HCT) 39.9 % 36.0-46.0 N MEAN CELL VOLUME (test code = MCV) fL 80-98 MEAN CELL HGB (test code = MCH) picogram 27.0-33.0 MEAN CELL HGB CONCETRATION (test code = MCHC) gram/dL 33.0-36. 0 RED CELL DISTRIBUTION WIDTH (test code = RDW) % 11.6-16. 2 PLATELET COUNT (test code = PLT) K/mm3 150-450 MEAN PLATELET VOLUME (test code = MPV) fL 6.7-11.0 - XR CHEST 1 [id number] 14:55:00 FAX: Koyb Hadley MD [place]: St: PRE Name: MEÑO RYDER [facility] : [birth year] 69 Age/S: 48/F [address] [facility] Unit #: [id number] Loc: [place] [address] Phys: Koby Hadley MD Acct: [id number] Dis Date: Status: PRE ER PHONE #: [phone] Exam Date: 09/13/2019 1445 FAX #: [phone] Reason: CHEST PAIN EXAMS: CPT CODE: [id number] XR CHEST 1 V 42748 HISTORY: Chest pain. COMPARISON: February 16, 2018. Location: [facility]. No acute infiltrates, effusion or congestion is noted. Suboptimal inspiration. Dep endent changes. Mild cardiomegaly. IMPRESSION: No acute infiltrates, effusion or congestion. Electronically Sign ed by Miriam Norman on 09/13/2019 at 2652 Reported a nd signed by: Jamil Norman M.D. CC: Koby Hadley MD Technologist: JORGE GUTIERREZ RT(R) Trnscrd Date/Time/By: 09/13/2019 (6460) : By: Brianna .TH4 Orig Print D/T: S: 09/13/2019 (0496) PAGE 1 Signed Report Urine [id number] 09:05:00* Test Item Value Reference Range Interpretation Comments Urine Culture (test code = 630-4) Urogenital mario [facility] Metabolic [id number] 07:18:00* Test Item Value Reference Range Interpretation Comments Sodium (test code = 2951-2) 136 mmol/L 136-145 Potassium (test code = 2823-3) 4.0 mmol/L 3.5-5.1 Chloride (test code = 2075-0) 100 mmol/L 98-107 CO2 (test code = 24840696) 28 mmol/L 21-31 Urea Nitrogen (test code = 84940806) 17.0 mg/dL 7-25 Creatinine (test code = 62103704) 1.2 mg/dL 0.6-1.2 Glucose (test code = 32322326) 232 mg/dL 70-110 H Calcium (test code = 57293481) 9.1 mg/dL 8.6-10.3 GFR, Estimated (test code = 72597841) 48 >=90 mL/min/1.73 m2 L Anion Gap (test code = 18567303) 8 mmol/L 5-16 Lab Interpretation (test code = 43849-7) [facility]normal [facility] [id number] 07:18:00* Test Item Value Reference Range Interpretation Comments Bilirubin, Total (test code = 2885-2) 0.3 mg/dL 0.2-1.2 Alkaline Phosphatase (test code = 98135725) 52 U/L 34-104 AST (test code = 89950513) 16 U/L 13-39 Direct Bilirubin (test code = 1968-7) 0.1 mg/dL 0-0.2 ALT (test code = 31399958) 23 U/L 7-52 Albumin (test code = 73968-1) 4.0 g/dL 3.7-5.3 Lab Interpretation (test code = 77733-0) [facility] [id number] 20:22:00* Test Item Value Reference Range Interpretation Comments Opiate, Ur (test code = 20779-7) Positive Negative A Calibrated Standard: Morphine Positive if urine level > or = 300 ng/dL Amphetamine (test code = 87988-3) Negative Negative Calibrated Standard: D- Methamphetamine Positive if urine level > or = 1000 ng/mL Barbiturate (test code = 12788-0) Negative Negative Calibrated Standard: Secobarbital Positive if urine level is > or = 200 ng/mL Benzodiazepine (test code = 41094-3) Negative Negative Calibrated Standard: Lormethazepam Positive if urine level is > or = 200 ng/mL Cocaine (test code = 68515-6) Negative Negative Calibrated Standard: Benzoylecgonine Positive if urine level > or = 300 ng/dL PCP (test code = 74275-2) Negative Negative C alibrated Standard: Phencyclidine Positive if urine level > or = 25 ng/dL Cannabinoid (test code = 88152-5) Negative Negative Calibrated Standard: 11 nor-delta(9)-THC carboxylic acid Positive if urine level > or = 50 ng/mL Lab Interpretation (test code = 48624-6) Abnormal [id number] 19:33:00* Test Item Value Reference Range Interpretation Comments Color (test code = 98732144) Yellow Colorless, Straw, Yellow Clarity (test code = 02200456) Clear Clear Spec [place], Ur (test code = 21647647) 1.012 1.001-1.035 pH, Ur (test code = 30760960) 6.0 5.0-8.0 Protein, Ur (test code = 10097979) 1+ Negative mg/dL A Glucose, Ur (test code = 61672970) 3+ Negative mg/dL A Ketone, Ur (test code = 57183034) Negative Negative mg/dL Bilirubin, Ur (test code = 43744728) Negative Negative mg/dL Nitrite, Ur (test code = 78438012) Negative Negative Leukocyte (test code = 07054126) Negative Negative mg/dL Blood, Ur (test code = 46692575) Negative Negative mg/dL WBC (test code = 57455076) 3 0- 5 /HPF Epithelial Cell (test code = 07893723) 2 <=1 /HPF H Urobilinogen, Ur (test code = 18842302) <1.0 <1.0 EU/dL Lab Interpretation (test code = 69202-8) [facility]normal [facility] [id number] 09:28:00* Test Item Value Reference Range Interpretation Comments Hemoglobin A1c (test code = 4548-4) 7.5 % 4.3-6.1 H Estimated Average Glucose (test code = 59392796) 169 mg/dL 70-11 0 H Lab Interpretation (test code = 56470-9) Abnormal [facility] [id number] 16:51:00 RUN DATE: 07/27/19 [place] [employer] PAGE 1 RUN TIME: 1650 Specimen Inqui ry RUN USER: INTERFACE PATIENT: MEÑO MATA ACCT #: V [id number] LOC: JACINTO U #: [id number] AGE/SX: 48/F ROOM: RE07/23/19REG DR: Saad Norris MD : 69 BED: DIS: STATUS: BASSEM MARRERO TLOC: SPEC #: [id number] RECD: 07/23/19 STATUS: MACY REQ #: [id number] ROLAND: 07/23/[address] [facility] [address]: Saad Norris MD ENTERED: 07/23/19 SP TYPE: POLYP OTHR DR: No Doreen jolly or Family Physician No Primary Care PhysicianORDERED: GROSS COPIES TO: No Primary or Family Phys Saad Shepherd MD [address] [address] No Primary Care Physician Use by ED [...] DISTORTION NEGATIVE FOR MALIGNANCY MULTIPLE LEVELS EXAMINED RRB/ D 8 5577 CONTINUED ON NEXT PAGE R UN DATE: 07/27/19 [place] - [facility] PAGE 2 RUN TIME: 1651 Specimen Inquiry RUN USER: INTERFACE SPEC #: [id number] PATIENT: MEÑO MATA #[id number] (Continued) MACROSCOPIC The specim en is received in formalin, labeled with the patient's name, identified as "t farzanehverse polyp bx", and consists of kent biopsy tissue measuring 0.3 cm, submi tted for histologic evaluation. GROSS PERFORMED AT [facility] [address] [facility] [address] [phone] MICROSCOPIC All of the stains, including a ny controls performed, stain appropriately. MICROSCOPIC PERFORMED AT [facility] [address] [facility] [place] [address] [phone] PERFORMING SITE Diagnosis performed at : [facility] [address] [place] [address] --- --------- Signed SIGNATURE ON FILE Jarrod Scohfield MD 1650 EN D OF REPORT BASIC METABOLIC [id number] 07:26:00* Test Item Value Reference Range Interpretation Comments SODIUM (test code = NA) 139 mmol/L 136-145 N POTASSIUM (test code = K) 3.3 mmol/L 3.5-5.1 L CHLORIDE (test code = CL) 103.0 mmol/L 98-107 N CARBON DIOXIDE (test code = CO2) 28.0 mmol/L 21-32 N ANION GAP (test code = GAP) 11.3 10-20 N GLUCOSE (test code = GLU) 107 mg/dL 74-106 H BLOOD UREA NITROGEN (test code = BUN) 16 mg/dL 7-18 N GLOMERULAR FILTRATION RATE (test code = GFR) 40 mL/min >=60 Estimated GFR by using Modified MDRD formula.Chronic kidney disease is defined as either kidney damageor GFR <60 mL/min/1.73 m2 for >3 months. CREATININE (test code = CREAT) 1.40 mg/dL 0.55-1.02 H Note change in reference range due to change in reagent. BUN/CREATININE RATIO (test code = BUN/CREA) 11.4 10-20 N CALCIUM (test code = CA) 8.5 mg/dL 8.5-10.1 N [id number] 07:11:00* Test Item Value Reference Range Interpretation Comments GLUBED (test code = GLUBED) 89 mg/dL 74-106 N Performed by certified broaching machine operator at [facility] CBC W/AUTO [id number] 07:03:00* Test Item Value Reference Range Interpretation Comments WHITE BLOOD CELL (test code = WBC) 5.9 K/mm3 4.5-12.5 N RED BLOOD CELL (test code = RBC) 4.35 mill/mm3 3.7-5.2 N HEMOGLOBIN (test code = HGB) 12.0 gram/dL 11.5-15.5 N HEMATOCRIT (test code = HCT) 37.9 % 36.0-46.0 N MEAN CELL VOLUME (test code = MCV) 87.1 fL 80-98 N MEAN CELL HGB (test code = MCH) 27.6 picogram 27.0-33.0 N MEAN CELL HGB CONCETRATION (test code = MCHC) 31.7 gram/dL 33.0-36. 0 L RED CELL DISTRIBUTION WIDTH (test code = RDW) 14.1 % 11.6-16. 2 N RED CELL DISTRIBUTION WIDTH SD (test code = RDW-SD) 45.1 fL 37 .0-51.0 N PLATELET COUNT (test code = PLT) 320 K/mm3 150-450 N MEAN PLATELET VOLUME (test code = MPV) 9.3 fL 6.7-11.0 N NEUTROPHIL % (test code = NT%) 57.7 % 39.0-69.0 N IMMATURE GRANULOCYTE % (test code = IG%) 0.5 % 0.0-5.0 N LYMPHOCYTE % (test code = LY%) 25.5 % 25.0-55.0 N MONOCYTE % (test code = MO%) 11.7 % 0.0-10.0 H EOSINOPHIL % (test code = EO%) 3.4 % 0.0-5.0 N BASOPHIL % (test code = BA%) 1.2 % 0.0-1.0 H NUCLEATED RBC % (test code = NRBC%) 0.0 % 0-0 N NEUTROPHIL # (test code = NT#) 3.40 K/mm3 1.8-7.7 N IMMATURE GRANULOCYTE # (test code = IG#) 0.03 x10 3/uL 0-0.03 N LYMPHOCYTE # (test code = LY#) 1.50 K/mm3 1.0-5.0 N MONOCYTE # (test code = MO#) 0.69 K/mm3 0-0.8 N EOSINOPHIL # (test code = EO#) 0.20 K/mm3 0.0-0.5 N BASOPHIL # (test code = BA#) 0.07 K/mm3 0.0-0.2 N NUCLEATED RBC # (test code = NRBC#) 0.00 K/mm3 0.0-0.1 N MANUAL DIFF REQUIRED (test code = MDIFF) NO URINALYSIS, [id number] 14:30:00* Test Item Value Reference Range Interpretation Comments RBC (test code = 41060409) 1-4 0- 4 /HPF WBC (test code = 54783845) 5-20 0- 5 /HPF A Epithelial Cell (test code = 98669014) <1/HPF <1 /HPF Bacteria (test code = 19454345) Few None seen /HPF A Yeast (test code = 67836181) Present None seen /HPF A Lab Interpretation (test code = 75134-8) Abnormal [facility]/[id number] 07:45:00* Test Item Value Reference Range Interpretation Comments WBC (test code = 6690-2) 6.9 K/uL 4.5-11 RBC (test code = 789-8) 4.53 4.20- 5.40 M/uL Hemoglobin (test code = 718-7) 12.2 g/dL 12-16 Hematocrit (test code = 4544-3) 39.1 % 37-47 MCV (test code = 787-2) 86.3 fL 82-92 MCH (test code = 785-6) 26.9 pg 27-32 L MCHC (test code = 786-4) 31.2 g/dL 32-36 L RDW (test code = 64202-7) 51.6 fL 36.4-46.3 H Platelet (test code = 777-3) 364 K/uL 150-400 Mean Platelet Volume (test code = 85605-5) 9.6 fL 9.4-12.4 Percent NRBC (test code = 68994191) 0.0 % Neutrophil (test code = 770-8) 59.1 % 34-70 Lymphs (test code = 736-9) 28.6 % 20-50 Monocytes (test code = 5905-5) 9.2 % 5-12 Eos (test code = 713-8) 1.7 % 0.7-5 Basos (test code = 706-2) 0.7 % 0.1-1.2 Immature Granulocytes (test code = 63191559) 0.7 % 0-0.5 H Neutrophils (Absolute) (test code = 61318379) 4.06 K/uL 1.56-6.1 3 Lymphs (Absolute) (test code = 30561957) 1.97 K/uL 1.18-3.74 Monocytes(Absolute) (test code = 23916830) 0.63 K/uL 0.24-0.36 H Eos (Absolute) (test code = 16046529) 0.12 K/uL 0.04-0.36 Baso (Absolute) (test code = 05627190) 0.05 K/uL 0.01-0.08 Immature Grans (Abs) (test code = 75551896) 0.05 K/uL 0-0.03 H Absolute NRBC (test code = 02222902) 0.00 K/uL Lab Interpretation (test code = 79950-3) Abnormal [facility] [id number] 07:17:00* Test Item Value Reference Range Interpretation Comments Hep C Vir Ab IgG (test code = 92345-7) Negative Negative Hep B Surface Ag (test code = 5196-1) Negative Negative Hep A Vir Ab IgM (test code = 43742-9) Negative Negative Hep B Core Ab IgM (test code = 05548-5) Negative Negative Lab Interpretation (test code = 81137-7) Normal [facility] [id number] 07:05:00* Test Item Value Reference Range Interpretation Comments Sodium (test code = 2951-2) 137 mmol/L 136-145 Potassium (test code = 2823-3) 4.6 mmol/L 3.5-5.1 Chloride (test code = 2075-0) 104 mmol/L 98-107 CO2 (test code = 98059298) 25 mmol/L 21-31 Glucose (test code = 05730354) 143 mg/dL 70-110 H Calcium (test code = 88767041) 9.2 mg/dL 8.6-10.3 Urea Nitrogen (test code = 79981187) 22.0 mg/dL 7-25 Creatinine (test code = 18829468) 1.7 mg/dL 0.6-1.2 H Alkaline Phosphatase (test code = 76181329) 44 U/L 34-104 ALT (test code = 09311635) 41 U/L 7-52 AST (test code = 32003612) 19 U/L 13-39 Total Protein (test code = 2885-2) 7.0 g/dL 6-8.3 GFR, Estimated (test code = 87437126) 32 >=90 mL/min/1.73 m2 L Albumin (test code = 71554-7) 4.0 g/dL 3.7-5.3 Anion Gap (test code = 97629273) 8 mmol/L 5-16 Lab Interpretation (test code = 85056-9) Abnormal [facility]- ABDOMEN AP 1 [id number] 11:55:00 FAX: Corinne Venegas DO [place]: B St: REG FAX: ISAURO GLOVER NP Name: MEÑO MATA [facility] : 1970 Age/S: 48/F [address] [facility] Unit #: [id number] Loc: [place] [address] Phys: ISAURO GLOVER NP Acct: [id number] Dis Date: Status: REG ER PHONE #: [phone] Exam Date: 04/24/2019 1146 FAX #: [phone] Reason: constipation EXAMS: CPT CODE: [id number] XR ABDOMEN AP 1 V 74642 HISTORY: constipation TECHNIQUE: AP abdomen x-ray COMPARISON: None FINDINGS: Mild rectosigmoid fecal retention. Nonspecific nonobstructed bowel gas pattern. No intra-abdominal mass effect. Cholecystectomy clips. Pelvic phleboliths. Degenerative c hanges of the spine and hips. IMPRESSION: Mild rectosigmoid fecal retention. Nonobstructive bowel gas pattern. at 7479 Reported and signed by: Leida Riley D.O. CC: Corinne Venegas DO; ISAURO GLOVER NP Technologist: RT DANETTE(Adán) Trnscrd Date/Time/By: 04/24/2019 (1 155) : By: [email or web address] Orig Print D/T: S: 04/24/2019 (2665) PAGE 1 Signed Report BASIC METABOLIC [id number] 11:51:00* Test Item Value Reference Range Interpretation Comments SODIUM (test code = NA) 137 mmol/L 136-145 N POTASSIUM (test code = K) 4.4 mmol/L 3.5-5.1 N CHLORIDE (test code = CL) 105.0 mmol/L 98-107 N CARBON DIOXIDE (test code = CO2) 27.0 mmol/L 21-32 N ANION GAP (test code = GAP) 9.4 10-20 L GLUCOSE (test code = GLU) 191 mg/dL 74-106 H BLOOD UREA NITROGEN (test code = BUN) 20 mg/dL 7-18 H GLOMERULAR FILTRATION RATE (test code = GFR) 34 mL/min >=60 Estimated GFR by using Modified MDRD formula.Chronic kidney disease is defined as either kidney damageor GFR <60 mL/min/1.73 m2 for >3 months. CREATININE (test code = CREAT) 1.60 mg/dL 0.55-1.02 H Note change in reference range due to change in reagent. BUN/CREATININE RATIO (test code = BUN/CREA) 12.2 10-20 N CALCIUM (test code = CA) 8.8 mg/dL 8.5-10.1 N HEPATIC FUNCTION [id number] 11:51:00* Test Item Value Reference Range Interpretation Comments TOTAL PROTEIN (test code = PROT) 7.8 gram/dL 6.4-8.2 N ALBUMIN (test code = ALB) 3.5 g/dL 3.4-5.0 N GLOBULIN (test code = GLOB) 4.3 gram/dL 2.7-4.2 H ALBUMIN/GLOBULIN RATIO (test code = A/G) 0.8 0.75-1.50 N BILIRUBIN TOTAL (test code = BILT) 0.40 mg/dL 0.0-1.0 N BILIRUBIN DIRECT (test code = BILD) 0.14 mg/dL 0.0-0.20 N SGOT/AST (test code = AST) 64 IUnit/L 15-37 H SGPT/ALT (test code = ALT) 60 IUnit/L 12-78 N ALKALINE PHOSPHATASE TOTAL (test code = ALKP) 53 IUnit/L 45-117 N Note change in reference range due to change in reagent. [id number] 11:51:00* Test Item Value Reference Range Interpretation Comments LIPASE (test code = LIP) 34 U/L 73.0-393.0 L HCG SERUM [id number] 11:51:00* Test Item Value Reference Range Interpretation Comments HCG SERUM QUAL (test code = HCGQL) NEGATIVE NEGATIVE This HCGQL test is NOT applicable for MALE patients.Check with nurse about probable order error.If Tumor Marker Test needed, nurse should order test "HCGTU"(Test #550.38831) BASIC METABOLIC [id number] 11:44:00* Test Item Value Reference Range Interpretation Comments SODIUM (test code = NA) 137 mmol/L 136-145 N POTASSIUM (test code = K) 4.4 mmol/L 3.5-5.1 N CHLORIDE (test code = CL) 105.0 mmol/L 98-107 N CARBON DIOXIDE (test code = CO2) mmol/L 21-32 ANION GAP (test code = GAP) 10-20 GLUCOSE (test code = GLU) mg/dL 74-106 BLOOD UREA NITROGEN (test code = BUN) mg/dL 7-18 GLOMERULAR FILTRATION RATE (test code = GFR) mL/min >=60 CREATININE (test code = CREAT) mg/dL 0.55-1.02 BUN/CREATININE RATIO (test code = BUN/CREA) 10-20 CALCIUM (test code = CA) mg/dL 8.5-10.1 HEPATIC FUNCTION [id number] 11:44:00* Test Item Value Reference Range Interpretation Comments TOTAL PROTEIN (test code = PROT) gram/dL 6.4-8.2 ALBUMIN (test code = ALB) g/dL 3.4-5.0 GLOBULIN (test code = GLOB) gram/dL 2.7-4.2 ALBUMIN/GLOBULIN RATIO (test code = A/G) 0.75-1.50 BILIRUBIN TOTAL (test code = BILT) mg/dL 0.0-1.0 BILIRUBIN DIRECT (test code = BILD) mg/dL 0.0-0.20 SGOT/AST (test code = AST) IUnit/L 15-37 SGPT/ALT (test code = ALT) IUnit/L 12-78 ALKALINE PHOSPHATASE TOTAL (test code = ALKP) IUnit/L 45-117 [id number] 11:44:00* Test Item Value Reference Range Interpretation Comments LIPASE (test code = LIP) U/L 73.0-393.0 HCG SERUM [id number] 11:44:00* Test Item Value Reference Range Interpretation Comments HCG SERUM QUAL (test code = HCGQL) NEGATIVE NEGATIVE This HCGQL test is NOT applicable for MALE patients.Check with nurse about probable order error.If Tumor Marker Test needed, nurse should order test "HCGTU"(Test #550.19504) BASIC METABOLIC [id number] 11:42:00* Test Item Value Reference Range Interpretation Comments SODIUM (test code = NA) mmol/L 136-145 POTASSIUM (test code = K) mmol/L 3.5-5.1 CHLORIDE (test code = CL) mmol/L 98-107 CARBON DIOXIDE (test code = CO2) mmol/L 21-32 ANION GAP (test code = GAP) 10-20 GLUCOSE (test code = GLU) mg/dL 74-106 BLOOD UREA NITROGEN (test code = BUN) mg/dL 7-18 GLOMERULAR FILTRATION RATE (test code = GFR) mL/min >=60 CREATININE (test code = CREAT) mg/dL 0.55-1.02 BUN/CREATININE RATIO (test code = BUN/CREA) 10-20 CALCIUM (test code = CA) mg/dL 8.5-10.1 HEPATIC FUNCTION [id number] 11:42:00* Test Item Value Reference Range Interpretation Comments TOTAL PROTEIN (test code = PROT) gram/dL 6.4-8.2 ALBUMIN (test code = ALB) g/dL 3.4-5.0 GLOBULIN (test code = GLOB) gram/dL 2.7-4.2 ALBUMIN/GLOBULIN RATIO (test code = A/G) 0.75-1.50 BILIRUBIN TOTAL (test code = BILT) mg/dL 0.0-1.0 BILIRUBIN DIRECT (test code = BILD) mg/dL 0.0-0.20 SGOT/AST (test code = AST) IUnit/L 15-37 SGPT/ALT (test code = ALT) IUnit/L 12-78 ALKALINE PHOSPHATASE TOTAL (test code = ALKP) IUnit/L 45-117 [id number] 11:42:00* Test Item Value Reference Range Interpretation Comments LIPASE (test code = LIP) U/L 73.0-393.0 HCG SERUM [id number] 11:42:00* Test Item Value Reference Range Interpretation Comments HCG SERUM QUAL (test code = HCGQL) NEGATIVE NEGATIVE This HCGQL test is NOT applicable for MALE patients.Check with nurse about probable order error.If Tumor Marker Test needed, nurse should order test "HCGTU"(Test #550.66488) URINALYSIS [id number] 11:33:00* Test Item Value Reference Range Interpretation Comments UA COLOR (test code = COLU) Dark-Yellow YELLOW UA APPEARANCE (test code = APPU) CLEAR CLEAR UA GLUCOSE DIPSTICK (test code = DGLUU) NEGATIVE mg/dL NEGATIVE UA BILIRUBIN DIPSTICK (test code = BILU) NEGATIVE mg/dL NEGATIVE UA KETONE DIPSTICK (test code = KETU) NEGATIVE mg/dL NEGATIVE UA SPECIFIC GRAVITY (test code = SGU) 1.011 1.001-1.035 UA BLOOD DIPSTICK (test code = RAZA) Negative mg/dL NEGATIVE UA PH DIPSTICK (test code = CHERYL) 6.5 5.0-8.0 UA PROTEIN DIPSTICK (test code = PROU) 10 (Trace) mg/dL NEGATIVE A UA UROBILINIOGEN DIPSTICK (test code = URO) Normal mg/dL NEGATIVE UA NITRITE DIPSTICK (test code = SONYA) NEGATIVE NEGATIVE UA LEUKOCYTE ESTERASE W REFLEX (test code = LEUUR) NEGATIVE Breanna/uL NEGATIVE UA WBC (test code = WBCU) 0-5 per HPF 0-5 UA RBC (test code = RBCU) 0-2 #/HPF 0-5 UA EPITHELIAL CELLS (test code = EPIU) FEW per HPF FEW UA BACTERIA (test code = BACU) FEW #/HPF NONE A UA MUCUS (test code = MUCU) FEW #/LPF FEW Urine Source? Clean CatchCBC W/O [id number] 11:28:00* Test Item Value Reference Range Interpretation Comments WHITE BLOOD CELL (test code = WBC) 6.9 K/mm3 4.5-12.5 N RED BLOOD CELL (test code = RBC) 5.03 mill/mm3 3.7-5.2 N HEMOGLOBIN (test code = HGB) 13.4 gram/dL 11.5-15.5 N HEMATOCRIT (test code = HCT) 41.2 % 36.0-46.0 N MEAN CELL VOLUME (test code = MCV) 81.9 fL 80-98 N MEAN CELL HGB (test code = MCH) 26.6 picogram 27.0-33.0 L MEAN CELL HGB CONCETRATION (test code = MCHC) 32.5 gram/dL 33.0-36. 0 L RED CELL DISTRIBUTION WIDTH (test code = RDW) 15.5 % 11.6-16. 2 N PLATELET COUNT (test code = PLT) 369 K/mm3 150-450 N MEAN PLATELET VOLUME (test code = MPV) 9.5 fL 6.7-11.0 N MAMMOGRAM BILAT DIAG [id number] 13:45:00IMPRESSION: BENIGN Superficial sebaceous cysts in the right breast are benign. Clinical follow up with antibiotic therapy is recommended to ensure resolution. There is no sonographic evidence of malignancy. A 1 year screening mammogram is recommended. This document has been electronically signed. Angie Castelan M.D. eal/:03/22/2019 13:45:38 copy to: Bharat Parisi M.D., [facility], 4621, ph: , fax: [phone] Envelope Sealer: Ginna Morgan, [facility] Centerletter sent: Mammography Normal Mammogram BI-RADS: 0 Indeterminate Ultrasound BI-RADS: 2 Benign A3483 92623 R92.8 R92.8Interface, Rad/Mammog In - 03/22/2019 2:23 PM CDT#[id number] - MAMMOGRAM BILAT DIAG DIGITALBILATERAL DIGITAL DIAGNOSTIC MAMMOGRAM 3D/2D WITH CAD: 03/22/2019CLINICAL: 48 y/o female, no family hx of breast cancer. Abnormal Mammogram In 2018, Lost To Follow Up. She also presents with multiple ulceration of the lower outer right breast. Comparison is made to exams dated: 01/26/2018, 09/13/2016 [facility], 01/26/2014 [facility], 12/20/2013 [facility], and 10/06/2010 [facility]. The tissue of both breasts is predominately fatty. Tomosynthesis was used. Current study was also evaluated with a Computer Aided Detection (CAD) system. The mass in the upper outer quadrant of the right breast is unchanged in size dating back to at least 2013 after accounting for differences in imaging technique.No significant masses, calcifications, or other findings are seen in either breast. There are multiple superficial abscesses in the lower outer quad rant of the right breast, marked by circular markers.INCOMPLETE: NEEDS ADDITIONA L IMAGING EVALUATIONThere is no mammographic evidence of disease. Palpable areas od abscess in the right breast are indeterminate. Right breast ultrasound is re commended to further evaluate the abscesses.This document has been electronicall y signed.#[id number] - MAMMO BREAST ULTRASOUND UNILATERAL, LTDULTRASOUND OF RIGHT BREAST: 03/22/2019Comparison is made to exams dated: 01/26/2018, 09/13/2016 [facility], 01/26/2014 [facility], 12/20/2013 [facility], and 10/06/2010 [facility]. Color flow a nd real-time ultrasound of the right breast were performed. There are 3 sebaceo us cysts in the 9 o'clock axis extending from 12 cm to 6 cm from the nipple. The most distal sebaceous cyst is not well circumscribed and appears ruptured. There is no cystic or solid mass in the underlying breast tissue.IMPRESSIONIMPRESSION: BENIGN Superficial sebaceous cysts in the right breast are benign. Clinical f ollow up with antibiotic therapy is recommended to ensure resolution. There is n o sonographic evidence of malignancy. A 1 year screening mammogram is recommend ed. This document has been electronically signed.Angie Castelan M.D. eal/:03/22/2019 13:45:38 copy to: Bharat Parisi M.D., [facility], [address]21, ph: , fax: [phone] Technologist: Ginna Morgan, [facility] Centerletter sent: Mammography Norm al Mammogram BI-RADS: 0 Indeterminate Ultrasound BI-RADS: 2 Benign [id number] 766 42 R92.8 R92.8[facility] HealthURINALYSIS [id number] 19:17:00* Test Item Value Reference Range Interpretation Comments UA COLOR (test code = COLU) Light-Yellow YELLOW UA APPEARANCE (test code = APPU) CLEAR CLEAR UA GLUCOSE DIPSTICK (test code = DGLUU) 200 (2+) mg/dL NEGATIVE A UA BILIRUBIN DIPSTICK (test code = BILU) NEGATIVE mg/dL NEGATIVE UA KETONE DIPSTICK (test code = KETU) NEGATIVE mg/dL NEGATIVE UA SPECIFIC GRAVITY (test code = SGU) 1.011 1.001-1.035 UA BLOOD DIPSTICK (test code = RAZA) 0.03 mg/dL (Trace) mg/dL NEGATI VE A UA PH DIPSTICK (test code = CHERYL) 5.5 5.0-8.0 UA PROTEIN DIPSTICK (test code = PROU) 20 (Trace) mg/dL NEGATIVE A UA UROBILINIOGEN DIPSTICK (test code = URO) Normal mg/dL NEGATIVE UA NITRITE DIPSTICK (test code = SONYA) NEGATIVE NEGATIVE UA LEUKOCYTE ESTERASE W REFLEX (test code = LEUUR) 250 Breanna/u L (2+) Breanna/uL NEGATIVE A UA WBC (test code = WBCU) 21-50 per HPF 0-5 A UA RBC (test code = RBCU) 11-20 #/HPF 0-5 A UA WBC CLUMPS (test code = WBCUCL) 7-10 /HPF NONE A UA EPITHELIAL CELLS (test code = EPIU) FEW per HPF FEW UA BACTERIA (test code = BACU) FEW #/HPF NONE A UA MUCUS (test code = MUCU) FEW #/LPF FEW Urine Source? Clean Catch- CT ABD PELVIS W/O [id number] 18:44:00 Name: MEÑO MATA [facility] : 1970 Age[facility]S: 48 [facility] [address] [facility] [id number] Loc: [place] [address] Phys: Romina Carey NP Acct: [id number] Di s Date: Status: REG ER PHONE #: [phone] Exam Date: 03/13/2019 1820 FAX #: [phone] Reason: Lower abdominal pain EXAMS: CPT CODE: [id number] CT ABD PELVIS W/O CONT [id number] HISTORY: Lower abdominal pain TECHNIQUE: 5mm axial [...] 1 Signed Report (CONTINUED) Name: [facility] 01/1971 Age/S: 48 / F [address] [facility] Unit #: [id number] Loc: [place] [address] Phys: Rachell Carey NP Acct: [id number] Dis Sharad e: Status: REG ER PHONE #: Exam Date: 03/13/2019 182 FAX #: [phone] Reason: Lower abdominal pain EXAMS: CPT CODE: [id number] CT ABD PELVIS W/O CONT [id number] <Continued> CC: Rachell Carey 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; Vladimir Leon DO Technologist:Yolette Hinkle RT(R)(CT) CTDI: DLP: Trnscb Date/Time: 03/13/2019 (1843) [email or web address] Orig Print D/T: S: 03/13/2019 (1846) PAGE 2 Signed Report BASIC METABOLIC [id number] 18:08:00* Test Item Value Reference Range Interpretation Comments SODIUM (test code = NA) 140 mmol/L 136-145 N POTASSIUM (test code = K) 3.4 mmol/L 3.5-5.1 L CHLORIDE (test code = CL) 105.0 mmol/L 98-107 N CARBON DIOXIDE (test code = CO2) 25.0 mmol/L 21-32 N ANION GAP (test code = GAP) 13.4 10-20 N GLUCOSE (test code = GLU) 247 mg/dL 74-106 H BLOOD UREA NITROGEN (test code = BUN) 18 mg/dL 7-18 N GLOMERULAR FILTRATION RATE (test code = GFR) 37 mL/min >=60 Estimated GFR by using Modified MDRD formula.Chronic kidney disease is defined as either kidney damageor GFR <60 mL/min/1.73 m2 for >3 months. CREATININE (test code = CREAT) 1.50 mg/dL 0.55-1.02 H Note change in reference range due to change in reagent. BUN/CREATININE RATIO (test code = BUN/CREA) 12.0 10-20 N CALCIUM (test code = CA) 8.8 mg/dL 8.5-10.1 N HEPATIC FUNCTION [id number] 18:08:00* Test Item Value Reference Range Interpretation Comments TOTAL PROTEIN (test code = PROT) 7.9 gram/dL 6.4-8.2 N ALBUMIN (test code = ALB) 3.2 g/dL 3.4-5.0 L GLOBULIN (test code = GLOB) 4.7 gram/dL 2.7-4.2 H ALBUMIN/GLOBULIN RATIO (test code = A/G) 0.7 0.75-1.50 L BILIRUBIN TOTAL (test code = BILT) 0.40 mg/dL 0.0-1.0 N BILIRUBIN DIRECT (test code = BILD) 0.11 mg/dL 0.0-0.20 N SGOT/AST (test code = AST) 28 IUnit/L 15-37 N SGPT/ALT (test code = ALT) 47 IUnit/L 12-78 N ALKALINE PHOSPHATASE TOTAL (test code = ALKP) 67 IUnit/L 45-117 N Note change in reference range due to change in reagent. [id number] 18:08:00* Test Item Value Reference Range Interpretation Comments LIPASE (test code = LIP) 45 U/L 73.0-393.0 L HCG SERUM [id number] 18:08:00* Test Item Value Reference Range Interpretation Comments HCG SERUM QUAL (test code = HCGQL) NEGATIVE NEGATIVE This HCGQL test is NOT applicable for MALE patients.Check with nurse about probable order error.If Tumor Marker Test needed, nurse should order test "HCGTU"(Test #[id number]) [id number] 18:08:00* Test Item Value Reference Range Interpretation Comments TROPONIN-I (test code = TROPI) <0.015 ng/mL 0-0.045 N BASIC METABOLIC [id number] 17:48:00* Test Item Value Reference Range Interpretation Comments SODIUM (test code = NA) 140 mmol/L 136-145 N POTASSIUM (test code = K) 3.4 mmol/L 3.5-5.1 L CHLORIDE (test code = CL) 105.0 mmol/L 98-107 N CARBON DIOXIDE (test code = CO2) 25.0 mmol/L 21-32 N ANION GAP (test code = GAP) 13.4 10-20 N GLUCOSE (test code = GLU) 247 mg/dL 74-106 H BLOOD UREA NITROGEN (test code = BUN) 18 mg/dL 7-18 N GLOMERULAR FILTRATION RATE (test code = GFR) 37 mL/min >=60 Estimated GFR by using Modified MDRD formula.Chronic kidney disease is defined as either kidney damageor GFR <60 mL/min/1.73 m2 for >3 months. CREATININE (test code = CREAT) 1.50 mg/dL 0.55-1.02 H Note change in reference range due to change in reagent. BUN/CREATININE RATIO (test code = BUN/CREA) 12.0 10-20 N CALCIUM (test code = CA) 8.8 mg/dL 8.5-10.1 N HEPATIC FUNCTION [id number] 17:48:00* Test Item Value Reference Range Interpretation Comments TOTAL PROTEIN (test code = PROT) 7.9 gram/dL 6.4-8.2 N ALBUMIN (test code = ALB) 3.2 g/dL 3.4-5.0 L GLOBULIN (test code = GLOB) 4.7 gram/dL 2.7-4.2 H ALBUMIN/GLOBULIN RATIO (test code = A/G) 0.7 0.75-1.50 L BILIRUBIN TOTAL (test code = BILT) 0.40 mg/dL 0.0-1.0 N BILIRUBIN DIRECT (test code = BILD) 0.11 mg/dL 0.0-0.20 N SGOT/AST (test code = AST) 28 IUnit/L 15-37 N SGPT/ALT (test code = ALT) 47 IUnit/L 12-78 N ALKALINE PHOSPHATASE TOTAL (test code = ALKP) 67 IUnit/L 45-117 N Note change in reference range due to change in reagent. [id number] 17:48:00* Test Item Value Reference Range Interpretation Comments LIPASE (test code = LIP) 45 U/L 73.0-393.0 L HCG SERUM [id number] 17:48:00* Test Item Value Reference Range Interpretation Comments HCG SERUM QUAL (test code = HCGQL) NEGATIVE [id number] 17:48:00* Test Item Value Reference Range Interpretation Comments TROPONIN-I (test code = TROPI) <0.015 ng/mL 0-0.045 N BASIC METABOLIC [id number] 17:37:00* Test Item Value Reference Range Interpretation Comments SODIUM (test code = NA) 140 mmol/L 136-145 N POTASSIUM (test code = K) 3.4 mmol/L 3.5-5.1 L CHLORIDE (test code = CL) 105.0 mmol/L 98-107 N CARBON DIOXIDE (test code = CO2) mmol/L 21-32 ANION GAP (test code = GAP) 10-20 GLUCOSE (test code = GLU) mg/dL 74-106 BLOOD UREA NITROGEN (test code = BUN) mg/dL 7-18 GLOMERULAR FILTRATION RATE (test code = GFR) mL/min >=60 CREATININE (test code = CREAT) mg/dL 0.55-1.02 BUN/CREATININE RATIO (test code = BUN/CREA) 10-20 CALCIUM (test code = CA) mg/dL 8.5-10.1 HEPATIC FUNCTION [id number] 17:37:00* Test Item Value Reference Range Interpretation Comments TOTAL PROTEIN (test code = PROT) gram/dL 6.4-8.2 ALBUMIN (test code = ALB) g/dL 3.4-5.0 GLOBULIN (test code = GLOB) gram/dL 2.7-4.2 ALBUMIN/GLOBULIN RATIO (test code = A/G) 0.75-1.50 BILIRUBIN TOTAL (test code = BILT) mg/dL 0.0-1.0 BILIRUBIN DIRECT (test code = BILD) mg/dL 0.0-0.20 SGOT/AST (test code = AST) IUnit/L 15-37 SGPT/ALT (test code = ALT) IUnit/L 12-78 ALKALINE PHOSPHATASE TOTAL (test code = ALKP) IUnit/L 45-117 [id number] 17:37:00* Test Item Value Reference Range Interpretation Comments LIPASE (test code = LIP) U/L 73.0-393.0 HCG SERUM [id number] 17:37:00* Test Item Value Reference Range Interpretation Comments HCG SERUM QUAL (test code = HCGQL) NEGATIVE [id number] 17:37:00* Test Item Value Reference Range Interpretation Comments TROPONIN-I (test code = TROPI) ng/mL 0-0.045 CBC W/O [id number] 16:59:00* Test Item Value Reference Range Interpretation Comments WHITE BLOOD CELL (test code = WBC) 6.7 K/mm3 4.5-12.5 N RED BLOOD CELL (test code = RBC) 4.61 mill/mm3 3.7-5.2 N HEMOGLOBIN (test code = HGB) 12.2 gram/dL 11.5-15.5 N HEMATOCRIT (test code = HCT) 38.6 % 36.0-46.0 N MEAN CELL VOLUME (test code = MCV) 83.7 fL 80-98 N MEAN CELL HGB (test code = MCH) 26.5 picogram 27.0-33.0 L MEAN CELL HGB CONCETRATION (test code = MCHC) 31.6 gram/dL 33.0-36. 0 L RED CELL DISTRIBUTION WIDTH (test code = RDW) 14.8 % 11.6-16. 2 N PLATELET COUNT (test code = PLT) 361 K/mm3 150-450 N MEAN PLATELET VOLUME (test code = MPV) 9.4 fL 6.7-11.0 N CBC W/O [id number] 16:53:00* Test Item Value Reference Range Interpretation Comments WHITE BLOOD CELL (test code = WBC) K/mm3 4.5-12.5 RED BLOOD CELL (test code = RBC) mill/mm3 3.7-5.2 HEMOGLOBIN (test code = HGB) 12.2 gram/dL 11.5-15.5 N HEMATOCRIT (test code = HCT) 38.6 % 36.0-46.0 N MEAN CELL VOLUME (test code = MCV) fL 80-98 MEAN CELL HGB (test code = MCH) picogram 27.0-33.0 MEAN CELL HGB CONCETRATION (test code = MCHC) gram/dL 33.0-36. 0 RED CELL DISTRIBUTION WIDTH (test code = RDW) % 11.6-16. 2 PLATELET COUNT (test code = PLT) K/mm3 150-450 MEAN PLATELET VOLUME (test code = MPV) fL 6.7-11.0 Genital [place] with [id number] 05:48:00* Test Item Value Reference Range Interpretation Comments Yeast by [place] (test code = 91271267) No Yeast seen Yeast by TITI (test code = 21254338) No Yeast seen Clue Cells (test code = 24692387) No Clue cells seen Epithelial Cells (test code = 72725186) Epithelial cells seen WBCs (test code = 78270769) No WBCs seen Trichomonas (test code = 35158227) No Trichomonas seen [facility]/GC DNA [id number] 19:12:00* Test Item Value Reference Range Interpretation Comments Chlamydia trachomatis (test code = 43898-4) Negative Negative N. gonorrhoeae (test code = 88779-0) Negative Negative VANE (test code = VANE) This test utilizes [employer] Computer A ptima Combo 2 Assay for target amplification of rRNA for the qualitative detection of Chlamydia trachomatis and Neisseria gonorrhoeae. Lab Interpretation (test code = 67898-6) Normal [facility] URINE [id number] 00:00:00* Test Item Value Reference Range Interpretation Comments POC (test code = 8169) NEG Neg - Neg Control (test code = 8168) PASS Pass - [facility] [id number] 15:30:17Nikia Mccoy MD 02/15/2019 3:49 PMDiabetic Foot Exam was performed at 02/15/2019 3:38 PM. Right foot sensation is normal, right foot pulses are normal, right foot appearance is abnormal. Left foot sensation is normal, left foot pulses are normal, left foot appearance is abnormal. Onychomycosis of great toenail right foot [facility] 2 [id number] 18:04:14IMPRESSION: No acute thoracic abnormality or significant change when compared to theprevious chest x-ray on 09/12/2014. Dictated By: John Quan MD, 12/14/2018 11:20 AM I have reviewed the study and agree with the findings in this report. Signed By: Chandler Looney MD, 12/14/2018 6:04 PM Interface, Rad/Mammog In - 12/14/2018 6:09 PM CDTEXAMINATION: XRAY CHEST 2 VIEWS, Frontal and lateralINDICATION: EARLY FRIDAY AM BEFORE 8:40 AM FOR FOLLOW UP ASTHMATICBRONCHITIS COMPARISON: 09/12/2014 chest x-ray FINDINGS: TUBES/LINES: NoneLUNGS: No consolidations or edema.PLEURA: No effusions or pneumothorax.HEART/MEDIASTINUM: Stable mildly enlarged cardiac silhouette.MUSCULOSKELETAL: No acute findings.UPPER ABDOMEN: NormalIMPRESSIONIMPRESSION: No acute thoracic abnormality or significant change when compared to theprevious chest x-ray on 09/12/2014.Dictated By: John white MD, 12/14/2018 11:20 AMI have reviewed the study and agree with the findings in this report.Signed By: Chandler Looney MD, 12/14/2018 6:04 PMHarris HealthDRUGS OF ABUSE SCREEN [id number] 15:13:00* Test Item Value Reference Range Interpretation Comments UA PH DIPSTICK (test code = CHERYL) 6.0 5.0-8.0 URN COCAINE (test code = COCAURN) NEGATIVE <300 ng/mL URN CANNABINOIDS (test code = CANNABURN) NEGATIVE <50 ng/mL URN AMPHETAMINE (test code = AMPHETURN) NEGATIVE <1000 ng/mL URN BARBITURATE (test code = BARBITURN) NEGATIVE <200 ng/mL URN BENZODIAZEPINE (test code = BENZOURN) NEGATIVE <200 ng/mL URN OPIATES (test code = OPIATURN) POSITIVE <300 ng/mL A This test provides only a preliminary test [...] PHENCYCLIDINE (PCP) (test code = PHENCURN) NEGATIVE <25 ng/ mL URN METHADONE (test code = METHAURN) NEGATIVE <300 ng/mL DRUGS OF ABUSE SCREEN [id number] 14:57:00* Test Item Value Reference Range Interpretation Comments UA PH DIPSTICK (test code = CHERYL) 5.0-8.0 URN COCAINE (test code = COCAURN) NEGATIVE <300 ng/mL URN CANNABINOIDS (test code = CANNABURN) NEGATIVE <50 ng/mL URN AMPHETAMINE (test code = AMPHETURN) NEGATIVE <1000 ng/mL URN BARBITURATE (test code = BARBITURN) NEGATIVE <200 ng/mL URN BENZODIAZEPINE (test code = BENZOURN) NEGATIVE <200 ng/mL URN OPIATES (test code = OPIATURN) POSITIVE <300 ng/mL A This test provides only a preliminary test [...] PHENCYCLIDINE (PCP) (test code = PHENCURN) NEGATIVE <25 ng/ mL URN METHADONE (test code = METHAURN) NEGATIVE <300 ng/mL URINALYSIS [id number] 14:35:00* Test Item Value Reference Range Interpretation Comments UA COLOR (test code = COLU) LIGHT YELLOW YELLOW UA APPEARANCE (test code = APPU) CLEAR CLEAR UA GLUCOSE DIPSTICK (test code = DGLUU) NEGATIVE mg/dL NEGATIVE UA BILIRUBIN DIPSTICK (test code = BILU) NEGATIVE mg/dL NEGATIVE UA KETONE DIPSTICK (test code = KETU) Negative mg/dL NEGATIVE UA SPECIFIC GRAVITY (test code = SGU) 1.009 1.001-1.035 UA BLOOD DIPSTICK (test code = RAZA) Negative NEGATIVE UA PH DIPSTICK (test code = CHERYL) 6.0 5.0-8.0 UA PROTEIN DIPSTICK (test code = PROU) Negative mg/dL NEGATIVE UA UROBILINIOGEN DIPSTICK (test code = URO) NEGATIVE mg/dL NEGATIVE UA NITRITE DIPSTICK (test code = SONYA) NEGATIVE NEGATIVE UA LEUKOCYTE ESTERASE W REFLEX (test code = LEUUR) NEGATIVE NEG ATIVE UA WBC (test code = WBCU) 0-5 #/HPF 0-5 UA RBC (test code = RBCU) 0-2 #/HPF 0-5 UA EPITHELIAL CELLS (test code = EPIU) FEW per HPF FEW Urine Source? Clean CatchUR HCG [id number] 14:35:00* Test Item Value Reference Range Interpretation Comments UR HCG QUAL (test code = HCGQLU) NEGATIVE This HCGQL test is NOT applicable for MALE patients.Check with nurse about probable order error.If Tumor Marker Test needed, nurse should order test "HCGTU"(Test #550.23243) Urine Source? Clean CatchURINALYSIS [id number] 14:32:00* Test Item Value Reference Range Interpretation Comments UA COLOR (test code = COLU) YELLOW UA APPEARANCE (test code = APPU) CLEAR UA BILIRUBIN DIPSTICK (test code = BILU) NEGATIVE UA SPECIFIC GRAVITY (test code = SGU) 1.001-1.035 UA PH DIPSTICK (test code = CHERYL) 5.0-8.0 UA UROBILINIOGEN DIPSTICK (test code = URO) mg/dL 0.0-0.2 UA NITRITE DIPSTICK (test code = SONYA) NEGATIVE UA LEUKOCYTE ESTERASE W REFLEX (test code = LEUUR) NEG ATIVE UA WBC (test code = WBCU) per HPF 0-5 Urine Source? Clean CatchUR HCG [id number] 14:32:00* Test Item Value Reference Range Interpretation Comments UR HCG QUAL (test code = HCGQLU) NEGATIVE This HCGQL test is NOT applicable for MALE patients.Check with nurse about probable order error.If Tumor Marker Test needed, nurse should order test "HCGTU"(Test #550.31115) Urine Source? Clean CatchURINALYSIS [id number] 14:32:00* Test Item Value Reference Range Interpretation Comments UA COLOR (test code = COLU) LIGHT YELLOW YELLOW UA APPEARANCE (test code = APPU) CLEAR CLEAR UA GLUCOSE DIPSTICK (test code = DGLUU) NEGATIVE mg/dL NEGATIVE UA BILIRUBIN DIPSTICK (test code = BILU) NEGATIVE mg/dL NEGATIVE UA KETONE DIPSTICK (test code = KETU) Negative mg/dL NEGATIVE UA SPECIFIC GRAVITY (test code = SGU) 1.009 1.001-1.035 UA BLOOD DIPSTICK (test code = RAZA) Negative NEGATIVE UA PH DIPSTICK (test code = CHERYL) 6.0 5.0-8.0 UA PROTEIN DIPSTICK (test code = PROU) Negative mg/dL NEGATIVE UA UROBILINIOGEN DIPSTICK (test code = URO) NEGATIVE mg/dL NEGATIVE UA NITRITE DIPSTICK (test code = SONYA) NEGATIVE NEGATIVE UA LEUKOCYTE ESTERASE W REFLEX (test code = LEUUR) NEGATIVE NEG ATIVE UA WBC (test code = WBCU) per HPF 0-5 Urine Source? Clean CatchUR HCG [id number] 14:32:00* Test Item Value Reference Range Interpretation Comments UR HCG QUAL (test code = HCGQLU) NEGATIVE This HCGQL test is NOT applicable for MALE patients.Check with nurse about probable order error.If Tumor Marker Test needed, nurse should order test "HCGTU"(Test #550.21067) Urine Source? Clean CatchCT ABDOMEN/PELVIS WO [facility] [address] [address] Patient Name: MEÑO MATA MR #: [id number] : 1970 Age/Sex: 46/F Req #: [id number] Adm Physician: Ordered by: YINKA BOYER MD Report #: [id number] Location: ER Room/Bed: Procedure: [id number] CT/CT ABDOMEN/PELVIS WO Exam Date: 07/20/17 Exam [...]
--- NOTE | 2019-12-04 20:25 | Emergency Department Note ---
History of Present Illnes History of Present Illness Chief Complaint: Skin Rash or Abscess History of Present Illness This is a 49 year old female with h/o dm who presents with c/o infected abscess, pt was admitted to this facility for same back on 11/22/19. has been on cipro and bactrim since being discharged on 11/26/19. presents today because infection is getting worse again, drainage from abscess and redness has become worse. . Historian: Patient Arrival Mode: Car Onset (how long ago): month(s) (1) Location: right lower abdomen Quality: infected, draining, and painful Radiation: non-radiation Severity: moderate Onset quality: gradual Duration (how long): month(s) (1) Timing of current episode: constant Progression: worsening Relieving factors: none Exacerbating factors: none Associated symptoms: denies other symptoms Treatments prior to arrival: other (recent admission and on cipro and bactrim since discharge) Risk factors: diabetes, Past Medical/Family History Physician Review I have reviewed the patient's past medical and family history. Any updates have been documented here. Past Medical History Recent Fever: No Clinical Suspicion of Infectio: Yes New/Unexplained Change in Ment: No Past Medical History: Hypertension, Diabetes, COPD, Asthma, Chronic Kidney Disease Other Medical History: HERPES STAGE 3 CKD Past Surgical History: None Other Surgery: I&D TO RLQ ABD - 2019 ABSCESS DRAINAGE TO NECK - 2018 Social History Smoking Cessation: Never Smoker Alcohol Use: None Any Illegal Drug Use: No Other Last Tetanus: UNK Review of Systems Review of Systems Constitutional: no symptoms EENTM: no symptoms Cardiovascular: no symptoms Respiratory: no symptoms Gastrointestinal: no symptoms Genitourinary: no symptoms Musculoskeletal: no symptoms Neurological: no symptoms Psychological: no symptoms Endocrine: no symptoms Hematological/Lymphatic: no symptoms Review of other systems All other systems reviewed and negative. Physical Exam Related Data Allergies: Coded Allergies: No Known Allergies (Verified , 08/22/07) Triage Vital Signs Vital Signs Date Time Temp Pulse Resp B/P (MAP) Pulse Ox O2 Delivery O2 Flow Rate FiO2 12/04/19 19:53 98.7 95 20 185/96 97 Vital signs reviewed: Yes Physical Exam CONSTITUTIONAL Constitutional: well-developed, well-nourished HENT HENT: normocephalic, atraumatic, oropharynx clear/moist, nose normal HENT L/R: left ext ear normal, right ext ear normal EYES Eyes: PERRL, conjunctivae normal NECK Neck: ROM normal PULMONARY Pulmonary: effort normal, breath sounds normal CARDIOVASCULAR Cardiovascular: regular rhythm, heart sounds normal, capillary refill normal, normal rate GASTROINTESTINAL Abdominal: soft, nontender, bowel sounds normal GENITOURINARY Genitourinary: exam deferred SKIN Skin: warm, dry, other (open and draining abscess with purulent discharge rightl lower abdomen with 20X10 cm surrounding erythema) MUSCULOSKELETAL Musculoskeletal: ROM normal NEUROLOGICAL Neurological: alert, oriented x 3, no gross motor or sensory deficits PSYCHOLOGICAL Psychological: mood/affect normal, judgement normal Results Laboratory Laboratory Laboratory Tests Test 12/04/19 20:05 White Blood Count 8.05 x10e3/uL (4.8-10.8) Red Blood Count 4.80 x10e6/uL (3.6-5.1) Hemoglobin 12.3 g/dL (12.0-16.0) Hematocrit 40.2 % (34.2-44.1) Mean Corpuscular Volume 83.8 fL (81-99) Mean Corpuscular Hemoglobin 25.6 pg (28-32) Mean Corpuscular Hemoglobin Concent 30.6 g/dL (31-35) Red Cell Distribution Width 15.6 % (11.7-14.4) Platelet Count 410 x10e3/uL (140-360) Neutrophils (%) (Auto) 64.8 % (38.7-80.0) Lymphocytes (%) (Auto) 19.9 % (18.0-39.1) Monocytes (%) (Auto) 12.5 % (4.4-11.3) Eosinophils (%) (Auto) 1.2 % (0.0-6.0) Basophils (%) (Auto) 0.7 % (0.0-1.0) Neutrophils # (Auto) 5.2 (2.1-6.9) Lymphocytes # (Auto) 1.6 (1.0-3.2) Monocytes # (Auto) 1.0 (0.2-0.8) Eosinophils # (Auto) 0.1 (0.0-0.4) Basophils # (Auto) 0.1 (0.0-0.1) Absolute Immature Granulocyte (auto 0.07 x10e3/uL (0-0.1) Sodium Level 137 mmol/L (136-145) Potassium Level 3.9 mmol/L (3.5-5.1) Chloride Level 102 mmol/L (98-107) Carbon Dioxide Level 24 mmol/L (22-29) Anion Gap 14.9 mmol/L (8-16) Blood Urea Nitrogen 27 mg/dL (7-26) Creatinine 1.89 mg/dL (0.57-1.11) Estimat Glomerular Filtration Rate 28 ML/MIN (60-) BUN/Creatinine Ratio 14 (6-25) Glucose Level 190 mg/dL (74-118) Lactic Acid Level 2.1 mmol/L (0.5-2.0) Calcium Level 9.4 mg/dL (8.4-10.2) Total Bilirubin 0.2 mg/dL (0.2-1.2) Aspartate Amino Transf (AST/SGOT) 17 IU/L (5-34) Alanine Aminotransferase (ALT/SGPT) 27 IU/L (0-55) Alkaline Phosphatase 71 IU/L (40-150) Total Protein 7.7 g/dL (6.5-8.1) Albumin 3.4 g/dL (3.5-5.0) Globulin 4.3 g/dL (2.3-3.5) Albumin/Globulin Ratio 0.8 (0.8-2.0) Lab results reviewed: Yes Laboratory comments lactic acid positive Critical Care Time Subsequent provider I assumed direction of critical care for this patient from another provider of my specialty. Assessment & Plan Assessment & Plan Final Impression: (1) Sepsis (2) Abdominal wall abscess (3) Cellulitis, abdominal wall Assessment & Plan pt with dm with infected, draining abscess with cellulitis recently admitted for same. cbc, cmp, ordered zosyn 3.375 grams iv ordered vancomycin 1 gram iv ordered pt will require admission for iv antibiotics. initial lactic acid 2.1, 1 liter ns iv bolus ordered, will repeat lactic acid after fluid bolus. pt has already received zosyn 3.375 grams iv repeat lactic acid 1.1 Last Vital Signs Date Time Temp Pulse Resp B/P (MAP) Pulse Ox O2 Delivery O2 Flow Rate FiO2 12/04/19 19:53 98.7 95 20 185/96 97 Home Meds Active Scripts Tramadol Hcl (ULTRAM) 50 Mg Tablet, 50 MG PO Q4HR PRN for Mild Pain (1-3) or Fever>100.8 for 14 Days, #30 TAB 0 Refills Prov:SHONA ARMENDARIZ ISOTOPE TECHNICIAN 11/26/19 Metformin Hcl (METFORMIN HCL) 500 Mg Tablet, 1000 MG PO BID for 14 Days, #30 TAB 0 Refills Prov:SHONA ARMENDARIZ ISOTOPE TECHNICIAN 11/26/19 Insulin Regular, Human (HUMULIN R) 100 Unit/1 Ml Vial, 0 UNIT SQ ACHS for 14 Days, #1 VIAL 0 Refills Prov:SHONA ARMENDARIZ ISOTOPE TECHNICIAN 11/26/19 Potassium Chloride (POTASSIUM CHLORIDE) 10 Meq Tab.er.prt, 10 MEQ PO q48hrs for 14 Days, #7 TAB 0 Refills Prov:SHONA ARMENDARIZ ISOTOPE TECHNICIAN 11/26/19 Furosemide (LASIX) 20 Mg Tablet, 20 MG PO DAILY for 14 Days, #14 TAB 0 Refills Prov:SHONA ARMENDARIZ ISOTOPE TECHNICIAN 11/26/19 Sulfamethoxazole/Trimethoprim (BACTRIM DS TABLET) 1 Each Tablet, 1 EACH PO BID for 10 Days, #20 TAB 0 Refills Prov:SHONA ARMENDARIZ ISOTOPE TECHNICIAN 11/26/19 Ciprofloxacin Hcl (CIPRO) 500 Mg Tablet, 500 MG PO Q12H for 14 Days, #30 TAB 0 Refills Prov:SHONA ARMENDARIZ ISOTOPE TECHNICIAN 11/26/19 Reported Medications Gabapentin (GABAPENTIN) 600 Mg Tablet, 600 MG PO HS 11/22/19 Fenofibrate Nanocrystallized (Fenofibrate) 145 Mg Tablet, 145 MG PO DAILY 11/22/19 Montelukast Sodium (MONTELUKAST SODIUM) 10 Mg Tablet, 10 MG PO HS 11/22/19 Mometasone Furoate (Mometasone Furoate) 17 Gm [place].pump, 1 INH INH BID PRN for SHORTNESS OF BREATH 11/22/19 Omeprazole (OMEPRAZOLE) 20 Mg Capsule.dr, 20 MG PO BID 11/22/19 Atorvastatin Calcium (ATORVASTATIN CALCIUM) 20 Mg Tablet, 20 MG PO DAILY 11/22/19 Nifedipine (NIFEDIPINE ER) 90 Mg Tab.er.24, 90 MG PO DAILY 11/22/19 Ketoconazole (NIZORAL) 120 Ml Shampoo, 1 APPFUL TOP DAILY PRN for .DANDRUFF 11/22/19 Acetaminophen/Codeine* (TYLENOL # 3*) 1 Ea Tab, 1 TAB PO Q4HR PRN for MODERATE PAIN (4-6) 11/22/19 Lisinopril (PRINAVIL / ZESTRIL) 20 Mg Tablet, 20 MG PO DAILY 11/22/19 Clonidine Hcl (CLONIDINE HCL) 0.1 Mg Tablet, 0.1 MG PO TID 11/22/19 Linagliptin (TRADJENTA) 5 Mg Tablet, 5 MG PO DAILY 11/22/19 Levothyroxine Sodium (LEVOTHYROXINE SODIUM) 25 Mcg Tablet, 25 MCG PO DAILY 11/22/19 Acyclovir (ACYCLOVIR) 800 Mg Tablet, 800 MG PO Q8H PRN for .SORES OUTBREAK 11/22/19 Albuterol Sulfate (ALBUTEROL SULFATE) 2.5 Mg/3 Ml Vial.neb, 1 INH INH DAILY 11/22/19 Dicyclomine Hcl (DICYCLOMINE HCL) 10 Mg Capsule, 10 MG PO BID PRN for ABDOMINAL PAIN 11/22/19 Hydroxyzine Hcl (HYDROXYZINE HCL) 25 Mg Tablet, 50 MG PO HS 11/22/19 Insulin Detemir (Levemir Flextouch) 100 Unit/1 Ml Insuln.pen, 40 UNITS SC DAILY, UNIT 11/22/19 Insulin Detemir (Levemir Flextouch) 100 Unit/1 Ml Insuln.pen, 100 UNITS SQ HS 11/22/19 Medications in the ED Piperacillin Sod/ Tazobactam Sod 50 ml @ 50 mls/hr Q8HR@0400,1200,2000 IV ; Start 12/04/19 at 20:00; Stop 12/11/19 at 19:59 Vancomycin HCl 250 ml @ 166.667 mls/hr Q12H IV ; Start 12/04/19 at 21:00; Stop 12/11/19 at 20:59 YINKA BOYER MD December 04, 2019 20:25
[2019-12-04 21:06] LABS: BASOPHILS # (AUTO) 0.1 (0.0-0.1); BASOPHILS % 0.7 % (0.0-1.0); EOSINOPHILS # (AUTO) 0.1 (0.0-0.4); EOSINOPHILS % 1.2 % (0.0-6.0); HEMATOCRIT 40.2 % (34.2-44.1); HEMOGLOBIN 12.3 g/dL (12.0-16.0); LYMPHOCYTES # (AUTO) 1.6 (1.0-3.2); LYMPHOCYTES % 19.9 % (18.0-39.1); MEAN CORPUSCULAR HEMOGLOBIN 25.6 pg (28-32); MEAN CORPUSCULAR HGB CONC 30.6 g/dL (31-35); MEAN CORPUSCULAR VOLUME 83.8 fL (81-99); MONOCYTES % 12.5 % (4.4-11.3); NEUTROPHILS # (AUTO) 5.2 (2.1-6.9); NEUTROPHILS % 64.8 % (38.7-80.0); PLATELET COUNT 410 x10e3/uL (140-360); RED CELL DISTRIBUTION WIDTH 15.6 % (11.7-14.4)
[2019-12-04] MEDS ORDERED: HYDROCODONE/APAP 7.5MG-325MG 1 EA TAB PO ONE (21:15)
[2019-12-04] MEDS ORDERED: HYDROCODONE/APAP 7.5MG-325MG 1 EA TAB ONE (21:17)
[2019-12-04] MEDS: PIPER-TAZ 3.375 GM 50 ML IV SCH (21:21)
[2019-12-04 21:24] LABS: ALBUMIN 3.4 g/dL (3.5-5.0); ALBUMIN/GLOBULIN RATIO 0.8 (0.8-2.0); ANION GAP 14.9 mmol/L (8-16); CALCIUM 9.4 mg/dL (8.4-10.2); CREATININE, SERUM 1.89 mg/dL (0.57-1.11); POTASSIUM 3.9 mmol/L (3.5-5.1)
[2019-12-04] MEDS ORDERED: SODIUM CHLORIDE 0.9% 1000ML 1,000 ML IV ONE (21:30)
[2019-12-04] MEDS ORDERED: SODIUM CHLORIDE 0.9% 1000ML 1,000 ML ONE (21:38)
[2019-12-04] MEDS: VANCOMYCIN 1GM/NS 250 ML 250 ML IV SCH (21:41)
[2019-12-04] MEDS ORDERED: ACETAMINOPHEN 325 MG TAB PO PRN (22:30)
[2019-12-04] MEDS ORDERED: ONDANSETRON HCL INJ 2MG/ML 2ML 2 MG/ML VIAL IV PRN (22:30)
[2019-12-04] MEDS ORDERED: DEXTROSE 50% SYRINGE 50 ML IV PRN (22:30)
--- OUTSIDE RECORDS SUMMARY | 2019-12-04 22:36 | XMS REPORT | Clinical Summary ---
Author Author [facility] Organization [facility] Address Unknown Phone Unavailable Care Team Providers Care Assistant General Manager Name Role Phone Buddy Mireles DDS 6 Christy Elam NP PCP Nikia Mccoy MD PCP Renee Corley MD PCP [phone] Allergies No Known Allergies Medications End Date [...] back pain without scia christian 11/07/2019 Refill [facility] Marco Dockery Jr., MD Type 2 diabetes mellitus with complicati on, with long- term current use of insulin; Hypokalemia 11/07/2019 Refill [facility] Nikia Mccoy MD Hyperlipidemia, unspecified hyperlipidem [...] Pulmonology Nikia Mccoy MD Hypothyroidism 10/21/2019 Refill [facility] Nikia Mccoy MD Type 2 diabetes mellitus with hyperglyce rachel, with long-term current use of insulin 10/21/2019 Refill [facility] Nikia Mccoy MD Essential hypertension; Irritable bowel syndrome with diarrhea; Insomnia, unspecified type; Skin infection; Chronic bilateral low back pain with bilateral sciatica 10/14/2019 Refill [facility] Kadeem Fitzpatrick MD Moderate persistent asthma without compl ication 10/14/2019 Refill Pulmonology Nikia Mccoy MD Localized edema 10/12/2019 Refill [facility] Behzad Girard ResidentMD Mohamed, Hesham, [...] whether persistent; Essential hypertension 09/20/2019 Office Visit [facility] Kadeem Fitzpatrick MD Asthmatic bronchitis, severe persistent, uncomplicated 09/18/2019 Refill Pulmonology Nikia Mccoy MD Abscess of female genitalia; Chronic bilateral low back pain with bilateral sciatica 09/11/2019 Refill [facility] Kadeem Fitzpatrick MD Seasonal allergic rhinitis, unspecified trigger; Skin infection 09/11/2019 Refill Pulmonology Kadeem Bautista III, MD Type 2 diabetes mellitus with complicati on, with long- term current use of insulin 09/11/2019 Refill [facility] Nikia Mccoy MD Type 2 diabetes [...] pain with bilateral sciatica 08/26/2019 Office Visit [facility] Nikia Mccoy MD Depression, unspecified depression type 08/26/2019 Orders Only [facility] Dontrell Meeks RN 08/26/2019 Patient Patient Education Education Nikia Mccoy MD Essential hypertension; Type 2 diabetes mellitus with complication, with long-term current use of insulin 08/16/2019 Refill [facility] Adrien Hernandez MD Insomnia, unspecified type 08/13/2019 Refill [facility] Renee Corley MD Abscess of [...] Irritable bowel syndrome with diarrhea 08/13/2019 Refill [facility] Renee Corley MD Abscess of female genitalia (Primary Dx) ; Dietary counseling for Above / Below Normal BMI; Exercise counseling for Above Normal BMI Only!; Type 2 diabetes mellitus without complication, with long-term current use of insulin; Mood swings 08/09/2019 Office Visit [facility] Renee Corley MD Mood swings 08/09/2019 Orders Only [facility] Aldo Carlisle NP Tinnitus of [...] back pain with bilateral sciatica 07/15/2019 Refill [facility] Kadeem Fitzpatrick MD Skin infection 07/15/2019 Refill Pulmonology Adrien Hernandez MD Urinary tract infection without hematuri a, site unspecified 06/14/2019 Refill [facility] Nikia Mccoy MD Essential hypertension; Localized edema; Hyperlipidemia, unspecified hyperlipidemia type; Irritable bowel syndrome with diarrhea; Chronic bilateral low back pain with bilateral sciatica 06/14/2019 Refill [facility] Kadeem Fitzpatrick MD Skin infection 06/14/2019 Refill Pulmonology Christy Gray 05/26/2019 Nutrition Nutrition Nikia Mccoy MD Mohamed, Hesham MD Urinary tract infection without hematuri a, site unspecified (Primary Dx); Dysuria; Vaginal yeast infection; Insomnia, unspecified type 05/25/2019 Office Visit Family Practice Bharat Parisi MD Type 2 diabetes mellitus with other spec ified complication 05/18/2019 Refill [facility] Nikia Mccoy MD Type 2 diabetes mellitus with complicati on, with long-term current use of insulin 05/14/2019 Refill Family Practice Monik Thacker MD Dysuria (Primary Dx) 05/13/2019 Office Visit [facility] Marco Dockery Jr., MD Type 2 diabetes mellitus with complicati on, with long- term current use of insulin 05/13/2019 Refill [facility] Ora Ortiz MD Generalized anxiety disorder 05/13/2019 Refill Psychiatry Nikia Mccoy MD Chronic bilateral low back pain with james ateral sciatica 05/13/2019 Refill [facility] Kadeem Fitzpatrick MD Skin infection 05/13/2019 [...] MD Type II diabetes mellitus 04/22/2019 Refill [facility] Marco Dockery Jr., MD Chronic bilateral low back pain with james ateral sciatica 04/14/2019 Refill [facility] Ora Ortiz MD Generalized anxiety disorder 04/14/2019 Refill Psychiatry Bharat Parisi MD Tinea capitis 04/14/2019 Refill [facility] Nikia Mccoy MD Irritable bowel syndrome with diarrhea; Dysuria; Boil, breast 04/14/2019 Refill [facility] Kadeem Fitzpatrick MD Skin infection 04/14/2019 Refill Pulmonology Kadeem Bautista III, MD Essential hypertension; Hyperlipidemia, unspecified hyperlipidemia type 04/14/2019 Refill [facility] Nikia Mccoy MD Dysuria 04/05/2019 Lab Appointment Lab Nikia Mccoy MD Type 2 diabetes mellitus with complicati on, unspecified whether long term care pharmacist insulin use (Primary Dx); Dysuria; Boil, breast; Tinnitus of both ears; Insomnia, unspecified type 04/05/2019 Office Visit [facility] Nikia Mccoy MD Tinnitus of both ears 04/05/2019 Orders Only [facility] Emiliano Olson LVN Sebaceous cyst 04/05/2019 Refill [facility] Nikia Mccoy MD Insomnia, unspecified type 04/05/2019 Refill [facility] Nikia Mccoy MD 03/22/2019 Hospital Radiology Encounter Nikia Mccoy MD Abnormal mammogram of right breast 03/22/2019 Hospital Radiology Encounter Marco Dockery Jr., MD Chronic bilateral low back pain with james ateral sciatica 03/15/2019 Refill [facility] Ora Ortiz MD Generalized anxiety disorder 03/15/2019 Refill Psychiatry Nikia Mccoy MD Hypokalemia 03/15/2019 Refill [facility] Kadeem Fitzpatrick MD Skin infection 03/15/2019 Refill Pulmonology Kadeem Bautista III, MD Type 2 diabetes mellitus with complicati on, with long- term current use of insulin 03/15/2019 Refill [facility] Gia Weinstein, [place] 03/12/2019 Nurse Triage [...] mother; Onychomycosis; Food insecurity 02/15/2019 Office Visit [facility] Ora Ortiz MD Generalized anxiety disorder; Insomnia, unspecified type 02/11/2019 Refill Psychiatry Ora Ortiz MD Generalized anxiety disorder; Insomnia, unspecified type 02/09/2019 Refill Psychiatry Nikia Mccoy MD Type 2 diabetes mellitus with hyperglyce rachel, with long-term current use of insulin 02/09/2019 Refill [facility] Kadeem Fitzpatrick MD Seasonal allergic rhinitis, unspecified trigger; Skin infection 02/09/2019 Refill Pulmonology Kadeem Bautista III, MD Essential hypertension; Localized edema; Type II diabetes mellitus; Irritable bowel syndrome with diarrhea 02/09/2019 Refill [facility] Marco Dockery Jr., MD Abnormal finding on breast imaging (Prim jane Dx) 01/26/2019 Orders Only [facility] Kadeem Fitzpatrick MD Seasonal allergic rhinitis, unspecified trigger 01/12/2019 Refill Pulmonology Bharat Parisi MD Type 2 diabetes mellitus with complicati on, with long-term current use of insulin 01/11/2019 Refill [facility] Nikia Mccoy MD Chronic bilateral low back pain with james ateral sciatica 01/11/2019 Refill [facility] Kadeem Fitzpatrick MD Seasonal allergic rhinitis, [...] of coccyx, subsequent encounter 12/14/2018 Office Visit [facility] Kadeem Bautista III, MD Irritable bowel syndrome with diarrhea 12/05/2018 Refill [facility] after 12/03/2018 Immunizations Name Administration Dates [...] Type I per pt Heart Father of [place] at a ge 60 Hypertension Father Cancer [...] 08/26/2019 Type 2 diabetes mellitus 12:09 PM SIDEROGRAPHIST with stage 2 chronic kidney disease, with long-term current use of insulin URINALYSIS Routine 08/26/2019 Type 2 diabetes mellitus 12:09 PM SIDEROGRAPHIST with stage 2 chronic kidney disease, with long-term current use of insulin LIVER PROFILE Routine 08/26/2019 Hyperlipidemia, 12:09 PM SIDEROGRAPHIST unspecified hyperlipidemia type Essential hypertension BASIC METABOLIC PANEL Routine 08/26/2019 Essentia l hypertension 12:09 PM SIDEROGRAPHIST CKD (chronic kidney disease) stage 3, GFR 30-59 ml/min URINALYSIS Routine 08/26/2019 Type 2 diabetes mellitus 12:09 PM SIDEROGRAPHIST with stage 2 chronic kidney disease, with long-term current use of insulin URINE DRUG SCREEN Routine 08/26/2019 Depression, unspecified 12:09 PM SIDEROGRAPHIST depression type HEMOGLOBIN A1C Routine 08/09/2019 Type 2 diabetes mellitus 11:16 AM SIDEROGRAPHIST without complication, with long-term current use of insulin URINALYSIS Routine 05/25/2019 Dysuria MICROSCOPIC-REFLEX 2:12 PM SIDEROGRAPHIST URINALYSIS STAT 05/25/2019 Dysuria 2:12 PM SIDEROGRAPHIST URINALYSIS STAT 05/25/2019 Dysuria 2:12 PM SIDEROGRAPHIST URINE CULTURE Routine 05/13/2019 Dysuria 2:10 PM [...] 1:54 PM CDT with complication, unspecified whether long term care pharmacist insulin use CBC/DIFF Routine 04/05/2019 Type 2 diabetes mellitus 1:54 PM CDT with complication, unspecified whether long term care pharmacist insulin use BASIC METABOLIC PANEL Routine 04/05/2019 Type 2 d iabetes mellitus 1:54 PM CDT with complication, unspecified whether long term care pharmacist insulin use LIVER PROFILE Routine 04/05/2019 Type 2 diabetes mellitus 1:54 PM CDT with complication, unspecified whether correction insulin use HEMOGLOBIN A1C Routine 04/05/2019 Type 2 diabetes mellitus 1:54 PM CDT with complication, unspecified whether correction insulin use MAMMO BREAST ULTRASOUND Routine 03/22/2019 Abnorm al mammogram UNILATERAL, LTD 11:46 AM CDT MAMMOGRAM BILAT DIAG Routine 03/22/2019 Abnormal mammogram of DIGITAL 11:10 AM CDT right breast POC URINE Routine 03/03/2019 Encounter for other 12:00 PM CDT contraceptive management GENITAL WET MOUNT WITH Routine 03/03/2019 Screeni ng examination for ITTI 11:32 AM CDT sexually transmitte d disease [...] 12/03/2018 Results * Urinalysis (08/26/2019 12:09 PM SIDEROGRAPHIST) Only the most recent of 4 results within the time period is included. Color Yellow Colorless, Straw, [facility] Yellow [facility] Clarity Clear Clear [facility] Spec Rayne, 1.012 1.001 - 1.035 [facility] Ur [...] Number [facility] [address] [place] [address] [phone] * Urine Drug Screen (08/26/2019 12:09 PM SIDEROGRAPHIST) Opiate, Ur Positive (A) Negative [facility] [...] Urine - Voided, urine Performing Organization Address [facility] one Number [facility] [address] [place] [address] [phone] * Liver Profile (08/26/2019 12:09 PM SIDEROGRAPHIST) Only the most recent of 3 results [...] [facility] Specimen Blood Performing Organization Address [facility] one Number [facility] [address] [place] [address] * Urine Culture (08/26/2019 12:09 PM SIDEROGRAPHIST) Only the most recent of 3 results within the time period is included. Urine Culture Urogenital mario [facility] Specimen Urine - Clean Catch Mid Stream Performing Organization Address [facility] one Number [facility] [address] [place] [address] [phone] * Basic Metabolic Panel (08/26/2019 12:09 PM SIDEROGRAPHIST) Only the most recent of 3 results [...] [facility] Specimen Blood Performing Organization Address [facility] one Number [facility] [address] [place] [address] [phone] * Hemoglobin A1C (08/09/2019 11:16 AM SIDEROGRAPHIST) Only the most recent of 3 results within the time period is included. Hemoglobin A1c 7.5 (H) 4.3 - 6.1 % [facility] Estimated 169 (H) 70 - 110 mg/dL [facility] Average Glucose LABORATORY Specimen Blood Performing Organization Address [facility] one Number [facility] [address] [place] [address] * URINALYSIS, MICROSCOPIC (05/25/2019 2:12 PM SIDEROGRAPHIST) RBC 1-4 0 - 4 /HPF [facility] WBC 5-20 (A) 0 - 5 /HPF [facility] Epithelial Cell <1/HPF <1 /HPF [facility] Bacteria Few (A) None seen /HPF [facility] Yeast Present (A) None seen /HPF [facility] Specimen Urine Performing Organization Address [facility] one Number [facility] * CBC/Diff (05/03/2019 [...] Number [facility] [address] [place] [address] [phone] * Comprehensive Metabolic Panel (05/03/2019 3:07 PM [...] [facility] Specimen Blood Performing Organization Address [facility] Ph one Number [facility] [address] [place] [address] [phone] * Hepatitis Panel (05/03/2019 3:07 PM CDT) Hep C Vir Ab Negative Negative [facility] IgG [facility] Hep B Surface Negative Negative [facility] Ag [facility] Hep A Vir Ab Negative Negative [facility] IgM [facility] Hep B Core Ab Negative Negative [facility] IgM [facility] Specimen Blood Performing Organization Address [facility] Ph one Number [facility] [address] [place] [address] * MAMMO BREAST ULTRASOUND [facility] (03/22/2019 11:46 AM CDT) Specimen Impressions [...] eal/:03/22/2019 13:45:38 copy to: Bharat Parisi M.D., [facility], 4621, ph: , fax: Flexible Nanny: Ginna Morgan, [facility] [place] letter sent: Mammography Normal Mamm ogram BI-RADS: 0 Indeterminate Ultrasound BI-RADS: 2 Everardo ign [id number] 53823 R92.8 R92.8 Narrative Performed At #[id number] - MAMMOGRAM BILAT DIAG DIGITAL SMS BILATERAL DIGITAL DIAGNOSTIC MAMMOGRAM 3D/2D WITH CAD: 03/22/2019 CLINICAL: 48 y/o female, no family hx o f breast cancer. Abnormal Mammogram In 2018, Lost To Follow Up. S he also presents with multiple ulceration of the lower outer right breast. Comparison is made to exams dated: , 09/13/2016 [facility], 01/26/2014 [facility], 12/20/2013 [facility], and 10/06/2010 [facility]. The tissue of both breasts is [...] This document has been electronically s igned. #[id number] - MAMMO [facility] ULTRASOUND OF RIGHT BREAST: 03/22/2019 Comparison is made to exams dated: , 09/13/2016 [facility], 01/26/2014 [facility], 12/20/2013 [facility], and 10/06/2010 [facility]. Color flow and real-time ultrasound of [...] Rad/Mammog In - 03/22/2019 2:23 PM CDT #[id number] - MAMMOGRAM BILAT DIAG DIGITAL BILATERAL DIGITAL DIAGNOSTIC MAMMOGRAM 3D/2D WITH CAD: 03/22/2019 CLINICAL: 48 y/o female, no family hx of breast cancer. Abnormal Mammogram In 2018, Lost To Follow Up. She also presents with multiple ulceration of the lower outer right breast. Comparison is made to exams dated: 01/26/2018, 09/13/2016 [facility], 01/26/2014 [facility], 12/20/2013 [facility], and [facility]. The tissue of both breasts is [...] abscesses. This document has been electronically signed. #[id number] - MAMMO BREAST ULTRASOUND UNILATERAL, LTD ULTRASOUND OF RIGHT BREAST: 03/22/2019 Comparison is made to exams dated: 01/26/2018, 09/13/2016 [facility], 01/26/2014 [facility] [place], 12/20/2013 [facility], and [facility]. Color flow and real-time ultrasound of [...] eal/:03/22/2019 13:45:38 copy to: Bharat Parisi M.D., [facility], 4621, ph: , fax: [phone] Flexible Nanny: Ginna Morgan [facility] letter sent: Mammography Normal Mammogram BI-RADS: 0 Indeterminate Ultrasound BI-RADS: 2 Benign [id number] 45930 R92.8 R92.8 Performing Organization Address City/State/Zipcode Ph [...] eal/:03/22/2019 13:45:38 copy to: Bharat Parisi M.D., [facility], [address]21, ph: , fax: Flexible Nanny: Ginna Morgan, [facility] letter sent: Mammography Normal Mamm ogram BI-RADS: 0 Indeterminate Ultrasound BI-RADS: 2 Everardo ign [id number] 45765 R92.8 R92.8 Narrative Performed At #[id number] - MAMMOGRAM BILAT DIAG DIGITAL SMS BILATERAL DIGITAL DIAGNOSTIC MAMMOGRAM 3D/2D WITH CAD: 03/22/2019 CLINICAL: 48 y/o female, no family hx o f breast cancer. Abnormal Mammogram In 2018, Lost To Follow Up. S he also presents with multiple ulceration of the lower outer right breast. Comparison is made to exams dated: , 09/13/2016 [facility], 01/26/2014 [facility], 12/20/2013 [facility], and 10/06/2010 [facility]. The tissue of both breasts is [...] This document has been electronically s igned. #[id number] - MAMMO BREAST ULTRASOUND UNI LATERAL, LTD ULTRASOUND OF RIGHT BREAST: 03/22/2019 Comparison is made to exams dated: , 09/13/2016 [facility], 01/26/2014 [facility], 12/20/2013 [facility], and 10/06/2010 [facility]. Color flow and real-time ultrasound of [...] Rad/Mammog In - 03/22/2019 2:23 PM CDT #[id number] - MAMMOGRAM BILAT DIAG DIGITAL BILATERAL DIGITAL DIAGNOSTIC MAMMOGRAM 3D/2D WITH CAD: 03/22/2019 CLINICAL: 48 y/o female, no family hx of breast cancer. Abnormal Mammogram In 2018, Lost To Follow Up. She also presents with multiple ulceration of the lower outer right breast. Comparison is made to exams dated: 01/26/2018, 09/13/2016 [facility], 01/26/2014 [facility], 12/20/2013 [facility], and [facility]. The tissue of both breasts is [...] abscesses. This document has been electronically signed. #[id number] - MAMMO BREAST ULTRASOUND UNILATERAL, LTD ULTRASOUND OF RIGHT BREAST: 03/22/2019 Comparison is made to exams dated: 01/26/2018, 09/13/2016 [facility], 01/26/2014 [facility] [place], 12/20/2013 [facility], and [facility]. Color flow and real-time ultrasound of [...] eal/:03/22/2019 13:45:38 copy to: Bharat Parisi M.D., [facility], [address]21, ph: , fax: [phone] Flexible Nanny: Ginna Morgan, [facility] letter sent: Mammography Normal Mammogram BI-RADS: 0 Indeterminate Ultrasound BI-RADS: 2 Benign [id number] R92.8 R92.8 Performing Organization Address City/State/Zipcode Ph one Number SMS * POC URINE (03/03/2019 12:00 PM CDT) POC NEG Neg - Neg PASS Pass - Pass Control Specimen * Chlam/GC DNA Amplification (03/03/2019 11:32 AM CDT) Chlamydia Negative Negative [facility] trachomatis LAB[facility]ORY N. gonorrhoeae Negative Negative [facility] Specimen Genital - Cervix, endocervix Narrative Performed At This test utilizes Broadcastr Aptima Combo 2 Assay for target amplification of rRNA [facility] for the qualitative detection of Chlamy venice trachomatis and Neisseria gonorrhoeae. Performing Organization Address [facility] Ph one Number [facility] [address] [place] [address] [phone] * Genital Wet Mount with TITI (03/03/2019 [...] Genital - Cervix, NOS Performing Organization Address [facility] Ph one Number [facility] [address] [place] [address] * DIABETIC FOOT EXAM (02/15/2019 3:30 PM [...] y/o, F (: 1970, ) presented [facility] on 01-08[facility]2019 for a retinal imaging study [...] electronically signed Porter Gunn MD, , Taxonomy: [id number] on 01-08-2019 04:2 9:[address] [facility] time. NOTE: Any pathology noted on this venice betic retinal evaluation should be confirmed by an appropriate ophthalmic examination. Performing Organization Address [facility] one Number IRIS * TSH [Thyroid Stimulating Hormone] (01/08/2019 8:52 AM CDT) TSH 2.37 0.57 - 3.74 uIU/mL [facility] Comment: LABORATORY If , please see the following reference ranges (not verified by lab): 1st Trimester: 0.05 -3.70 uIU/mL 2nd Trimester: 0.31 -4.35 uIU/mL 3rd Trimester: 0.41 - 5.18 uIU/mL Specimen Blood Performing Organization Address [facility] one Number [facility] [address] [place] [address] * Free T4 (01/08/2019 8:52 AM CDT) Free T4 0.91 0.61 - 1.18 ng/dl [facility] Specimen Blood Performing Organization Address [facility] one Number [facility] [address] [place] [address] * Lipid Profile (01/08/2019 8:52 AM CDT) [...] >=190 mg/dL Specimen Blood Performing Organization Address [facility] one Number [facility] [address] [place] [address] * Vitamin D, 25-Hydroxycalciferol (01/08/2019 8:51 AM CDT) Vit D, 13.7 (L) 30.0 - 100.0 ng/mL [facility] 25-Hydroxy LAB[facility] Vitamin D Deficient (A) Sufficient [facility] Interpretation LAB[facility]ORY Specimen Blood Performing Organization Address [facility] one Number [facility] [address] [place] [address] * XRAY CHEST 2 VIEWS (12/14/2018 10:32 AM CDT) Specimen Impressions Performed At IMPRESSION: [place] No acute thoracic abnormality or signif icant [...] [employer] HMO [employer] xxxxxxxxx 2019-P [address] [facility] [address] [place] [address] [facility] [employer] [employer] xxxxxx 2019 [address] [facility] [address] [place] [address]
--- OUTSIDE RECORDS SUMMARY | 2019-12-04 22:37 | XMS REPORT ---
Author Author [facility] t Organization [facility] Address 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, Aldo Attphys Marina Christy Attphys Unavailable Ailin [...] Date S ource [employer]IC[employer] HMOAMERIVANTAGE INTE [facility] [id number], [place] [address] xxxxxxxxx 2019 00:00:00 [facility] PLANFINANCIAL ASSISTANCE PROGRAMxxx [id number] [place] [address] xxxxxx 2019 00:00:00 2019-07 23:59:59 [facility] Advance Directives Directive Decision Effective Date Termination Date Comments Sour ce Yes N/A [facility] Problems Condition Name Condition Details Condition Category Status Onset Date Resolution Date Last Treatment Date Treating Clinician Comments Source Type 2 diabetes mellitus with stage 2 ch ronic kidney disease, with long-term current use of insulin Type 2 diabetes mellitus with stage 2 ch ronic kidney disease, with long-term current use of insulin Disease Active 2018-01-02 00:00:00 [facility] Dysuria Dysuria Disease Active 2015-07-17 00:00:00 [facility] Suprapubic pain Suprapubic pain Disease Active 2015-07-17 00:00:00 [facility] Lower abdominal pain Lower abdominal pain Disease Active 00:00:00 [facility] UTI (urinary tract infection)-needs f/up UTI (urinary tract infection)-needs f/up Disease Active 2014-10-05 00:00:00 [facility] CKD (chronic kidney disease) stage 3, GFR 30-59 ml/min CKD (chronic kidney disease) stage 3, GFR 30-59 ml/min Disease Active 2014-09-30 00:00:00 [facility] Stress Stress Disease Active 2014-09-30 00:00:00 [facility] Hyperglycemia Problem [facility] Abscess of abdominal wall Problem [facility] Cellulitis of abdominal wall Problem [facility] Hyperlipidemia Hyperlipidemia Disease Active [facility] HTN (hypertension) HTN (hypertension) Disease Active [facility] Morbid obesity Morbid obesity Disease Active [facility] Diabetes mellitus Diabetes mellitus Disease Active [facility] RAD (reactive airway disease) RAD (reactive airway disease) Disease Active [facility] CHF (congestive heart failure) CHF (congestive heart failure) Disease Active Overview: per pt report [facility] ealt Thyroid disease Thyroid disease Disease Active [facility] Abnormal LFTs Abnormal LFTs Disease Active [facility] 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 2) infection Disease Active [facility] Vitamin D deficiency Vitamin D deficiency Disease Active [facility] Family history of colon cancer in mother Family histor y of colon cancer in mother Disease Active [facility] Fibroid Fibroid Disease Active [facility] Umbilical hernia Umbilical hernia Disease Active [facility] Renal mass Renal mass Disease Active [facility] Coronary atherosclerosis Coronary atherosclerosis Disease Active [facility] Abnormal CT of the abdomen Abnormal CT of the abdomen Disease Active Overview: diverticuli seen in colon [facility] Iron deficiency Iron deficiency Disease Active [facility] Microalbuminuria Microalbuminuria Disease Active [facility] PRIYA positive PRIYA positive Disease Active [facility] Allergies, Adverse Reactions, Alerts Allergy Name Allergy Type Status Severity Reaction(s) Onset Date Inacti ve Date Treating Clinician Comments Source No Known Allergies DA Active U 2019-04-24 00:00:00 [facility] No Known Allergies DA Active U 2019-03-13 00:00:00 [facility] No Known Allergies DA Active U 2018-09-24 00:00:00 [facility] No Known Allergies DA Active U 2016-02-23 00:00:00 [facility] Family History Family Member Diagnosis Comments Start Date Stop Date Source Natural father Diabetes [facility] Natural father Heart [facility] Natural father Hypertension [facility] Maternal grandfather Cancer [facility] Natural mother Hypertension Gamal Mendez [facility] Natural mother Other Gamal Doug[facility] Natural sister Asthma Gamal Doug[facility] Social History Social Habit Start Date Stop Date Quantity Comments Source Sex Assigned [facility] Alcohol intake 2019-09-27 00:00:00 2019-09-27 00:00:00 [facility] Education 2018-12-14 00:00:00 2018-12-14 00:00:00 12 [facility] Financial 2018-12-14 00:00:00 2018-12-14 00:00:00 5 [facility] Food Worry 2018-12-14 00:00:00 2018-12-14 00:00:00 3 [facility] Food Scarcity 2018-12-14 00:00:00 2018-12-14 00:00:00 3 [facility] Transport Med 2018-12-14 00:00:00 2018-12-14 00:00:00 1 [facility] Transport Non-Med 2018-12-14 00:00:00 2018-12-14 00:00:0 0 1 [facility] Smoking Status Start Date Stop Date Source Never smoker [facility] Medications Ordered Medication Name Filled Medication Name Start Date Stop Da te Current Medication? Ordering Clinician Indication Dosage Frequency Signature (SIG) Comments Components Source Ciprofloxacin Hcl (Cipro) 500 Mg TABLET Ciprofloxacin Hcl (C ipro) 500 Mg TABLET 2019-11-26 15:57:00 Yes 500 [facility] Furosemide (Lasix) 20 Mg TABLET Furosemide (Lasix) 20 Mg TAB LET 2019-11-26 15:57:00 Yes 20 [facility] Insulin Regular, Human (Humulin R) 100 Unit/1 Ml VIAL Insulin Regular, Human (Humulin R) 100 Unit/1 Ml VIAL 2019-11-26 15:57:00 Yes 0 [facility] Metformin Hcl Metformin Hcl 2019-11-26 15:57:00 Yes 1000 [facility] Potassium Chloride Potassium Chloride 2019-11-26 15:57:00 Yes 10 [facility] Sulfamethoxazole/Trimethoprim (Bactrim Ds Tablet) 1 Ea ch TABLET Sulfamethoxazole/Trimethoprim (Bactrim Ds Tablet) 1 Each TABLET 2019-11-26 15:57:00 Yes 1 [facility] Tramadol Hcl (Ultram) 50 Mg TABLET Tramadol Hcl (Ultram) 50 Mg TABLET 2019-11-26 15:57:00 Yes 50 [facility] albuterol 90 mcg/actuation inhaler 2019-11-08 00:00:00 Yes Moderate persistent asthmatic bronchitis with acute exacerbation 2{puff} Inhale 2 Puffs by mouth 4 times daily as needed for Wheezing. [facility] atorvastatin (LIPITOR) 20 mg tablet 2019-11-08 00:00:00 Yes Hyperlipidemia, unspecified hyperlipidemia type 20mg Take 1 tablet by mouth at bedtime nightly. [facility] omeprazole (PRILOSEC) 20 mg delayed release capsule 11-07 00:00:00 Yes Gastroesophageal reflux disease with esophagitis 20mg Q.5D Take 1 capsule by mouth 2 times daily. [facility] ketoconazole (NIZORAL) 2 % shampoo 2019-11-08 00:00:00 Y es Tinea capitis WASH SCALP 3 TIMES WEEKLY FOR SEBORRHEA. [facility] lisinopriL (PRINIVIL) 20 mg tablet 2019-11-08 00:00:00 Yes Essential hypertension 20mg QD Take 1 tablet by mouth daily. [facility] NIFEdipine (PROCARDIA XL) 90 mg extended release tablet 2019-11-08 00:00:00 Yes Essential hypertension 90mg QD Take 1 tablet by mouth da bolivar. [facility] lancets 28 gauge 2019-11-08 00:00:00 Yes Type 2 diabetes mellitus with complication, with long-term current use of insulin Use 3 times daily [facility] mupirocin calcium (BACTROBAN) 2 % topical cream 2019-11-08 0 0:00:00 Yes Abscess of female genitalia Apply to affected area 3 times daily. [facility] hydrocortisone (ANUSOL-HC) 25 mg rectal suppository 11-07 00:00:00 Yes Hemorrhoids, unspecified hemorrhoid type 25mg Insert 1 Suppository rectally 2 times daily as needed for hemorrhoids. [facility] acyclovir (ZOVIRAX) 800 mg tablet 2019-11-08 00:00:00 Ye s Skin infection 800mg Take 1 tablet by mouth 3 times daily. [facility] blood glucose test strips 2019-11-08 00:00:00 Yes Type 2 diabetes mellitus with complication, with long-term current use of insulin Use 3 times daily to test blood sugar.. [facility] potassium chloride (KLOR-CON M20) 20 mEq extended release ta blet 2019-11-08 00:00:00 Yes Hypokalemia 20meq Q.5D Take 1 tablet by mo ut 2 times daily. [facility] diclofenac (VOLTAREN) 1 % gel 2019-11-08 00:00:00 Yes Acute midline low back pain without sciatica 2g Apply 2 g to affected area 4 times daily Lower back. [facility] fenofibrate nanocrystallized (TRICOR) 145 mg tablet 2019-11-08 00:00:00 2019-11-08 00:00:00 No Hyperlipidemia, unspecified hyperl ipidemia type 145mg QD Take 1 tablet by mouth daily. [facility] linaGLIPtin (TRADJENTA) 5 mg tablet 2019-10-22 00:00:00 Yes Type 2 diabetes mellitus with hyperglycemia, with long-term current use of insulin 5mg QD Take 1 tablet by mouth daily. [facility] levothyroxine (SYNTHROID) 25 mcg tablet 2019-10-22 00:00:00 Yes Hypothyroidism 25ug QD Take 1 tablet by mouth daily. [facility] montelukast (SINGULAIR) 10 mg tablet 2019-10-14 00:00:00 Yes Moderate persistent asthma without complication 10mg T huamira 1 tablet by mouth at bedtime nightly. [facility] cloNIDine HCL (CATAPRES) 0.1 mg tablet 2019-10-14 00:00:00 Yes Essential hypertension .1mg Take 1 tablet by mouth 3 times daily. [facility] dicyclomine (BENTYL) 10 mg capsule 2019-10-14 00:00:00 Yes Irritable bowel syndrome with diarrhea 10mg Take 1 capsule by mouth 4 times daily (before meals and nightly). [facility] hydrOXYzine (ATARAX) 25 mg tablet 2019-10-14 00:00:00 Yes Insomnia, unspecified type 50mg Take 2 tablets by mo ut nightly at bedtime as needed for insomnia. [facility] acetaminophen-codeine (TYLENOL/CODEINE #3) 300-30 mg per tab let 2019-10-14 00:00:00 Yes Chronic bilateral low back pain with bilateral sciatica 1{tbl} Take 1 tablet by mouth every 4 hours as needed for Pain Refilled for pcp. [facility] acyclovir (ZOVIRAX) 800 mg tablet 2019-10-14 00:00:00 2019 00:00:00 No Skin infection 800mg Take 1 tablet by mouth 3 times tyler y. [facility] furosemide (LASIX) 40 mg tablet 2019-10-12 00:00:00 Yes Localized edema 40mg QD Take 1 tablet by mouth daily. [facility] ketorolac (TORADOL) injection 30 mg 2019-09-24 11:45:0 0 2019-09-24 11:15:00 No Acute midline low back pain without sciatica 30mg [facility] ketorolac (TORADOL) injection 15 mg 2019-09-24 11:30:0 0 2019-09-24 11:36:14 No Acute midline low back pain without sciatica 15mg [facility] ketorolac (TORADOL) injection 15 mg 2019-09-24 11:15:0 0 2019-09-24 11:16:05 No Acute midline low back pain without sciatica 15mg [facility] Cyclobenzaprine (FLEXERIL) 5 mg tablet 2019-09-12 3 00:00:00 2020-09-23 23:59:00 Yes Acute midline low back pain without sciatica 5m g Take 1 tablet by mouth 3 times daily as needed for Muscle Spasms. [facility] diclofenac (VOLTAREN) 1 % gel 2019-09-24 00:00:00 2019-11-07 00:00:00 No Acute midline low back pain without sciatica 2g Apply 2 g to affected area 4 times daily Lower back. [facility] albuterol (PROVENTIL) 2.5 mg /3 mL (0.083 %) nebulizer solut ion 2019-09-20 00:00:00 Yes Asthmatic bronchitis, severe persistent, uncomplicated 2.5mg Inhale 3 mL by mouth every 4 hours as needed for Wheezing or Shortness of Breath. [facility] hydrocortisone (ANUSOL-HC) 25 mg rectal suppository 2019-09-20 00:00:00 2019-11-07 00:00:00 No Hemorrhoids, unspecified hemorrhoid ty pe 25mg Insert 1 Suppository rectally 2 times daily as needed for hemorrhoids. [facility] cetirizine (ZYRTEC) 10 mg tablet 2019 00:00:00 Yes Seasonal allergic rhinitis, unspecified trigger 10mg QD Take 1 tablet by mouth daily . [facility] mupirocin calcium (BACTROBAN) 2 % topical cream 2019 00:00:00 2019-11-07 00:00:00 No Abscess of female genitalia Apply to affected area 3 times daily. [facility] acyclovir (ZOVIRAX) 800 mg tablet 2019 00:00:00 2019 00:00:00 No Skin infection 800mg Take 1 tablet by mouth 3 times tyler y. [facility] acetaminophen-codeine (TYLENOL/CODEINE #3) 300-30 mg per tab let 2019 00:00:00 2019-10-14 00:00:00 No Chronic bila teral low back pain with bilateral sciatica 1{tbl} Take 1 tablet by juan th every 4 hours as needed for Pain Refilled for pcp. [facility] pen needle, diabetic 31 gauge x 3/16" needles 2019-09-13 00: 00:00 Yes Type 2 diabetes mellitus with complication, with long-term current use of insulin Q.5D Inject under the skin 2 times daily. [facility] acetaminophen-codeine (TYLENOL/CODEINE #3) 300-30 mg per tab let 2019-08-26 00:00:00 2019-09-11 00:00:00 No Chronic bila teral low back pain with bilateral sciatica 1{tbl} Take 1 tablet by juan th every 4 hours as needed for Pain Refilled for pcp. [facility] clindamycin (CLEOCIN HCL) 300 mg capsule 2019-08 00:00:00 2019-09-05 23:59:00 No Folliculitis 600mg Take 2 capsu les by mouth 3 times daily for 10 days. [facility] gabapentin (NEURONTIN) 600 mg tablet 2019-08-17 00:00:00 Yes Type 2 diabetes mellitus with hyperglycemia, with long-term current use of insulin 600mg Take 1 tablet by mouth at bedtime nightly. [facility] ergocalciferol (VITAMIN D2) 1,250 mcg (50,000 unit) capsule 2019-08-17 00:00:00 Yes Vitamin D deficiency 19376S Take 1 cap elmer by mouth weekly. [facility] NIFEdipine (PROCARDIA XL) 90 mg extended release tablet 2019-08-17 00:00:00 2019-11-07 00:00:00 No Essential hypertension 90mg QD Take 1 tablet by mouth daily. [facility] lancets 28 gauge 2019-08-17 00:00:00 2019-11-07 00:00:00 No Type 2 diabetes mellitus with complication, with long-term current use of insulin Use 3 times daily [facility] dicyclomine (BENTYL) 10 mg capsule 2019-08-17 00:00:00 202 00:00:00 No Irritable bowel syndrome with diarrhea 10mg Take 1 capsule by mouth 4 times daily (before meals and nightly). [facility] hydrOXYzine (ATARAX) 25 mg tablet 2019-08-17 00:00:00 2019 00:00:00 No Insomnia, unspecified type 50mg Take 2 tablets by mouth nightly at bedtime as needed for insomnia. [facility] mupirocin calcium (BACTROBAN) 2 % topical cream 2019-08-17 00:00:00 2019-09-11 00:00:00 No Abscess of female genitalia Apply to affected area 3 times daily. [facility] clindamycin (CLEOCIN HCL) 300 mg capsule 2019-07 00:00:00 2019-08-19 23:59:00 No Abscess of female genitalia 300mg Take 1 capsule by mouth 3 times daily for 10 days. [facility] mupirocin calcium (BACTROBAN) 2 % topical cream 2019-08-09 00:00:00 2019-08-13 00:00:00 No Abscess of female genitalia Apply to affected area 3 times daily. [facility] blood glucose test strips 2019-07-16 00:00:00 2019-11-07 00: 00:00 No Type 2 diabetes mellitus with complication, with long-term current use of insulin Use 3 times daily to test blood sugar.. [facility] potassium chloride (KLOR-CON M20) 20 mEq extended release ta blet 2019-07-16 00:00:00 2019-11-07 00:00:00 No Hypokalemia 20meq Q.5D Take 1 tablet by mouth 2 times daily. [facility] acetaminophen-codeine (TYLENOL/CODEINE #3) 300-30 mg per tab let 2019-07-16 00:00:00 2019-08-26 00:00:00 No Chronic bila teral low back pain with bilateral sciatica 1{tbl} Take 1 tablet by juan th every 4 hours as needed for Pain Refilled for pcp. [facility] acyclovir (ZOVIRAX) 800 mg tablet 2019-07-15 00:00:00 2019 00:00:00 No Skin infection 800mg Take 1 tablet by mouth 3 times tyler yKaycee [facility] lisinopriL (PRINIVIL) 20 mg tablet 2019-06-16 00:00:00 00:00:00 No Essential hypertension 20mg QD Take 1 tablet by mouth tyler yKaycee [facility] fenofibrate nanocrystallized (TRICOR) 145 mg tablet 2019-06-16 00:00:00 2019-11-07 00:00:00 No Hyperlipidemia, unspecified hyperl ipidemia type 145mg QD Take 1 tablet by mouth daily. [facility] cloNIDine HCL (CATAPRES) 0.1 mg tablet 4 00:00:00 2019-10-14 00:00:00 No Essential hypertension .1mg Take 1 tablet by mouth 3 times daily. [facility] furosemide (LASIX) 40 mg tablet 2019-06-16 00:00:00 00:00:00 No Localized edema 40mg QD Take 1 tablet by mouth daily. [facility] dicyclomine (BENTYL) 10 mg capsule 2019-06-16 00:00:00 00:00:00 No Irritable bowel syndrome with diarrhea 10mg Take 1 capsule by mouth 4 times daily (before meals and nightly). [facility] acetaminophen-codeine (TYLENOL/CODEINE #3) 300-30 mg per tab let 2019-06-16 00:00:00 2019-07-15 00:00:00 No Chronic bila teral low back pain with bilateral sciatica 1{tbl} Take 1 tablet by juan th every 4 hours as needed for Pain Refilled for pcp. [facility] acyclovir (ZOVIRAX) 800 mg tablet 2019-06-14 00:00:00 2019 00:00:00 No Skin infection 800mg Take 1 tablet by mouth 3 times tyler y. [facility] insulin detemir U-100 (LEVEMIR FLEXTOUCH U-100 INSULN) 100 u nit/mL (3 mL) Pen 2019-05-25 00:00:00 Yes Type 2 diabe cortney mellitus with other specified complication Inject 40 units in t he morning and 100 units in the evening, all before meals. [facility] hydrOXYzine (ATARAX) 25 mg tablet 2019-05-25 00:00:00 2019 00:00:00 No Insomnia, unspecified type 50mg Take 2 tablets by mouth nightly at bedtime as needed for insomnia. [facility] sulfamethoxazole-trimethoprim (BACTRIM DS) 800-160 mg per ta blet 2019-05-25 00:00:00 2019-06-04 23:59:00 No Urinary trac t infection without hematuria, site unspecified 1{tbl} Q.5D Take 1 tablet by mouth 2 times daily for 10 days. [facility] fluconazole (DIFLUCAN) 150 mg tablet 2019-05-25 00:00: 00 2019-05-26 23:59:00 No Vaginal yeast infection 150mg Take 1 tablet by mouth once for 1 dose. [facility] BD INSULIN SYRINGE ULTRA-FINE 1 mL 31 gauge x 5/16 Syrg 2019-05-18 00:00:00 Yes Type 2 diabetes mellitus wit h complication, with long-term current use of insulin 1{syringe} Inject 1 Syringe under the skin 3 times daily. [facility] acetaminophen-codeine (TYLENOL/CODEINE #3) 300-30 mg per tab let 2019-05-18 00:00:00 2019-06-14 00:00:00 No Chronic bila teral low back pain with bilateral sciatica 1{tbl} Take 1 tablet by juan th every 4 hours as needed for Pain Refilled for pcp. [facility] acyclovir (ZOVIRAX) 800 mg tablet 2019-05-17 00:00:2018 00:00:00 No Skin infection 800mg Take 1 tablet by mouth 3 times tyler seaman [facility] NIFEdipine (PROCARDIA XL) 90 mg extended release tablet 2019-05-14 00:00:00 2019-08-16 00:00:00 No Essential hypertension 90mg QD Take 1 tablet by mouth daily. [facility] lancets 28 gauge 2019-05-14 00:00:00 2019-08-16 00:00:00 No Type 2 diabetes mellitus with complication, with long-term current use of insulin Use 3 times daily [facility] nitrofurantoin mono/m-crystals (MACROBID) 100 mg capsule 2019-05-13 00:00:00 2019-05-25 00:00:00 No Dysuria 100mg Q.5D Take 1 capsule by mouth 2 times daily. [facility] insulin REGULAR 100 unit/mL injection 2019-04-22 00:00:00 Yes Type II diabetes mellitus 40U [id number] Inject 40 Units u nder the skin 3 times daily (before meals) [facility] ketoconazole (NIZORAL) 2 % shampoo 2019-04-15 00:00:00 00:00:00 No Tinea capitis WASH SCALP 3 TIMES WEEKLY FOR SEBORR HEA. [facility] lisinopril (PRINIVIL) 20 mg tablet 2019-04-15 00:00:00 03-25-02 00:00:00 No Essential hypertension 20mg QD Take 1 tablet by mouth tyler seaman [facility] fenofibrate nanocrystallized (TRICOR) 145 mg tablet 2019-04-15 00:00:00 2019-06-14 00:00:00 No Hyperlipidemia, unspecified hyperl ipidemia type 145mg QD Take 1 tablet by mouth daily. [facility] dicyclomine (BENTYL) 10 mg capsule 2019-04-15 00:00:00 03-25-02 00:00:00 No Irritable bowel syndrome with diarrhea 10mg Take 1 capsule by mouth 4 times daily (before meals and nightly). [facility] acyclovir (ZOVIRAX) 800 mg tablet 2019-04-15 00:00:00 2018 00:00:00 No Skin infection 800mg Take 1 tablet by mouth 3 times tyler seaman [facility] acetaminophen-codeine (TYLENOL/CODEINE #3) 300-30 mg per tab let 2019-04-15 00:00:00 2019-05-13 00:00:00 No Chronic bila teral low back pain with bilateral sciatica 1{tbl} Take 1 tablet by juan th every 4 hours as needed for Pain Refilled for pcp. [facility] hydrOXYzine (ATARAX) 25 mg tablet 2019-04-05 00:00:00 2018 00:00:00 No Insomnia, unspecified type 50mg Take 2 tablets by mouth nightly at bedtime as needed (insomnia). [facility] mupirocin (BACTROBAN) 2 % ointment 2019-04-05 00:00:00 03-23-30 23:59:00 No Sebaceous cyst Apply to affected area 3 times tyler y for 7 days. [facility] cephALEXin (KEFLEX) 500 mg capsule 2019-04-05 00:00:00 03-23-03 23:59:00 No Boil, breast 500mg Take 1 capsule by mouth 3 times daily for 10 days. [facility] blood glucose test strips 2019-03-18 00:00:00 2019-07-15 00: 00:00 No Type 2 diabetes mellitus with complication, with long-term current use of insulin Use 3 times daily to test blood sugar.. [facility] INSULIN SYRINGE 1mL 30GX5/16" (MONOJECT ULTRACOMFORT INSULIN SYR 1ML 30GX5/16") syringe-needle 2019-03-18 00:00:00 2019-05-18 00:00:00 No Type 2 diabetes mellitus with complication, with long-term current use of insulin 1{each} Use to inject medication 3 times daily. Use a new syringe each time. [facility] potassium chloride (KLOR-CON M20) 20 mEq extended release ta blet 2019-03-16 00:00:00 2019-07-15 00:00:00 No Hypokalemia 20meq Q.5D Take 1 tablet by mouth 2 times daily. [facility] polyethylene glycol (GOLYTELY) 236-22.74-6.74 -5.86 gram ora l solution 2019-02-15 00:00:00 Yes Family history of colon cancer in mother Add lukewarm drinking water to the fill charis (4 liters) and shake. Drink as directed by your doctor.. [facility] clotrimazole (LOTRIMIN) 1 % topical cream 2019-02-15 00:00:0 0 Yes Onychomycosis Q.5D Apply to affected area 2 times daily. [facility] ergocalciferol (VITAMIN D2) 1,250 mcg (50,000 unit) capsule 2019-02-15 00:00:00 2019-08-13 00:00:00 No Vitamin D deficiency [id number] Take 1 capsule by mouth weekly. [facility] hydrOXYzine (ATARAX) 50 mg tablet 2019-02-15 00:00:00 2018 00:00:00 No Insomnia, unspecified type 50mg Take 1 tablet by mouth nightly at bedtime as needed (insomnia). [facility] gabapentin (NEURONTIN) 600 mg tablet 2019-02-11 00:00: 00 2019-08-13 00:00:00 No Type 2 diabetes mellitus wit h hyperglycemia, with long-term current use of insulin 600mg Take 1 tablet by mouth at bedtime nightly. [facility] cloNIDine HCl (CATAPRES) 0.1 mg tablet 1 00:00:00 2019-06-14 00:00:00 No Essential hypertension .1mg Take 1 tablet by mouth 3 times daily. [facility] furosemide (LASIX) 40 mg tablet 2019-02-11 00:00:00 00:00:00 No Localized edema 40mg QD Take 1 tablet by mouth daily. [facility] insulin REGULAR 100 unit/mL injection 2019-02-11 00:00 :00 2019-04-22 00:00:00 No Type II diabetes mellitus 40U [id number] Inject 40 Units under the skin 3 times daily (before meals) [facility] dicyclomine (BENTYL) 10 mg capsule 2019-02-11 00:00:00 201 03-23-02 00:00:00 No Irritable bowel syndrome with diarrhea 10mg Take 1 capsule by mouth 4 times daily (before meals and nightly). [facility] acyclovir (ZOVIRAX) 800 mg tablet 2019-02-10 00:00:00 2018 00:00:00 No Skin infection 800mg Take 1 tablet by mouth 3 times tyler y. [facility] fluticasone propionate (FLONASE) 50 mcg/actuation nasal spra y 2019-02-10 00:00:00 2019-02-11 00:00:00 No Seasonal all ergic rhinitis, unspecified trigger 2{spray} QD Use 2 Sprays in each nostril daily. [facility] acetaminophen-codeine (TYLENOL/CODEINE #3) 300-30 mg per tab let 2019-01-24 00:00:00 2019-04-14 00:00:00 No Chronic bila teral low back pain with bilateral sciatica 1{tbl} Take 1 tablet by juan th every 4 hours as needed for Pain Refilled for pcp. [facility] mometasone (NASONEX) 50 mcg/actuation nasal spray 2019-01-12 00:00:00 Yes Seasonal allergic rhinitis, unspecified trigger 2{spray} QD Use 2 Sprays in each nostril daily. [facility] lancets 28 gauge 2019-01-12 00:00:00 2019-05-13 00:00:00 No Type 2 diabetes mellitus with complication, with long-term current use of insulin Use 3 times daily [facility] acyclovir (ZOVIRAX) 800 mg tablet 2019-01-12 00:00:00 2018 00:00:00 No Skin infection 800mg Take 1 tablet by mouth 3 times tyler y. [facility] tropicamide (MYDRIACYL) 0.5 % ophthalmic solution 2018-12-14 00:00:00 2019-06-12 23:59:00 No Type 2 diabetes michaela itus with complication, with long- term current use of insulin 1[drp] Instill 1 Dr op in each eye once as needed for up to 1 dose (for poor retina scan image). [facility] acetaminophen-codeine (TYLENOL/CODEINE #3) 300-30 mg per tab let 2018-12-14 00:00:00 2019-01-11 00:00:00 No Chronic bila teral low back pain with bilateral sciatica 1{tbl} Take 1 tablet by mouth every 4 hours as needed for Pain. [facility] cephALEXin (KEFLEX) 500 mg capsule 2018-12-14 00:00:00 201 03-19-13 23:59:00 No Recurrent boils 500mg Take 1 capsule by mouth 4 times daily for 10 days. [facility] dicyclomine (BENTYL) 10 mg capsule 2018-12-09 00:00:00 201 07-30 00:00:00 No Irritable bowel syndrome with diarrhea 10mg Take 1 capsule by mouth 4 times daily (before meals and nightly). [facility] mupirocin (BACTROBAN) 2 % ointment 2018-11-19 00:00:00 03-22-23 00:00:00 No Sebaceous cyst Apply to affected area 3 times tyler y for 7 days. [facility] acyclovir (ZOVIRAX) 800 mg tablet 2018-11-19 00:00:00 2018 00:00:00 No Skin infection 800mg Take 1 tablet by mouth 3 times tyler y. [facility] busPIRone (BUSPAR) 5 mg tablet 2018-11-09 00:00:00 2019-08-14 00:00:00 No Generalized anxiety disorder 5mg Take 1 tablet by mouth 3 time s daily. [facility] traZODone (DESYREL) 50 mg tablet 2018-11-09 00:00:00 2019-02 00:00:00 No Insomnia, unspecified type 100mg Take 2 tablet s by mouth nightly at bedtime as needed for Sleep. [facility] NIFEdipine (PROCARDIA XL) 90 mg extended release tablet 2018-11-06 00:00:00 2019-05-13 00:00:00 No Essential hypertension 90mg QD Take 1 tablet by mouth daily. [facility] blood glucose test strips 2018-11-06 00:00:00 2019-03-15 00: 00:00 No Type 2 diabetes mellitus with complication, with long-term current use of insulin Use 3 times daily to test blood sugar.. [facility] insulin REGULAR 100 unit/mL injection 2018-11-06 00:00 :00 2019-02-09 00:00:00 No Type II diabetes mellitus 40U [id number] Inject 40 Units under the skin 3 times daily (before meals) [facility] atorvastatin (LIPITOR) 20 mg tablet 2018-10-20 00:00:0 0 2019-11-07 00:00:00 No Hyperlipidemia, unspecified hyperlipidemia type 20mg Take 1 tablet by mouth at bedtime nightly. [facility] omeprazole (PRILOSEC) 20 mg delayed release capsule 2018-10-20 00:00:00 2019-11-07 00:00:00 No Gastroesophageal reflux disease wi th esophagitis 20mg Q.5D Take 1 capsule by mouth 2 times daily. [facility] linaGLIPtin (TRADJENTA) 5 mg tablet 2018-10-20 00:00:0 0 2019-10-21 00:00:00 No Type 2 diabetes mellitus wit h hyperglycemia, with long-term current use of insulin 5mg QD Take 1 tablet by mouth daily. [facility] levothyroxine (SYNTHROID) 25 mcg tablet 00:00:00 2019-10-21 00:00:00 No Hypothyroidism 25ug QD Take 1 tablet by mouth d ej. [facility] potassium chloride (KLOR-CON M20) 20 mEq extended release ta blet 2018-10-20 00:00:00 2019-03-15 00:00:00 No Hypokalemia 20meq Q.5D Take 1 tablet by mouth 2 times daily. 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 [facility] lisinopril (PRINIVIL) 20 mg tablet 2018-10-06 00:00:00 03-23-02 00:00:00 No Essential hypertension 20mg QD Take 1 tablet by mouth tyler seaman [facility] fenofibrate nanocrystallized (TRICOR) 145 mg tablet 2018-10-06 00:00:00 2019-04-14 00:00:00 No Hyperlipidemia, unspecified hyperl ipidemia type 145mg QD Take 1 tablet by mouth daily. [facility] cloNIDine HCl (CATAPRES) 0.1 mg tablet 2018-09-12 6 00:00:00 2019-02-09 00:00:00 No Essential hypertension .1mg Take 1 tablet by mouth 3 times daily. [facility] furosemide (LASIX) 40 mg tablet 2018-10-06 00:00:00 00:00:00 No Localized edema 40mg QD Take 1 tablet by mouth daily. [facility] dicyclomine (BENTYL) 10 mg capsule 2018-10-06 00:00:00 03-18-25 00:00:00 No Irritable bowel syndrome with diarrhea 10mg Take 1 capsule by mouth 4 times daily (before meals and nightly). [facility] fluticasone-salmeterol (ADVAIR) 250-50 mcg/dose diskus inhal er 2018 00:00:00 Yes Moderate persist ent asthmatic bronchitis with acute exacerbation 1{puff} Q.5D Inhale 1 Puff by mouth 2 times daily. [facility] ipratropium (ATROVENT) 0.02 % nebulizer solution 2018 00:00:00 Yes RAD (reactive airway disease), severe persistent, uncomplicated .5mg Inhale 2.5 mL by mouth 4 times daily. [facility] alth albuterol 90 mcg/actuation inhaler 2018 00:00:00 00:00:00 No Moderate persistent asthmatic bronchitis with acute exacerbation 2{puff} Inhale 2 Puffs by mouth 4 times daily as needed for Wheezing. [facility] montelukast (SINGULAIR) 10 mg tablet 2018 00:00: 00 2019-10-14 00:00:00 No Moderate persistent asthma without complication 10mg Take 1 tablet by mouth at bedtime nightly. [facility] albuterol (PROVENTIL) 2.5 mg /3 mL (0.083 %) nebulizer solut ion 2018 00:00:00 2019-09-18 00:00:00 No Asthmatic br onchitis, severe persistent, uncomplicated 2.5mg Inhale 3 mL by mouth every 4 hours as needed for Wheezing or Shortness of Breath. [facility] cetirizine (ZYRTEC) 10 mg tablet 2018 00:00:00 2019-08 00:00:00 No Seasonal allergic rhinitis, unspecified trigger 10mg QD Take 1 tablet by mouth daily. [facility] pen needle, diabetic 31 gauge x 3/16" needles 20 01-09-24 00:00:00 2019-09-11 00:00:00 No Type 2 diabetes michaela itus with complication, with long-term current use of insulin Q.5D Inject under the skin 2 times daily. [facility] INSULIN SYRINGE 1mL 30GX5/16" (MONOJECT ULTRACOMFORT INSULIN SYR 1ML 30GX5/16") syringe-needle 2018-09-07 00:00:00 2019-03-15 00:00:00 No Type 2 diabetes mellitus with complication, with long-term current use of insulin 1{each} Use to inject medication 3 times daily. Use a new syringe each time. [facility] lancets 28 gauge 2018-08-11 00:00:00 2019-01-11 00:00:00 No Type 2 diabetes mellitus with complication, with long-term current use of insulin Use 3 times daily [facility] gabapentin (NEURONTIN) 600 mg tablet 2018-08-07 00:00: 00 2019-02-09 00:00:00 No Type 2 diabetes mellitus wit h hyperglycemia, with long-term current use of insulin 600mg Take 1 tablet by mouth at bedtime nightly. [facility] insulin detemir U-100 (LEVEMIR FLEXTOUCH U-100 INSULN) 100 u nit/mL (3 mL) Pen 2018-07-13 00:00:00 2019-05-18 00:00:00 No Type 2 d iabetes mellitus with other specified complication Inject 40 units in the morning and 100 units in the evening, all before meals. [facility] blood glucose meter 2018-07-08 00:00:00 Yes Type 2 diabetes mellitus with complication, with long-term current use of insulin 1{each} Us e as directed [facility] medroxyPROGESTERone (PROVERA) 10 mg tablet 07-03 00:00:00 2018-12-14 00:00:00 No Menorrhagia with regular cycle 10mg QD Take 1 tablet by mouth daily. [facility] ketoconazole (NIZORAL) 2 % shampoo 2018-03-30 00:00:00 201 03-23-02 00:00:00 No Tinea capitis WASH SCALP 3 TIMES WEEKLY FOR SEBORR HEA. [facility] Melatonin 5 mg Tab 2017-11-13 00:00:00 2019-08-26 00:00:00 N o Psychophysiological insomnia 1{tbl} Take 1 tabl et by mouth nightly at bedtime as needed for Other (insomnia). [facility]alt fluticasone (FLONASE) 50 mcg/actuation nasal spray 2017-11-13 00:00:00 2019-02-09 00:00:00 No Seasonal allergic rhinitis, unspecified trigger 2{spray} QD Use 2 Sprays in each nostril daily. [facility] Nebulizer & Compressor For Neb Ruth Ann 2016-07-25 00:00:00 Yes Asthmatic bronchitis, severe persistent, with acute exacerbation 1{device} 1 Device by [facility].(Non-Drug; Combo Route) route 4 times daily. [facility] Acetaminophen/Codeine Phosphate (Tylenol # 3*) 1 Ea TA B Acetaminophen/Codeine Phosphate (Tylenol # 3*) 1 Ea TAB Yes 1 [facility] Acyclovir Acyclovir Yes 800 [facility] Albuterol Sulfate Albuterol Sulfate Yes 1 [facility] Atorvastatin Calcium Atorvastatin Calcium Yes 20 [facility] Clonidine Hcl Clonidine Hcl Yes .1 [facility] Dicyclomine Hcl Dicyclomine Hcl Yes 10 [facility] Fenofibrate Nanocrystallized (Fenofibrate) 145 Mg TABL ET Fenofibrate Nanocrystallized (Fenofibrate) 145 Mg TABLET Yes 145 [facility] Gabapentin Gabapentin Yes 600 [facility] Hydroxyzine Hcl Hydroxyzine Hcl Yes 50 [facility] Insulin Detemir (Levemir Flextouch) 100 Unit/[address]PEN Insulin Detemir (Levemir Flextouch) 100 Unit/1 Ml INSULN.PEN Yes 100 [facility] Insulin Detemir (Levemir Flextouch) 100 Unit/[address]PEN Insulin Detemir (Levemir Flextouch) 100 Unit/1 Ml INSULN.PEN Yes 40 [facility] Ketoconazole (Nizoral) 120 Ml SHAMPOO Ketoconazole (Nizoral) 120 Ml SHAMPOO Yes 1 [facility] Levothyroxine Sodium Levothyroxine Sodium Yes 25 [facility] Linagliptin (Tradjenta) 5 Mg TABLET Linagliptin (Tradjenta) 5 Mg TABL ET Yes 5 [facility] Lisinopril (Prinavil / Zestril) 20 Mg TABLET Lisinopri l (Prinavil / Zestril) 20 Mg TABLET Yes 20 [facility] Mometasone Furoate Mometasone Furoate Yes 1 [facility] Montelukast Sodium Montelukast Sodium Yes 10 [facility] Nifedipine (Nifedipine Er) 90 Mg TAB.ER.24 Nifedipine (Nifedipine Er) 90 Mg TAB.ER.24 Yes 90 [facility] Omeprazole Omeprazole Yes 20 [facility] Furosemide Furosemide 2019-11-26 00:00:00 No 40 [facility] Insulin Regular, Human (Humulin R) 100 Unit/1 Ml VIAL Insulin Regular, Human (Humulin R) 100 Unit/1 Ml VIAL 2019-11-26 00:00:00 No 40 [facility] Potassium Chloride Potassium Chloride 2019-11-26 00:00:00 No 20 [facility] Immunizations Ordered Immunization Name Filled Immunization Name Date Status Comments Source Influenza, Vaccine<FLUCELVAX>(Multi-Dose) 2019-05-03 00:00 :00 Completed [facility] Tropicamide 0.5% Eye-Kylah 15ml 2019-01-08 00:00:00 Complete d [facility] Influenza, Vaccine<FLUCELVAX>(Multi-Dose) 2018-07-13 00:00 :00 Completed [facility] Tropicamide 0.5% Eye-[facility] 15ml 2018-01-26 00:00:00 Complete d [facility] Influenza Vaccine, Seasonal, Injectable 2017-04-24 00:00:0 0 Completed [facility] Ceftriazone 1gm Injection 2016-11-14 00:00:00 Completed [facility] LIDOCAINE (PF) 10 MG/ML (1 %) INJECTION 2016-11-14 00:00:0 0 Completed [facility] Triamcinolone 40mg/ml Inj 2016-11-14 00:00:00 Completed [facility] Pneumococcal 13-valent conj 0.5 mL injection 2016-08-15 00 :00:00 Completed [facility] Influenza Vaccine 2015-06-15 00:00:00 Completed [facility] Triamcinolone 40mg/ml Inj 2015-02-09 00:00:00 Completed [facility] Influenza Vaccine 2014-05-09 00:00:00 Completed [facility] Influenza Vaccine 2013-05-06 00:00:00 Completed [facility] Methylpredinsone Inj 2013-04-02 00:00:00 Completed [facility] Clonidine 0.2mg Tab 2013-04-02 00:00:00 Completed [facility] Clonidine 0.1mg Tab 2012-11-07 00:00:00 Completed [facility] Tdap Tetanus, diphtheria, acellular pertussis Vaccine 2012-10-16 00:00:00 Completed [facility] Clonidine 0.2mg Tab 2012-09-15 00:00:00 Completed [facility] Influenza Vaccine 2011-07-09 00:00:00 Completed [facility] Triamcinolone 40mg/ml Inj 2010-10-19 00:00:00 Completed [facility] Triamcinolone 40mg/ml Inj 2010-10-12 00:00:00 Completed [facility] Ceftriazone 1gm Injection 2010-10-12 00:00:00 Completed [facility] LIDOCAINE (PF) 10 MG/ML (1 %) INJECTION 2010-10-12 00:00:0 0 Completed [facility] Albuterol 0.083% (3ml) 2010-10-12 00:00:00 Completed [facility] Albuterol 0.083% (3ml) 2010-10-12 00:00:00 Completed [facility] Influenza Vaccine 2010-08-21 00:00:00 Completed [facility] PPV 23 Pneumococcal Polysaccaride 2010-08-21 00:00:00 Comp leted [facility] Vital Signs Vital Name Observation Time Observation Value Comments Source Body Temperature 2019-11-26 15:40:00 98.3 [degF] [facility] Weight 2019-11-24 04:54:00 327.38 [lb_av] [facility] BMI (Body Mass Index) 2019-11-24 04:54:00 58.0 kg/m2 [facility] Systolic blood pressure 2019-09-24 10:52:00 141 mm[Hg] [facility] Diastolic blood pressure 2019-09-24 10:52:00 83 mm[Hg] [facility] Heart rate 2019-09-24 10:52:00 79 /min [facility] Body temperature 2019-09-24 10:52:00 36.72 Kaylynn Charla [facility] Respiratory rate 2019-09-24 10:52:00 18 /min Charla is [facility] Body height 2019-09-24 10:52:00 160 cm [facility] Body weight 2019-09-24 10:52:00 144.97 kg [facility] BMI 2019-09-24 10:52:00 56.61 kg/m2 [facility] Oxygen saturation in Arterial blood by Pulse oximetry 09-19 15:02:00 94 /min [facility] Procedures Procedure Date / Time Performed Performing Clinician [facility] e CT of abdomen and pelvis without contrast 2019-11-22 00:00:00 [facility] URINE DRUG SCREEN 2019-08-26 18:09:00 Nikia Mcocy [facility] URINALYSIS 2019-08-26 18:09:00 Nikia Mccoy [facility] h BASIC METABOLIC PANEL 2019-08-26 18:09:00 Nikia Mccoy [facility] LIVER PROFILE 2019-08-26 18:09:00 Nikia Mccoy [facility] h URINALYSIS 2019-08-26 18:09:00 Nikia Mccoy [facility] h URINE CULTURE 2019-08-26 18:09:00 [facility] HEMOGLOBIN A1C 2019-08-09 17:16:00 Renee Corley [facility] URINALYSIS 2019-05-25 20:12:00 [facility] URINALYSIS 2019-05-25 20:12:00 [facility] URINALYSIS MICROSCOPIC-REFLEX 2019-05-25 20:12:00 [facility] URINALYSIS 2019-05-13 19:10:00 [facility] 2019-05-13 19:10:00 [facility] URINE CULTURE 2019-05-13 19:10:00 Monik Thacker [facility] HEPATITIS PANEL 2019-05-03 20:07:00 Carla Hernández [facility] COMPREHENSIVE METABOLIC PANEL 2019-05-03 20:07:00 Carla Hern[facility]dez [facility] CBC/DIFF 2019-05-03 20:07:00 Carla Hernández [facility] CBC 2019-05-03 20:07:00 Carla Hernández [facility] HEMOGLOBIN A1C 2019-04-05 18:54:00 [facility] LIVER PROFILE 2019-04-05 18:54:00 aNdineNikia [facility] BASIC METABOLIC PANEL 2019-04-05 18:54:00 Nadine Nikia [facility] CBC/DIFF 2019-04-05 18:54:00 [facility] 2019-04-05 18:54:00 Nadine Nikiaaquilino Yeung [facility] h URINALYSIS 2019-04-05 18:54:00 [facility] 2019-04-05 18:54:00 Sherry Mccoyaquilino Yeung [facility] h URINE CULTURE 2019-04-05 18:54:00 Sherry Mccoymi [facility] h MAMMO BREAST ULTRASOUND UNILATERAL, LTD 2019-03-22 16:46:38 [facility] DIGITAL 2019-03-22 16:10:59 [facility] 2019-03-03 17:00:00 Sue Guidry [facility] CHLAM/GC DNA AMPLI 2019-03-03 16:32:00 Sue Guidry [facility] GENITAL WET [place] WITH TITI 2019-03-03 16:32:00 Sue Guidry [facility] DIABETIC FOOT EXAM 2019-02-15 20:30:17 Nikia Mccoy OPHTHALMOLOGY RETINAL SCAN 2019-01-08 14:44:02 Nikia Mccoy [facility] LIPID PROFILE 2019-01-08 13:52:00 [facility] THYROID STIMULATING HORMONE (TSH) 2019-01-08 13:52:00 Sherry Mccoy aquilino [facility] FREE T4 2019-01-08 13:52:00 Nikia [facility] BASIC METABOLIC PANEL 2019-01-08 13:52:00 Nadine Nikia [facility] LIVER PROFILE 2019-01-08 13:52:00 Nikia Mccoy [facility] h HEMOGLOBIN A1C 2019-01-08 13:51:00 [facility]-HY[facility]OXY 2019-01-08 13:51:00 Nikia Mccoy [facility] CBC/DIFF 2019-01-08 13:51:00 [facility] 2019-01-08 13:51:00 Nikia Mccoy [facility] XRAY CHEST 2 VIEWS 2018-12-14 15:32:22 Kadeem Fitzpatrick [facility] Planned Activity Planned Date Details Comments Source Scheduled Test 2022-08-03 00:00:00 Colonoscopy 3yr [c ode = Colonoscopy 3yr] [facility] Scheduled Test 2021-03-22 00:00:00 Cervical Cancer Sc rn (5 Yrs) [code = Cervical Cancer Scrn (5 Yrs)] [facility] Scheduled Test 2020-08-09 00:00:00 DM HGBA1C (Yearly) [code = DM HGBA1C (Yearly)] [facility] Scheduled Test 2020-04-13 00:00:00 IMM Influenza Seas onal Apr to September (>/= 19 yrs) [code = IMM Influenza Seasonal Apr to September (>/= 19 yrs)] [facility] Scheduled Test 2020-03-22 00:00:00 Breast Cancer Scrn (Yearly) [code = Breast Cancer Scrn (Yearly)] [facility] Scheduled Test 2020-02-16 00:00:00 DM Foot Exam (Year ly) [code = DM Foot Exam (Yearly)] [facility] Scheduled Test 2020-01-09 00:00:00 CORONARY ARTERY DI SEASE AGE 18 AND UP [code = CORONARY ARTERY DISEASE AGE 18 AND UP] [facility] Scheduled Test 2020-01-09 00:00:00 DM Retinal Exam (Y early) [code = DM Retinal Exam (Yearly)] [facility] Scheduled Test Serum or plasma tr ough vancomycin level at trough (mass/volume) [code = 4092-3] [facility] Instructions Skin Abscess [facility] Instructions Rash - Nonspecific [facility] Encounters Start Date/Time End Date/Time Encounter Type Admission Type Attendi [facility] Facility Care Department Encounter ID Source 2019-11-22 20:57:00 2019-11-26 19:46:00 Discharged Inpatient 1 HARLAN NGUYỄN [facility] [id number] [facility] 2019-11-18 00:00:00 2019-11-18 00:00:00 Outpatient [facility] [id number] [facility] 2019-09-24 10:52:11 2019-09-24 10:52:11 Outpatient [facility] [id number] [facility] 2019-09-23 00:00:00 2019-09-23 00:00:00 Outpatient [facility] [id number] [facility] 2019-09-22 00:00:00 2019-09-22 00:00:00 Outpatient [facility] [id number] [facility] 2019-09-20 15:02:05 2019-09-20 15:02:05 Outpatient [facility] [id number] [facility] 2019-09-01 00:00:00 2019-09-01 00:00:00 Outpatient [facility] [id number] [facility] 2019-08-26 12:08:26 2019-08-26 12:08:26 Outpatient [facility] [id number] [facility] 2019-08-26 10:40:08 2019-08-26 10:40:08 Outpatient [facility] [id number] [facility] 2019-08-26 00:00:00 2019-08-26 00:00:00 Outpatient [facility] [id number] [facility] 2019-08-09 11:15:46 2019-08-09 11:15:46 Outpatient [facility] [id number] [facility] 2019-08-09 10:19:01 2019-08-09 10:19:01 Outpatient [facility] [id number] [facility] 2019-08-09 00:00:00 2019-08-09 00:00:00 Outpatient [facility] [id number] [facility] 2019-07-22 11:54:11 2019-07-22 11:54:11 Outpatient [facility] [id number] [facility] 2019-07-22 11:00:23 2019-07-22 11:00:23 Outpatient [facility] [id number] [facility] 2019-06-28 00:00:00 2019-06-28 00:00:00 Outpatient [facility] [id number] [facility] 2019-06-16 00:00:00 2019-06-16 00:00:00 Outpatient [facility] [id number] [facility] 2019-06-04 00:00:00 2019-06-04 00:00:00 Outpatient [facility] [id number] [facility] 2019-05-25 13:07:41 2019-05-25 13:07:41 [facility] [facility] [id number] [facility] 2019-05-14 00:00:00 2019-05-14 00:00:00 Outpatient [facility] [id number] [facility] 2019-05-14 00:00:00 2019-05-14 00:00:00 Outpatient [facility] [id number] [facility] 2019-05-13 14:10:19 2019-05-13 14:10:19 Outpatient [facility] [id number] [facility] 2019-05-13 13:22:07 2019-05-13 13:22:07 Outpatient [facility] [id number] [facility] 2019-05-13 00:00:00 2019-05-13 00:00:00 Outpatient [facility] [id number] [facility] 2019-05-03 15:07:21 2019-05-03 15:07:21 Outpatient [facility] [id number] [facility] 2019-05-03 13:55:13 2019-05-03 13:55:13 Outpatient [facility] [id number] [facility] 2019-05-03 00:00:00 2019-05-03 00:00:00 Outpatient [facility] [id number] [facility] 2019-04-30 00:00:00 2019-04-30 00:00:00 Outpatient [facility] [id number] [facility] 2019-04-30 00:00:00 2019-04-30 00:00:00 Outpatient [facility] [id number] [facility] 2019-04-22 13:19:50 2019-04-22 13:19:50 Outpatient [facility] [id number] [facility] 2019-04-08 00:00:00 2019-04-08 00:00:00 Outpatient [facility] [id number] [facility] 2019-04-05 13:51:24 2019-04-05 13:51:24 Outpatient [facility] [id number] [facility] 2019-04-05 12:46:24 2019-04-05 12:46:24 Outpatient [facility] [id number] [facility] 2019-04-05 00:00:00 2019-04-05 00:00:00 Outpatient [facility] [id number] [facility] 2019-03-22 09:36:10 2019-03-22 09:36:10 Outpatient [facility] [id number] [facility] 2019-03-22 09:35:51 2019-03-22 09:35:51 Outpatient [facility] [id number] [facility] 2019-03-03 10:18:48 2019-03-03 10:18:48 Outpatient [facility] [id number] [facility] 2019-03-03 00:00:00 2019-03-03 00:00:00 Outpatient [facility] [id number] [facility] 2019-02-15 14:47:15 2019-02-15 14:47:15 Outpatient [facility] [id number] [facility] 2019-02-11 00:00:00 2019-02-11 00:00:00 Outpatient [facility] [id number] [facility] 2019-02-11 00:00:00 2019-02-11 00:00:00 Outpatient [facility] [id number] [facility] 2019-01-29 00:00:00 2019-01-29 00:00:00 Outpatient [facility] [id number] [facility] 2019-01-29 00:00:00 2019-01-29 00:00:00 Outpatient [facility] [id number] [facility] 2019-01-08 09:00:51 2019-01-08 09:00:51 Outpatient [facility] [id number] [facility] 2019-01-08 08:49:29 2019-01-08 08:49:29 Outpatient [facility] [id number] [facility] 2019-01-08 00:00:00 2019-01-08 00:00:00 Outpatient [facility] [id number] [facility] 2019-01-08 00:00:00 2019-01-08 00:00:00 Outpatient [facility] [id number] [facility] 2019-01-08 00:00:00 2019-01-08 00:00:00 Outpatient [facility] [id number] [facility] 2018-12-17 00:00:00 2018-12-17 00:00:00 Outpatient [facility] [id number] [facility] 2018-12-16 00:00:00 2018-12-16 00:00:00 Outpatient [facility] [id number] [facility] 2018-12-16 00:00:00 2018-12-16 00:00:00 Outpatient [facility] [id number] [facility] 2018-12-14 10:25:36 2018-12-14 10:25:36 Outpatient [facility] [id number] [facility] 2018-12-14 08:51:48 2018-12-14 08:51:48 Outpatient [facility] [id number] [facility] 2018-12-03 00:00:00 2018-12-03 00:00:00 Outpatient [facility] [id number] [facility] 2018-11-30 00:00:00 2018-11-30 00:00:00 Outpatient [facility] [id number] [facility] 2018-11-19 16:42:28 2018-11-19 16:42:28 Outpatient [facility] [id number] [facility] 2018-11-19 14:04:12 2018-11-19 14:04:12 Outpatient [facility] [id number] [facility] 2018-11-18 00:00:00 2018-11-18 00:00:00 Outpatient [facility] [id number] [facility] 2018-11-18 00:00:00 2018-11-18 00:00:00 Outpatient [facility] [id number] [facility] 2018-11-17 13:05:44 2018-11-17 13:05:44 Outpatient [facility] [id number] [facility] 2018-11-11 14:52:54 2018-11-11 14:52:54 Outpatient [facility] [id number] [facility] 2018-11-11 12:55:18 2018-11-11 12:55:18 Outpatient [facility] [id number] [facility] 2018-11-04 00:00:00 2018-11-04 00:00:00 Outpatient [facility] [id number] [facility] 2018-10-30 12:08:49 2018-10-30 12:08:49 Outpatient [facility] [id number] [facility] 2018-10-20 14:51:05 2018-10-20 14:51:05 Outpatient [facility] [id number] [facility] 2018-10-20 13:37:40 2018-10-20 13:37:40 Outpatient [facility] [id number] [facility] 2018-10-09 09:22:36 2018-10-09 09:22:36 Outpatient [facility] [id number] [facility] 2018-10-08 11:41:18 2018-10-08 11:41:18 Outpatient [facility] [id number] [facility] 2018-10-08 00:00:00 2018-10-08 00:00:00 Outpatient [facility] [id number] [facility] 2018-09-28 08:50:26 2018-09-28 08:50:26 Outpatient [facility] [id number] [facility] 2018-09-21 00:00:00 2018-09-21 00:00:00 Outpatient [facility] [id number] [facility] 2018 14:51:22 2018 14:51:22 Outpatient [facility] [id number] [facility] 2018-09-07 15:22:38 2018-09-07 15:22:38 Outpatient [facility] [id number] [facility] 2018-09-07 13:44:27 2018-09-07 13:44:27 Outpatient [facility] [id number] [facility] 2018-09-03 00:00:00 2018-09-03 00:00:00 Outpatient [facility] [id number] [facility] 2018-08-20 00:00:00 2018-08-20 00:00:00 Outpatient [facility] [id number] [facility] 2018-08-13 00:00:00 2018-08-13 00:00:00 Outpatient [facility] [id number] [facility] 2018-07-31 00:00:00 2018-07-31 00:00:00 Outpatient [facility] [id number] [facility] 2018-07-23 00:00:00 2018-07-23 00:00:00 Outpatient [facility] [id number] [facility] 2018-07-15 14:04:51 2018-07-15 14:04:51 Outpatient [facility] [id number] [facility] 2018-07-13 11:49:05 2018-07-13 11:49:05 Outpatient [facility] [id number] [facility] 2018-07-02 00:00:00 2018-07-02 00:00:00 Outpatient [facility] [id number] [facility] 2018-06-25 00:00:00 2018-06-25 00:00:00 Outpatient [facility] [id number] [facility] 2018-05-27 00:00:00 2018-05-27 00:00:00 Outpatient [facility] [id number] [facility] 2018-05-08 00:00:00 2018-05-08 00:00:00 Outpatient [facility] [id number] [facility] 2018-05-04 00:00:00 2018-05-04 00:00:00 Outpatient [facility] [id number] [facility] 2018-05-01 00:00:00 2018-05-01 00:00:00 Outpatient [facility] [id number] [facility] 2018-04-23 00:00:00 2018-04-23 00:00:00 Outpatient [facility] [id number] [facility] 2018-04-22 00:00:00 2018-04-22 00:00:00 Outpatient [facility] [id number] [facility] 2018-04-20 00:00:00 2018-04-20 00:00:00 Outpatient [facility] [id number] [facility] 2018-04-20 00:00:00 2018-04-20 00:00:00 Outpatient [facility] [id number] [facility] 2018-04-17 00:00:00 2018-04-17 00:00:00 Outpatient [facility] [id number] [facility] 2018-04-13 00:00:00 2018-04-13 00:00:00 Outpatient [facility] [id number] [facility] 2018-04-09 00:00:00 2018-04-09 00:00:00 Outpatient [facility] [id number] [facility] 2018-04-07 00:00:00 2018-04-07 00:00:00 Outpatient [facility] [id number] [facility] 2018-04-07 00:00:00 2018-04-07 00:00:00 Outpatient [facility] [id number] [facility] 2018-03-30 13:49:36 2018-03-30 13:49:36 Outpatient [facility] [id number] [facility] 2018-03-25 00:00:00 2018-03-25 00:00:00 Outpatient [facility] [id number] [facility] 2018-03-20 13:00:27 2018-03-20 13:00:27 Outpatient [facility] [id number] [facility] 2018-03-16 00:00:00 2018-03-16 00:00:00 Outpatient [facility] [id number] [facility] 2018-03-10 00:00:00 2018-03-10 00:00:00 Outpatient [facility] [id number] [facility] 2018-02-26 14:10:38 2018-02-26 14:10:38 Outpatient [facility] [id number] [facility] 2018-02-19 00:00:00 2018-02-19 00:00:00 Outpatient [facility] [id number] [facility] 2018-02-13 00:00:00 2018-02-13 00:00:00 Outpatient [facility] [id number] [facility] 2018-02-10 00:00:00 2018-02-10 00:00:00 Outpatient [facility] [id number] [facility] 2018-02-09 00:00:00 2018-02-09 00:00:00 Outpatient [facility] [id number] [facility] 2018-02-09 00:00:00 2018-02-09 00:00:00 Outpatient [facility] [id number] [facility] 2018-01-29 12:54:51 2018-01-29 12:54:51 Outpatient [facility] [id number] [facility] 2018-01-26 11:47:35 2018-01-26 11:47:35 Outpatient [facility] [id number] [facility] 2018-01-26 09:23:23 2018-01-26 09:23:23 Outpatient [facility] [id number] [facility] 2018-01-19 09:20:12 2018-01-19 09:20:12 Outpatient [facility] [id number] [facility] 2018-01-19 08:02:16 2018-01-19 08:02:16 Outpatient [facility] [id number] [facility] 2017-12-15 00:00:00 2017-12-15 00:00:00 Outpatient [facility] [id number] [facility] 2017-11-13 11:13:36 2017-11-13 11:13:36 Outpatient [facility] [id number] [facility] 2017-11-07 00:00:00 2017-11-07 00:00:00 Outpatient [facility] [id number] [facility] 2017-10-30 00:00:00 2017-10-30 00:00:00 Outpatient [facility] [id number] [facility] 2017-10-23 00:00:00 2017-10-23 00:00:00 Outpatient [facility] [id number] [facility] 2017-10-16 15:43:24 2017-10-16 15:43:24 Outpatient [facility] [id number] [facility] 2017-10-16 00:00:00 2017-10-16 00:00:00 Outpatient [facility] [id number] [facility] 2017-09-02 11:14:56 2017-09-02 11:14:56 Outpatient [facility] [id number] [facility] 2017-09-02 09:48:40 2017-09-02 09:48:40 Outpatient [facility] [id number] [facility] 2017-09-02 00:00:00 2017-09-02 00:00:00 Outpatient [facility] [id number] [facility] 2017-08-28 00:00:00 2017-08-28 00:00:00 Outpatient [facility] [id number] [facility] 2017-08-14 15:06:22 2017-08-14 15:06:22 Outpatient [facility] [id number] [facility] 2017-06-26 00:00:00 2017-06-26 00:00:00 Outpatient [facility] [id number] [facility] 2017-06-26 00:00:00 2017-06-26 00:00:00 Outpatient [facility] [id number] [facility] 2017-06-18 00:00:00 2017-06-18 00:00:00 Outpatient [facility] [id number] [facility] 2017-06-16 00:00:00 2017-06-16 00:00:00 Outpatient [facility] [id number] [facility] 2017-05-19 00:00:00 2017-05-19 00:00:00 Outpatient [facility] [id number] [facility] 2017-04-24 10:42:54 2017-04-24 10:42:54 Outpatient [facility] [id number] [facility] 2017-04-24 08:40:25 2017-04-24 08:40:25 Outpatient [facility] [id number] [facility] 2012-11-19 08:14:32 2012-11-19 08:14:32 Outpatient [facility] [id number] [facility] Results Test Description Test Time Test Comments Results Result Comments Source Capillary blood glucose measurement by glucometer (mas s/volume) 2019-11-26 15:44:00 Test Item Bedside Glucose (test code = 77268-5) 221 [facility] (number/volume)2019-11-26 06:00:00* Test Item Value Reference Range Interpretation Comments White Blood Count (test code = 6690-2) 4.66 [facility] (number/volume)2019-11-26 06:00:00* Test Item Value Reference Range Interpretation Comments Red Blood Count (test code = 789-8) 3.98 [facility] (moles/volume)2019-11-26 06:00:00* Test Item Value Reference Range Interpretation Comments Hemoglobin (test code = 95331-9) 10.1 [facility] hematocrit (volume fraction)2019-11-26 06:00:00* Test Item Value Reference Range Interpretation Comments Hematocrit (test code = 4544-3) 33.1 [facility] CenterAutom[facility] erythrocyte mean corpuscular ultrji6759-29-59 06:00:00* Test Item Value Reference Range Interpretation Comments Mean Corpuscular Volume (test code = 787-2) 83.2 [facility] mean corpuscular hemoglobin (mass per erythrocyte)2019-11-26 06:00:00* Test Item Value Reference Range Interpretation Comments Mean Corpuscular Hemoglobin (test code = 785-6) 25.4 [facility] eryth[facility] mean corpuscular hemoglobin concentration measurement (mass/volume)2019-11-26 06:00:00* Test Item Value Reference Range Interpretation Comments Mean Corpuscular Hemoglobin Concent (test code = 786-4) 30.5 [facility] CenterRDW UcxWo-[id number] 06:00:00* Test Item Value Reference Range Interpretation Comments Red Cell Distribution Width (test code = 64900-8) 15.6 [facility] platelet count (count/volume)2019-11-26 06:00:00* Test Item Value Reference Range Interpretation Comments Platelet Count (test code = 777-3) 306 [facility] CenterAutom[facility] blood segmented neutrophil count as percentage of total xrtwsvpkat9327-99-16 06:00:00* Test Item Value Reference Range Interpretation Comments Neutrophils (%) (Auto) (test code = 39892-2) 52.6 [facility]Aut[facility] blood lymphocyte count as percentage ot total mviyacnvbc8589-55-17 06:00:00* Test Item Value Reference Range Interpretation Comments Lymphocytes (%) (Auto) (test code = 736-9) 27.0 [facility] CenterAutom[facility] blood monocyte count as percentage of total qdwwkihzgj8176-93-00 06:00:00* Test Item Value Reference Range Interpretation Comments Monocytes (%) (Auto) (test code = 5905-5) 14.2 [facility] CenterAutom[facility] blood eosinophil count as percentage of total xciyavrmnk8617-27-22 06:00:00* Test Item Value Reference Range Interpretation Comments Eosinophils (%) (Auto) (test code = 713-8) 3.6 [facility] CenterAutom[facility] blood basophil count as percentage of total pojhqibfsg0019-43-31 06:00:00* Test Item Value Reference Range Interpretation Comments Basophils (%) (Auto) (test code = 706-2) 1.1 [facility] CenterFluoroscopic procedure less than one hour rzdswqsm8285-44-95 06:00:00* Test Item Value Reference Range Interpretation Comments IM GRANULOCYTES % (test code = IM GRANULOCYTES %) 1.5 [facility] CenterAutom[facility] blood neutrophil count 2019-11-26 06:00:00* Test Item Value Reference Range Interpretation Comments Neutrophils # (Auto) (test code = 751-8) 2.5 [facility] CenterBlood lymphocytes count (number/volume) 2019-11-26 06:00:00* Test Item Value Reference Range Interpretation Comments Lymphocytes # (Auto) (test code = 62331-7) 1.3 [facility] CenterBlood monocytes automated count (number/volume)2019-11-26 06:00:00* Test Item Value Reference Range Interpretation Comments Monocytes # (Auto) (test code = 742-7) 0.7 [facility] CenterAutom[facility] blood eosinophil count 2019-11-26 06:00:00* Test Item Value Reference Range Interpretation Comments Eosinophils # (Auto) (test code = 711-2) 0.2 [facility] CenterAutom[facility] blood basophil count (count/volume)2019-11-26 06:00:00* Test Item Value Reference Range Interpretation Comments Basophils # (Auto) (test code = 704-7) 0.1 [facility] CenterFluoroscopic procedure less than one hour kjvvpeyt7918-19-41 06:00:00* Test Item Value Reference Range Interpretation Comments Absolute Immature Granulocyte (auto (cortney t code = Absolute Immature Granulocyte (auto) 0.07 [facility] sodium [facility] (moles/volume)2019-11-26 06:00:00* Test Item Value Reference Range Interpretation Comments Sodium Level (test code = 2951-2) 136 [facility] potassium measurement (moles/volume)2019-11-26 06:00:00* Test Item Value Reference Range Interpretation Comments Potassium Level (test code = 2823-3) 4.0 [facility] chloride measurement (moles/volume)2019-11-26 06:00:00* Test Item Value Reference Range Interpretation Comments Chloride Level (test code = 2075-0) 105 [facility] plasma carbon dioxide, total measurement (moles/volume)2019-11-26 06:00:00* Test Item Value Reference Range Interpretation Comments Carbon Dioxide Level (test code = 2028-9) 26 [facility] anion dsz6371-14-56 06:00:00* Test Item Value Reference Range Interpretation Comments Anion Gap (test code = 00204-7) 9.0 [facility] urea nitrogen measurement (mass/volume)2019-11-26 06:00:00* Test Item Value Reference Range Interpretation Comments Blood Urea Nitrogen (test code = 3094-0) 19 [facility] creatinine measurement (mass/volume)2019-11-26 06:00:00* Test Item Value Reference Range Interpretation Comments Creatinine (test code = 2160-0) 1.12 [facility] urea nitrogen/creatinine mass kupeu8923-93-09 06:00:00* Test Item Value Reference Range Interpretation Comments BUN/Creatinine Ratio (test code = 3097-3) 17 [facility] CenterEstimated glomerular filtration rate (GFR) qlalszrmmxsui2599-80-84 06:00:00* Test Item Value Reference Range Interpretation Comments Estimat Glomerular Filtration Rate (test code = 635295877) 51 [facility] CenterGlucose ekkzxjsgygf4991-67-13 06:00:00* Test Item Value Reference Range Interpretation Comments Glucose Level (test code = ESJ3727) 253 [facility] calcium measurement (mass/volume)2019-11-26 06:00:00* Test Item Value Reference Range Interpretation Comments Calcium Level (test code = 81223-7) 8.0 [facility] total bilirubin measurement (mass/volume)2019-11-26 06:00:00* Test Item Value Reference Range Interpretation Comments Total Bilirubin (test code = 1975-2) 0.2 [facility] CenterFluoroscopic procedure less than one hour pcohtnep6585-39-98 06:00:00* Test Item Value Reference Range Interpretation Comments Aspartate Amino Transf (AST/SGOT) (test code = Aspartate Amino Transf (AST/SGOT)) 33 [facility] alanine aminotransferase measurement (enzymatic activity/volume)2019-11-26 06:00:00* Test Item Value Reference Range Interpretation Comments Alanine Aminotransferase (ALT/SGPT) (test code = 1742-6) 77 [facility] protein measurement (mass/volume)2019-11-26 06:00:00* Test Item Value Reference Range Interpretation Comments Total Protein (test code = 2885-2) 5.7 [facility] albumin measurement (mass/volume)2019-11-26 06:00:00* Test Item Value Reference Range Interpretation Comments Albumin (test code = 1751-7) 2.3 [facility] CenterPlasma globulin measurement (mass/volume) 2019-11-26 06:00:00* Test Item Value Reference Range Interpretation Comments Globulin (test code = 03330-1) 3.4 [facility] albumin/globulin mass ycyzj3450-24-00 06:00:00* Test Item Value Reference Range Interpretation Comments Albumin/Globulin Ratio (test code = 1759-0) 0.7 [facility] alkaline phosphatase measurement (enzymatic activity/volume)2019-11-26 06:00:00* Test Item Value Reference Range Interpretation Comments Alkaline Phosphatase (test code = 6768-6) 82 [facility] CenterFluoroscopic procedure less than one hour grhqbjdg6095-36-35 06:55:00* Test Item Value Reference Range Interpretation Comments Hemoglobin A1c Percent (test code = Hemoglobin A1c Percent) 10.8 [facility] CenterPhosphorus zrufpbobicz5310-08-26 06:55:00 * Test Item Value Reference Range Interpretation Comments Phosphorus Level (test code = UUE8059) 2.9 [facility] magnesium measurement (mass/volume)2019-11-24 06:55:00* Test Item Value Reference Range Interpretation Comments Magnesium Level (test code = 47437-5) 1.9 [facility] triglyceride measurement (mass/volume)2019-11-24 06:55:00* Test Item Value Reference Range Interpretation Comments Triglycerides Level (test code = 2571-8) 149 [facility] cholesterol measurement (mass/volume)2019-11-24 06:55:00* Test Item Value Reference Range Interpretation Comments Cholesterol Level (test code = 2093-3) 140 [facility] cholesterol in LDL measurement (mass/volume)2019-11-24 06:55:00* Test Item Value Reference Range Interpretation Comments LDL Cholesterol (test code = 2089-1) 54 [facility] cholesterol in HDL measurement (mass/volume)2019-11-24 06:55:00* Test Item Value Reference Range Interpretation Comments HDL Cholesterol (test code = 2085-9) 56 [facility] total cholesterol/cholesterol in HDL mass mzppj8339-62-11 06:55:00* Test Item Value Reference Range Interpretation Comments Cholesterol/HDL Ratio (test code = 9830-1) 2.5 [facility] plasma thyrotropin measurement by detection limit <= 0.005 miu/l (units/volume)2019-11-24 06:55:00* Test Item Value Reference Range Interpretation Comments Thyroid Stimulating Hormone (TSH) (test code = 83017-9) 2.685 [facility] trough vancomycin level at trough (mass/volume)2019-11-24 06:55:00* Test Item Value Reference Range Interpretation Comments Vancomycin Level Trough (test code = 4092-3) 7.6 [facility] lgpblfkbctlcq5281-86-25 01:17:00* Test Item Value Reference Range Interpretation Comments Urine Color (test code = 5778-6) YELLOW [facility] bxdysqb4644-52-79 01:17:00* Test Item Value Reference Range Interpretation Comments Urine Clarity (test code = 19430-2) CLEAR [facility] gravity of Urine by Test strip 2019-11-24 01:17:00* Test Item Value Reference Range Interpretation Comments Urine Specific Kinsley (test code = 5811-5) 1.025 [facility] by automated test khvev4276-79-72 01:17:00* Test Item Value Reference Range Interpretation Comments Urine pH (test code = 24910-5) 6.5 [facility] leukocyte esterase detection by cihrdzxf6631-11-11 01:17:00* Test Item Value Reference Range Interpretation Comments Urine Leukocyte Esterase (test code = 5799-2) NEGATIVE [facility] nitrite mtqydfyqg1600-20-37 01:17:00* Test Item Value Reference Range Interpretation Comments Urine Nitrite (test code = 06201-6) NEGATIVE [facility] protein measurement by test strip (mass/volume)2019-11-24 01:17:00* Test Item Value Reference Range Interpretation Comments Urine Protein (test code = 5804-0) >=300 [facility] glucose muwwnveru6498-64-16 01:17:00* Test Item Value Reference Range Interpretation Comments Urine Glucose (UA) (test code = 2349-9) 2+ [facility] ketones detection by automated test zxdor6421-51-00 01:17:00* Test Item Value Reference Range Interpretation Comments Urine Ketones (test code = 48406-3) NEGATIVE [facility] urobilinogen measurement by test strip (mass/volume)2019-11-24 01:17:00* Test Item Value Reference Range Interpretation Comments Urine Urobilinogen (test code = 69195-2) 0.2 [facility] total bilirubin measurement (mass/volume)2019-11-24 01:17:00* Test Item Value Reference Range Interpretation Comments Urine Bilirubin (test code = 1978-6) NEGATIVE [facility] erythrocytes rvosesmyb9892-43-31 01:17:00* Test Item Value Reference Range Interpretation Comments Urine Blood (test code = 84359-3) NEGATIVE [facility] CenterAutomated urine sediment leukocyte count by microscopy (number/high power field)2019-11-24 01:17:00* Test Item Value Reference Range Interpretation Comments Urine WBC (test code = 5821-4) 06-02 [facility] CenterErythrocytes detection in urine sediment by light vebikksrhy5999-14-25 01:17:00* Test Item Value Reference Range Interpretation Comments Urine RBC (test code = 51828-8) - [facility] CenterBacteria detection in urine sediment by light xrweycasjb7545-90-09 01:17:00* Test Item Value Reference Range Interpretation Comments Urine Bacteria (test code = 36514-8) FEW [facility] CenterEpithelial cells detection in urine sediment by light xbbormkpzx1308-84-60 01:17:00* Test Item Value Reference Range Interpretation Comments Urine Epithelial Cells (test code = 67255-2) FEW [facility] CenterYeast detection in urine sediment by light tvamivputl2113-04-67 01:17:00* Test Item Value Reference Range Interpretation Comments Urine Yeast (test code = 33027-4) FEW [facility] CenterCT ABDOMEN/PELVIS [id number] 23:15:00 [facility] [address] [address] Patient Name: MEÑO MATA MR #: [id number] : 1970 Age/Sex: 49/F Req #: [id number] Adm Physician: HARLAN NGUYỄN MD Ordered by: JACQUELINE DIOP DO Report #: [id number] Location: [facility] Room/Bed: [place] [address] Procedure: CT/CT ABDOMEN/PE LVIS WO Exam Date: [...] ed By: SLY WALKER MD on 11/22/19 9021 Transcribed By: DAVID on 11/22/19 2 319 COPY TO: JACQUELINE DIOP Fluoroscopic procedure less than one hour rwzdzxvc6469-61-28 22:37:00* Test Item Value Reference Range Interpretation Comments Coronavirus (PCR) (test code = Coronavirus (PCR)) NOT DETECTED [facility] CenterFluoroscopic procedure less than one hour gjwsooea0882-94-68 20:40:00* Test Item Value Reference Range Interpretation Comments Lactic Acid Level (test code = Lactic Acid Level) 1.8 [facility] CenterBlood yntftkr1507-46-46 20:40:00* Test Item Value Reference Range Interpretation Comments Blood Culture (test code = 14546360) NO GROWTH AFTER 72 HOURS [facility] CenterBASIC METABOLIC [id number] 14:32:00 * Test Item Value Reference Range [...] code = CA) 8.9 mg/dL 8.5-10.1 N [id number]-P9311-44-10 14:32:00* Test Item Value Reference Range Interpretation Comments TROPONIN-I (test code = TROPI) <0.015 ng/mL 0-0.045 N BASIC METABOLIC [id number] 14:26:00* Test Item Value Reference Range Interpretation [...] CALCIUM (test code = CA) mg/dL 8.5-10.1 ZYDMBRAR-H4990-72-10 14:26:00* Test Item Value Reference Range Interpretation Comments TROPONIN-I (test code = TROPI) ng/mL 0-0.045 - XR CHEST 1 [id number] 14:24:00 FAX: Lacho Ambrosio MD [phone] [place]: St: REG Name: MEÑO RYDER [facility] : [birth year] Age/S: 49/F [address] [facility] Unit #: [id number] Loc: [place] [address] Phys: Lacho Ambrosio MD Acct: [id number] Dis Date: Status: REG ER PHONE #: [phone] Exam Date: 10/22/2019 1403 FAX #: [phone] Reason: CHEST PAIN EXAMS: CPT CODE: [id number] XR CHEST 1 V 05072 HISTORY: Chest pain. COMPARISON: September 13, 2019. Location: [facility]. No acute infiltrates, effusion or congestion is noted. Suboptimal inspiration. Depe ndent changes. Cardiomegaly. IMPRESSION: No acute infiltrates, effusion or congestion. at 1424 Reported and sig ezequiel by: Jamil Norman M.D. CC: Lacho Ambrosio MD Technologist: RT LINDA(R) Trnscrd Date/Time/By: 10/22/2019 (3704) : By: [email or web address].[email or web address] Orig Print D/T: S: 10/22/2019 (4054) PAGE 1 Signed Report CBC W/O DIFF [...] MPV) 9.7 fL 6.7-11.0 N CBC W/O [id number] 14:10:00* Test Item Value Reference Range Interpretation [...] VOLUME (test code = MPV) fL 6.7-11.0 [id number] 16:39:00* Test Item Value Reference Range Interpretation Comments GLUBED (test code = GLUBED) 228 mg/dL 74-106 H Performed by certified ammonia nitrate operator at [facility] [id number] 14:14:00* Test Item Value Reference Range Interpretation Comments GLUBED (test code = GLUBED) 243 mg/dL 74-106 H Performed by certified ammonia nitrate operator at [facility] WOYHXMBE-K7141-70-03 12:57:00* Test Item Value Reference Range Interpretation Comments TROPONIN-I (test code = TROPI) 0.056 ng/mL 0-0.045 HH COMMENTS TO MEDICAL RESEARCHER: COLLECT 3 HOURS AFTER PREVIOUS SAMPLEBASIC METABOLIC [id number] 12:50:00* Test Item Value Reference Range Interpretation [...] result is a direct measurement.========= CBC W/AUTO [id number] 12:41:00* Test Item Value Reference Range Interpretation [...] DIFF REQUIRED (test code = MDIFF) NO [id number] 09:13:00* Test Item Value Reference Range Interpretation Comments GLUBED (test code = GLUBED) 181 mg/dL 74-106 H Performed by certified ammonia nitrate operator at [facility] WTBHNLGJ-J2420-48-03 06:09:00* Test Item Value Reference Range Interpretation Comments TROPONIN-I (test code = TROPI) 0.078 ng/mL 0-0.045 HH PREVIOUSLY CALLED COMMENTS TO MEDICAL RESEARCHER: COLLECT 3 HOURS AFTER PREVIOUS SAMPLEPROTHROMBIN [id number] 23:27:00* Test Item Value Reference Range Interpretation [...] (2.5-3.5) IS PATIENT ON ANTICOAGULANTS? NTHROMBOPLASTIN TIME [id number] 23:27:00* Test Item Value Reference Range Interpretation Comments THROMBOPLASTIN TIME PARTIAL (test code = PTT) 34.3 seconds 25.0-36. 5 N IS PATIENT ON ANTICOAGULANTS? NHEPATIC FUNCTION [id number] 23:17:00* Test Item Value Reference Range Interpretation [...] due to change in reagent. THYROID STIMULATING [id number] 23:17:00* Test Item Value Reference Range Interpretation Comments THYROID STIMULATING HORMONE (test code = TSH) 1.660 uIU/mL 0.36-3.7 4 N TSH REFERENCE RANGES: EUTHYROID: 0.35 - 4.3 mIU/mL HYPO : > 5.5 mIU/mL HYPER : < 0.35 mIU/mL [id number] 22:25:00* Test Item Value Reference Range Interpretation Comments GLUBED (test code = GLUBED) 106 mg/dL 74-106 N Performed by certified ammonia nitrate operator at [facility] BASIC METABOLIC [id number] 19:03:00* Test Item Value Reference Range Interpretation [...] code = CA) 9.0 mg/dL 8.5-10.1 N [id number] 19:03:00* Test Item Value Reference Range Interpretation Comments TROPONIN-I (test code = TROPI) 0.180 ng/mL 0-0.045 Results called to [id number] by V.[email or web address] 09/13/19 1902Critical results verified and read back by Nurse? Y BASIC METABOLIC [id number] 18:50:00* Test Item Value Reference Range Interpretation [...] CALCIUM (test code = CA) mg/dL 8.5-10.1 [id number] 18:50:00* Test Item Value Reference Range Interpretation Comments TROPONIN-I (test code = TROPI) ng/mL 0-0.045 BASIC METABOLIC [id number] 18:50:00* Test Item Value Reference Range Interpretation [...] code = CA) 9.0 mg/dL 8.5-10.1 N [id number]-[id number] 18:50:00* Test Item Value Reference Range Interpretation Comments TROPONIN-I (test code = TROPI) ng/mL 0-0.045 CBC W/O [id number] 18:43:00* Test Item Value Reference Range Interpretation [...] MPV) 9.5 fL 6.7-11.0 N CBC W/O [id number] 18:41:00* Test Item Value Reference Range Interpretation [...] MPV) fL 6.7-11.0 - XR CHEST 1 [id number] 14:55:00 FAX: Koby Hadley MD [place]: St: PRE Name: MEÑO RYDER [facility] : [birth year] Age/S: 48/F [address] [facility] Unit #: [id number] Loc: [place] [address] Phys: Koby Hadley MD Acct: [id number] Dis Date: Status: PRE ER PHONE #: [phone] Exam Date: 09/13/2019 1445 FAX #: [phone] Reason: CHEST PAIN EXAMS: CPT CODE: [id number] XR CHEST 1 V 76894 HISTORY: Chest pain. COMPARISON: February 16, 2018. Location: [facility]. No acute infiltrates, effusion or congestion is noted. Suboptimal inspiration. Dep endent changes. Mild cardiomegaly. IMPRESSION: No acute infiltrates, effusion or congestion. Electronically Sign ed by Miriam Norman on 09/13/2019 at 5219 Reported a nd signed by: Jamil Norman M.D. CC: Koby Hadley MD Technologist: JORGE GUTIERREZ RT(R) Trnscrd Date/Time/By: 09/13/2019 (3233) : By: Brianna .TH4 Orig Print D/T: S: 09/13/2019 (8619) PAGE 1 Signed Report Urine [id number] 09:05:00* Test Item Value Reference Range Interpretation Comments Urine Culture (test code = 630-4) Urogenital mario [facility] Metabolic Rrksm4743-11-34 07:18:00* Test Item Value Reference Range Interpretation Comments Sodium (test code = 2951-2) 136 mmol/L 136-145 Potassium (test code = 2823-3) 4.0 mmol/L 3.5-5.1 Chloride (test code = 2075-0) 100 mmol/L 98-107 CO2 (test code = 62595887) 28 mmol/L 21-31 Urea Nitrogen (test code = 15688467) 17.0 mg/dL 7-25 Creatinine (test code = 27521148) 1.2 mg/dL 0.6-1.2 Glucose (test code = 57879927) 232 mg/dL 70-110 H Calcium (test code = 33725939) 9.1 mg/dL 8.6-10.3 GFR, Estimated (test code = 15047984) 48 >=90 mL/min/1.73 m2 L Anion Gap (test code = 79806793) 8 mmol/L 5-16 Lab Interpretation (test code = 80993-6) [facility] [id number] 07:18:00* Test Item Value Reference Range Interpretation Comments Bilirubin, Total (test code = 2885-2) 0.3 mg/dL 0.2-1.2 Alkaline Phosphatase (test code = 99953977) 52 U/L 34-104 AST (test code = 46384846) 16 U/L 13-39 Direct Bilirubin (test code = 1968-7) 0.1 mg/dL 0-0.2 ALT (test code = 97774110) 23 U/L 7-52 Albumin (test code = 81729-8) 4.0 g/dL 3.7-5.3 Lab Interpretation (test code = 16071-3) Normal [facility] Rzwqkt6840-21-12 20:22:00* Test Item Value Reference Range Interpretation Comments Opiate, Ur (test code = 52011-7) Positive Negative A Calibrated Standard: Morphine Positive if urine level > or = 300 ng/dL Amphetamine (test code = 09529-9) Negative Negative Calibrated Standard: D- Methamphetamine Positive if urine level > or = 1000 ng/mL Barbiturate (test code = 11706-3) Negative Negative Calibrated Standard: Secobarbital Positive if urine level is > or = 200 ng/mL Benzodiazepine (test code = 57561-8) Negative Negative Calibrated Standard: Lormethazepam Positive if urine level is > or = 200 ng/mL Cocaine (test code = 22788-8) Negative Negative Calibrated Standard: Benzoylecgonine Positive if urine level > or = 300 ng/dL PCP (test code = 53870-1) Negative Negative C alibrated Standard: Phencyclidine Positive if urine level > or = 25 ng/dL Cannabinoid (test code = 00258-1) Negative Negative Calibrated Standard: 11 nor-delta(9)-THC carboxylic acid Positive if urine level > or = 50 ng/mL Lab Interpretation (test code = 17091-0) Abnormal [facility] CenterLdbqqdTgyqupvsyb6346-14-87 19:33:00* Test Item Value Reference Range Interpretation Comments Color (test code = 42675782) Yellow Colorless, Straw, Yellow Clarity (test code = 14536123) Clear Clear Spec Kinsley, Ur (test code = 42285908) 1.012 1.001-1.035 pH, Ur (test code = 37100379) 6.0 5.0-8.0 Protein, Ur (test code = 09907456) 1+ Negative mg/dL A Glucose, Ur (test code = 80823063) 3+ Negative mg/dL A Ketone, Ur (test code = 31011283) Negative Negative mg/dL Bilirubin, Ur (test code = 50192961) Negative Negative mg/dL Nitrite, Ur (test code = 58520432) Negative Negative Leukocyte (test code = 91009958) Negative Negative mg/dL Blood, Ur (test code = 01492454) Negative Negative mg/dL WBC (test code = 50571016) 3 0- 5 /HPF Epithelial Cell (test code = 16636231) 2 <=1 /HPF H Urobilinogen, Ur (test code = 57175501) <1.0 <1.0 EU/dL Lab Interpretation (test code = 51207-4) Abnormal [facility] Center[facility]em[facility] [id number] 09:28:00* Test Item Value Reference Range Interpretation Comments Hemoglobin A1c (test code = 4548-4) 7.5 % 4.3-6.1 H Estimated Average Glucose (test code = 84376366) 169 mg/dL 70-11 0 H Lab Interpretation (test code = 76376-8) Abnormal [facility] CenterTcqripCYQQD2109-97-75 16:51:00 RUN DATE: 07/27/19 Tulsita [employer] [facility] PAGE 1 RUN TIME: 1650 Specimen Inqui ry RUN USER: INTERFACE PATIENT: MEÑO MATA ACCT #: [id number] LOC: [place] U #: [id number] AGE/SX: 48/F ROOM: RE07/23/19REG DR: Saad Norris MD : 68 BED: DIS: STATUS: BASSEM MARRERO TLOC: SPEC #: [id number] RECD: 07/23/19 STATUS: MACY REQ #: [id number] ROLAND: 07/23/19 [facility] DR: Saad Norris MD ENTERED: 07/23/19 SP TYPE: POLYP OTHR DR: No Doreen jolly or Family Physician No Primary Care PhysicianORDERED: GROSS COPIES TO: No Primary or Family Phys Saad Shepherd MD [address] [address] No Primary Care Physician Use by ED [...] MALIGNANCY MULTIPLE LEVELS EXAMINED RRB/ D 8 3105 CONTINUED ON NEXT PAGE R UN DATE: 07/27/19 Tulsita - [facility] PAGE 2 RUN TIME: 1651 Specimen Inquiry RUN USER: INTERFACE SPEC #: [id number] PATIENT: MEÑO MATA #[id number] (Continued) MACROSCOPIC The specim en is received in formalin, labeled with the patient's name, identified as "t farzanehverse polyp bx", and consists of kent biopsy tissue measuring 0.3 cm, submi tted for histologic evaluation. GROSS PERFORMED AT [facility] [address] [place] [address] [phone] MICROSCOPIC All of the stains, including a ny controls performed, stain appropriately. MICROSCOPIC PERFORMED AT [facility] [address] [place] [address] [phone] PERFORMING SITE Diagnosis performed at : [facility] [address] [facility] [place] [address] --- --------- Signed SIGNATURE ON FILE Jarrod Schofield MD 1658 EN D OF REPORT BASIC METABOLIC [id number] 07:26:00* Test Item Value Reference Range Interpretation [...] code = CA) 8.5 mg/dL 8.5-10.1 N [id number] 07:11:00* Test Item Value Reference Range Interpretation Comments GLUBED (test code = GLUBED) 89 mg/dL 74-106 N Performed by certified ammonia nitrate operator at [facility] CBC W/AUTO [id number] 07:03:00* Test Item Value Reference Range Interpretation [...] REQUIRED (test code = MDIFF) NO URINALYSIS, [id number] 14:30:00* Test Item Value Reference Range Interpretation Comments RBC (test code = 56935566) 1-4 0- 4 /HPF WBC (test code = 10727563) 5-20 0- 5 /HPF A Epithelial Cell (test code = 98309322) <1/HPF <1 /HPF Bacteria (test code = 29103611) Few None seen /HPF A Yeast (test code = 18604220) Present None seen /HPF A Lab Interpretation (test code = 72477-1) Abnormal [facility] Center[facility]/Fbif6974-74-23 07:45:00* Test Item Value Reference Range Interpretation [...] g/dL 32-36 L RDW (test code = 81853-6) 51.6 fL 36.4-46.3 H Platelet (test code = 777-3) 364 K/uL 150-400 Mean Platelet Volume (test code = 14984-1) 9.6 fL 9.4-12.4 Percent NRBC (test code = 63647065) 0.0 % Neutrophil (test code = 770-8) 59.1 % 34-70 Lymphs (test code = 736-9) 28.6 % 20-50 Monocytes (test code = 5905-5) 9.2 % 5-12 Eos (test code = 713-8) 1.7 % 0.7-5 Basos (test code = 706-2) 0.7 % 0.1-1.2 Immature Granulocytes (test code = 09090560) 0.7 % 0-0.5 H Neutrophils (Absolute) (test code = 15480198) 4.06 K/uL 1.56-6.1 3 Lymphs (Absolute) (test code = 77383788) 1.97 K/uL 1.18-3.74 Monocytes(Absolute) (test code = 39654686) 0.63 K/uL 0.24-0.36 H Eos (Absolute) (test code = 72369295) 0.12 K/uL 0.04-0.36 Baso (Absolute) (test code = 60134457) 0.05 K/uL 0.01-0.08 Immature Grans (Abs) (test code = 48888574) 0.05 K/uL 0-0.03 H Absolute NRBC (test code = 78460604) 0.00 K/uL Lab Interpretation (test code = 70460-1) Abnormal [facility] Admmd3015-40-29 07:17:00* Test Item Value Reference Range Interpretation Comments Hep C Vir Ab IgG (test code = 94559-4) Negative Negative Hep B Surface Ag (test code = 5196-1) Negative Negative Hep A Vir Ab IgM (test code = 84006-6) Negative Negative Hep B Core Ab IgM (test code = 84286-1) Negative Negative Lab Interpretation (test code = 51622-9) Normal [facility] Metabolic Zuvfr4362-02-72 07:05:00* Test Item Value Reference Range Interpretation Comments Sodium (test code = 2951-2) 137 mmol/L 136-145 Potassium (test code = 2823-3) 4.6 mmol/L 3.5-5.1 Chloride (test code = 2075-0) 104 mmol/L 98-107 CO2 (test code = 80845322) 25 mmol/L 21-31 Glucose (test code = 69372768) 143 mg/dL 70-110 H Calcium (test code = 22961206) 9.2 mg/dL 8.6-10.3 Urea Nitrogen (test code = 65621458) 22.0 mg/dL 7-25 Creatinine (test code = 43250295) 1.7 mg/dL 0.6-1.2 H Alkaline Phosphatase (test code = 81394770) 44 U/L 34-104 ALT (test code = 10343005) 41 U/L 7-52 AST (test code = 26748024) 19 U/L 13-39 Total Protein (test code = 2885-2) 7.0 g/dL 6-8.3 GFR, Estimated (test code = 31877815) 32 >=90 mL/min/1.73 m2 L Albumin (test code = 19309-5) 4.0 g/dL 3.7-5.3 Anion Gap (test code = 00005859) 8 mmol/L 5-16 Lab Interpretation (test code = 84780-7) Abnormal [facility]- ABDOMEN AP 1 [id number] 11:55:00 FAX: Corinne Venegas DO [place]: B St: REG FAX: ISAURO GLOVER NP Name: MEÑO MATA [facility] : 1970 Age/S: 48/F [address] [facility] Unit #: [id number] Loc: [place] [address] Phys: ISAURO GLOVER NP Acct: [id number] Dis Date: Status: REG ER PHONE #: [phone] Exam Date: 04/24/2019 1146 FAX #: [phone] Reason: constipation EXAMS: CPT CODE: [id number] XR ABDOMEN AP 1 V 42061 HISTORY: constipation TECHNIQUE: AP abdomen x-ray COMPARISON: None FINDINGS: Mild rectosigmoid fecal retention. Nonspecific nonobstructed bowel gas pattern. No intra-abdominal mass effect. Cholecystectomy clips. Pelvic phleboliths. Degenerative c hanges of the spine and hips. IMPRESSION: Mild rectosigmoid fecal retention. Nonobstructive bowel gas pattern. at 5176 Reported and signed by: Leida Riley D.O. CC: Corinne Venegas DO; ISAURO GLOVER NP Technologist: RT DANETTE(Adán) Trnscrd Date/Time/By: 04/24/2019 (1 155) : By: [email or web address] Orig Print D/T: S: 04/24/2019 (3503) PAGE 1 Signed Report BASIC METABOLIC [id number] 11:51:00* Test Item Value Reference Range Interpretation [...] CA) 8.8 mg/dL 8.5-10.1 N HEPATIC FUNCTION [id number] 11:51:00* Test Item Value Reference Range Interpretation [...] reference range due to change in reagent. [id number] 11:51:00* Test Item Value Reference Range Interpretation Comments LIPASE (test code = LIP) 34 U/L 73.0-393.0 L HCG SERUM [id number] 11:51:00* Test Item Value Reference Range Interpretation Comments HCG SERUM QUAL (test code = HCGQL) NEGATIVE NEGATIVE This HCGQL test is NOT applicable for MALE patients.Check with nurse about probable order error.If Tumor Marker Test needed, nurse should order test "HCGTU"(Test #550.67908) BASIC METABOLIC [id number] 11:44:00* Test Item Value Reference Range Interpretation [...] code = CA) mg/dL 8.5-10.1 HEPATIC FUNCTION [id number] 11:44:00* Test Item Value Reference Range Interpretation [...] TOTAL (test code = ALKP) IUnit/L 45-117 [id number] 11:44:00* Test Item Value Reference Range Interpretation Comments LIPASE (test code = LIP) U/L 73.0-393.0 HCG SERUM [id number] 11:44:00* Test Item Value Reference Range Interpretation Comments HCG SERUM QUAL (test code = HCGQL) NEGATIVE NEGATIVE This HCGQL test is NOT applicable for MALE patients.Check with nurse about probable order error.If Tumor Marker Test needed, nurse should order test "HCGTU"(Test #550.68197) BASIC METABOLIC [id number] 11:42:00* Test Item Value Reference Range Interpretation [...] code = CA) mg/dL 8.5-10.1 HEPATIC FUNCTION [id number] 11:42:00* Test Item Value Reference Range Interpretation [...] TOTAL (test code = ALKP) IUnit/L 45-117 [id number] 11:42:00* Test Item Value Reference Range Interpretation Comments LIPASE (test code = LIP) U/L 73.0-393.0 HCG SERUM [id number] 11:42:00* Test Item Value Reference Range Interpretation Comments HCG SERUM QUAL (test code = HCGQL) NEGATIVE NEGATIVE This HCGQL test is NOT applicable for MALE patients.Check with nurse about probable order error.If Tumor Marker Test needed, nurse should order test "HCGTU"(Test #550.15198) URINALYSIS [id number] 11:33:00* Test Item Value Reference Range Interpretation [...] #/LPF FEW Urine Source? Clean CatchCBC W/O [id number] 11:28:00* Test Item Value Reference Range Interpretation [...] 9.5 fL 6.7-11.0 N MAMMOGRAM BILAT DIAG [id number] 13:45:00IMPRESSION: BENIGN Superficial sebaceous cysts in the right breast are benign. Clinical follow up with antibiotic therapy is recommended to ensure resolution. There is no sonographic evidence of malignancy. A 1 year screening mammogram is recommended. This document has been electronically signed. Angie Castelan M.D. eal/:03/22/2019 13:45:38 copy to: Bharat Parisi M.D., [facility], [address]21, ph: , fax: [phone] Scale Expert: Ginna Morgan, [facility] Center[facility] sent: Mammography Normal Mammogram BI-RADS: 0 Indeterminate Ultrasound BI-RADS: 2 Benign O8021 62695 R92.8 R92.8Interface, Rad/Mammog In - 03/22/2019 2:23 PM CDT#[id number] - MAMMOGRAM BILAT DIAG DIGITALBILATERAL DIGITAL DIAGNOSTIC MAMMOGRAM 3D/2D WITH CAD: 03/22/2019CLINICAL: 48 y/o female, no family hx of breast cancer. Abnormal Mammogram In 2018, Lost To Follow Up. She also presents with multiple ulceration of the lower outer right breast. Comparison is made to exams dated: 01/26/2018, 09/13/2016 [facility], 01/26/2014 [facility], 12/20/2013 [facility], and 10/06/2010 [facility]. The tissue of both breasts is [...] the abscesses.This document has been electronicall y signed.#[id number] - MAMMO BREAST ULTRASOUND UNILATERAL, LTDULTRASOUND OF RIGHT BREAST: 03/22/2019Comparison is made to exams dated: 01/26/2018, 09/13/2016 [facility], 01/26/2014 [facility], 12/20/2013 [facility], and 10/06/2010 [facility]. Color flow a nd real-time ultrasound of [...] eal/:03/22/2019 13:45:38 copy to: Bharat Parisi M.D., [facility], [address], ph: , fax: [phone] Technologist: Ginna Morgan, [facility] Centerletter sent: Mammography Norm al Mammogram BI-RADS: 0 Indeterminate Ultrasound BI-RADS: 2 Benign G0204 766 42 R92.8 R92.8[facility] HealthURINALYSIS [id number] 19:17:00* Test Item Value Reference Range Interpretation [...] Source? Clean Catch- CT ABD PELVIS W/O [id number] 18:44:00 Name: MEÑO MATA [facility] : 1970 Age/S: 48 / F [address] [facility] Unit [facility]: [id number] Loc: [place] [address] Phys: Romina Carey NP Acct: [id number] Di s Date: Status: REG ER PHONE #: [phone] Exam Date: 03/13/2019 1820 FAX #: [phone] Reason: Lower abdominal pain EXAMS: CPT CODE: [id number] CT ABD PELVIS W/O CONT 30772 HISTORY: Lower abdominal pain TECHNIQUE: 5mm axial [...] 1 Signed Report (CONTINUED) [facility] 01/1971 Age/S: 48 / F [address] [facility] Unit #: [id number] Loc: [place] [address] Phys: Rachell Carey NP Acct: [id number] Dis Sharad e: Status: REG ER PHONE #: Exam Date: 03/13/2019 182 FAX #: [phone] Reason: Lower abdominal pain EXAMS: CPT CODE: [id number] CT ABD PELVIS W/O CONT 95855 <Continued> CC: Rachell Carey USED CAR MANAGER; Vladimir Leon DO Technologist:Yolette Hinkle RT(R)(CT) CTDI: DLP: Trnscb Date/Time: 03/13/2019 (1843) [id number] Orig Print D/T: S: 03/13/2019 (1846) PAGE 2 Signed Report BASIC METABOLIC [id number] 18:08:00* Test Item Value Reference Range Interpretation [...] CA) 8.8 mg/dL 8.5-10.1 N HEPATIC FUNCTION [id number] 18:08:00* Test Item Value Reference Range Interpretation [...] reference range due to change in reagent. [id number] 18:08:00* Test Item Value Reference Range Interpretation Comments LIPASE (test code = LIP) 45 U/L 73.0-393.0 L HCG SERUM [id number] 18:08:00* Test Item Value Reference Range Interpretation Comments HCG SERUM QUAL (test code = HCGQL) NEGATIVE NEGATIVE This HCGQL test is NOT applicable for MALE patients.Check with nurse about probable order error.If Tumor Marker Test needed, nurse should order test "HCGTU"(Test #550.01736) [id number] 18:08:00* Test Item Value Reference Range Interpretation Comments TROPONIN-I (test code = TROPI) <0.015 ng/mL 0-0.045 N BASIC METABOLIC [id number] 17:48:00* Test Item Value Reference Range Interpretation [...] CA) 8.8 mg/dL 8.5-10.1 N HEPATIC FUNCTION [id number] 17:48:00* Test Item Value Reference Range Interpretation [...] reference range due to change in reagent. [id number] 17:48:00* Test Item Value Reference Range Interpretation Comments LIPASE (test code = LIP) 45 U/L 73.0-393.0 L HCG SERUM [id number] 17:48:00* Test Item Value Reference Range Interpretation Comments HCG SERUM QUAL (test code = HCGQL) NEGATIVE [id number] 17:48:00* Test Item Value Reference Range Interpretation Comments TROPONIN-I (test code = TROPI) <0.015 ng/mL 0-0.045 N BASIC METABOLIC [id number] 17:37:00* Test Item Value Reference Range Interpretation [...] code = CA) mg/dL 8.5-10.1 HEPATIC FUNCTION [id number] 17:37:00* Test Item Value Reference Range Interpretation [...] TOTAL (test code = ALKP) IUnit/L 45-117 [id number] 17:37:00* Test Item Value Reference Range Interpretation Comments LIPASE (test code = LIP) U/L 73.0-393.0 HCG SERUM [id number] 17:37:00* Test Item Value Reference Range Interpretation Comments HCG SERUM QUAL (test code = HCGQL) NEGATIVE [id number] 17:37:00* Test Item Value Reference Range Interpretation Comments TROPONIN-I (test code = TROPI) ng/mL 0-0.045 CBC W/O [id number] 16:59:00* Test Item Value Reference Range Interpretation [...] MPV) 9.4 fL 6.7-11.0 N CBC W/O [id number] 16:53:00* Test Item Value Reference Range Interpretation [...] MPV) fL 6.7-11.0 Genital [place] with [id number] 05:48:00* Test Item Value Reference Range Interpretation Comments Yeast by [place] (test code = 74390420) No Yeast seen Yeast by TITI (test code = 10497298) No Yeast seen Clue Cells (test code = 83265068) No Clue cells seen Epithelial Cells (test code = 00576007) Epithelial cells seen WBCs (test code = 79742525) No WBCs seen Trichomonas (test code = 62605522) No Trichomonas seen [facility]/GC DNA [id number] 19:12:00* Test Item Value Reference Range Interpretation Comments Chlamydia trachomatis (test code = 27655-3) Negative Negative N. gonorrhoeae (test code = 82277-0) Negative Negative VANE (test code = VANE) This test utilizes [employer] Software A ptima Combo 2 Assay for target amplification of rRNA for the qualitative detection of Chlamydia trachomatis and Neisseria gonorrhoeae. Lab Interpretation (test code = 57410-3) Normal [facility] URINE [id number] 00:00:00* Test Item Value Reference Range Interpretation Comments POC (test code = 8169) NEG Neg - Neg Control (test code = 8168) PASS Pass - Pass [facility] [id number] 15:30:17Nikia Mccoy MD 02/15/2019 3:49 PMDiabetic Foot Exam was performed at 02/15/2019 3:38 PM. Right foot sensation is normal, right foot pulses are normal, right foot appearance is abnormal. Left foot sensation is normal, left foot pulses are normal, left foot appearance is abnormal. Onychomycosis of great toenail right foot [facility] HealthXRAY CHEST 2 [id number] 18:04:14IMPRESSION: No acute thoracic abnormality or significant [...] 12/14/2018 6:04 PMHarris HealthDRUGS OF ABUSE SCREEN [id number] 15:13:00* Test Item Value Reference Range Interpretation [...] NEGATIVE <300 ng/mL DRUGS OF ABUSE SCREEN [id number] 14:57:00* Test Item Value Reference Range Interpretation [...] code = [place]) NEGATIVE <300 ng/mL URINALYSIS [id number] 14:35:00* Test Item Value Reference Range Interpretation [...] HPF FEW Urine Source? Clean CatchUR HCG [id number] 14:35:00* Test Item Value Reference Range Interpretation Comments UR HCG QUAL (test code = HCGQLU) NEGATIVE This HCGQL test is NOT applicable for MALE patients.Check with nurse about probable order error.If Tumor Marker Test needed, nurse should order test "HCGTU"(Test #550.20499) Urine Source? Clean CatchURINALYSIS [id number] 14:32:00* Test Item Value Reference Range Interpretation [...] HPF 0-5 Urine Source? Clean CatchUR HCG [id number] 14:32:00* Test Item Value Reference Range Interpretation Comments UR HCG QUAL (test code = HCGQLU) NEGATIVE This HCGQL test is NOT applicable for MALE patients.Check with nurse about probable order error.If Tumor Marker Test needed, nurse should order test "HCGTU"(Test #550.00564) Urine Source? Clean CatchURINALYSIS [id number] 14:32:00* Test Item Value Reference Range Interpretation [...] HPF 0-5 Urine Source? Clean CatchUR HCG [id number] 14:32:00* Test Item Value Reference Range Interpretation Comments UR HCG QUAL (test code = HCGQLU) NEGATIVE This HCGQL test is NOT applicable for MALE patients.Check with nurse about probable order error.If Tumor Marker Test needed, nurse should order test "HCGTU"(Test #550.20212) Urine Source? Clean CatchCT ABDOMEN/PELVIS WO [facility] [address] [address] Patient Name: MEÑO MATA MR #: [id number] : 1970 Age/Sex: 46/F Req #: [id number] Adm Physician: Ordered by: YINKA BOYER MD Report #: [id number] Location: ER Room/Bed: Procedure: [id number] CT/CT ABDOMEN/PELVIS WO Exam Date: 07/20/17 Exam [...]
[2019-12-04] MEDS ORDERED: MORPHINE SULFATE INJ 4 MG/ML INJ 1ML IV PRN (22:45)
[2019-12-05] VITALS (7 sets, daily range): BP systolic 118–158; BP diastolic 61–89
--- NOTE | 2019-12-05 00:56 | NUR ---
Patient came to the unit from er in a wheel chair with c/o RLQ abd.abscess.aaox4.self ambulates.admission assessment done.no resp.distress abd.pain voiced 09/20.oriented to the unit.bed locked and in lowest position.phone and call light within reach.instructed to call for assistance as needed.iv to right ac is patent.tele in place.
[2019-12-05] MEDS: SODIUM CHLORIDE 0.9% 1000ML 1,000 ML IV SCH ×2 (01:31→06:30)
--- NOTE | 2019-12-05 03:50 | NUR ---
MEDICATED WITH MORPHINE 4 MG IV.NO TELE IN PLACE.STABLE CONDITION.
[2019-12-05] MEDS: VANCOMYCIN 1GM/NS 250 ML 250 ML IV SCH (04:15)
[2019-12-05] MEDS: PIPER-TAZ 3.375 GM 50 ML IV SCH ×2 (04:16→12:07)
[2019-12-05 06:13] LABS: BASOPHILS # (AUTO) 0.1 (0.0-0.1); BASOPHILS % 1.1 % (0.0-1.0); EOSINOPHILS # (AUTO) 0.2 (0.0-0.4); EOSINOPHILS % 2.9 % (0.0-6.0); HEMATOCRIT 35.3 % (34.2-44.1); HEMOGLOBIN 10.6 g/dL (12.0-16.0); LYMPHOCYTES # (AUTO) 1.6 (1.0-3.2); LYMPHOCYTES % 23.8 % (18.0-39.1); MEAN CORPUSCULAR HEMOGLOBIN 25.1 pg (28-32); MEAN CORPUSCULAR VOLUME 83.6 fL (81-99); MONOCYTES # (AUTO) 0.9 (0.2-0.8); MONOCYTES % 13.3 % (4.4-11.3); NEUTROPHILS # (AUTO) 3.8 (2.1-6.9); PLATELET COUNT 363 x10e3/uL (140-360); RED BLOOD COUNT 4.22 x10e6/uL (3.6-5.1); RED CELL DISTRIBUTION WIDTH 15.7 % (11.7-14.4)
[2019-12-05 06:28] LABS: ALBUMIN 2.8 g/dL (3.5-5.0); ALBUMIN/GLOBULIN RATIO 0.8 (0.8-2.0); ANION GAP 14.8 mmol/L (8-16); CALCIUM 8.3 mg/dL (8.4-10.2); CREATININE, SERUM 1.62 mg/dL (0.57-1.11); POTASSIUM 3.8 mmol/L (3.5-5.1)
--- NOTE | 2019-12-05 06:56 | NUR ---
BED SIDE SHIFT REPORT GIVEN TO ONCOMING RN.STABLE CONDITION.
[2019-12-05] MEDS ORDERED: INSULIN REGULAR, HUMAN 100 UNIT/1 ML 3ML VIAL SQ SCH (07:30)
[2019-12-05] MEDS ORDERED: ACETAMINOPHEN/CODEINE 300MG - 30MG TAB PO PRN (09:15)
[2019-12-05] MEDS ORDERED: HYDRALAZINE HCL 20 MG/ML VIAL IV PRN (09:15)
[2019-12-05] MEDS ORDERED: DEXTROSE 50% SYRINGE 50 ML IV PRN (09:15)
[2019-12-05] MEDS ORDERED: MELATONIN 5 MG TABLET PO PRN (09:30)
[2019-12-05] MEDS ORDERED: POTASSIUM CHLORIDE 10MEQ EA PO SCH (10:00)
[2019-12-05] MEDS: INSULIN LISPRO 100 UNIT/1 ML 3ML VIAL SQ SCH ×2 (12:09→17:08)
[2019-12-05] MEDS ORDERED: VANCOMYCIN HCL 1 GM in SODIUM CHLORIDE 0.9% 250ML 250 ML IV ONE (14:00)
[2019-12-05] MEDS ORDERED: VANCOMYCIN HCL 2 GM in SODIUM CHLORIDE 0.9% 500ML 500 ML IV ONE (15:00)
[2019-12-05] MEDS ORDERED: FAMOTIDINE 20 MG/2 ML VIAL IV SCH (17:00)
--- NOTE | 2019-12-05 19:07 | Discharge Summary ---
ADMISSION DIAGNOSES: 1. Abdominal pannus wound, failed outpatient treatment. 2. Chronic kidney disease 3. 3. Hypertension with chronic kidney disease 3. 4. Type 2 diabetes with chronic kidney disease 3. 5. Congestive heart failure. 6. Hyperlipidemia. 7. Super morbid obesity with a BMI of 57.1. DISCHARGE DIAGNOSES: 1. Abdominal pannus wound, failed outpatient treatment. 2. Chronic kidney disease 3. 3. Hypertension with chronic kidney disease 3. 4. Type 2 diabetes with chronic kidney disease 3. 5. Congestive heart failure. 6. Hyperlipidemia. 7. Super morbid obesity with a BMI of 57.1. HISTORY: Hypertension, type 2 diabetes, COPD, CHF unknown type asthma, OA, IBS, hypothyroidism, hyperlipidemia, anxiety, and CKD 3. SURGICAL HISTORY: Cholecystectomy, right shoulder surgery. FAMILY HISTORY: The patient's mom and dad have diabetes. SOCIAL HISTORY: Noncontributory. HOSPITAL COURSE: A 49-year-old female, admits with complaints of worsening right abdominal/pannus wound. She says it improved after an I and D done on 11/23 then worsened when she got home. She took Cipro and Bactrim, but did not have proper wound care due to personal problems. On admission, the patient was started on vancomycin and Zosyn. Dr. Barnard was reconsulted as he did the initial I and D. He says the wound is looking better since previous discharge and the patient can discharge home and just use soap and water to clean the wounds. Infectious Disease was also consulted, who said the patient can discharge home on doxycycline. She was given a 2 g dose of vancomycin prior to discharge. She will continue wound care and antibiotics as ordered. She will follow up with Dr. Veronica and primary care in 1 to 2 weeks. The patient understands discharge instructions and agrees to plan. Vital signs are stable. The patient is afebrile. Dictated by Luisana Warren NP MD ZOE Vogt/MODL /[id number]
--- NOTE | 2019-12-05 19:13 | NUR ---
Patient received discharge order from Luisana Chang and received prescriptions form Dr. Veronica. Patient IV removed and covered with dry dressing at 1845. Wheeled to car at 1850. No questions or complaints.
--- NOTE | 2019-12-05 20:38 | Consultation ---
DATE OF CONSULTATION: REASON FOR CONSULTATION: Abdominal wall abscess and cellulitis. HISTORY OF PRESENT ILLNESS: This patient, who is a 49-year-old, who is morbidly obese patient, history of diabetes mellitus. The patient was recently in the hospital with abscess of the abdominal wall, underwent I and D. The patient was discharged home with oral antibiotic. She is coming back with worsening. The patient back on November 30. She had culture of the wound, which was negative. She was discharged with Bactrim and Cipro. She is currently lying in bed comfortably. PHYSICAL EXAMINATION: GENERAL: She is currently alert and oriented. Does not seem to be in acute distress. VITAL SIGNS: Stable, currently afebrile. HEENT: She is not icteric. NECK: Supple. CHEST: Clear. HEART: S1 and S2. No S3, S4, or murmurs. ABDOMEN: Soft, morbidly obese. There is some erythema and edema noted to abdominal wall. There is an ulcer about 2-3 cm. EXTREMITIES: No edema. SKIN: No rash. IMPRESSION: 1. Abdominal cellulitis and abscess. We will give 2 g of vancomycin, could be discharged home with doxycycline 100 mg p.o. b.i.d. Continue local care. 2. Diabetes mellitus. 3. Neuropathy. 4. Hypothyroidism. 5. Morbidly obese patient. 6. Discussed with the patient. Discussed with medical team. MD GAMALIEL Torres/ARINA /[id number]
[2019-12-05] MEDS ORDERED: ATORVASTATIN 20 MG TAB PO SCH (21:00)
[2019-12-05] MEDS ORDERED: GABAPENTIN 300 MG CAP PO SCH (21:00)
[2019-12-05] MEDS ORDERED: INSULIN GLARGINE 100 UNITS/ML VIAL SQ SCH (21:00)
[2019-12-06] MEDS ORDERED: LEVOTHYROXINE SODIUM 25 MCG TABLET PO SCH (06:00)
[2019-12-06] MEDS ORDERED: INSULIN GLARGINE 100 UNITS/ML VIAL SQ SCH (09:00)
[2019-12-06] MEDS ORDERED: FENOFIBRATE 145 MG TAB PO SCH (09:00)
[2019-12-06] MEDS ORDERED: FUROSEMIDE 20 MG TAB PO SCH (09:00)
== END 2019-12-05 18:49 | disposition home or self-care (01) | DRG 605 ==
LOC: ER 19:44 → ERHOLD 22:32 → MED/SURG2 12-05 00:59
PROVIDERS: ADMIT Internal Medicine; ATTEND Internal Medicine
DX: S31.109A Unspecified open wound of abdominal wall, unspecified quadrant without penetration into peritoneal cavity, initial encounter (principal); Z68.43 Body mass index [BMI] 50.0-59.9, adult; I13.0 Hypertensive heart and chronic kidney disease with heart failure and stage 1 through stage 4 chronic kidney disease, or unspecified chronic kidney disease; E11.22 Type 2 diabetes mellitus with diabetic chronic kidney disease; N18.3 Chronic kidney disease, stage 3 (moderate); E66.01 Morbid (severe) obesity due to excess calories; I50.9 Heart failure, unspecified; E78.5 Hyperlipidemia, unspecified; J44.9 Chronic obstructive pulmonary disease, unspecified; E11.40 Type 2 diabetes mellitus with diabetic neuropathy, unspecified; E03.9 Hypothyroidism, unspecified; Z11.59 Encounter for screening for other viral diseases
CPT/HCPCS: 36415; 80053; 82948; 83605; 85025; 87040; 87071; 87205; 87635; 96374; 99284; J2270; J2405; J2543; J3370; J7030; J7040

== ENCOUNTER 2019-12-11 16:07 | Emergency (ER) | payer MEDICARE ==
[~2019-12-11] VITALS: Ht 160 cm; Wt 146.1 kg
--- OUTSIDE RECORDS SUMMARY | 2019-12-11 16:10 | XMS REPORT ---
Author Author Formerly [facility] t Organization [facility] Address [address] [place] [address] Phone Unavailable Care Team Providers Care Director Of Business Services Name Role Phone NO, PCP PCP Unavailable HARLAN NGUYỄN Attphys Unavailable Tiffany BOYER Attphys Unavailable HARLAN NGUYỄN Admphys Unavailable Payers Payer Name Policy Type Policy Number Effective Date Expiration Date Pool [employer] NA 2019 00:00:00 [facility] Problems Condition Name Condition Details Condition Category Status Onset Date Resolution Date Last Treatment Date Treating Clinician Comments Source Hyperglycemia Problem Active [facility] Abscess of abdominal wall Problem Active [facility] Cellulitis of abdominal wall Problem Active [facility] Sepsis Problem Active [facility] Allergies, Adverse Reactions, Alerts Allergy Name Allergy Type Status Severity Reaction(s) Onset Date Inacti ve Date Treating Clinician Comments Source No Known Allergies DA Active U 2019-04-24 00:00:00 [facility] No Known Allergies DA Active U 2019-03-13 00:00:00 [facility] No Known Allergies DA Active U 2018-09-24 00:00:00 [facility] No Known Allergies DA Active U 2016-02-23 00:00:00 [facility] Social History Social Habit Start Date Stop Date Quantity Comments Source Sex Assigned At 1970 00:00:00 1970 00:00:00 Female [facility] Medications Ordered Medication Name Filled Medication Name Start Date Stop Da te Current Medication? Ordering Clinician Indication Dosage Frequency Signature (SIG) Comments Components Source Ciprofloxacin Hcl (Cipro) 500 Mg TABLET Ciprofloxacin Hcl (C ipro) 500 Mg TABLET 2019-11-26 15:57:00 Yes 500 Every 12 Hours [facility] Furosemide (Lasix) 20 Mg TABLET Furosemide (Lasix) 20 Mg TAB LET 2019-11-26 15:57:00 Yes 20 Daily [facility] Insulin Regular, Human (Humulin R) 100 Unit/1 Ml VIAL Insulin Regular, Human (Humulin R) 100 Unit/1 Ml VIAL 2019-11-26 15:57:00 Yes 0 Before Meals And At Bedtime [facility] Metformin Hcl Metformin Hcl 2019-11-26 15:57:00 Yes 10 00 Twice A Day [facility] Potassium Chloride Potassium Chloride 2019-11-26 15:57:00 Yes 10 Q48hrs [facility] Sulfamethoxazole/Trimethoprim (Bactrim Ds Tablet) 1 Ea ch TABLET Sulfamethoxazole/Trimethoprim (Bactrim Ds Tablet) 1 Each TABLET 2019-11-26 15:57:00 Yes 1 Twice A Day [facility] Tramadol Hcl (Ultram) 50 Mg TABLET Tramadol Hcl (Ultram) 50 Mg TABLET 2019-11-26 15:57:00 Yes 50 Every 4 Ho urs as needed for Mild Pain (1-3) Or Fever>100.8 [facility] Acetaminophen/Codeine Phosphate (Tylenol # 3*) 1 Ea TA B Acetaminophen/Codeine Phosphate (Tylenol # 3*) 1 Ea TAB Yes 1 Every 4 Hours as needed for Moderate Pain (4-6) [facility] Acyclovir Acyclovir Yes 800 Ever y 8 Hours as needed for .sores Outbreak [facility] Albuterol Sulfate Albuterol Sulfate Yes 1 Lizbeth y [facility] Atorvastatin Calcium Atorvastatin Calcium Yes 20 Daily [facility] Clonidine Hcl Clonidine Hcl Yes .1 Three Times A Day [facility] Dicyclomine Hcl Dicyclomine Hcl Yes 10 Twice A Day as needed for Abdominal Pain [facility] Fenofibrate Nanocrystallized (Fenofibrate) 145 Mg TABL ET Fenofibrate Nanocrystallized (Fenofibrate) 145 Mg TABLET Yes 145 Daily [facility] Gabapentin Gabapentin Yes 600 Bedtime [facility] Hydroxyzine Hcl Hydroxyzine Hcl Yes 50 Bedtime [facility] Insulin Detemir (Levemir Flextouch) 100 Unit/[address]PEN Insulin Detemir (Levemir Flextouch) 100 Unit/1 Ml INSULN.PEN Yes 100 Bedtime [facility] Insulin Detemir (Levemir Flextouch) 100 Unit/[address]PEN Insulin Detemir (Levemir Flextouch) 100 Unit/1 Ml INSULN.PEN Yes 40 Daily [facility] Ketoconazole (Nizoral) 120 Ml SHAMPOO Ketoconazole (Nizoral) 120 Ml SHAMPOO Yes 1 Daily as needed for .dandruff [facility] Levothyroxine Sodium Levothyroxine Sodium Yes 25 Daily [facility] Linagliptin (Tradjenta) 5 Mg TABLET Linagliptin (Tradjenta) 5 Mg TABL ET Yes 5 Daily [facility] Lisinopril (Prinavil / Zestril) 20 Mg TABLET Lisinopri l (Prinavil / Zestril) 20 Mg TABLET Yes 20 Daily [facility] Mometasone Furoate Mometasone Furoate Yes 1 Twice A Day as needed for Shortness Of Breath [facility] Montelukast Sodium Montelukast Sodium Yes 10 Be dtime [facility] Nifedipine (Nifedipine Er) 90 Mg TAB.ER.24 Nifedipine (Nifedipine Er) 90 Mg TAB.ER.24 Yes 90 Daily [facility] Omeprazole Omeprazole Yes 20 Twice A Day [facility] Furosemide Furosemide 2019-11-26 00:00:00 No 40 Chanelle ly [facility] Insulin Regular, Human (Humulin R) 100 Unit/1 Ml VIAL Insulin Regular, Human (Humulin R) 100 Unit/1 Ml VIAL 2019-11-26 00:00:00 No 40 Three Times Daily With Meals [facility] Potassium Chloride Potassium Chloride 2019-11-26 00:00:00 No 20 Daily [facility] Vital Signs Vital Name Observation Time Observation Value Comments Source Body Temperature 2019-12-05 15:59:00 98.5 [degF] [facility] Weight 2019-12-05 03:01:00 322.25 [lb_av] [facility] BMI (Body Mass Index) 2019-12-05 03:01:00 57.1 kg/m2 [facility] Body Temperature 2019-11-26 15:40:00 98.3 [degF] [facility] Weight 2019-11-24 04:54:00 327.38 [lb_av] [facility] BMI (Body Mass Index) 2019-11-24 04:54:00 58.0 kg/m2 [facility] Procedures Procedure Date / Time Performed Performing Clinician Bret e EXCISION OF ABD SUBCU/FASCIA, OPEN APPROACH 2019-11-24 00:00:[address] [facility] [address] of abdomen and pelvis without contrast 2019-11-22 00:00:00 [facility] Plan of Care Planned Activity Planned Date Details Comments Source Instructions Rash - Nonspecific [facility] Encounters Start Date/Time End Date/Time Encounter Type Admission Type Attendi [facility] Care Department Encounter ID Source 2019-12-04 22:32:00 2019-12-05 18:49:00 Discharged Inpatient [facility] [id number] [facility] 2019-11-22 20:57:00 2019-11-26 19:46:00 Discharged Inpatient 1 HARLAN NGUYỄN [facility] [id number] [facility] Results Test Description Test Time Test Comments Results Result Comments Source Capillary blood glucose measurement by glucometer (mas s/volume) 2019-12-05 15:27:00 Test Item Bedside Glucose (test code = 42548-1) 315 70-120 Meter ID: [id number] [facility]Blood [facility] automated count (number/volume)2019-12-05 05:00:00* Test Item Value Reference Range Interpretation Comments White Blood Count (test code = 6690-2) 6.60 4.8-10.8 [facility] automated count (number/volume)2019-12-05 05:00:00* Test Item Value Reference Range Interpretation Comments Red Blood Count (test code = 789-8) 4.22 3.6-5.1 [facility] hemoglobin measurement (moles/volume)2019-12-05 05:00:00* Test Item Value Reference Range Interpretation Comments Hemoglobin (test code = 19641-2) 10.6 12.0-16.0 [facility]Autom[facility] blood hematocrit (volume fraction)2019-12-05 05:00:00* Test Item Value Reference Range Interpretation Comments Hematocrit (test code = 4544-3) 35.3 34.2-44.1 [facility]Automated erythrocyte mean corpuscular fpprqy2462-02-80 05:00:00* Test Item Value Reference Range Interpretation Comments Mean Corpuscular Volume (test code = 787-2) 83.6 81-99 [facility]Autom[facility] erythrocyte mean corpuscular hemoglobin (mass per erythrocyte)2019-12-05 05:00:00* Test Item Value Reference Range Interpretation Comments Mean Corpuscular Hemoglobin (test code = 785-6) 25.1 28-32 [facility]Autom[facility] erythrocyte mean corpuscular hemoglobin concentration measurement (mass/volume)2019-12-05 05:00:00* Test Item Value Reference Range Interpretation Comments Mean Corpuscular Hemoglobin Concent (test code = 786-4) 30.0 31-35 [facility] HospitalRDW MtlEr-Pwk4055-25-24 05:00:00* Test Item Value Reference Range Interpretation Comments Red Cell Distribution Width (test code = 96520-6) 15.7 11.7 -14.4 [facility] HospitalAutomated blood platelet count (count/volume)2019-12-05 05:00:00* Test Item Value Reference Range Interpretation Comments Platelet Count (test code = 777-3) 363 140-360 [facility] HospitalAutomated blood segmented neutrophil count as percentage of total myytcgxavf2016-51-00 05:00:00* Test Item Value Reference Range Interpretation Comments Neutrophils (%) (Auto) (test code = 56744-7) 58.0 38.7-80.0 [facility] HospitalAutomated blood lymphocyte count as percentage ot total eenfvvhkfl2547-27-17 05:00:00* Test Item Value Reference Range Interpretation Comments Lymphocytes (%) (Auto) (test code = 736-9) 23.8 18.0-39.1 [facility] HospitalAutomated blood monocyte count as percentage of total eneifuidwh6702-99-54 05:00:00* Test Item Value Reference Range Interpretation Comments Monocytes (%) (Auto) (test code = 5905-5) 13.3 4.4-11.3 [facility] HospitalAutomated blood eosinophil count as percentage of total vbgtxifpyi8257-36-02 05:00:00* Test Item Value Reference Range Interpretation Comments Eosinophils (%) (Auto) (test code = 713-8) 2.9 0.0-6.0 [facility] HospitalAutomated blood basophil count as percentage of total xocjlvwtmj5517-91-10 05:00:00* Test Item Value Reference Range Interpretation Comments Basophils (%) (Auto) (test code = 706-2) 1.1 0.0-1.0 [facility] HospitalFluoroscopic procedure less than one hour vsgsbgvd6528-25-21 05:00:00* Test Item Value Reference Range Interpretation Comments IM GRANULOCYTES % (test code = IM GRANULOCYTES %) 0.9 0.0- 1.0 [facility] HospitalAutomated blood neutrophil count 2019-12-05 05:00:00* Test Item Value Reference Range Interpretation Comments Neutrophils # (Auto) (test code = 751-8) 3.8 2.1-6.9 [facility] HospitalBlood lymphocytes count (number/volume) 2019-12-05 05:00:00* Test Item Value Reference Range Interpretation Comments Lymphocytes # (Auto) (test code = 80479-2) 1.6 1.0-3.2 [facility] HospitalBlood monocytes automated count (number/volume)2019-12-05 05:00:00* Test Item Value Reference Range Interpretation Comments Monocytes # (Auto) (test code = 742-7) 0.9 0.2-0.8 [facility] HospitalAutomated blood eosinophil count 2019-12-05 05:00:00* Test Item Value Reference Range Interpretation Comments Eosinophils # (Auto) (test code = 711-2) 0.2 0.0-0.4 [facility] HospitalAutomated blood basophil count (count/volume)2019-12-05 05:00:00* Test Item Value Reference Range Interpretation Comments Basophils # (Auto) (test code = 704-7) 0.1 0.0-0.1 [facility] HospitalFluoroscopic procedure less than one hour yreyjwtr7764-93-53 05:00:00* Test Item Value Reference Range Interpretation Comments Absolute Immature Granulocyte (auto (cortney t code = Absolute Immature Granulocyte (auto) 0.06 0-0.1 [facility] sodium [facility] (moles/volume)2019-12-05 04:50:00* Test Item Value Reference Range Interpretation Comments Sodium Level (test code = 2951-2) 136 136-145 [facility] potassium measurement (moles/volume)2019-12-05 04:50:00* Test Item Value Reference Range Interpretation Comments Potassium Level (test code = 2823-3) 3.8 3.5-5.1 [facility] chloride measurement (moles/volume)2019-12-05 04:50:00* Test Item Value Reference Range Interpretation Comments Chloride Level (test code = 2075-0) 104 98-107 [facility] carbon dioxide, total measurement (moles/volume)2019-12-05 04:50:00* Test Item Value Reference Range Interpretation Comments Carbon Dioxide Level (test code = 2028-9) 21 22-29 [facility] anion jij0453-94-46 04:50:00* Test Item Value Reference Range Interpretation Comments Anion Gap (test code = 18639-9) 14.8 8-16 [facility] urea nitrogen measurement (mass/volume)2019-12-05 04:50:00* Test Item Value Reference Range Interpretation Comments Blood Urea Nitrogen (test code = 3094-0) 25 7-26 [facility] creatinine measurement (mass/volume)2019-12-05 04:50:00* Test Item Value Reference Range Interpretation Comments Creatinine (test code = 2160-0) 1.62 0.57-1.11 [facility] urea nitrogen/creatinine mass fcbtf4009-71-48 04:50:00* Test Item Value Reference Range Interpretation Comments BUN/Creatinine Ratio (test code = 3097-3) 15 6-25 [facility] HospitalEstimated glomerular filtration rate (GFR) bbdebosrclekt8906-32-97 04:50:00* Test Item Value Reference Range Interpretation Comments Estimat Glomerular Filtration Rate (test code = 536520893) 34 >60 Ranges were taken from the National Kidney Disease Education Program and the [facility] [employer] literature.Reference ranges:60 or greater: Babnrq67-69 ( for 3 consecutive months): Chronic kidney disease 15 or less: Kidney failureCleveland Emergency HospitalGlucose cmwpwlzejkm7519-23-71 04:50:00* Test Item Value Reference Range Interpretation Comments Glucose Level (test code = UHO9851) 259 74-118 [facility] calcium measurement (mass/volume)2019-12-05 04:50:00* Test Item Value Reference Range Interpretation Comments Calcium Level (test code = 67569-3) 8.3 8.4-10.2 [facility] total bilirubin measurement (mass/volume)2019-12-05 04:50:00* Test Item Value Reference Range Interpretation Comments Total Bilirubin (test code = 1975-2) 0.4 0.2-1.2 [facility] HospitalFluoroscopic procedure less than one hour aztrynyv6180-27-58 04:50:00* Test Item Value Reference Range Interpretation Comments Aspartate Amino Transf (AST/SGOT) (test code = Aspartate Amino Transf (AST/SGOT)) 42 5-34 [facility] plasma alanine aminotransferase measurement (enzymatic activity/volume)2019-12-05 04:50:00* Test Item Value Reference Range Interpretation Comments Alanine Aminotransferase (ALT/SGPT) (test code = 1742-6) 33 0-55 [facility] protein measurement (mass/volume)2019-12-05 04:50:00* Test Item Value Reference Range Interpretation Comments Total Protein (test code = 2885-2) 6.5 6.5-8.1 [facility] albumin measurement (mass/volume)2019-12-05 04:50:00* Test Item Value Reference Range Interpretation Comments Albumin (test code = 1751-7) 2.8 3.5-5.0 [facility] HospitalPlasma globulin measurement (mass/volume) 2019-12-05 04:50:00* Test Item Value Reference Range Interpretation Comments Globulin (test code = 00618-8) 3.7 2.3-3.5 [facility] albumin/globulin mass ykucq4711-01-02 04:50:00* Test Item Value Reference Range Interpretation Comments Albumin/Globulin Ratio (test code = 1759-0) 0.8 0.8-2.0 [facility] alkaline phosphatase measurement (enzymatic activity/volume)2019-12-05 04:50:00* Test Item Value Reference Range Interpretation Comments Alkaline Phosphatase (test code = 6768-6) 58 40-150 [facility] HospitalFluoroscopic procedure less than one hour zauddvzl8309-79-86 23:30:00* Test Item Value Reference Range Interpretation Comments Lactic Acid Level (test code = Lactic Acid Level) 1.1 0.5- 2.0 [facility] HospitalCapillary blood glucose measurement by glucometer (mass/volume)2019-11-26 15:44:00* Test Item Value Reference Range Interpretation Comments Bedside Glucose (test code = 80868-6) 221 70-120 Meter ID: [id number] Emergency HospitalBlood leukocytes automated count (number/volume)2019-11-26 06:00:00* Test Item Value Reference Range Interpretation Comments White Blood Count (test code = 6690-2) 4.66 4.8-10.8 [facility] erythrocytes automated count (number/volume)2019-11-26 06:00:00* Test Item Value Reference Range Interpretation Comments Red Blood Count (test code = 789-8) 3.98 3.6-5.1 [facility] (moles/volume)2019-11-26 06:00:00* Test Item Value Reference Range Interpretation Comments Hemoglobin (test code = 55806-8) 10.1 12.0-16.0 [facility] HospitalAutomated blood hematocrit (volume fraction)2019-11-26 06:00:00* Test Item Value Reference Range Interpretation Comments Hematocrit (test code = 4544-3) 33.1 34.2-44.1 [facility] HospitalAutomated erythrocyte mean corpuscular txsdaq5125-55-98 06:00:00* Test Item Value Reference Range Interpretation Comments Mean Corpuscular Volume (test code = 787-2) 83.2 81-99 [facility] HospitalAutomated erythrocyte mean corpuscular hemoglobin (mass per erythrocyte)2019-11-26 06:00:00* Test Item Value Reference Range Interpretation Comments Mean Corpuscular Hemoglobin (test code = 785-6) 25.4 28-32 [facility] HospitalAutomated erythrocyte mean corpuscular hemoglobin concentration measurement (mass/volume)2019-11-26 06:00:00* Test Item Value Reference Range Interpretation Comments Mean Corpuscular Hemoglobin Concent (test code = 786-4) 30.5 31-35 [facility] HospitalRDW ZxmAh-Bbm8294-13-15 06:00:00* Test Item Value Reference Range Interpretation Comments Red Cell Distribution Width (test code = 15667-1) 15.6 11.7 -14.4 [facility] HospitalAutomated blood platelet count (count/volume)2019-11-26 06:00:00* Test Item Value Reference Range Interpretation Comments Platelet Count (test code = 777-3) 306 140-360 [facility] HospitalAutomated blood segmented neutrophil count as percentage of total gohmimmoai7294-48-99 06:00:00* Test Item Value Reference Range Interpretation Comments Neutrophils (%) (Auto) (test code = 60190-4) 52.6 38.7-80.0 [facility] HospitalAutomated blood lymphocyte count as percentage ot total ifscwuozag9484-29-20 06:00:00* Test Item Value Reference Range Interpretation Comments Lymphocytes (%) (Auto) (test code = 736-9) 27.0 18.0-39.1 [facility] HospitalAutomated blood monocyte count as percentage of total mntnlbbfpr5087-24-80 06:00:00* Test Item Value Reference Range Interpretation Comments Monocytes (%) (Auto) (test code = 5905-5) 14.2 4.4-11.3 [facility] HospitalAutomated blood eosinophil count as percentage of total ejgamqpvff1703-40-23 06:00:00* Test Item Value Reference Range Interpretation Comments Eosinophils (%) (Auto) (test code = 713-8) 3.6 0.0-6.0 [facility] HospitalAutomated blood basophil count as percentage of total wtvpaxezog1275-29-29 06:00:00* Test Item Value Reference Range Interpretation Comments Basophils (%) (Auto) (test code = 706-2) 1.1 0.0-1.0 [facility] HospitalFluoroscopic procedure less than one hour vmbsnywn7704-36-55 06:00:00* Test Item Value Reference Range Interpretation Comments IM GRANULOCYTES % (test code = IM GRANULOCYTES %) 1.5 0.0- 1.0 [facility] HospitalAutomated blood neutrophil count 2019-11-26 06:00:00* Test Item Value Reference Range Interpretation Comments Neutrophils # (Auto) (test code = 751-8) 2.5 2.1-6.9 [facility] HospitalBlood lymphocytes count (number/volume) 2019-11-26 06:00:00* Test Item Value Reference Range Interpretation Comments Lymphocytes # (Auto) (test code = 25542-5) 1.3 1.0-3.2 [facility] HospitalBlood monocytes automated count (number/volume)2019-11-26 06:00:00* Test Item Value Reference Range Interpretation Comments Monocytes # (Auto) (test code = 742-7) 0.7 0.2-0.8 [facility] HospitalAutomated blood eosinophil count 2019-11-26 06:00:00* Test Item Value Reference Range Interpretation Comments Eosinophils # (Auto) (test code = 711-2) 0.2 0.0-0.4 [facility] HospitalAutomated blood basophil count (count/volume)2019-11-26 06:00:00* Test Item Value Reference Range Interpretation Comments Basophils # (Auto) (test code = 704-7) 0.1 0.0-0.1 [facility] HospitalFluoroscopic procedure less than one hour jvfuiyta8610-71-98 06:00:00* Test Item Value Reference Range Interpretation Comments Absolute Immature Granulocyte (auto (cortney t code = Absolute Immature Granulocyte (auto) 0.07 0-0.1 [facility] sodium measurement (moles/volume)2019-11-26 06:00:00* Test Item Value Reference Range Interpretation Comments Sodium Level (test code = 2951-2) 136 136-145 [facility] potassium measurement (moles/volume)2019-11-26 06:00:00* Test Item Value Reference Range Interpretation Comments Potassium Level (test code = 2823-3) 4.0 3.5-5.1 [facility] chloride measurement (moles/volume)2019-11-26 06:00:00* Test Item Value Reference Range Interpretation Comments Chloride Level (test code = 2075-0) 105 98-107 [facility] carbon dioxide, total measurement (moles/volume)2019-11-26 06:00:00* Test Item Value Reference Range Interpretation Comments Carbon Dioxide Level (test code = 2028-9) 26 22-29 [facility] anion [id number] 06:00:00* Test Item Value Reference Range Interpretation Comments Anion Gap (test code = 43470-0) 9.0 8-16 [facility] urea nitrogen measurement (mass/volume)2019-11-26 06:00:00* Test Item Value Reference Range Interpretation Comments Blood Urea Nitrogen (test code = 3094-0) 19 7-26 [facility] creatinine measurement (mass/volume)2019-11-26 06:00:00* Test Item Value Reference Range Interpretation Comments Creatinine (test code = 2160-0) 1.12 0.57-1.11 [facility] urea nitrogen/creatinine mass njnmw5389-20-86 06:00:00* Test Item Value Reference Range Interpretation Comments BUN/Creatinine Ratio (test code = 3097-3) 17 6-25 [facility] HospitalEstimated glomerular filtration rate (GFR) juptusvezjbig1730-32-64 06:00:00* Test Item Value Reference Range Interpretation Comments Estimat Glomerular Filtration Rate (test code = 129443057) 51 >60 Ranges were taken from the National Kidney Disease Education Program and the [facility] [employer] literature.Reference ranges:60 or greater: Bpooub29-21 ( for 3 consecutive months): Chronic kidney disease 15 or less: Kidney failureC[facility] Emergency HospitalGlucose urvaummkgfc8151-59-12 06:00:00* Test Item Value Reference Range Interpretation Comments Glucose Level (test code = YUS9120) 253 74-118 [facility] calcium measurement (mass/volume)2019-11-26 06:00:00* Test Item Value Reference Range Interpretation Comments Calcium Level (test code = 74795-2) 8.0 8.4-10.2 [facility] total bilirubin measurement (mass/volume)2019-11-26 06:00:00* Test Item Value Reference Range Interpretation Comments Total Bilirubin (test code = 1975-2) 0.2 0.2-1.2 [facility] HospitalFluoroscopic procedure less than one hour nelvggeq3649-61-36 06:00:00* Test Item Value Reference Range Interpretation Comments Aspartate Amino Transf (AST/SGOT) (test code = Aspartate Amino Transf (AST/SGOT)) 33 5-34 [facility] alanine aminotransferase measurement (enzymatic activity/volume)2019-11-26 06:00:00* Test Item Value Reference Range Interpretation Comments Alanine Aminotransferase (ALT/SGPT) (test code = 1742-6) 77 0-55 [facility] protein measurement (mass/volume)2019-11-26 06:00:00* Test Item Value Reference Range Interpretation Comments Total Protein (test code = 2885-2) 5.7 6.5-8.1 [facility] albumin measurement (mass/volume)2019-11-26 06:00:00* Test Item Value Reference Range Interpretation Comments Albumin (test code = 1751-7) 2.3 3.5-5.0 [facility] (mass/volume) 2019-11-26 06:00:00* Test Item Value Reference Range Interpretation Comments Globulin (test code = 59337-5) 3.4 2.3-3.5 [facility] albumin/globulin mass njetu6709-21-67 06:00:00* Test Item Value Reference Range Interpretation Comments Albumin/Globulin Ratio (test code = 1759-0) 0.7 0.8-2.0 [facility] alkaline phosphatase measurement (enzymatic activity/volume)2019-11-26 06:00:00* Test Item Value Reference Range Interpretation Comments Alkaline Phosphatase (test code = 6768-6) 82 40-[address] [facility] less than one hour sepbuiwu2190-18-94 06:55:00* Test Item Value Reference Range Interpretation Comments Hemoglobin A1c Percent (test code = Hemoglobin A1c Percent) 10.8 4.0-7.0 [facility] Hospital[facility]osph[facility] knxuhujwhjz2732-92-85 06:55:00 * Test Item Value Reference Range Interpretation Comments Phosphorus Level (test code = TLA3375) 2.9 2.3-4.7 [facility] magnesium measurement (mass/volume)2019-11-24 06:55:00* Test Item Value Reference Range Interpretation Comments Magnesium Level (test code = 93762-8) 1.9 1.3-2.1 [facility] triglyceride measurement (mass/volume)2019-11-24 06:55:00* Test Item Value Reference Range Interpretation Comments Triglycerides Level (test code = 2571-8) 149 0-149 [facility] cholesterol measurement (mass/volume)2019-11-24 06:55:00* Test Item Value Reference Range Interpretation Comments Cholesterol Level (test code = 2093-3) 140 0-199 Less than 200 mg/dL Low Dnor679 - 239 mg/dL Borderline Xcxh021 m g/dl and greater High Risk [facility] cholesterol in LDL measurement (mass/volume) 2019-11-24 06:55:00* Test Item Value Reference Range Interpretation Comments LDL Cholesterol (test code = 2089-1) 54 60-130 [facility] cholesterol in HDL measurement (mass/volume)2019-11-24 06:55:00* Test Item Value Reference Range Interpretation Comments HDL Cholesterol (test code = 2085-9) 56 40-60 [facility] total cholesterol/cholesterol in HDL mass pzeck9497-28-24 06:55:00* Test Item Value Reference Range Interpretation Comments Cholesterol/HDL Ratio (test code = 9830-1) 2.5 3.0-3.6 [facility] thyrotropin measurement by detection limit <= 0.005 miu/l (units/volume)2019-11-24 06:55:00* Test Item Value Reference Range Interpretation Comments Thyroid Stimulating Hormone (TSH) (test code = 21059-8) 2.685 0.350-4.940 [facility] trough vancomycin level at trough (mass/volume)2019-11-24 06:55:00* Test Item Value Reference Range Interpretation Comments Vancomycin Level Trough (test code = 4092-3) 7.6 5.0-10.0 [facility] procedure less than one hour hguiipys1295-43-95 06:55:00* Test Item Value Reference Range Interpretation Comments Hemoglobin A1c Percent (test code = Hemoglobin A1c Percent) 10.8 4.0-7.0 [facility] HospitalPh[facility] ipummlgtrqo2234-88-08 06:55:00 * Test Item Value Reference Range Interpretation Comments Phosphorus Level (test code = POW6565) 2.9 2.3-4.7 [facility] magnesium measurement (mass/volume)2019-11-24 06:55:00* Test Item Value Reference Range Interpretation Comments Magnesium Level (test code = 84291-8) 1.9 1.3-2.1 [facility] triglyceride measurement (mass/volume)2019-11-24 06:55:00* Test Item Value Reference Range Interpretation Comments Triglycerides Level (test code = 2571-8) 149 0-149 [facility] cholesterol measurement (mass/volume)2019-11-24 06:55:00* Test Item Value Reference Range Interpretation Comments Cholesterol Level (test code = 2093-3) 140 0-199 Less than 200 mg/dL Low Dhcq786 - 239 mg/dL Borderline Orvz789 m g/dl and greater High [facility] cholesterol in LDL measurement (mass/volume) 2019-11-24 06:55:00* Test Item Value Reference Range Interpretation Comments LDL Cholesterol (test code = 2089-1) 54 60-130 [facility] cholesterol in HDL measurement (mass/volume)2019-11-24 06:55:00* Test Item Value Reference Range Interpretation Comments HDL Cholesterol (test code = 2085-9) 56 40-60 [facility] total cholesterol/cholesterol in HDL mass uvlbz8012-44-43 06:55:00* Test Item Value Reference Range Interpretation Comments Cholesterol/HDL Ratio (test code = 9830-1) 2.5 3.0-3.6 [facility] plasma thyrotropin measurement by detection limit <= 0.005 miu/l (units/volume)2019-11-24 06:55:00* Test Item Value Reference Range Interpretation Comments Thyroid Stimulating Hormone (TSH) (test code = 62019-6) 2.685 0.350-4.940 [facility] trough vancomycin level at trough (mass/volume)2019-11-24 06:55:00* Test Item Value Reference Range Interpretation Comments Vancomycin Level Trough (test code = 4092-3) 7.6 5.0-10.0 [facility] color hbgsqwejegzaj1465-45-20 01:17:00* Test Item Value Reference Range Interpretation Comments Urine Color (test code = 5778-6) YELLOW YELLOW [facility] HospitalU[facility] mkbfppo2543-30-42 01:17:00* Test Item Value Reference Range Interpretation Comments Urine Clarity (test code = 92559-4) CLEAR CLEAR [facility] of Urine by Test strip 2019-11-24 01:17:00* Test Item Value Reference Range Interpretation Comments Urine Specific [place] (test code = 5811-5) 1.025 1.010-1.02 5 [facility] pH measurement by automated test qqjfu6280-72-09 01:17:00* Test Item Value Reference Range Interpretation Comments Urine pH (test code = 87775-5) 6.5 5-7 [facility] leukocyte esterase detection by kxkfyult0872-73-81 01:17:00* Test Item Value Reference Range Interpretation Comments Urine Leukocyte Esterase (test code = 5799-2) NEGATIVE NEGATIVE [facility] nitrite whxmphygc0968-12-99 01:17:00* Test Item Value Reference Range Interpretation Comments Urine Nitrite (test code = 96821-0) NEGATIVE NEGATIVE [facility] protein measurement by test strip (mass/volume)2019-11-24 01:17:00* Test Item Value Reference Range Interpretation Comments Urine Protein (test code = 5804-0) >=300 NEGATIVE [facility] glucose rcvsboxcu0495-15-65 01:17:00* Test Item Value Reference Range Interpretation Comments Urine Glucose (UA) (test code = 2349-9) 2+ NEGATIVE [facility] ketones detection by automated test coixg9709-73-58 01:17:00* Test Item Value Reference Range Interpretation Comments Urine Ketones (test code = 25501-6) NEGATIVE NEGATIVE [facility] urobilinogen measurement by test strip (mass/volume)2019-11-24 01:17:00* Test Item Value Reference Range Interpretation Comments Urine Urobilinogen (test code = 27253-5) 0.2 0.2-1 [facility] total bilirubin measurement (mass/volume)2019-11-24 01:17:00* Test Item Value Reference Range Interpretation Comments Urine Bilirubin (test code = 1978-6) NEGATIVE NEGATIVE [facility] erythrocytes hoigcvtvs0677-77-49 01:17:00* Test Item Value Reference Range Interpretation Comments Urine Blood (test code = 41160-1) NEGATIVE NEGATIVE [facility] HospitalAutomated urine sediment leukocyte count by microscopy (number/high power field)2019-11-24 01:17:00* Test Item Value Reference Range Interpretation Comments Urine WBC (test code = 5821-4) 11-20 0-5 [facility] HospitalErythrocytes detection in urine sediment by light tmzlgsbhmv5559-67-06 01:17:00* Test Item Value Reference Range Interpretation Comments Urine RBC (test code = 91365-7) 6-10 0-5 [facility] HospitalBacteria detection in urine sediment by light mizambebei7555-43-09 01:17:00* Test Item Value Reference Range Interpretation Comments Urine Bacteria (test code = 27574-9) FEW NONE [facility] HospitalEpithelial cells detection in urine sediment by light jgssffuszy8686-86-66 01:17:00* Test Item Value Reference Range Interpretation Comments Urine Epithelial Cells (test code = 83999-5) FEW NONE [facility] HospitalYeast detection in urine sediment by light kqjoneyxye8473-09-91 01:17:00* Test Item Value Reference Range Interpretation Comments Urine Yeast (test code = 91190-5) FEW NONE [facility] HospitalU[facility] color ahbzwonjgvqrp6909-67-59 01:17:00* Test Item Value Reference Range Interpretation Comments Urine Color (test code = 5778-6) YELLOW YELLOW [facility] Hospital[facility] yxyzjks0038-62-05 01:17:00* Test Item Value Reference Range Interpretation Comments Urine Clarity (test code = 16744-4) CLEAR CLEAR [facility] of Urine by Test strip 2019-11-24 01:17:00* Test Item Value Reference Range Interpretation Comments Urine Specific [place] (test code = 5811-5) 1.025 1.010-1.02 5 [facility] pH measurement by automated test fbgtj3890-94-83 01:17:00* Test Item Value Reference Range Interpretation Comments Urine pH (test code = 83831-2) 6.5 5-7 [facility] leukocyte esterase detection by ycmsgnvk9234-58-93 01:17:00* Test Item Value Reference Range Interpretation Comments Urine Leukocyte Esterase (test code = 5799-2) NEGATIVE NEGATIVE [facility] nitrite jzpqpjyqy5974-87-68 01:17:00* Test Item Value Reference Range Interpretation Comments Urine Nitrite (test code = 93380-4) NEGATIVE NEGATIVE [facility] protein measurement by test strip (mass/volume)2019-11-24 01:17:00* Test Item Value Reference Range Interpretation Comments Urine Protein (test code = 5804-0) >=300 NEGATIVE [facility] Hospital[facility] glucose jisijsinj8894-83-84 01:17:00* Test Item Value Reference Range Interpretation Comments Urine Glucose (UA) (test code = 2349-9) 2+ NEGATIVE [facility] ketones detection by automated test hsrxl5779-78-60 01:17:00* Test Item Value Reference Range Interpretation Comments Urine Ketones (test code = 65065-3) NEGATIVE NEGATIVE [facility] urobilinogen measurement by test strip (mass/volume)2019-11-24 01:17:00* Test Item Value Reference Range Interpretation Comments Urine Urobilinogen (test code = 67533-3) 0.2 0.2-1 [facility] total bilirubin measurement (mass/volume)2019-11-24 01:17:00* Test Item Value Reference Range Interpretation Comments Urine Bilirubin (test code = 1978-6) NEGATIVE NEGATIVE [facility] Hospital[facility] erythrocytes ebiefezdd4263-35-30 01:17:00* Test Item Value Reference Range Interpretation Comments Urine Blood (test code = 55462-6) NEGATIVE NEGATIVE [facility] HospitalAutomated urine sediment leukocyte count by microscopy (number/high power field)2019-11-24 01:17:00* Test Item Value Reference Range Interpretation Comments Urine WBC (test code = 5821-4) 11-20 0-5 [facility] HospitalErythrocytes detection in urine sediment by light mboaamjfwt5878-09-61 01:17:00* Test Item Value Reference Range Interpretation Comments Urine RBC (test code = 38981-8) 6-10 0-5 [facility] HospitalBacteria detection in urine sediment by light efkiidpyfv9958-42-65 01:17:00* Test Item Value Reference Range Interpretation Comments Urine Bacteria (test code = 28958-2) FEW NONE [facility] HospitalEpithelial cells detection in urine sediment by light zeuxnmtgsg4955-84-34 01:17:00* Test Item Value Reference Range Interpretation Comments Urine Epithelial Cells (test code = 82734-5) FEW NONE [facility] HospitalYeast detection in urine sediment by light orlckubaph2556-43-04 01:17:00* Test Item Value Reference Range Interpretation Comments Urine Yeast (test code = 43239-5) FEW NONE [facility] HospitalCT [facility]/PELVIS HC8461-99-31 23:15:00 [facility] [address] [address] Patient Name: MEÑO MATA MR #: [id number] : 1970 Age/Sex: 49/F Req #: [id number] Adm Physician: HARLAN NGUYỄN MD Ordered by: JACQUELINE DIOP t #: [phone] Location: [facility] Room/Bed : [place] [address] Procedure: [id number] CT/CT ABDOMEN/PE LVIS WO Exam Date: 11/22/19 Exam Time: 2217 REPORT STATUS: Signed EXAM: CT Abdomen a nd Pelvis WITHOUT contrast INDICATION: RLQ abscess [id number] 2 218 COMPARISON: CT abdomen pelvis 07/20/2017 [...] abnormality. 2. Enlarged fatty liver. Signed by: Cas Walker MD on 11/22/2019 11:19 PM Dictated By: CAS WALKER MD Electronically Sign ed By: CAS WALKER MD on 11/22/19 0430 Transcribed By: DAVID on 11/22/19 2 319 COPY TO: JACQUELINE DIOP DO Fluoroscopic procedure less than one hour sucnqjik9123-13-79 22:37:00* Test Item Value Reference Range Interpretation Comments Coronavirus (PCR) (test code = Coronavirus (PCR)) NOT DETECTED NOTD ETECTED SARS-COV-2 (COVID19), HIGHRISK, RT-PCRNegative results do not preclude SARS-CoV- 2 infection and should not be used as the sole basis for patient management deci sions. Negative results must be combined with clinical observations, patient his tory, and epidemiological information. Optimum specimen types and timing for pea k viral levels during infections caused by SARS-CoV-2 have not been determined. Collection of multiple specimens ot types of specimens may be necessary to detec t virus. Improper specimen collection and handling, sequence variability under p rimers/probes, or organism present below the limit of detection may lead to fals e negative results. Positive and negative predictive values of testing are highl y dependent on prevalance. False negative test results are more likely when prev alence is high.The expected result is negative (not detected).The SARS-CoV-2 cortney t is intended for the qualitative detection of nucleic acid from SARS-CoV-2 in n asopharyngeal and oropharyngeal swab samples from patients who meet COVID-19 cli nical and or epidemiological criteria. For lower respiratory tract specimens, th e assay is submitted for authoriztion by FDA under an Emergency Use Authorizatio n (EUA). Testing methodology is real time RT-PCR. If received as separate collec tion devices, nasopharygeal and oropharyngeal specimens are combined for analysi s. Additional specimens may be split to a separate accession for analysi and rep orting as this test includes a single unit of service.Test results must be corre lated with clinical presentation and evaluated in the context of other laborator y and epidemiologic data. Test performance can be affected because the epidemiol ogy and clinical spectrum of infection caused by SARS-CoV-2 is not fully known. For example, the optimum types of specimens to collect and when during the cours e of infection these specimens are most likely to contain detectable viral RNA m ay not be known.This test has not been Food and Drug Administration (FDA) cleare d or approved and has been authorized by FDA under an Emergency Use Authorizatio n (EUA). The test is only authorized for the duration of the declaration that ci rcumstances exist justifying the authorization of emergency use of in vitro diag nostic tests for detection and/or diagnosis of SARS-CoV-2 under section 564(b) o f the Act, 21 U.S.C. section 360bbb-3(b)(1), unless the authorization is termina maxine or revoked sooner. [facility] are certified under the C linical Laboratory Improvement Amendments of 1988 (CLIA), 42 U.S.C. section 263a , to perform high complexity tests.Testing performed by [facility] [address] [place], [place] [phone] Director: Neptali Anthony M.D.CLIA # [id number] [facility] Fluoroscopic procedure less than one hour wxdznkdu2897-57-23 22:37:00* Test Item Value Reference Range Interpretation Comments Coronavirus (PCR) (test code = Coronavirus (PCR)) NOT DETECTED NOTD ETECTED SARS-COV-2 (COVID19), HIGHRISK, RT-PCRNegative results do not preclude SARS-CoV- 2 infection and should not be used as the sole basis for patient management deci sions. Negative results must be combined with clinical observations, patient his tory, and epidemiological information. Optimum specimen types and timing for pea k viral levels during infections caused by SARS-CoV-2 have not been determined. Collection of multiple specimens ot types of specimens may be necessary to detec t virus. Improper specimen collection and handling, sequence variability under p rimers/probes, or organism present below the limit of detection may lead to fals e negative results. Positive and negative predictive values of testing are highl y dependent on prevalance. False negative test results are more likely when prev alence is high.The expected result is negative (not detected).The SARS-CoV-2 cortney t is intended for the qualitative detection of nucleic acid from SARS-CoV-2 in n asopharyngeal and oropharyngeal swab samples from patients who meet COVID-19 cli nical and or epidemiological criteria. For lower respiratory tract specimens, th e assay is submitted for authoriztion by FDA under an Emergency Use Authorizatio n (EUA). Testing methodology is real time RT-PCR. If received as separate collec tion devices, nasopharygeal and oropharyngeal specimens are combined for analysi s. Additional specimens may be split to a separate accession for analysi and rep orting as this test includes a single unit of service.Test results must be corre lated with clinical presentation and evaluated in the context of other laborator y and epidemiologic data. Test performance can be affected because the epidemiol ogy and clinical spectrum of infection caused by SARS-CoV-2 is not fully known. For example, the optimum types of specimens to collect and when during the cours e of infection these specimens are most likely to contain detectable viral RNA m ay not be known.This test has not been Food and Drug Administration (FDA) cleare d or approved and has been authorized by FDA under an Emergency Use Authorizatio n (EUA). The test is only authorized for the duration of the declaration that ci rcumstances exist justifying the authorization of emergency use of in vitro diag nostic tests for detection and/or diagnosis of SARS-CoV-2 under section 564(b) o f the Act, 21 U.S.C. section 360bbb-3(b)(1), unless the authorization is termina maxine or revoked sooner. [facility] are certified under the C linical Laboratory Improvement Amendments of 1988 (CLIA), 42 U.S.C. section 263a , to perform high complexity tests.Testing performed by [facility] [address] [phone] Director: Neptali Anthony M.D.[facility] # [id number] [facility] Fluoroscopic procedure less than one hour cqjsstjy0336-52-43 20:40:00* Test Item Value Reference Range Interpretation Comments Lactic Acid Level (test code = Lactic Acid Level) 1.8 0.5- 2.0 [facility] HospitalBlood kecwjfb8906-94-61 20:40:00* Test Item Value Reference Range Interpretation Comments Blood Culture (test code = 96526526) NO GROWTH AFTER 72 HOURS [facility]Bl[facility] kndhnts6671-79-37 20:40:00* Test Item Value Reference Range Interpretation Comments Blood Culture (test code = 54298806) NO GROWTH AFTER 5 DAYS, FINAL REPORT [facility] HospitalBASIC METABOLIC [id number] 14:32:00 * Test Item Value Reference Range [...] code = CA) 8.9 mg/dL 8.5-10.1 N [id number]-[id number] 14:32:00* Test Item Value Reference Range Interpretation Comments TROPONIN-I (test code = TROPI) <0.015 ng/mL 0-0.045 N BASIC METABOLIC [id number] 14:26:00* Test Item Value Reference Range Interpretation [...] CALCIUM (test code = CA) mg/dL 8.5-10.1 [id number]-[id number] 14:26:00* Test Item Value Reference Range Interpretation Comments TROPONIN-I (test code = TROPI) ng/mL 0-0.045 - XR CHEST 1 [id number] 14:24:00 FAX: Lacho Ambrosio MD [phone] [place]: [address] St: REG Name: MEÑO RYDER [facility] : [birth year] 69 Age/S: 49/F [address] [facility] Unit #: [id number] Loc: [place] [address] Phys: Lacho Ambrosio MD Acct: [id number] Dis Date: Status: REG ER PHONE #: [phone] Exam Date: 10/22/2019 1403 FAX #: [phone] Reason: CHEST PAIN EXAMS: CPT CODE: [id number] XR CHEST 1 V 96221 HISTORY: Chest pain. COMPARISON: September 13, 2019. Location: [facility]. No acute infiltrates, effusion or congestion is noted. Suboptimal inspiration. Depe ndent changes. Cardiomegaly. IMPRESSION: No acute infiltrates, effusion or congestion. at 1424 Reported and sig ezequiel by: Jamil Norman M.D. CC: Lacho Ambrosio MD Technologist: KASANDRA CHAMORRO RT(R) Trnscrd Date/Time/By: 10/22/2019 (2491) : By: [email or web address] Orig Print D/T: S: 10/22/2019 (6155) PAGE 1 Signed Report CBC W/O DIFF [...] MPV) 9.7 fL 6.7-11.0 N CBC W/O [id number] 14:10:00* Test Item Value Reference Range Interpretation [...] VOLUME (test code = MPV) fL 6.7-11.0 [id number] 16:39:00* Test Item Value Reference Range Interpretation Comments GLUBED (test code = GLUBED) 228 mg/dL 74-106 H Performed by certified cyber operator at [facility] SFOTKK5442-88-08 14:14:00* Test Item Value Reference Range Interpretation Comments GLUBED (test code = GLUBED) 243 mg/dL 74-106 H Performed by certified cyber operator at [facility] AZJIWVLV-J5837-50-03 12:57:00* Test Item Value Reference Range Interpretation Comments TROPONIN-I (test code = TROPI) 0.056 ng/mL 0-0.045 HH COMMENTS TO UMBRELLA FINISHER: COLLECT 3 HOURS AFTER PREVIOUS SAMPLEBASIC METABOLIC [id number] 12:50:00* Test Item Value Reference Range Interpretation [...] RELATED TO RISK LEVELS ASRECOMMENDED BY THE NEVAEH. HEART, LUNG, AND BLOOD INST. HDL CHOLESTEROL (test code = HDL) 62 mg/dL 40-60 H LIPOPROTEIN LDL (test code = LDL) 59 mg/dL 100-129 L Reference Interval: mg/dL mmol/L Optimal <100 <2.6Near/above optimal 100-129 2.6- 3.3Borderline High 130-159 3.4-4.1High 160-189 4.1-4.9Very High >=190 >=4.9========= This LDL result is a direct measurement.========= CBC W/AUTO [id number] 12:41:00* Test Item Value Reference Range Interpretation [...] DIFF REQUIRED (test code = MDIFF) NO [id number] 09:13:00* Test Item Value Reference Range Interpretation Comments GLUBED (test code = GLUBED) 181 mg/dL 74-106 H Performed by certified cyber operator at [facility] LYMFQELT-[id number] 06:09:00* Test Item Value Reference Range Interpretation Comments TROPONIN-I (test code = TROPI) 0.078 ng/mL 0-0.045 HH PREVIOUSLY CALLED COMMENTS TO UMBRELLA FINISHER: COLLECT 3 HOURS AFTER PREVIOUS SAMPLEPROTHROMBIN [id number] 23:27:00* Test Item Value Reference Range Interpretation [...] (2.5-3.5) IS PATIENT ON ANTICOAGULANTS? NTHROMBOPLASTIN TIME [id number] 23:27:00* Test Item Value Reference Range Interpretation Comments THROMBOPLASTIN TIME PARTIAL (test code = PTT) 34.3 seconds 25.0-36. 5 N IS PATIENT ON ANTICOAGULANTS? NHEPATIC FUNCTION [id number] 23:17:00* Test Item Value Reference Range Interpretation [...] due to change in reagent. THYROID STIMULATING [id number] 23:17:00* Test Item Value Reference Range Interpretation Comments THYROID STIMULATING HORMONE (test code = TSH) 1.660 uIU/mL 0.36-3.7 4 N TSH REFERENCE RANGES: EUTHYROID: 0.35 - 4.3 mIU/mL HYPO : > 5.5 mIU/mL HYPER : < 0.35 mIU/mL [id number] 22:25:00* Test Item Value Reference Range Interpretation Comments GLUBED (test code = GLUBED) 106 mg/dL 74-106 N Performed by certified cyber operator at [facility] BASIC METABOLIC [id number] 19:03:00* Test Item Value Reference Range Interpretation [...] code = CA) 9.0 mg/dL 8.5-10.1 N [id number] 19:03:00* Test Item Value Reference Range Interpretation Comments TROPONIN-I (test code = TROPI) 0.180 ng/mL 0-0.045 Results called to [id number] by [email or web address] 09/13/19 1902Critical results verified and read back by Nurse? Y BASIC METABOLIC [id number] 18:50:00* Test Item Value Reference Range Interpretation [...] CALCIUM (test code = CA) mg/dL 8.5-10.1 [id number] 18:50:00* Test Item Value Reference Range Interpretation Comments TROPONIN-I (test code = TROPI) ng/mL 0-0.045 BASIC METABOLIC [id number] 18:50:00* Test Item Value Reference Range Interpretation [...] code = CA) 9.0 mg/dL 8.5-10.1 N [id number] 18:50:00* Test Item Value Reference Range Interpretation Comments TROPONIN-I (test code = TROPI) ng/mL 0-0.045 CBC W/O [id number] 18:43:00* Test Item Value Reference Range Interpretation [...] MPV) 9.5 fL 6.7-11.0 N CBC W/O [id number] 18:41:00* Test Item Value Reference Range Interpretation [...] MPV) fL 6.7-11.0 - XR CHEST 1 [id number] 14:55:00 FAX: Koby Hadley MD [place]: St: PRE Name: MEÑO RYDER [facility] : [birth year] Age/S: 48/F [address] [facility] Unit #: [id number] Loc: [place] [address] Phys: Koby Hadley MD Acct: [id number] Dis Date: Status: PRE ER PHONE #: [phone] Exam Date: 09/13/2019 1445 FAX #: [phone] Reason: CHEST PAIN EXAMS: CPT CODE: [id number] XR CHEST 1 V 42134 HISTORY: Chest pain. COMPARISON: February 16, 2018. Location: [facility]. No acute infiltrates, effusion or congestion is noted. Suboptimal inspiration. Dep endent changes. Mild cardiomegaly. IMPRESSION: No acute infiltrates, effusion or congestion. Electronically Sign ed by Miriam Norman on 09/13/2019 at 1459 Reported a nd signed by: Jamil Norman M.D. CC: Koby Hadley MD Technologist: JORGE LEE(R) Trnscrd Date/Time/By: 09/13/2019 (4554) : By: Brianna [email or web address] Orig Print D/T: S: 09/13/2019 (2527) PAGE 1 Signed Report POLYP 2019-07-27 16:51:00 RUN DATE: 07/27/19 [place] - Lab PAGE 1 RUN TIME: 1651 Specimen Inqui ry RUN USER: INTERFACE PATIENT: MEÑO MATA ACCT #: [id number] LOC: V.SRG U #: [id number] AGE/SX: 48/F ROOM: RE[facility]23[facility]: Saad Norris MD : 68 BED: DIS: STATUS: [facility] TLOC: SPEC #: [id number] RECD: 07/23/19 STATUS: MACY RESaundra #: [id number] ROLAND: 07/23/[address] [facility] DR: Saad Norris MD ENTERED: 07/23/19 SP TYPE: POLYP OTHR DR: No Doreen jolly or Family Physician No Primary Care PhysicianORDERED: GROSS COPIES TO: No Primary or Family Phys Saad Shepherd MD [address] [place] [address] No Primary Care Physician Use by ED only for patient without primary care physician ED USE ONLY-Pt.w/o primary PROCEDURES: GROSS (-1505) TISSUES: TRANSVERSE COLON - BX CLINICAL HISTORY CO LLECTION DATE: 07/23/19 BLOOD IN STOOL FINAL DIAGNOSIS Transver se colon polyp, biopsy: COLONIC MUCOSA WITH MILD NONSPECIFIC CHRONIC INFL AMMATION AND REACTIVE EPITHELIAL CHANGE NO DISCRETE HYPERPLASTI C OR ADENOMATOUS CHANGE PRESENT NO CRYPTITIS OR CRYPT DISTORTION NEGATIVE FOR MALIGNANCY MULTIPLE LEVELS EXAMINED RRB/ D 8 8607 CONTINUED ON NEXT PAGE R UN DATE: 07/27/19 [place] - Lab PAGE 2 RUN TIME: 1651 Specimen Inquiry RUN USER: INTERFACE SPEC #: [id number] PATIENT: MEÑO MATA #[id number] (Continued) MACROSCOPIC The specim en is received in formalin, labeled with the patient's name, identified as "t teshasverse polyp bx", and consists of kent biopsy tissue measuring 0.3 cm, submi tted for histologic evaluation. GROSS PERFORMED AT [facility] [address] [place] [address], [place] [address] (p)[phone] MICROSCOPIC All of the stains, including a ny controls performed, stain appropriately. MICROSCOPIC PERFORMED AT [facility] [address] [facility] [place] [address] (p)[phone] PERFORMING SITE Diagnosis performed at : [facility] [address] [place] [address] --- --------- Signed SIGNATURE ON FILE Jarrod Schofield MD 1651 EN D OF REPORT BASIC METABOLIC [id number] 07:26:00* Test Item Value Reference Range Interpretation [...] code = CA) 8.5 mg/dL 8.5-10.1 N [id number] 07:11:00* Test Item Value Reference Range Interpretation Comments GLUBED (test code = GLUBED) 89 mg/dL 74-106 N Performed by certified cyber operator at [facility] CBC W/AUTO [id number] 07:03:00* Test Item Value Reference Range Interpretation [...] MDIFF) NO - XR ABDOMEN AP 1 [id number] 11:55:00 FAX: Corinne Venegas [place]: B St: REG FAX: ISAURO GLOVER NP Name: MEÑO MATA [facility] : 1970 Age/S: 48/F [address] [facility] Unit #: [id number] Loc: [place] [address] Phys: ISAURO GLOVER NP Acct: [id number] Dis Date: Status: REG ER PHONE #: [phone] Exam Date: 04/24/2019 1146 FAX #: [phone] Reason: constipation EXAMS: CPT CODE: [id number] XR ABDOMEN AP 1 V 24519 HISTORY: constipation TECHNIQUE: AP abdomen x-ray COMPARISON: None FINDINGS: Mild rectosigmoid fecal retention. Nonspecific nonobstructed bowel gas pattern. No intra-abdominal mass effect. Cholecystectomy clips. Pelvic phleboliths. Degenerative changes of the spine and hips. IMPRESSION: Mild rectosigmoid fecal retention. Nonobstructive bowel gas pattern. at 1156 Reported and signed by: Leida Riley D.O. CC: Corinne Venegas DO; ISAURO GLOVER NP Technologist: RT DANETTE(R) Trnscrd Date/Time/By: 04/24/2019 (1 155) : By: [email or web address] Orig Print D/T: S: 04/24/2019 (6842) PAGE 1 Signed Report BASIC METABOLIC [id number] 11:51:00* Test Item Value Reference Range Interpretation [...] CA) 8.8 mg/dL 8.5-10.1 N HEPATIC FUNCTION [id number] 11:51:00* Test Item Value Reference Range Interpretation [...] reference range due to change in reagent. [id number] 11:51:00* Test Item Value Reference Range Interpretation Comments LIPASE (test code = LIP) 34 U/L 73.0-393.0 L HCG SERUM [id number] 11:51:00* Test Item Value Reference Range Interpretation Comments HCG SERUM QUAL (test code = HCGQL) NEGATIVE NEGATIVE This HCGQL test is NOT applicable for MALE patients.Check with nurse about probable order error.If Tumor Marker Test needed, nurse should order test "HCGTU"(Test #550.62451) BASIC METABOLIC [id number] 11:44:00* Test Item Value Reference Range Interpretation [...] code = CA) mg/dL 8.5-10.1 HEPATIC FUNCTION [id number] 11:44:00* Test Item Value Reference Range Interpretation [...] TOTAL (test code = ALKP) IUnit/L 45-117 [id number] 11:44:00* Test Item Value Reference Range Interpretation Comments LIPASE (test code = LIP) U/L 73.0-393.0 HCG SERUM [id number] 11:44:00* Test Item Value Reference Range Interpretation Comments HCG SERUM QUAL (test code = HCGQL) NEGATIVE NEGATIVE This HCGQL test is NOT applicable for MALE patients.Check with nurse about probable order error.If Tumor Marker Test needed, nurse should order test "HCGTU"(Test #550.01530) BASIC METABOLIC [id number] 11:42:00* Test Item Value Reference Range Interpretation [...] code = CA) mg/dL 8.5-10.1 HEPATIC FUNCTION [id number] 11:42:00* Test Item Value Reference Range Interpretation [...] TOTAL (test code = ALKP) IUnit/L 45-117 [id number] 11:42:00* Test Item Value Reference Range Interpretation Comments LIPASE (test code = LIP) U/L 73.0-393.0 HCG SERUM [id number] 11:42:00* Test Item Value Reference Range Interpretation Comments HCG SERUM QUAL (test code = HCGQL) NEGATIVE NEGATIVE This HCGQL test is NOT applicable for MALE patients.Check with nurse about probable order error.If Tumor Marker Test needed, nurse should order test "HCGTU"(Test #550.42767) URINALYSIS [id number] 11:33:00* Test Item Value Reference Range Interpretation [...] #/LPF FEW Urine Source? Clean CatchCBC W/O [id number] 11:28:00* Test Item Value Reference Range Interpretation [...] code = MPV) 9.5 fL 6.7-11.0 N URINALYSIS [id number] 19:17:00* Test Item Value Reference Range Interpretation [...] Source? Clean Catch- CT ABD PELVIS W/O [id number] 18:44:00 Name: MEÑO MATA [facility] : 1970 Age/S: 48 / F [address] [facility] Unit #: [id number] Loc: [place] [address] Phys: Romina Carey NP Acct: [id number] Di s Date: Status: REG ER PHONE #: Exam Date: 03/13/2019 1820 FAX #: [phone] Reason: Lower abdominal pain EXAMS: CPT CODE: [id number] CT ABD PELVIS W/O CONT 77116 HISTORY: Lower abdominal pain TECHNIQUE: 5mm axial [...] is unremarkable. Enlarged lobulated uterus suggesting underlying fibroids . Nonenhanced ovaries are grossly unremarkable. No pelvic free fluid. Small fat-containing umbilical hernia. Degenerative changes of the spine, sacral iliac joints, and hips. IMPRESSION: No acute findings on noncontrast CT of the abdomen/pelvis. at 1844 Reported and signed by: Leida Riley D.O. PAGE 1 Signed Report (CONTINUED) Nam e: MEÑO MATA [facility] : 01/1971 Age/S: 48 / F [address] [facility] Unit #: [id number] Loc: [place] [address] Phys: Rachell Carey NP Acct: [id number] Dis Sharad e: Status: REG ER PHONE #: [phone] Exam Date: 03/13/2019 1820 FAX #: [phone] Reason: Lower abdominal pain EXAMS: CPT CODE: [id number] CT ABD PELVIS W/O CONT 25133 <Continued> CC: Rachell Carey [employer]; Vladimir Leon DO Technologist:Yolette Hinkle RT(R)(CT) CTDI: DLP: Trnscb Date/Time: 03/13/2019 (1843) [email or web address] Orig Print D/T: S: 03/13/2019 (1846) PAGE 2 Signed Report BASIC METABOLIC [id number] 18:08:00* Test Item Value Reference Range Interpretation [...] CA) 8.8 mg/dL 8.5-10.1 N HEPATIC FUNCTION [id number] 18:08:00* Test Item Value Reference Range Interpretation [...] reference range due to change in reagent. [id number] 18:08:00* Test Item Value Reference Range Interpretation Comments LIPASE (test code = LIP) 45 U/L 73.0-393.0 L HCG SERUM [id number] 18:08:00* Test Item Value Reference Range Interpretation Comments HCG SERUM QUAL (test code = HCGQL) NEGATIVE NEGATIVE This HCGQL test is NOT applicable for MALE patients.Check with nurse about probable order error.If Tumor Marker Test needed, nurse should order test "HCGTU"(Test #550.72902) [id number] 18:08:00* Test Item Value Reference Range Interpretation Comments TROPONIN-I (test code = TROPI) <0.015 ng/mL 0-0.045 N BASIC METABOLIC [id number] 17:48:00* Test Item Value Reference Range Interpretation [...] CA) 8.8 mg/dL 8.5-10.1 N HEPATIC FUNCTION [id number] 17:48:00* Test Item Value Reference Range Interpretation [...] reference range due to change in reagent. [id number] 17:48:00* Test Item Value Reference Range Interpretation Comments LIPASE (test code = LIP) 45 U/L 73.0-393.0 L HCG SERUM [id number] 17:48:00* Test Item Value Reference Range Interpretation Comments HCG SERUM QUAL (test code = HCGQL) NEGATIVE [id number] 17:48:00* Test Item Value Reference Range Interpretation Comments TROPONIN-I (test code = TROPI) <0.015 ng/mL 0-0.045 N BASIC METABOLIC [id number] 17:37:00* Test Item Value Reference Range Interpretation [...] code = CA) mg/dL 8.5-10.1 HEPATIC FUNCTION [id number] 17:37:00* Test Item Value Reference Range Interpretation [...] TOTAL (test code = ALKP) IUnit/L 45-117 [id number] 17:37:00* Test Item Value Reference Range Interpretation Comments LIPASE (test code = LIP) U/L 73.0-393.0 HCG SERUM [id number] 17:37:00* Test Item Value Reference Range Interpretation Comments HCG SERUM QUAL (test code = HCGQL) NEGATIVE [id number] 17:37:00* Test Item Value Reference Range Interpretation Comments TROPONIN-I (test code = TROPI) ng/mL 0-0.045 CBC W/O [id number] 16:59:00* Test Item Value Reference Range Interpretation [...] MPV) 9.4 fL 6.7-11.0 N CBC W/O [id number] 16:53:00* Test Item Value Reference Range Interpretation [...] MPV) fL 6.7-11.0 DRUGS OF ABUSE SCREEN [id number] 15:13:00* Test Item Value Reference Range Interpretation [...] NEGATIVE <300 ng/mL DRUGS OF ABUSE SCREEN [id number] 14:57:00* Test Item Value Reference Range Interpretation [...] code = [place]) NEGATIVE <300 ng/mL URINALYSIS [id number] 14:35:00* Test Item Value Reference Range Interpretation [...] HPF FEW Urine Source? Clean CatchUR HCG [id number] 14:35:00* Test Item Value Reference Range Interpretation Comments UR HCG QUAL (test code = HCGQLU) NEGATIVE This HCGQL test is NOT applicable for MALE patients.Check with nurse about probable order error.If Tumor Marker Test needed, nurse should order test "HCGTU"(Test #550.67853) Urine Source? Clean CatchURINALYSIS [id number] 14:32:00* Test Item Value Reference Range Interpretation [...] HPF 0-5 Urine Source? Clean CatchUR HCG [id number] 14:32:00* Test Item Value Reference Range Interpretation Comments UR HCG QUAL (test code = HCGQLU) NEGATIVE This HCGQL test is NOT applicable for MALE patients.Check with nurse about probable order error.If Tumor Marker Test needed, nurse should order test "HCGTU"(Test #550.47961) Urine Source? Clean CatchURINALYSIS [id number] 14:32:00* Test Item Value Reference Range Interpretation [...] HPF 0-5 Urine Source? Clean CatchUR HCG [id number] 14:32:00* Test Item Value Reference Range Interpretation Comments UR HCG QUAL (test code = HCGQLU) NEGATIVE This HCGQL test is NOT applicable for MALE patients.Check with nurse about probable order error.If Tumor Marker Test needed, nurse should order test "HCGTU"(Test #550.40634) Urine Source? Clean CatchCT ABDOMEN/PELVIS WO [place] [address] Patient Name: MEÑO MATA MR #: [id number] : 1970 Age/Sex: 46/F Req #: [id number] Adm Physician: Ordered by: YINKA BOYER MD Report #: [id number] Location: ER Room/Bed: Procedure: [id number] CT/CT ABDOMEN/PELVIS WO Exam Date: 07/20/17 Exam [...]
[2019-12-11] MEDS ORDERED: ONDANSETRON HCL INJ 2MG/ML 2ML 2 MG/ML VIAL IV NR (16:29)
[2019-12-11] MEDS ORDERED: SODIUM CHLORIDE 0.9% 1000ML 1,000 ML IV STA (16:29)
--- NOTE | 2019-12-11 16:41 | Emergency Department Note ---
History of Present Illnes History of Present Illness Chief Complaint: General Medicine Complaints History of Present Illness This is a 49 year old female .c/o n/v abd pain sight cough chills for several days Chief Complaint Comment CLIENT HAS A BUG BITE ON HER LEG THAT SHE FEELS MIGHT BE INFECTED, NOTHING NOTED ON INSPECTION. CLIENT ALSO REPORTS MILD COUGH, NAUSEA, VOMITING, RUNNY NOSE AND ABDOMINAL PAIN. INITIAL COMPLAINT WAS SWELLING TO LEG, NAUSEA AND VOMITING. Historian: Patient Arrival Mode: Car Onset (how long ago): day(s) (several days ) Location: abd generalized Quality: mild Radiation: non-radiation Severity: mild Onset quality: gradual Duration (how long): day(s) (several days) Timing of current episode: constant Progression: unchanged Context: recent illness, recent surgery, recent immobilization, recent travel, trauma/injury, new medications, hx of DVT/PE, non-compliance w/ medications, other Relieving factors: none Exacerbating factors: none Treatments prior to arrival: none (JACQUELINE BEVERLY NP) Past Medical/Family History Physician Review I have reviewed the patient's past medical and family history. Any updates have been documented here. (JACQUELINE BEVERLY NP) Past Medical History Recent Fever: No Clinical Suspicion of Infectio: No New/Unexplained Change in Ment: No Past Medical History: Hypertension, Diabetes, COPD, Asthma, Chronic Kidney Disease Other Medical History: HERPES STAGE 3 CKD Past Surgical History: None Other Surgery: I&D TO RLQ ABD - 2019 ABSCESS DRAINAGE TO NECK - 2017 (JACQUELINE BEVERLY NP) Social History Smoking Cessation: Never Smoker Alcohol Use: None Any Illegal Drug Use: No TB Exposure/Symptoms: No Physically hurt or threatened: No (JACQUELINE BEVERLY NP) Family History Family history of heart diseas: No (JACQUELINE BEVERLY NP) Other Last Tetanus: UNK Any Pre-Existing Lines (PICC,: No (JACQUELINE BEVERLY NP) Review of Systems Review of Systems Constitutional: chills EENTM: no symptoms Cardiovascular: no symptoms Respiratory: cough Gastrointestinal: abdominal pain, nausea, vomiting Genitourinary: no symptoms Musculoskeletal: no symptoms Neurological: no symptoms Psychological: no symptoms Endocrine: no symptoms Hematological/Lymphatic: no symptoms Review of other systems All other systems reviewed and negative. (JACQUELINE BEVERLY NP) Physical Exam Related Data Allergies: Coded Allergies: No Known Allergies (Verified , 08/22/07) Triage Vital Signs Vital Signs Date Time Temp Pulse Resp B/P (MAP) Pulse Ox O2 Delivery O2 Flow Rate FiO2 12/11/19 16:23 97.7 84 16 156/102 97 Vital signs reviewed: Yes (JACQUELINE BEVERLY ASSISTANT CORPORATE SECRETARY) Physical Exam CONSTITUTIONAL Constitutional: well-developed, well-nourished, obese HENT HENT: normocephalic, atraumatic, oropharynx clear/moist, nose normal HENT L/R: left ext ear normal, right ext ear normal EYES Eyes: PERRL, conjunctivae normal NECK Neck: ROM normal PULMONARY Pulmonary: effort normal, breath sounds normal CARDIOVASCULAR Cardiovascular: regular rhythm, heart sounds normal, capillary refill normal, normal rate GASTROINTESTINAL Abdominal: soft, nontender, bowel sounds normal GENITOURINARY Genitourinary: exam deferred SKIN Skin: warm, dry MUSCULOSKELETAL Musculoskeletal: ROM normal, other (no insect bited noted to left lower leg no redness no swelling no s&s of infection ) NEUROLOGICAL Neurological: alert, oriented x 3, no gross motor or sensory deficits PSYCHOLOGICAL Psychological: mood/affect normal, judgement normal (JACQUELINE BEVERLY ASSISTANT CORPORATE SECRETARY) Results Laboratory Laboratory Laboratory Tests Test 12/11/19 16:35 White Blood Count 9.76 x10e3/uL (4.8-10.8) Red Blood Count 5.32 x10e6/uL (3.6-5.1) Hemoglobin 13.6 g/dL (12.0-16.0) Hematocrit 43.1 % (34.2-44.1) Mean Corpuscular Volume 81.0 fL (81-99) Mean Corpuscular Hemoglobin 25.6 pg (28-32) Mean Corpuscular Hemoglobin Concent 31.6 g/dL (31-35) Red Cell Distribution Width 16.0 % (11.7-14.4) Platelet Count 438 x10e3/uL (140-360) Neutrophils (%) (Auto) 76.6 % (38.7-80.0) Lymphocytes (%) (Auto) 14.9 % (18.0-39.1) Monocytes (%) (Auto) 6.9 % (4.4-11.3) Eosinophils (%) (Auto) 0.2 % (0.0-6.0) Basophils (%) (Auto) 0.8 % (0.0-1.0) Neutrophils # (Auto) 7.5 (2.1-6.9) Lymphocytes # (Auto) 1.5 (1.0-3.2) Monocytes # (Auto) 0.7 (0.2-0.8) Eosinophils # (Auto) 0.0 (0.0-0.4) Basophils # (Auto) 0.1 (0.0-0.1) Absolute Immature Granulocyte (auto 0.06 x10e3/uL (0-0.1) Urine Color Yellow (YELLOW) Urine Clarity Sl cloudy (CLEAR) Urine pH 5.5 (5 - 7) Urine Specific [place] 1.025 (1.010-1.025) Urine Protein >=300 (NEGATIVE) Urine Glucose (UA) Negative (NEGATIVE) Urine Ketones Negative (NEGATIVE) Urine Blood Small (NEGATIVE) Urine Nitrite Negative (NEGATIVE) Urine Bilirubin Negative (NEGATIVE) Urine Urobilinogen 0.2 mg/dL (0.2 - 1) Urine Leukocyte Esterase Negative (NEGATIVE) Urine RBC 6-10 /HPF (0-5) Urine WBC 6-10 /HPF (0-5) Urine Epithelial Cells Few /LPF (NONE) Urine Bacteria Rare /HPF (NONE) Sodium Level 137 mmol/L (136-145) Potassium Level 4.3 mmol/L (3.5-5.1) Chloride Level 102 mmol/L (98-107) Carbon Dioxide Level 24 mmol/L (22-29) Anion Gap 15.3 mmol/L (8-16) Blood Urea Nitrogen 20 mg/dL (7-26) Creatinine 1.36 mg/dL (0.57-1.11) Estimat Glomerular Filtration Rate 41 ML/MIN (60-) BUN/Creatinine Ratio 15 (6-25) Glucose Level 206 mg/dL (74-118) Calcium Level 10.0 mg/dL (8.4-10.2) Total Bilirubin 0.3 mg/dL (0.2-1.2) Aspartate Amino Transf (AST/SGOT) 17 IU/L (5-34) Alanine Aminotransferase (ALT/SGPT) 22 IU/L (0-55) Alkaline Phosphatase 59 IU/L (40-150) Creatine Kinase 39 IU/L (29-168) Creatine Kinase MB 1.90 ng/mL (0-5.0) Troponin I 0.029 ng/mL (0-0.300) Total Protein 8.1 g/dL (6.5-8.1) Albumin 3.7 g/dL (3.5-5.0) Globulin 4.4 g/dL (2.3-3.5) Albumin/Globulin Ratio 0.8 (0.8-2.0) Amylase Level 46 U/L (25-125) Lipase 19 U/L (8-78) Lab results reviewed: Yes (JACQUELINE BEVERLY NP) Imaging Impressions IMPRESSION: Mildly hypoinflated lungs with patchy bibasilar opacities, likely atelectasis, although infection is possible in the appropriate clinical setting. Signed by: Dr. Josh Kam MD on 12/11/2019 6:33 PM Dictated By: JOSH KAM MD 32 Transcribed By: DAVID on 12/11/191832 (JACQUELINE BEVERLY NP) Critical Care Time Subsequent provider I assumed direction of critical care for this patient from another provider of my specialty. (JACQUELINE BEVERLY NP) Assessment & Plan Reassessment Reassessment time: 16:40 Reassessment 49y f presented to ed c/o n/v chills slight cough for several days - Dr Zuluaga in eval pt status - lab cxr ordered pt medicated w/ ns zofran (JACQUELINE BEVERLY NP) Assessment & Plan Final Impression: (1) GENERALIZED ABDOMINAL PAIN (2) NAUSEA Assessment & Plan Dr Zuluaga in re eval pt status discussed lab rad results plan of care and f/u instructions plan: 1. f/u w/pcp Friday w/o fail 2. bland diet / increase oral fluids 3. return to ed as needed (JACQUELINE BEVERLY NP) Depart Disposition: HOME, SELF-CARE Last Vital Signs Date Time Temp Pulse Resp B/P (MAP) Pulse Ox O2 Delivery O2 Flow Rate FiO2 12/11/19 16:23 97.7 84 16 156/102 97 (JACQUELINE BEVERLY NP) Home Meds Active Scripts Tramadol Hcl (ULTRAM) 50 Mg Tablet, 50 MG PO Q4HR PRN for Mild Pain (1-3) or Fever>100.8 for 14 Days, #30 TAB 0 Refills Prov:SHONA ARMENDARIZ NP 11/26/19 Metformin Hcl (METFORMIN HCL) 500 Mg Tablet, 1000 MG PO BID for 14 Days, #30 TAB 0 Refills Prov:SHONA ARMENDARIZ ASSISTANT CORPORATE SECRETARY 11/26/19 Insulin Regular, Human (HUMULIN R) 100 Unit/1 Ml Vial, 0 UNIT SQ ACHS for 14 Days, #1 VIAL 0 Refills Prov:SHONA ARMENDARIZ ASSISTANT CORPORATE SECRETARY 11/26/19 Potassium Chloride (POTASSIUM CHLORIDE) 10 Meq Tab.er.prt, 10 MEQ PO q48hrs for 14 Days, #7 TAB 0 Refills Prov:SHONA ARMENDARIZ ASSISTANT CORPORATE SECRETARY 11/26/19 Furosemide (LASIX) 20 Mg Tablet, 20 MG PO DAILY for 14 Days, #14 TAB 0 Refills Prov:SHONA ARMENDARIZ ASSISTANT CORPORATE SECRETARY 11/26/19 Sulfamethoxazole/Trimethoprim (BACTRIM DS TABLET) 1 Each Tablet, 1 EACH PO BID for 10 Days, #20 TAB 0 Refills Prov:SHONA ARMENDARIZ ASSISTANT CORPORATE SECRETARY 11/26/19 Ciprofloxacin Hcl (CIPRO) 500 Mg Tablet, 500 MG PO Q12H for 14 Days, #30 TAB 0 Refills Prov:SOHNA ARMENDARIZ ASSISTANT CORPORATE SECRETARY 11/26/19 Reported Medications Gabapentin (GABAPENTIN) 600 Mg Tablet, 600 MG PO HS 11/22/19 Fenofibrate Nanocrystallized (Fenofibrate) 145 Mg Tablet, 145 MG PO DAILY 11/22/19 Montelukast Sodium (MONTELUKAST SODIUM) 10 Mg Tablet, 10 MG PO HS 11/22/19 Mometasone Furoate (Mometasone Furoate) 17 Gm [place].pump, 1 INH INH BID PRN for SHORTNESS OF BREATH 11/22/19 Omeprazole (OMEPRAZOLE) 20 Mg Capsule.dr, 20 MG PO BID 11/22/19 Atorvastatin Calcium (ATORVASTATIN CALCIUM) 20 Mg Tablet, 20 MG PO DAILY 11/22/19 Nifedipine (NIFEDIPINE ER) 90 Mg Tab.er.24, 90 MG PO DAILY 11/22/19 Ketoconazole (NIZORAL) 120 Ml Shampoo, 1 APPFUL TOP DAILY PRN for .DANDRUFF 11/22/19 Acetaminophen/Codeine* (TYLENOL # 3*) 1 Ea Tab, 1 TAB PO Q4HR PRN for MODERATE PAIN (4-6) 11/22/19 Lisinopril (PRINAVIL / ZESTRIL) 20 Mg Tablet, 20 MG PO DAILY 11/22/19 Clonidine Hcl (CLONIDINE HCL) 0.1 Mg Tablet, 0.1 MG PO TID 11/22/19 Linagliptin (TRADJENTA) 5 Mg Tablet, 5 MG PO DAILY 11/22/19 Levothyroxine Sodium (LEVOTHYROXINE SODIUM) 25 Mcg Tablet, 25 MCG PO DAILY 11/22/19 Acyclovir (ACYCLOVIR) 800 Mg Tablet, 800 MG PO Q8H PRN for .SORES OUTBREAK 11/22/19 Albuterol Sulfate (ALBUTEROL SULFATE) 2.5 Mg/3 Ml Vial.neb, 1 INH INH DAILY 11/22/19 Dicyclomine Hcl (DICYCLOMINE HCL) 10 Mg Capsule, 10 MG PO BID PRN for ABDOMINAL PAIN 11/22/19 Hydroxyzine Hcl (HYDROXYZINE HCL) 25 Mg Tablet, 50 MG PO HS 11/22/19 Insulin Detemir (Levemir Flextouch) 100 Unit/1 Ml Insuln.pen, 40 UNITS SC DAILY, UNIT 11/22/19 Insulin Detemir (Levemir Flextouch) 100 Unit/1 Ml Insuln.pen, 100 UNITS SQ HS 11/22/19 Medications in the ED Sodium Chloride 1,000 ml @ 0 mls/hr Q0M STAT IV ; Start 12/11/19 at 16:29; Stop 12/11/19 at 16:30; Status DC Ondansetron HCl 4 mg ONCE IV ; Start 12/11/19 at 16:29; Stop 12/11/19 at 17:59 (JACQUELINE BEVERLY NP) Physician Attestation Provider Attestation The patient's history, exam findings, diagnostics, and a summary of any interventions or procedures was reviewed in detail with our GUTIERREZ. I personally interviewed and examined the patient, and I have reviewed and agree with the HPI andexam. My personal exam shows morbid obesity, CV- RRR, L- CTA bilat, Abd- non-tender, large pannus with old ulcerative lesion on right side without evidence of infection. I confirm the diagnosis as documented by the GUTIERREZ. I have reviewed and agree with the care plan articulated in the disposition section. (ALEJANDRINA ZULUAGA MD) JACQUELINE BEVERLY NP December 11, 2019 16:41 ALEJANDRINA ZULUAGA MD December 11, 2019 19:07
[2019-12-11 17:03] LABS: BASOPHILS # (AUTO) 0.1 (0.0-0.1); BASOPHILS % 0.8 % (0.0-1.0); EOSINOPHILS % 0.2 % (0.0-6.0); HEMATOCRIT 43.1 % (34.2-44.1); HEMOGLOBIN 13.6 g/dL (12.0-16.0); LYMPHOCYTES # (AUTO) 1.5 (1.0-3.2); LYMPHOCYTES % 14.9 % (18.0-39.1); MEAN CORPUSCULAR HEMOGLOBIN 25.6 pg (28-32); MEAN CORPUSCULAR HGB CONC 31.6 g/dL (31-35); MONOCYTES # (AUTO) 0.7 (0.2-0.8); MONOCYTES % 6.9 % (4.4-11.3); NEUTROPHILS # (AUTO) 7.5 (2.1-6.9); NEUTROPHILS % 76.6 % (38.7-80.0); PLATELET COUNT 438 x10e3/uL (140-360); RED BLOOD COUNT 5.32 x10e6/uL (3.6-5.1)
[2019-12-11 17:08] LABS: CLARITY,URINE SL CLOUDY (CLEAR); COLOR,URINE YELLOW (YELLOW); KETONES,URINE NEGATIVE (NEGATIVE); LEUKOCYTE ESTERASE ,URINE NEGATIVE (NEGATIVE); NITRITE,URINE NEGATIVE (NEGATIVE); PROTEIN,URINE DIPSTICK >=300 (NEGATIVE)
[2019-12-11 17:09] LABS: BILIRUBIN,URINE NEGATIVE (NEGATIVE); URINE UROBILINOGEN 0.2 mg/dL (0.2 - 1)
[2019-12-11 17:19] LABS: BACTERIA,URINE RARE /HPF; EPITHELIAL CELLS,URINE FEW /LPF
[2019-12-11 17:27] LABS: ALBUMIN 3.7 g/dL (3.5-5.0); ALBUMIN/GLOBULIN RATIO 0.8 (0.8-2.0); ANION GAP 15.3 mmol/L (8-16); CREATININE, SERUM 1.36 mg/dL (0.57-1.11); POTASSIUM 4.3 mmol/L (3.5-5.1)
[2019-12-11 17:34] LABS: CREATINE KINASE MB 1.9 ng/mL (0-5.0)
[2019-12-11] MEDS ORDERED: DICYCLOMINE HCL 20 MG/2 ML VIAL IM NR (18:15)
--- NOTE | 2019-12-11 18:37 | Diagnostic Imaging Report ---
EXAMINATION: CHEST SINGLE (PORTABLE) INDICATION: Nausea, abdominal pain. COMPARISON: None FINDINGS: TUBES and LINES: None. LUNGS: Lungs are mildly hypoinflated. Mild patchy bibasilar opacities. No evidence of lobar consolidation or pulmonary edema. PLEURA: No pleural effusion or pneumothorax. HEART AND MEDIASTINUM: The cardiomediastinal silhouette is unremarkable. BONES AND SOFT TISSUES: No acute osseous lesion. Soft tissues are unremarkable. UPPER ABDOMEN: No free air under the diaphragm. IMPRESSION: Mildly hypoinflated lungs with patchy bibasilar opacities, likely atelectasis, although infection is possible in the appropriate clinical setting. Signed by: Dr. Brooklynn Lawrence MD on 12/11/2019 6:33 PM
[2019-12-11] MEDS ORDERED: KETOROLAC TROMETHAMINE 30 MG/ML VIAL IV STA (20:08)
[2019-12-11] MEDS ORDERED: ONDANSETRON HCL INJ 2MG/ML 2ML 2 MG/ML VIAL IV STA (20:08)
[2019-12-11] MEDS ORDERED: MORPHINE SULFATE INJ 4 MG/ML INJ 1ML IV STA (20:13)
[2019-12-11] MEDS ORDERED: ACETAMINOPHEN 325 MG TAB PO ONE (20:15)
[2019-12-11] MEDS ORDERED: SODIUM CHLORIDE 0.9% 50ML 50 ML ONE (20:32)
[2019-12-11] MEDS ORDERED: IOPAMIDOL 370 MG/ML 200 ML INFUS..BTL INJ ONE (20:33)
--- NOTE | 2019-12-11 22:07 | Diagnostic Imaging Report ---
EXAM: CT Abdomen and Pelvis WITH contrast INDICATION: Abdominal pain COMPARISON: abdominal CT 11/22/2019, 07/20/2017 TECHNIQUE: Abdomen and pelvis were scanned utilizing a multidetector helical scanner from the lung base to the pubic symphysis after administration of IV contrast. Coronal and sagittal reformations were obtained. Routine protocol was performed. Scan was performed when during portal venous phase. IV CONTRAST: 100 mL of Isovue 370 ORAL CONTRAST: None COMPLICATIONS: None RADIATION DOSE: Total DLP: 1303 mGy*cm Estimated effective dose: (DLP x 0.015 x size factor) mSv CTDIvol has been reviewed. It is below the limits set by the Radiation Protocol Committee (RPC). Dose modulation, iterative reconstruction, and/or weight based adjustment of the mA/kV was utilized to reduce the radiation dose to as low as reasonably achievable. FINDINGS: LINES and TUBES: None. LOWER THORAX: Mitral valve calcifications. HEPATOBILIARY: Hepatomegaly with hypodense liver parenchyma. No focal hepatic lesions. There is intra- and extra- hepatic biliary dilation likely post cholecystectomy reservoir effect. GALLBLADDER: There are cholecystectomy clips. SPLEEN: No splenomegaly. PANCREAS: No focal masses or ductal dilatation. ADRENALS: A 1.2 cm right adrenal nodule has been stable since 2018. No left adrenal nodules KIDNEYS/URETERS: Kidneys enhance symmetrically. No hydronephrosis. No cystic or solid mass lesions. No stones. GI TRACT: Mild distal gastric antral wall thickening. No abnormal distention or evidence of bowel obstruction. There are diverticula within the colon without evidence of diverticulitis. Appendix is normal. PELVIC ORGANS/BLADDER: Similar size of the enlarged multi fibroid uterus compared to 07/20/2017, measures up to 11 cm LYMPH NODES: No lymphadenopathy. VESSELS: Scattered mild arterial vascular calcifications. PERITONEUM / RETROPERITONEUM: No free air or fluid. BONES: There are degenerative changes in the spine, hips, and pelvis. SOFT TISSUES: Unremarkable. IMPRESSION: 1. Subtle findings which can be seen with antral gastritis. 2. Hepatomegaly with hepatic steatosis. 3. Similar size of the enlarged multi fibroid uterus compared to 07/20/2017 4. Colonic diverticulosis without diverticulitis. 5. A 1.2 cm right adrenal nodule has been stable since 2018. Recommend follow-up adrenal CT in one year. Signed by: Jaun Valverde DO on 12/11/2019 10:04 PM
[2019-12-11 23:00] VITALS: BP 172/102
== END 2019-12-11 23:01 | disposition home or self-care (01) ==
LOC: ER 16:07
DX: R10.84 Generalized abdominal pain (principal); R11.2 Nausea with vomiting, unspecified; R05 Cough; R09.89 Other specified symptoms and signs involving the circulatory and respiratory systems; I10 Essential (primary) hypertension; E11.65 Type 2 diabetes mellitus with hyperglycemia; N18.3 Chronic kidney disease, stage 3 (moderate); J44.9 Chronic obstructive pulmonary disease, unspecified
CPT/HCPCS: 36415; 71045; 74177; 80053; 81001; 82150; 82550; 82553; 83690; 84484; 85025; 87086; 99284; J0500; J2270; J2405; J7030; Q9967

== ENCOUNTER 2019-12-13 13:34 | Emergency (ER) | payer MEDICARE ==
[~2019-12-13] VITALS: Ht 160 cm; Wt 146.1 kg
--- OUTSIDE RECORDS SUMMARY | 2019-12-13 13:38 | XMS REPORT ---
Author Author [facility] t Organization [facility] Address 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 Name Role Phone NO, PCP PCP Unavailable Donovan ZULUAGA Attphys Unavailable HARLAN NGUYỄN Attphys Unavailable Tiffany BOYER Attphys Unavailable HARLAN NGUYỄN Admphys Unavailable Payers Payer Name Policy Type Policy Number Effective Date Expiration Date Pool olea [employer] NA 2019 00:00:00 [facility] Problems Condition Name Condition Details Condition Category Status Onset Date Resolution Date Last Treatment Date Treating Clinician Comments Source Hyperglycemia Problem Active [facility] Abscess of abdominal wall Problem Active [facility] Cellulitis of abdominal wall Problem Active [facility] Sepsis Problem Active [facility] Allergies, Adverse Reactions, Alerts Allergy Name Allergy Type Status Severity Reaction(s) Onset Date Inacti ve Date Treating Clinician Comments Source No Known Allergies DA Active U 2019-04-24 00:00:00 [facility] No Known Allergies DA Active U 2019-03-13 00:00:00 [facility] No Known Allergies DA Active U 2018-09-24 00:00:00 [facility] No Known Allergies DA Active U 2016-02-23 00:00:00 [facility] Social History Social Habit Start Date Stop Date Quantity Comments Source Sex Assigned At 1970 00:00:00 1970 00:00:00 Female [facility] Medications Ordered Medication Name Filled Medication Name Start Date Stop Da te Current Medication? Ordering Clinician Indication Dosage Frequency Signature (SIG) Comments Components Source Ciprofloxacin Hcl (Cipro) 500 Mg TABLET Ciprofloxacin Hcl (C ipro) 500 Mg TABLET 2019-11-26 15:57:00 Yes 500 Every 12 Hours [facility] Furosemide (Lasix) 20 Mg TABLET Furosemide (Lasix) 20 Mg TAB LET 2019-11-26 15:57:00 Yes 20 Daily [facility] Insulin Regular, Human (Humulin R) 100 Unit/1 Ml VIAL Insulin Regular, Human (Humulin R) 100 Unit/1 Ml VIAL 2019-11-26 15:57:00 Yes 0 Before Meals And At Bedtime [facility] Metformin Hcl Metformin Hcl 2019-11-26 15:57:00 Yes 10 00 Twice A Day [facility] Potassium Chloride Potassium Chloride 2019-11-26 15:57:00 Yes 10 Q48hrs [facility] Sulfamethoxazole/Trimethoprim (Bactrim Ds Tablet) 1 Ea ch TABLET Sulfamethoxazole/Trimethoprim (Bactrim Ds Tablet) 1 Each TABLET 2019-11-26 15:57:00 Yes 1 Twice A Day [facility] Tramadol Hcl (Ultram) 50 Mg TABLET Tramadol Hcl (Ultram) 50 Mg TABLET 2019-11-26 15:57:00 Yes 50 Every 4 Ho urs as needed for Mild Pain (1-3) Or Fever>100.8 [facility] Acetaminophen/Codeine Phosphate (Tylenol # 3*) 1 Ea TA B Acetaminophen/Codeine Phosphate (Tylenol # 3*) 1 Ea TAB Yes 1 Every 4 Hours as needed for Moderate Pain (4-6) [facility] Acyclovir Acyclovir Yes 800 Ever y 8 Hours as needed for .sores Outbreak [facility] Albuterol Sulfate Albuterol Sulfate Yes 1 Lizbeth y [facility] Atorvastatin Calcium Atorvastatin Calcium Yes 20 Daily [facility] Clonidine Hcl Clonidine Hcl Yes .1 Three Times A Day [facility] Dicyclomine Hcl Dicyclomine Hcl Yes 10 Twice A Day as needed for Abdominal Pain [facility] Fenofibrate Nanocrystallized (Fenofibrate) 145 Mg TABL ET Fenofibrate Nanocrystallized (Fenofibrate) 145 Mg TABLET Yes 145 Daily [facility] Gabapentin Gabapentin Yes 600 Bedtime [facility] Hydroxyzine Hcl Hydroxyzine Hcl Yes 50 Bedtime [facility] Insulin Detemir (Levemir Flextouch) 100 Unit/[address]PEN Insulin Detemir (Levemir Flextouch) 100 Unit/1 Ml INSULN.PEN Yes 100 Bedtime [facility] Insulin Detemir (Levemir Flextouch) 100 Unit/[address]PEN Insulin Detemir (Levemir Flextouch) 100 Unit/1 Ml INSULN.PEN Yes 40 Daily [facility] Ketoconazole (Nizoral) 120 Ml SHAMPOO Ketoconazole (Nizoral) 120 Ml SHAMPOO Yes 1 Daily as needed for .dandruff [facility] Levothyroxine Sodium Levothyroxine Sodium Yes 25 Daily [facility] Linagliptin (Tradjenta) 5 Mg TABLET Linagliptin (Tradjenta) 5 Mg TABL ET Yes 5 Daily [facility] Lisinopril (Prinavil / Zestril) 20 Mg TABLET Lisinopri l (Prinavil / Zestril) 20 Mg TABLET Yes 20 Daily [facility] Mometasone Furoate Mometasone Furoate Yes 1 Twice A Day as needed for Shortness Of Breath [facility] Montelukast Sodium Montelukast Sodium Yes 10 Be dtime [facility] Nifedipine (Nifedipine Er) 90 Mg TAB.ER.24 Nifedipine (Nifedipine Er) 90 Mg TAB.ER.24 Yes 90 Daily [facility] Omeprazole Omeprazole Yes 20 Twice A Day [facility] Furosemide Furosemide 2019-11-26 00:00:00 No 40 Chanelle ly [facility] Insulin Regular, Human (Humulin R) 100 Unit/1 Ml VIAL Insulin Regular, Human (Humulin R) 100 Unit/1 Ml VIAL 2019-11-26 00:00:00 No 40 Three Times Daily With Meals [facility] Potassium Chloride Potassium Chloride 2019-11-26 00:00:00 No 20 Daily [facility] Vital Signs Vital Name Observation Time Observation Value Comments Source Body Temperature 2019-12-11 23:00:00 98.5 [degF] [facility] Weight 2019-12-11 16:23:00 322 [lb_av] [facility] BMI (Body Mass Index) 2019-12-11 16:23:00 57.0 kg/m2 [facility] Body Temperature 2019-12-05 15:59:00 98.5 [degF] [facility] Weight 2019-12-05 03:01:00 322.25 [lb_av] [facility] BMI (Body Mass Index) 2019-12-05 03:01:00 57.1 kg/m2 [facility] Body Temperature 2019-11-26 15:40:00 98.3 [degF] [facility] Weight 2019-11-24 04:54:00 327.38 [lb_av] [facility] BMI (Body Mass Index) 2019-11-24 04:54:00 58.0 kg/m2 [facility] Procedures Procedure Date / Time Performed Performing Clinician [facility] e Computed tomography of abdomen and pelvis with contrast 00:00:00 [facility] EXCISION OF ABD SUBCU/FASCIA, OPEN APPROACH 2019-11-24 00:00:00 [facility] CT of abdomen and pelvis without contrast 2019-11-22 00:00:00 [facility] Plan of Care Planned Activity Planned Date Details Comments Source Instructions Abdominal Pain - Adult [facility] Encounters Start Date/Time End Date/Time Encounter Type Admission Type [facility] Care Department Encounter ID Source 2019-12-11 16:07:00 2019-12-11 23:01:00 Departed Emergency Room 1 ALEJANDRINA ZULUAGA [facility] [id number] [facility] 2019-12-04 22:32:00 2019-12-05 18:49:00 Discharged Inpatient [facility] [id number] [facility] 2019-11-22 20:57:00 2019-11-26 19:46:00 Discharged Inpatient 1 HARLAN NGUYỄN [facility] [id number] [facility] Results Test Description Test Time Test Comments Results Result Comments Source CT ABDOMEN/PELVIS W 2019-12-11 21:55:00 [facility] [address] [place] [address] Patient Name: MEÑO MATA MR #: [id number] : 1970 Age/Sex: 49/F Req #: [id number] Adm Physician: Ordered by: JACQUELINE BEVERLY INSTRUMENT ROOM TECHNICIAN Report #: [id number] Location: ER Room/Bed: Procedure: [id number] CT/CT ABDOMEN/PELVIS W Exam Date: 05/30/20 Exam Time: 2039 REPORT STATUS: Signed EXAM: CT Abdomen and Pelvis WITH contrast INDICATION: Abdominal pain COMPARISON: abdominal CT 11/22/2019, 07/20/2017 TECHNIQUE: Abdomen and pelvis were scanned utilizing a multidetector helical scanner from the lung base to the pubic symphysis after administration of IV contrast. Coronal and sagittal reformations were obtained. Routine protocol was performed. Scan was performed when during portal venous phase. IV CONTRAST: 100 mL of Isovue 370 ORAL CONTRAST: None COMPLICATIONS: None RADIATION DOSE: Total DLP: 1303 mGy*cm Estimated effective dose: (DLP x 0.015 x size factor) mSv CTDIvol has been reviewed. It is below the limits set by the Radiation Protocol Committee (RPC). Dose modulation, iterative reconstruction, and/or weight based adjustment of the mA/kV was utilized to reduce the radiation dose to as low as reasonably achievable. FINDINGS: LINES and TUBES: None. LOWER THORAX: Mitral valve calcifications. HEPATOBILIARY: Hepatomegaly with hypodense liver parenchyma. No focal hepatic lesions. There is intra- and extra- hepatic biliary dilation likely post cholecystectomy reservoir effect. GALLBLADDER: There are cholecystectomy clips. SPLEEN: No splenomegaly. PANCREAS: No focal masses or ductal dilatation. ADRENALS: A 1.2 cm right adrenal nodule has been stable since 2018. No left adrenal nodules KIDNEYS/URETERS: Kidneys enhance symmetrically. No hydronephrosis. No cystic or solid mass lesions. No stones. GI TRACT: Mild distal gastric antral wall thickening. No abnormal distention or evidence of bowel obstruction. There are diverticula within the colon without evidence of diverticulitis. Appendix is normal. PELVIC ORGANS/BLADDER: Similar size of the enlarged multi fibroid uterus compared to 07/20/2017, measures up to 11 cm LYMPH NODES: No lymphadenopathy. VESSELS: Scattered mild arterial vascular calcifications. PERITONEUM / RETROPERITONEUM: No free air or fluid. BONES: There are degenerative changes in the spine, hips, and pelvis. SOFT TISSUES: Unremarkable. IMPRESSION: 1. Subtle findings which can be seen with antral gastritis. 2. Hepatomegaly with hepatic steatosis. 3. Similar size of the enlarged multi fibroid uterus compared to 07/20/2017 4. Colonic diverticulosis without diverticulitis. 5. A 1.2 cm right adrenal nodule has been stable since 2018. Recommend follow-up adrenal CT in one year. Signed by: Jaun Geronimo DO on 12/11/2019 10:04 PM Dictated By: JAUN GERONIMO DO 03 Transcribed By: DVAID on 12/11/192203 COPY TO: JACQUELINE BEVERLY NP CHEST SINGLE (PORTABLE) 2019-12-11 18:32:00 [place] [address] Patient Name: MEÑO MATA MR #: [id number] : 1970 Age/Sex: 49/F Req #: [id number] Adm Physician: Ordered by: JACQUELINE BEVERLY INSTRUMENT ROOM TECHNICIAN Report #: [id number] Location: ER Room/Bed: Procedure: [id number] DX/CHEST SINGLE (PORTABLE) Exam Date: 12/11/19 Exam Time: 1730 REPORT STATUS: Signed EXAMINATION: CHEST SINGLE (PORTABLE) INDICATION: Nausea, abdominal pain. COMPARISON: None FINDINGS: TUBES and LINES: None. LUNGS: Lungs are mildly hypoinflated. Mild patchy bibasilar opacities. No evidence of lobar consolidation or pulmonary edema. PLEURA: No pleural effusion or pneumothorax. HEART AND MEDIASTINUM: The cardiomediastinal silhouette is unremarkable. BONES AND SOFT TISSUES: No acute osseous lesion. Soft tissues are unremarkable. UPPER ABDOMEN: No free air under the diaphragm. IMPRESSION: Mildly hypoinflated lungs with patchy bibasilar opacities, likely atelectasis, although infection is possible in the appropriate clinical setting. Signed by: Dr. Josh Kam MD on 12/11/2019 6:33 PM Dictated By: JOSH KAM MD 32 Transcribed By: DAVID on 12/11/191832 COPY TO: JACQUELINE BEVERLY NP Blood leukocytes automated count (number/volume) 2019-12-11 16:35:00 Test Item White Blood Count (test code = 6690-2) 9.76 4.8-10.8 [facility] automated count (number/volume)2019-12-11 16:35:00* Test Item Value Reference Range Interpretation Comments Red Blood Count (test code = 789-8) 5.32 3.6-5.1 [facility] hemoglobin measurement (moles/volume)2019-12-11 16:35:00* Test Item Value Reference Range Interpretation Comments Hemoglobin (test code = 21627-0) 13.6 12.0-16.0 [facility] Paso[facility]ated blood hematocrit (volume fraction)2019-12-11 16:35:00* Test Item Value Reference Range Interpretation Comments Hematocrit (test code = 4544-3) 43.1 34.2-44.1 [facility] Paso[facility]ated erythrocyte mean corpuscular [id number] 16:35:00* Test Item Value Reference Range Interpretation Comments Mean Corpuscular Volume (test code = 787-2) 81.0 81-99 [facility] PasoAutomated erythrocyte mean corpuscular hemoglobin (mass per erythrocyte)2019-12-11 16:35:00* Test Item Value Reference Range Interpretation Comments Mean Corpuscular Hemoglobin (test code = 785-6) 25.6 28-32 [facility] Paso[facility] erythrocyte mean corpuscular hemoglobin concentration measurement (mass/volume)2019-12-11 16:35:00* Test Item Value Reference Range Interpretation Comments Mean Corpuscular Hemoglobin Concent (test code = 786-4) 31.6 31-35 [facility] PasoRDW XtpKg-[id number] 16:35:00* Test Item Value Reference Range Interpretation Comments Red Cell Distribution Width (test code = 91973-8) 16.0 11.7 -14.4 [facility] Paso[facility] blood platelet count (count/volume)2019-12-11 16:35:00* Test Item Value Reference Range Interpretation Comments Platelet Count (test code = 777-3) 438 140-360 [facility] Paso[facility] blood segmented neutrophil count as percentage of total jstzqwblvl5460-58-88 16:35:00* Test Item Value Reference Range Interpretation Comments Neutrophils (%) (Auto) (test code = 32866-8) 76.6 38.7-80.0 [facility] Paso[facility] blood lymphocyte count as percentage ot total azlzsdmiki5101-06-88 16:35:00* Test Item Value Reference Range Interpretation Comments Lymphocytes (%) (Auto) (test code = 736-9) 14.9 18.0-39.1 [facility] Paso[facility] blood monocyte count as percentage of total qlssnnmzuy8821-25-25 16:35:00* Test Item Value Reference Range Interpretation Comments Monocytes (%) (Auto) (test code = 5905-5) 6.9 4.4-11.3 [facility] blood eosinophil count as percentage of total yulowtmdwq6667-09-75 16:35:00* Test Item Value Reference Range Interpretation Comments Eosinophils (%) (Auto) (test code = 713-8) 0.2 0.0-6.0 [facility] blood basophil count as percentage of total uopusascrz9527-52-88 16:35:00* Test Item Value Reference Range Interpretation Comments Basophils (%) (Auto) (test code = 706-2) 0.8 0.0-1.0 [facility] PasoFluoroscopic procedure less than one hour xkxnnueo0955-83-90 16:35:00* Test Item Value Reference Range Interpretation Comments IM GRANULOCYTES % (test code = IM GRANULOCYTES %) 0.6 0.0- 1.0 [facility] blood neutrophil count 2019-12-11 16:35:00* Test Item Value Reference Range Interpretation Comments Neutrophils # (Auto) (test code = 751-8) 7.5 2.1-6.9 [facility] lymphocytes count (number/volume) 2019-12-11 16:35:00* Test Item Value Reference Range Interpretation Comments Lymphocytes # (Auto) (test code = 40711-3) 1.5 1.0-3.2 [facility] monocytes automated count (number/volume)2019-12-11 16:35:00* Test Item Value Reference Range Interpretation Comments Monocytes # (Auto) (test code = 742-7) 0.7 0.2-0.8 [facility] Paso[facility] blood eosinophil count 2019-12-11 16:35:00* Test Item Value Reference Range Interpretation Comments Eosinophils # (Auto) (test code = 711-2) 0.0 0.0-0.4 [facility] Paso[facility] blood basophil count (count/volume)2019-12-11 16:35:00* Test Item Value Reference Range Interpretation Comments Basophils # (Auto) (test code = 704-7) 0.1 0.0-0.1 [facility] PasoFluoroscopic procedure less than one hour oerecijk3523-49-94 16:35:00* Test Item Value Reference Range Interpretation Comments Absolute Immature Granulocyte (auto (cortney t code = Absolute Immature Granulocyte (auto) 0.06 0-0.1 [facility] PasoUrine color wtqfsnyfqatwf4112-57-23 16:35:00* Test Item Value Reference Range Interpretation Comments Urine Color (test code = 5778-6) YELLOW YELLOW [facility] PasoUrine vyuqylf8137-89-55 16:35:00* Test Item Value Reference Range Interpretation Comments Urine Clarity (test code = 82217-4) SL CLOUDY CLEAR [facility] of Urine by Test strip 2019-12-11 16:35:00* Test Item Value Reference Range Interpretation Comments Urine Specific [place] (test code = 5811-5) 1.025 1.010-1.02 5 [facility] pH measurement by automated test enodx6515-78-14 16:35:00* Test Item Value Reference Range Interpretation Comments Urine pH (test code = 06463-3) 5.5 5-7 [facility] leukocyte esterase detection by amlxcjqt0978-49-67 16:35:00* Test Item Value Reference Range Interpretation Comments Urine Leukocyte Esterase (test code = 5799-2) NEGATIVE NEGATIVE [facility]rine nitrite farjrcykt2618-93-26 16:35:00* Test Item Value Reference Range Interpretation Comments Urine Nitrite (test code = 17000-9) NEGATIVE NEGATIVE [facility] protein measurement by test strip (mass/volume)2019-12-11 16:35:00* Test Item Value Reference Range Interpretation Comments Urine Protein (test code = 5804-0) >=300 NEGATIVE [facility] PasoU[facility] glucose byltripmx1023-33-41 16:35:00* Test Item Value Reference Range Interpretation Comments Urine Glucose (UA) (test code = 2349-9) NEGATIVE NEGATIVE [facility] Paso[facility]rine ketones detection by automated test ifsbg5829-61-06 16:35:00* Test Item Value Reference Range Interpretation Comments Urine Ketones (test code = 71548-6) NEGATIVE NEGATIVE [facility] Paso[facility]rine urobilinogen measurement by test strip (mass/volume)2019-12-11 16:35:00* Test Item Value Reference Range Interpretation Comments Urine Urobilinogen (test code = 29860-8) 0.2 0.2-1 [facility] total bilirubin measurement (mass/volume)2019-12-11 16:35:00* Test Item Value Reference Range Interpretation Comments Urine Bilirubin (test code = 1978-6) NEGATIVE NEGATIVE [facility] PasoUrine erythrocytes tmhqudiss7856-87-66 16:35:00* Test Item Value Reference Range Interpretation Comments Urine Blood (test code = 07577-1) SMALL NEGATIVE [facility] PasoAutomated urine sediment leukocyte count by microscopy (number/high power field)2019-12-11 16:35:00* Test Item Value Reference Range Interpretation Comments Urine WBC (test code = 5821-4) 6-10 0-5 [facility] PasoErythrocytes detection in urine sediment by light tktleofklo3875-39-00 16:35:00* Test Item Value Reference Range Interpretation Comments Urine RBC (test code = 13319-5) 6-10 0-5 [facility] PasoBacteria detection in urine sediment by light vwijggllol8043-78-83 16:35:00* Test Item Value Reference Range Interpretation Comments Urine Bacteria (test code = 28191-4) RARE NONE [facility] PasoEpithelial cells detection in urine sediment by light plnnhusouj8191-54-52 16:35:00* Test Item Value Reference Range Interpretation Comments Urine Epithelial Cells (test code = 36412-4) FEW NONE [facility] Campuserum or plasma sodium measurement (moles/volume)2019-12-11 16:35:00* Test Item Value Reference Range Interpretation Comments Sodium Level (test code = 2951-2) 137 136-145 [facility] Campuserum or plasma potassium measurement (moles/volume)2019-12-11 16:35:00* Test Item Value Reference Range Interpretation Comments Potassium Level (test code = 2823-3) 4.3 3.5-5.1 [facility] Campuserum or plasma chloride measurement (moles/volume)2019-12-11 16:35:00* Test Item Value Reference Range Interpretation Comments Chloride Level (test code = 2075-0) 102 98-107 [facility] Camp[facility]um or plasma carbon dioxide, total measurement (moles/volume)2019-12-11 16:35:00* Test Item Value Reference Range Interpretation Comments Carbon Dioxide Level (test code = 2028-9) 24 22-29 [facility] Campuserum or plasma anion mlz9195-79-81 16:35:00* Test Item Value Reference Range Interpretation Comments Anion Gap (test code = 72644-3) 15.3 8-16 [facility] Campuserum or plasma urea nitrogen measurement (mass/volume)2019-12-11 16:35:00* Test Item Value Reference Range Interpretation Comments Blood Urea Nitrogen (test code = 3094-0) 20 7-26 [facility] Camp[facility]um or plasma creatinine measurement (mass/volume)2019-12-11 16:35:00* Test Item Value Reference Range Interpretation Comments Creatinine (test code = 2160-0) 1.36 0.57-1.11 [facility] Camp[facility]um or plasma urea nitrogen/creatinine mass nqnze6976-07-81 16:35:00* Test Item Value Reference Range Interpretation Comments BUN/Creatinine Ratio (test code = 3097-3) 15 6-25 [facility] PasoEstimated glomerular filtration rate (GFR) qxidkxuzkvqdz9454-31-07 16:35:00* Test Item Value Reference Range Interpretation Comments Estimat Glomerular Filtration Rate (test code = 307732391) 41 >60 Ranges were taken from the National Kidney Disease Education Program and the [facility] literature.Reference ranges:60 or greater: Hmbqmz99-46 ( for 3 consecutive months): Chronic kidney disease 15 or less: Kidney failureUniversity [facility] Center of [facility] PasoGlucose akltjzznvjw4403-12-10 16:35:00* Test Item Value Reference Range Interpretation Comments Glucose Level (test code = PXD4967) 206 74-118 [facility] Campuserum or plasma calcium measurement (mass/volume)2019-12-11 16:35:00* Test Item Value Reference Range Interpretation Comments Calcium Level (test code = 75170-2) 10.0 8.4-10.2 [facility] Camp[facility]um or plasma total bilirubin measurement (mass/volume)2019-12-11 16:35:00* Test Item Value Reference Range Interpretation Comments Total Bilirubin (test code = 1975-2) 0.3 0.2-1.2 [facility] PasoFluoroscopic procedure less than one hour ugmpdsvb5065-20-73 16:35:00* Test Item Value Reference Range Interpretation Comments Aspartate Amino Transf (AST/SGOT) (test code = Aspartate Amino Transf (AST/SGOT)) 17 5-34 [facility] Campuserum or plasma alanine aminotransferase measurement (enzymatic activity/volume)2019-12-11 16:35:00* Test Item Value Reference Range Interpretation Comments Alanine Aminotransferase (ALT/SGPT) (test code = 1742-6) 22 0-55 [facility] Camp[facility]um or plasma protein measurement (mass/volume)2019-12-11 16:35:00* Test Item Value Reference Range Interpretation Comments Total Protein (test code = 2885-2) 8.1 6.5-8.1 [facility] Camp[facility]um or plasma albumin measurement (mass/volume)2019-12-11 16:35:00* Test Item Value Reference Range Interpretation Comments Albumin (test code = 1751-7) 3.7 3.5-5.0 [facility] PasoPlasma globulin measurement (mass/volume) 2019-12-11 16:35:00* Test Item Value Reference Range Interpretation Comments Globulin (test code = 20921-2) 4.4 2.3-3.5 [facility]um or plasma albumin/globulin mass ztuep5497-87-56 16:35:00* Test Item Value Reference Range Interpretation Comments Albumin/Globulin Ratio (test code = 1759-0) 0.8 0.8-2.0 [facility] [facility] plasma alkaline phosphatase measurement (enzymatic activity/volume)2019-12-11 16:35:00* Test Item Value Reference Range Interpretation Comments Alkaline Phosphatase (test code = 6768-6) 59 40-150 [facility] plasma creatine kinase measurement (enzymatic activity/volume)2019-12-11 16:35:00* Test Item Value Reference Range Interpretation Comments Creatine Kinase (test code = 2157-6) 39 29-168 [facility] or plasma creatine kinase MB measurement (mass/volume)2019-12-11 16:35:00* Test Item Value Reference Range Interpretation Comments Creatine Kinase MB (test code = 19315-1) 1.90 0-5.0 [facility]rop[facility] I measurement by highly sensitive enzyme mxrmxvexccl6593-26-91 16:35:00* Test Item Value Reference Range Interpretation Comments Troponin I (test code = 69715-1) 0.029 0-0.300 [facility] amylase measurement (enzymatic activity/volume)2019-12-11 16:35:00* Test Item Value Reference Range Interpretation Comments Amylase Level (test code = 1798-8) 46 25-125 [facility] plasma lipase measurement (enzymatic activity/volume)2019-12-11 16:35:00* Test Item Value Reference Range Interpretation Comments Lipase (test code = 3040-3) 19 8-78 [facility] PasoCapillary blood glucose measurement by glucometer (mass/volume)2019-12-05 15:27:00* Test Item Value Reference Range Interpretation Comments Bedside Glucose (test code = 56492-9) 315 70-120 Meter ID: [id number] Medical CenterBlood leukocytes automated count (number/volume)2019-12-05 05:00:00* Test Item Value Reference Range Interpretation Comments White Blood Count (test code = 6690-2) 6.60 4.8-10.8 [facility] PasoBlgrand [facility] erythrocytes automated count (number/volume)2019-12-05 05:00:00* Test Item Value Reference Range Interpretation Comments Red Blood Count (test code = 789-8) 4.22 3.6-5.1 [facility] PasoBlood hemoglobin measurement (moles/volume)2019-12-05 05:00:00* Test Item Value Reference Range Interpretation Comments Hemoglobin (test code = 83961-7) 10.6 12.0-16.0 [facility] PasoAutomated blood hematocrit (volume fraction)2019-12-05 05:00:00* Test Item Value Reference Range Interpretation Comments Hematocrit (test code = 4544-3) 35.3 34.2-44.1 [facility] PasoAutomated erythrocyte mean corpuscular hhvyot8096-17-30 05:00:00* Test Item Value Reference Range Interpretation Comments Mean Corpuscular Volume (test code = 787-2) 83.6 81-99 [facility] PasoAutomated erythrocyte mean corpuscular hemoglobin (mass per erythrocyte)2019-12-05 05:00:00* Test Item Value Reference Range Interpretation Comments Mean Corpuscular Hemoglobin (test code = 785-6) 25.1 28-32 [facility] PasoAutomated erythrocyte mean corpuscular hemoglobin concentration measurement (mass/volume)2019-12-05 05:00:00* Test Item Value Reference Range Interpretation Comments Mean Corpuscular Hemoglobin Concent (test code = 786-4) 30.0 31-35 [facility] PasoRDW WinUe-Rmw1265-27-24 05:00:00* Test Item Value Reference Range Interpretation Comments Red Cell Distribution Width (test code = 78439-6) 15.7 11.7 -14.4 [facility] PasoAutomated blood platelet count (count/volume)2019-12-05 05:00:00* Test Item Value Reference Range Interpretation Comments Platelet Count (test code = 777-3) 363 140-360 [facility] PasoAutomated blood segmented neutrophil count as percentage of total kobtjanokr0680-84-67 05:00:00* Test Item Value Reference Range Interpretation Comments Neutrophils (%) (Auto) (test code = 74726-3) 58.0 38.7-80.0 [facility] PasoAutomated blood lymphocyte count as percentage ot total lolbobsptf3917-32-57 05:00:00* Test Item Value Reference Range Interpretation Comments Lymphocytes (%) (Auto) (test code = 736-9) 23.8 18.0-39.1 [facility] PasoAutomated blood monocyte count as percentage of total mkzeitxuvp9500-02-67 05:00:00* Test Item Value Reference Range Interpretation Comments Monocytes (%) (Auto) (test code = 5905-5) 13.3 4.4-11.3 [facility] PasoAutomated blood eosinophil count as percentage of total upxiuzvhrc1319-42-44 05:00:00* Test Item Value Reference Range Interpretation Comments Eosinophils (%) (Auto) (test code = 713-8) 2.9 0.0-6.0 [facility] PasoAutomated blood basophil count as percentage of total ztaxxnmmer9679-98-50 05:00:00* Test Item Value Reference Range Interpretation Comments Basophils (%) (Auto) (test code = 706-2) 1.1 0.0-1.0 [facility] PasoFluoroscopic procedure less than one hour jdflrief6263-55-14 05:00:00* Test Item Value Reference Range Interpretation Comments IM GRANULOCYTES % (test code = IM GRANULOCYTES %) 0.9 0.0- 1.0 [facility] PasoAutomated blood neutrophil count 2019-12-05 05:00:00* Test Item Value Reference Range Interpretation Comments Neutrophils # (Auto) (test code = 751-8) 3.8 2.1-6.9 [facility] PasoBlood lymphocytes count (number/volume) 2019-12-05 05:00:00* Test Item Value Reference Range Interpretation Comments Lymphocytes # (Auto) (test code = 29446-9) 1.6 1.0-3.2 [facility] PasoBlood monocytes automated count (number/volume)2019-12-05 05:00:00* Test Item Value Reference Range Interpretation Comments Monocytes # (Auto) (test code = 742-7) 0.9 0.2-0.8 [facility] PasoAutomated blood eosinophil count 2019-12-05 05:00:00* Test Item Value Reference Range Interpretation Comments Eosinophils # (Auto) (test code = 711-2) 0.2 0.0-0.4 [facility] PasoAutomated blood basophil count (count/volume)2019-12-05 05:00:00* Test Item Value Reference Range Interpretation Comments Basophils # (Auto) (test code = 704-7) 0.1 0.0-0.1 [facility] PasoFluoroscopic procedure less than one hour tzimgqrs9160-40-56 05:00:00* Test Item Value Reference Range Interpretation Comments Absolute Immature Granulocyte (auto (cortney t code = Absolute Immature Granulocyte (auto) 0.06 0-0.1 [facility] or plasma sodium measurement (moles/volume)2019-12-05 04:50:00* Test Item Value Reference Range Interpretation Comments Sodium Level (test code = 2951-2) 136 136-145 [facility] or plasma potassium measurement (moles/volume)2019-12-05 04:50:00* Test Item Value Reference Range Interpretation Comments Potassium Level (test code = 2823-3) 3.8 3.5-5.1 [facility] or plasma chloride measurement (moles/volume)2019-12-05 04:50:00* Test Item Value Reference Range Interpretation Comments Chloride Level (test code = 2075-0) 104 98-107 [facility] or plasma carbon dioxide, total measurement (moles/volume)2019-12-05 04:50:00* Test Item Value Reference Range Interpretation Comments Carbon Dioxide Level (test code = 2028-9) 21 22-29 [facility] or plasma anion xfb4414-20-43 04:50:00* Test Item Value Reference Range Interpretation Comments Anion Gap (test code = 28980-6) 14.8 8-16 [facility] or plasma urea nitrogen measurement (mass/volume)2019-12-05 04:50:00* Test Item Value Reference Range Interpretation Comments Blood Urea Nitrogen (test code = 3094-0) 25 7-26 [facility] or plasma creatinine measurement (mass/volume)2019-12-05 04:50:00* Test Item Value Reference Range Interpretation Comments Creatinine (test code = 2160-0) 1.62 0.57-1.11 [facility] or plasma urea nitrogen/creatinine mass fablf3237-40-72 04:50:00* Test Item Value Reference Range Interpretation Comments BUN/Creatinine Ratio (test code = 3097-3) 15 6-25 [facility] PasoEstimated glomerular filtration rate (GFR) bmkoadhwinkqs3663-59-69 04:50:00* Test Item Value Reference Range Interpretation Comments Estimat Glomerular Filtration Rate (test code = 506754062) 34 >60 Ranges were taken from the National Kidney Disease Education Program and the [facility] Kidney Foundation literature.Reference ranges:60 or greater: Ieqdse30-90 ( for 3 consecutive months): Chronic kidney disease 15 or less: Kidney failureUniversity Medical Center of El PasoGlucose pnpzhzjjcja6851-49-14 04:50:00* Test Item Value Reference Range Interpretation Comments Glucose Level (test code = OND1603) 259 74-118 [facility] or plasma calcium measurement (mass/volume)2019-12-05 04:50:00* Test Item Value Reference Range Interpretation Comments Calcium Level (test code = 63366-2) 8.3 8.4-10.2 [facility] or plasma total bilirubin measurement (mass/volume)2019-12-05 04:50:00* Test Item Value Reference Range Interpretation Comments Total Bilirubin (test code = 1975-2) 0.4 0.2-1.2 [facility] PasoFluoroscopic procedure less than one hour uqgyxssf1904-63-20 04:50:00* Test Item Value Reference Range Interpretation Comments Aspartate Amino Transf (AST/SGOT) (test code = Aspartate Amino Transf (AST/SGOT)) 42 5-34 [facility] or plasma alanine aminotransferase measurement (enzymatic activity/volume)2019-12-05 04:50:00* Test Item Value Reference Range Interpretation Comments Alanine Aminotransferase (ALT/SGPT) (test code = 1742-6) 33 0-55 [facility] or plasma protein measurement (mass/volume)2019-12-05 04:50:00* Test Item Value Reference Range Interpretation Comments Total Protein (test code = 2885-2) 6.5 6.5-8.1 [facility] plasma albumin measurement (mass/volume)2019-12-05 04:50:00* Test Item Value Reference Range Interpretation Comments Albumin (test code = 1751-7) 2.8 3.5-5.0 [facility] PasoPlasma globulin measurement (mass/volume) 2019-12-05 04:50:00* Test Item Value Reference Range Interpretation Comments Globulin (test code = 73541-3) 3.7 2.3-3.5 [facility] or plasma albumin/globulin mass jxgbi6614-20-79 04:50:00* Test Item Value Reference Range Interpretation Comments Albumin/Globulin Ratio (test code = 1759-0) 0.8 0.8-2.0 [facility] or plasma alkaline phosphatase measurement (enzymatic activity/volume)2019-12-05 04:50:00* Test Item Value Reference Range Interpretation Comments Alkaline Phosphatase (test code = 6768-6) 58 40-150 [facility] PasoCapillary blood glucose measurement by glucometer (mass/volume)2019-12-05 01:23:00* Test Item Value Reference Range Interpretation Comments Bedside Glucose (test code = 17166-0) 131 70-120 Meter ID: [id number] Medical Center of El PasoFluoroscopic procedure less than one hour yqafjeuo8522-55-73 23:55:00* Test Item Value Reference Range Interpretation Comments [...] tests.Testing performed by [facility] [address] [phone] Director: Neptali Anthony M.D.CLIA # [id number] Medical Center of [facility] Fluoroscopic procedure less than one hour xhymkazz9056-68-41 23:30:00* Test Item Value Reference Range Interpretation Comments Lactic Acid Level (test code = Lactic Acid Level) 1.1 0.5- 2.0 [facility] PasoFluoroscopic procedure less than one hour yvygfsfy9310-05-66 23:30:00* Test Item Value Reference Range Interpretation Comments Lactic Acid Level (test code = Lactic Acid Level) 1.1 0.5- 2.0 [facility] PasoBlood vhgmuyn2540-33-60 21:50:00* Test Item Value Reference Range Interpretation Comments Blood Culture (test code = 17660931) NO GROWTH AFTER 5 DAYS, FINAL REPORT [facility] PasoCapillary blood glucose measurement by glucometer (mass/volume)2019-11-26 15:44:00* Test Item Value Reference Range Interpretation Comments Bedside Glucose (test code = 29213-2) 221 70-120 Meter ID: [id number] Medical Center of El PasoBlood leukocytes automated count (number/volume)2019-11-26 06:00:00* Test Item Value Reference Range Interpretation Comments White Blood Count (test code = 6690-2) 4.66 4.8-10.8 [facility] PasoBlgrand [facility] erythrocytes automated count (number/volume)2019-11-26 06:00:00* Test Item Value Reference Range Interpretation Comments Red Blood Count (test code = 789-8) 3.98 3.6-5.1 [facility] PasoBlood hemoglobin measurement (moles/volume)2019-11-26 06:00:00* Test Item Value Reference Range Interpretation Comments Hemoglobin (test code = 27169-5) 10.1 12.0-16.0 [facility] PasoAutomated blood hematocrit (volume fraction)2019-11-26 06:00:00* Test Item Value Reference Range Interpretation Comments Hematocrit (test code = 4544-3) 33.1 34.2-44.1 [facility] PasoAutomated erythrocyte mean corpuscular qxinty5054-36-07 06:00:00* Test Item Value Reference Range Interpretation Comments Mean Corpuscular Volume (test code = 787-2) 83.2 81-99 [facility] PasoAutomated erythrocyte mean corpuscular hemoglobin (mass per erythrocyte)2019-11-26 06:00:00* Test Item Value Reference Range Interpretation Comments Mean Corpuscular Hemoglobin (test code = 785-6) 25.4 28-32 [facility] PasoAutonslow memorial hospitaled erythrocyte mean corpuscular hemoglobin concentration measurement (mass/volume)2019-11-26 06:00:00* Test Item Value Reference Range Interpretation Comments Mean Corpuscular Hemoglobin Concent (test code = 786-4) 30.5 31-35 [facility] PasoRDW EpjQo-Byq9917-89-15 06:00:00* Test Item Value Reference Range Interpretation Comments Red Cell Distribution Width (test code = 84512-1) 15.6 11.7 -14.4 [facility] PasoAutomated blood platelet count (count/volume)2019-11-26 06:00:00* Test Item Value Reference Range Interpretation Comments Platelet Count (test code = 777-3) 306 140-360 [facility] count as percentage of total bssilujvwk8587-26-27 06:00:00* Test Item Value Reference Range Interpretation Comments Neutrophils (%) (Auto) (test code = 26144-3) 52.6 38.7-80.0 [facility] lymphocyte count as percentage ot total fqjopsdssf1451-13-61 06:00:00* Test Item Value Reference Range Interpretation Comments Lymphocytes (%) (Auto) (test code = 736-9) 27.0 18.0-39.1 [facility] PasoAutomated blood monocyte count as percentage of total ojdezmrazp9634-62-94 06:00:00* Test Item Value Reference Range Interpretation Comments Monocytes (%) (Auto) (test code = 5905-5) 14.2 4.4-11.3 [facility] PasoAutomated blood eosinophil count as percentage of total eucpfepbbt1128-53-80 06:00:00* Test Item Value Reference Range Interpretation Comments Eosinophils (%) (Auto) (test code = 713-8) 3.6 0.0-6.0 [facility] PasoAutomated blood basophil count as percentage of total rsgolajbup3907-19-48 06:00:00* Test Item Value Reference Range Interpretation Comments Basophils (%) (Auto) (test code = 706-2) 1.1 0.0-1.0 [facility] PasoFluoroscopic procedure less than one hour vozxaupm8100-38-80 06:00:00* Test Item Value Reference Range Interpretation Comments IM GRANULOCYTES % (test code = IM GRANULOCYTES %) 1.5 0.0- 1.0 [facility] PasoAutomated blood neutrophil count 2019-11-26 06:00:00* Test Item Value Reference Range Interpretation Comments Neutrophils # (Auto) (test code = 751-8) 2.5 2.1-6.9 [facility] PasoBlood lymphocytes count (number/volume) 2019-11-26 06:00:00* Test Item Value Reference Range Interpretation Comments Lymphocytes # (Auto) (test code = 13694-2) 1.3 1.0-3.2 [facility] PasoBlood monocytes automated count (number/volume)2019-11-26 06:00:00* Test Item Value Reference Range Interpretation Comments Monocytes # (Auto) (test code = 742-7) 0.7 0.2-0.8 [facility] PasoAutomated blood eosinophil count 2019-11-26 06:00:00* Test Item Value Reference Range Interpretation Comments Eosinophils # (Auto) (test code = 711-2) 0.2 0.0-0.4 [facility] PasoAutomated blood basophil count (count/volume)2019-11-26 06:00:00* Test Item Value Reference Range Interpretation Comments Basophils # (Auto) (test code = 704-7) 0.1 0.0-0.1 [facility] PasoFluoroscopic procedure less than one hour vtskprgc1361-42-66 06:00:00* Test Item Value Reference Range Interpretation Comments Absolute Immature Granulocyte (auto (cortney t code = Absolute Immature Granulocyte (auto) 0.07 0-0.1 [facility]um or plasma sodium measurement (moles/volume)2019-11-26 06:00:00* Test Item Value Reference Range Interpretation Comments Sodium Level (test code = 2951-2) 136 136-145 [facility] Campuserum or plasma potassium measurement (moles/volume)2019-11-26 06:00:00* Test Item Value Reference Range Interpretation Comments Potassium Level (test code = 2823-3) 4.0 3.5-5.1 [facility] Campuserum or plasma chloride measurement (moles/volume)2019-11-26 06:00:00* Test Item Value Reference Range Interpretation Comments Chloride Level (test code = 2075-0) 105 98-107 [facility] Campuserum or plasma carbon dioxide, total measurement (moles/volume)2019-11-26 06:00:00* Test Item Value Reference Range Interpretation Comments Carbon Dioxide Level (test code = 2028-9) 26 22-29 [facility] Campuserum or plasma anion msw2987-95-51 06:00:00* Test Item Value Reference Range Interpretation Comments Anion Gap (test code = 33148-6) 9.0 8-16 [facility] Campuserum or plasma urea nitrogen measurement (mass/volume)2019-11-26 06:00:00* Test Item Value Reference Range Interpretation Comments Blood Urea Nitrogen (test code = 3094-0) 19 7-26 [facility]userum or plasma creatinine measurement (mass/volume)2019-11-26 06:00:00* Test Item Value Reference Range Interpretation Comments Creatinine (test code = 2160-0) 1.12 0.57-1.11 [facility] Campuserum or plasma urea nitrogen/creatinine mass xdrnq0140-26-15 06:00:00* Test Item Value Reference Range Interpretation Comments BUN/Creatinine Ratio (test code = 3097-3) 17 6-25 [facility] PasoEstimated glomerular filtration rate (GFR) uozedvamhulbl9485-82-93 06:00:00* Test Item Value Reference Range Interpretation Comments Estimat Glomerular Filtration Rate (test code = 443309293) 51 >60 Ranges were taken from the National Kidney Disease Education Program and the [facility] Kidney Foundation literature.Reference ranges:60 or greater: Qybjkc42-47 ( for 3 consecutive months): Chronic kidney disease 15 or less: Kidney failureUniversity Medical Center of El PasoGlucose xrhpgzifbya7841-40-52 06:00:00* Test Item Value Reference Range Interpretation Comments Glucose Level (test code = AGL1660) 253 74-118 [facility]userum or plasma calcium measurement (mass/volume)2019-11-26 06:00:00* Test Item Value Reference Range Interpretation Comments Calcium Level (test code = 48604-5) 8.0 8.4-10.2 [facility] Campuserum or plasma total bilirubin measurement (mass/volume)2019-11-26 06:00:00* Test Item Value Reference Range Interpretation Comments Total Bilirubin (test code = 1975-2) 0.2 0.2-1.2 [facility] PasoFluoroscopic procedure less than one hour wsxvrcdw8363-49-93 06:00:00* Test Item Value Reference Range Interpretation Comments Aspartate Amino Transf (AST/SGOT) (test code = Aspartate Amino Transf (AST/SGOT)) 33 5-34 [facility] Campuserum or plasma alanine aminotransferase measurement (enzymatic activity/volume)2019-11-26 06:00:00* Test Item Value Reference Range Interpretation Comments Alanine Aminotransferase (ALT/SGPT) (test code = 1742-6) 77 0-55 [facility]um or plasma protein measurement (mass/volume)2019-11-26 06:00:00* Test Item Value Reference Range Interpretation Comments Total Protein (test code = 2885-2) 5.7 6.5-8.1 [facility]um or plasma albumin measurement (mass/volume)2019-11-26 06:00:00* Test Item Value Reference Range Interpretation Comments Albumin (test code = 1751-7) 2.3 3.5-5.0 [facility] PasoPlasma globulin measurement (mass/volume) 2019-11-26 06:00:00* Test Item Value Reference Range Interpretation Comments Globulin (test code = 24931-6) 3.4 2.3-3.5 [facility]um or plasma albumin/globulin mass bexdq0029-12-36 06:00:00* Test Item Value Reference Range Interpretation Comments Albumin/Globulin Ratio (test code = 1759-0) 0.7 0.8-2.0 [facility]userum or plasma alkaline phosphatase measurement (enzymatic activity/volume)2019-11-26 06:00:00* Test Item Value Reference Range Interpretation Comments Alkaline Phosphatase (test code = 6768-6) 82 40-150 [facility] PasoFluoroscopic procedure less than one hour ozaoraji1781-01-85 06:55:00* Test Item Value Reference Range Interpretation Comments Hemoglobin A1c Percent (test code = Hemoglobin A1c Percent) 10.8 4.0-7.0 [facility] PasoPhosphorus rsgubchuwbh9687-69-19 06:55:00 * Test Item Value Reference Range Interpretation Comments Phosphorus Level (test code = DZW1105) 2.9 2.3-4.7 [facility] or plasma magnesium measurement (mass/volume)2019-11-24 06:55:00* Test Item Value Reference Range Interpretation Comments Magnesium Level (test code = 79660-7) 1.9 1.3-2.1 [facility]um or plasma triglyceride measurement (mass/volume)2019-11-24 06:55:00* Test Item Value Reference Range Interpretation Comments Triglycerides Level (test code = 2571-8) 149 0-149 [facility]um or plasma cholesterol measurement (mass/volume)2019-11-24 06:55:00* Test Item Value Reference Range Interpretation Comments Cholesterol Level (test code = 2093-3) 140 0-199 Less than 200 mg/dL Low Zotd043 - 239 mg/dL Borderline Rvlx752 m g/dl and greater High Risk [facility]userum or plasma cholesterol in LDL measurement (mass/volume) 2019-11-24 06:55:00* Test Item Value Reference Range Interpretation Comments LDL Cholesterol (test code = 2089-1) 54 60-130 [facility]userum or plasma cholesterol in HDL measurement (mass/volume)2019-11-24 06:55:00* Test Item Value Reference Range Interpretation Comments HDL Cholesterol (test code = 2085-9) 56 40-60 [facility] Campuserum or plasma total cholesterol/cholesterol in HDL mass gvsru6399-13-72 06:55:00* Test Item Value Reference Range Interpretation Comments Cholesterol/HDL Ratio (test code = 9830-1) 2.5 3.0-3.6 [facility]um or plasma thyrotropin measurement by detection limit <= 0.005 miu/l (units/volume)2019-11-24 06:55:00* Test Item Value Reference Range Interpretation Comments Thyroid Stimulating Hormone (TSH) (test code = 75128-4) 2.685 0.350-4.940 [facility] Campuserum or plasma trough vancomycin level at trough (mass/volume)2019-11-24 06:55:00* Test Item Value Reference Range Interpretation Comments Vancomycin Level Trough (test code = 4092-3) 7.6 5.0-10.0 [facility] PasoFluoroscopic procedure less than one hour qctgqxgf2922-03-09 06:55:00* Test Item Value Reference Range Interpretation Comments Hemoglobin A1c Percent (test code = Hemoglobin A1c Percent) 10.8 4.0-7.0 [facility] dbulxxzzqkm4642-00-11 06:55:00 * Test Item Value Reference Range Interpretation Comments Phosphorus Level (test code = PLU0739) 2.9 2.3-4.7 [facility] plasma magnesium measurement (mass/volume)2019-11-24 06:55:00* Test Item Value Reference Range Interpretation Comments Magnesium Level (test code = 97182-7) 1.9 1.3-2.1 [facility] or plasma triglyceride measurement (mass/volume)2019-11-24 06:55:00* Test Item Value Reference Range Interpretation Comments Triglycerides Level (test code = 2571-8) 149 0-149 [facility] or plasma cholesterol measurement (mass/volume)2019-11-24 06:55:00* Test Item Value Reference Range Interpretation Comments Cholesterol Level (test code = 2093-3) 140 0-199 Less than 200 mg/dL Low Cirv880 - 239 mg/dL Borderline Qjke566 m g/dl and greater High Risk [facility] or plasma cholesterol in LDL measurement (mass/volume) 2019-11-24 06:55:00* Test Item Value Reference Range Interpretation Comments LDL Cholesterol (test code = 2089-1) 54 60-130 [facility] or plasma cholesterol in HDL measurement (mass/volume)2019-11-24 06:55:00* Test Item Value Reference Range Interpretation Comments HDL Cholesterol (test code = 2085-9) 56 40-60 [facility] or plasma total cholesterol/cholesterol in HDL mass iyyor2193-97-28 06:55:00* Test Item Value Reference Range Interpretation Comments Cholesterol/HDL Ratio (test code = 9830-1) 2.5 3.0-3.6 [facility] or plasma thyrotropin measurement by detection limit <= 0.005 miu/l (units/volume)2019-11-24 06:55:00* Test Item Value Reference Range Interpretation Comments Thyroid Stimulating Hormone (TSH) (test code = 11562-1) 2.685 0.350-4.940 [facility] or plasma trough vancomycin level at trough (mass/volume)2019-11-24 06:55:00* Test Item Value Reference Range Interpretation Comments Vancomycin Level Trough (test code = 4092-3) 7.6 5.0-10.0 [facility] less than one hour xzzeitlp5969-42-72 06:55:00* Test Item Value Reference Range Interpretation Comments Hemoglobin A1c Percent (test code = Hemoglobin A1c Percent) 10.8 4.0-7.0 [facility] xtojbevctnv2425-03-87 06:55:00 * Test Item Value Reference Range Interpretation Comments Phosphorus Level (test code = BLN2296) 2.9 2.3-4.7 [facility] or plasma magnesium measurement (mass/volume)2019-11-24 06:55:00* Test Item Value Reference Range Interpretation Comments Magnesium Level (test code = 98880-8) 1.9 1.3-2.1 [facility] or plasma triglyceride measurement (mass/volume)2019-11-24 06:55:00* Test Item Value Reference Range Interpretation Comments Triglycerides Level (test code = 2571-8) 149 0-149 [facility] or plasma cholesterol measurement (mass/volume)2019-11-24 06:55:00* Test Item Value Reference Range Interpretation Comments Cholesterol Level (test code = 2093-3) 140 0-199 Less than 200 mg/dL Low Ogog094 - 239 mg/dL Borderline Gytu852 m g/dl and greater High Risk [facility] or plasma cholesterol in LDL measurement (mass/volume) 2019-11-24 06:55:00* Test Item Value Reference Range Interpretation Comments LDL Cholesterol (test code = 2089-1) 54 60-130 [facility] or plasma cholesterol in HDL measurement (mass/volume)2019-11-24 06:55:00* Test Item Value Reference Range Interpretation Comments HDL Cholesterol (test code = 2085-9) 56 40-60 [facility] or plasma total cholesterol/cholesterol in HDL mass hfivg1132-14-46 06:55:00* Test Item Value Reference Range Interpretation Comments Cholesterol/HDL Ratio (test code = 9830-1) 2.5 3.0-3.6 [facility] or plasma thyrotropin measurement by detection limit <= 0.005 miu/l (units/volume)2019-11-24 06:55:00* Test Item Value Reference Range Interpretation Comments Thyroid Stimulating Hormone (TSH) (test code = 01889-6) 2.685 0.350-4.940 [facility] or plasma trough vancomycin level at trough (mass/volume)2019-11-24 06:55:00* Test Item Value Reference Range Interpretation Comments Vancomycin Level Trough (test code = 4092-3) 7.6 5.0-10.0 [facility] color xuxxaswvafdpy8182-46-12 01:17:00* Test Item Value Reference Range Interpretation Comments Urine Color (test code = 5778-6) YELLOW YELLOW [facility] hiihrnt6363-34-36 01:17:00* Test Item Value Reference Range Interpretation Comments Urine Clarity (test code = 08857-4) CLEAR CLEAR [facility] Campuspecific gravity of Urine by Test strip 2019-11-24 01:17:00* Test Item Value Reference Range Interpretation Comments Urine Specific [place] (test code = 5811-5) 1.025 1.010-1.02 5 [facility] pH measurement by automated test kdaon9045-76-57 01:17:00* Test Item Value Reference Range Interpretation Comments Urine pH (test code = 56072-5) 6.5 5-7 [facility] leukocyte esterase detection by rjdklngp4157-61-23 01:17:00* Test Item Value Reference Range Interpretation Comments Urine Leukocyte Esterase (test code = 5799-2) NEGATIVE NEGATIVE [facility] nitrite baxxtpafe5643-26-36 01:17:00* Test Item Value Reference Range Interpretation Comments Urine Nitrite (test code = 33528-9) NEGATIVE NEGATIVE [facility] protein measurement by test strip (mass/volume)2019-11-24 01:17:00* Test Item Value Reference Range Interpretation Comments Urine Protein (test code = 5804-0) >=300 NEGATIVE [facility] glucose gswsdsrgj2652-40-19 01:17:00* Test Item Value Reference Range Interpretation Comments Urine Glucose (UA) (test code = 2349-9) 2+ NEGATIVE [facility] ketones detection by automated test vcrud7656-39-20 01:17:00* Test Item Value Reference Range Interpretation Comments Urine Ketones (test code = 67198-6) NEGATIVE NEGATIVE [facility] urobilinogen measurement by test strip (mass/volume)2019-11-24 01:17:00* Test Item Value Reference Range Interpretation Comments Urine Urobilinogen (test code = 03068-2) 0.2 0.2-1 [facility] total bilirubin measurement (mass/volume)2019-11-24 01:17:00* Test Item Value Reference Range Interpretation Comments Urine Bilirubin (test code = 1978-6) NEGATIVE NEGATIVE [facility] erythrocytes zoupgmhhw4520-16-48 01:17:00* Test Item Value Reference Range Interpretation Comments Urine Blood (test code = 93821-9) NEGATIVE NEGATIVE [facility] PasoAutomated urine sediment leukocyte count by microscopy (number/high power field)2019-11-24 01:17:00* Test Item Value Reference Range Interpretation Comments Urine WBC (test code = 5821-4) 11-20 0-5 [facility] PasoErythrocytes detection in urine sediment by light zmdzbusxnd9136-92-20 01:17:00* Test Item Value Reference Range Interpretation Comments Urine RBC (test code = 33089-9) 6-10 0-5 [facility] PasoBacteria detection in urine sediment by light otrokqasce5522-46-43 01:17:00* Test Item Value Reference Range Interpretation Comments Urine Bacteria (test code = 62112-7) FEW NONE [facility] PasoEpithelial cells detection in urine sediment by light sdyapyehmf7610-14-14 01:17:00* Test Item Value Reference Range Interpretation Comments Urine Epithelial Cells (test code = 75395-9) FEW NONE [facility] PasoYeast detection in urine sediment by light itstrkwspo9226-97-21 01:17:00* Test Item Value Reference Range Interpretation Comments Urine Yeast (test code = 38371-8) FEW NONE [facility] color ylphkqihwltpc8392-82-16 01:17:00* Test Item Value Reference Range Interpretation Comments Urine Color (test code = 5778-6) YELLOW YELLOW [facility] xecijcm0196-70-16 01:17:00* Test Item Value Reference Range Interpretation Comments Urine Clarity (test code = 48047-1) CLEAR CLEAR [facility] Campus[facility] gravity of Urine by Test strip 2019-11-24 01:17:00* Test Item Value Reference Range Interpretation Comments Urine Specific [place] (test code = 5811-5) 1.025 1.010-1.02 5 [facility] pH measurement by automated test qnomm0910-53-07 01:17:00* Test Item Value Reference Range Interpretation Comments Urine pH (test code = 85565-0) 6.5 5-7 [facility] Paso[facility] leukocyte esterase detection by yxydvczq8079-88-09 01:17:00* Test Item Value Reference Range Interpretation Comments Urine Leukocyte Esterase (test code = 5799-2) NEGATIVE NEGATIVE [facility] nitrite fuxslzyag7891-47-89 01:17:00* Test Item Value Reference Range Interpretation Comments Urine Nitrite (test code = 23199-6) NEGATIVE NEGATIVE [facility] protein measurement by test strip (mass/volume)2019-11-24 01:17:00* Test Item Value Reference Range Interpretation Comments Urine Protein (test code = 5804-0) >=300 NEGATIVE [facility] Paso[facility] glucose lwzdjpgof4153-92-17 01:17:00* Test Item Value Reference Range Interpretation Comments Urine Glucose (UA) (test code = 2349-9) 2+ NEGATIVE [facility] Paso[facility] ketones detection by automated test akptw3451-24-24 01:17:00* Test Item Value Reference Range Interpretation Comments Urine Ketones (test code = 85467-1) NEGATIVE NEGATIVE [facility] Paso[facility]rine urobilinogen measurement by test strip (mass/volume)2019-11-24 01:17:00* Test Item Value Reference Range Interpretation Comments Urine Urobilinogen (test code = 45076-5) 0.2 0.2-1 [facility] total bilirubin measurement (mass/volume)2019-11-24 01:17:00* Test Item Value Reference Range Interpretation Comments Urine Bilirubin (test code = 1978-6) NEGATIVE NEGATIVE [facility] erythrocytes bfjiwotht3619-77-72 01:17:00* Test Item Value Reference Range Interpretation Comments Urine Blood (test code = 44264-3) NEGATIVE NEGATIVE [facility] PasoAutomated urine sediment leukocyte count by microscopy (number/high power field)2019-11-24 01:17:00* Test Item Value Reference Range Interpretation Comments Urine WBC (test code = 5821-4) 11-20 0-5 [facility] PasoErythrocytes detection in urine sediment by light ssasmhrlzq3470-04-37 01:17:00* Test Item Value Reference Range Interpretation Comments Urine RBC (test code = 64883-4) 6-10 0-5 [facility] PasoBacteria detection in urine sediment by light xgeqwukvxl4819-27-69 01:17:00* Test Item Value Reference Range Interpretation Comments Urine Bacteria (test code = 88954-5) FEW NONE [facility] PasoEpithelial cells detection in urine sediment by light npgmfauwun0161-54-79 01:17:00* Test Item Value Reference Range Interpretation Comments Urine Epithelial Cells (test code = 23658-6) FEW NONE [facility] PasoYeast detection in urine sediment by light otasaucesd6222-69-01 01:17:00* Test Item Value Reference Range Interpretation Comments Urine Yeast (test code = 36886-2) FEW NONE [facility] PasoYeast detection in urine sediment by light izczyqrciw8836-08-06 01:17:00* Test Item Value Reference Range Interpretation Comments Urine Yeast (test code = 05424-6) FEW NONE [facility] PasoCT ABDOMEN/PELVIS SB4517-69-84 23:15:00 [facility] [address] [address] Patient Name: MEÑO MATA MR #: [id number] : 1970 Age/Sex: 49/F Req #: [id number] Adm Physician: HARLAN NGUYỄN MD Ordered by: JACQUELINE DIOP t #: [phone] Location: [facility] Room/Bed : [place] [address] Procedure: [id number] CT/CT ABDOMEN/PE LVIS WO Exam Date: 11/22/19 Exam Time: 2217 REPORT STATUS: Signed EXAM: CT Abdomen a nd Pelvis WITHOUT contrast INDICATION: RLQ abscess [id number] 2 218 COMPARISON: CT abdomen pelvis 07/20/2017 [...] ed By: CAS WALKER MD on 11/22/19 8914 Transcribed By: DAVID on 11/22/19 2 319 COPY TO: JACQUELINE DIOP DO Fluoroscopic procedure less than one hour rvxkqawc2300-35-75 22:37:00* Test Item Value Reference Range Interpretation [...] complexity tests.Testing performed by [facility] [address] [place] [address] [phone] Director: Neptali Anthony M.D.CLIA # [id number] [facility] Fluoroscopic procedure less than one hour yxmcrwex3802-06-59 22:37:00* Test Item Value Reference Range Interpretation [...] complexity tests.Testing performed by [facility] [address] [phone] Director: Neptali Anthony M.D.CLIA # [id number] [facility] Fluoroscopic procedure less than one hour lcupwzzf9179-51-56 20:40:00* Test Item Value Reference Range Interpretation Comments Lactic Acid Level (test code = Lactic Acid Level) 1.8 0.5- 2.0 [facility] PasoBlood mveromk7263-84-48 20:40:00* Test Item Value Reference Range Interpretation Comments Blood Culture (test code = 02207283) NO GROWTH AFTER [address] [facility] zahnigc6816-47-71 20:40:00* Test Item Value Reference Range Interpretation Comments Blood Culture (test code = 28691910) NO GROWTH AFTER 5 DAYS, FINAL REPORT [facility] PasoBASIC METABOLIC GVJPR4675-53-36 14:32:00 * Test Item Value Reference Range [...] code = CA) 8.9 mg/dL 8.5-10.1 N XPQNIYRW-Q2944-25-10 14:32:00* Test Item Value Reference Range Interpretation Comments TROPONIN-I (test code = TROPI) <0.015 ng/mL 0-0.045 N BASIC METABOLIC FHWWT0911-10-73 14:26:00* Test Item Value Reference Range Interpretation [...] CALCIUM (test code = CA) mg/dL 8.5-10.1 KQVBFUJS-Q2490-09-10 14:26:00* Test Item Value Reference Range Interpretation Comments TROPONIN-I (test code = TROPI) ng/mL 0-0.045 - XR CHEST 1 T9752-81-04 14:24:00 FAX: Lacho Ambrosio MD [phone] [place]: St: REG Name: MEÑO RYDER [facility] : [birth year] Age/S: 49/[facility] [address] [facility] #: [id number] Loc: [place] [address] Phys: Lacho Ambrosio MD Acct: [id number] Dis Date: Status: REG ER PHONE #: [phone] Exam Date: 10/22/2019 1403 FAX #: [phone] Reason: CHEST PAIN EXAMS: CPT CODE: [id number] XR CHEST 1 V 55300 HISTORY: Chest pain. COMPARISON: September 13, 2019. Location: [facility]. No acute infiltrates, effusion or congestion is noted. Suboptimal inspiration. Depe ndent changes. Cardiomegaly. IMPRESSION: No acute infiltrates, effusion or congestion. at 1424 Reported and sig ezequiel by: Jamil Norman M.D. CC: Lacho Ambrosio MD Technologist: KASANDRA CHAMORRO, RT(R) Trnscrd Date/Time/By: 10/22/2019 (1420) : By: [email or web address] Orig Print D/T: S: 10/22/2019 (5155) PAGE 1 Signed Report CBC W/O DIFF [...] MPV) 9.7 fL 6.7-11.0 N CBC W/O BSSK0103-40-20 14:10:00* Test Item Value Reference Range Interpretation [...] VOLUME (test code = MPV) fL 6.7-11.0 INHWEW3577-08-96 16:39:00* Test Item Value Reference Range Interpretation Comments GLUBED (test code = GLUBED) 228 mg/dL 74-106 H Performed by certified dielectric machine operator at [facility] PRWAPR2192-73-27 14:14:00* Test Item Value Reference Range Interpretation Comments GLUBED (test code = GLUBED) 243 mg/dL 74-106 H Performed by certified dielectric machine operator at [facility] XVSQYFFV-I2830-90-03 12:57:00* Test Item Value Reference Range Interpretation Comments TROPONIN-I (test code = TROPI) 0.056 ng/mL 0-0.045 HH COMMENTS TO MANAGER SHIP: COLLECT 3 HOURS AFTER PREVIOUS SAMPLEBASIC METABOLIC ZQOFG2699-85-86 12:50:00* Test Item Value Reference Range Interpretation [...] result is a direct measurement.========= CBC W/AUTO [id number] 12:41:00* Test Item Value Reference Range Interpretation [...] DIFF REQUIRED (test code = MDIFF) NO QKRPZW4663-55-48 09:13:00* Test Item Value Reference Range Interpretation Comments GLUBED (test code = GLUBED) 181 mg/dL 74-106 H Performed by certified dielectric machine operator at [facility] PQLADEAF-A9591-88-03 06:09:00* Test Item Value Reference Range Interpretation Comments TROPONIN-I (test code = TROPI) 0.078 ng/mL 0-0.045 HH PREVIOUSLY CALLED COMMENTS TO MANAGER SHIP: COLLECT 3 HOURS AFTER PREVIOUS SAMPLEPROTHROMBIN WDXE4452-01-10 23:27:00* Test Item Value Reference Range Interpretation [...] (2.5-3.5) IS PATIENT ON ANTICOAGULANTS? NTHROMBOPLASTIN TIME LQNJEBM8832-48-45 23:27:00* Test Item Value Reference Range Interpretation Comments THROMBOPLASTIN TIME PARTIAL (test code = PTT) 34.3 seconds 25.0-36. 5 N IS PATIENT ON ANTICOAGULANTS? NHEPATIC FUNCTION [id number] 23:17:00* Test Item Value Reference Range Interpretation [...] due to change in reagent. THYROID STIMULATING HVFWTDR5904-87-09 23:17:00* Test Item Value Reference Range Interpretation Comments THYROID STIMULATING HORMONE (test code = TSH) 1.660 uIU/mL 0.36-3.7 4 N TSH REFERENCE RANGES: EUTHYROID: 0.35 - 4.3 mIU/mL HYPO : > 5.5 mIU/mL HYPER : < 0.35 mIU/mL [id number] 22:25:00* Test Item Value Reference Range Interpretation Comments GLUBED (test code = GLUBED) 106 mg/dL 74-106 N Performed by certified dielectric machine operator at [facility] BASIC METABOLIC [id number] 19:03:00* Test Item Value Reference Range Interpretation [...] code = CA) 9.0 mg/dL 8.5-10.1 N [id number]-F7406-58-02 19:03:00* Test Item Value Reference Range Interpretation Comments TROPONIN-I (test code = TROPI) 0.180 ng/mL 0-0.045 Results called to [id number] by [email or web address] 09/13/19 1902Critical results verified and read back by Nurse? Y BASIC METABOLIC HLGYF1772-54-55 18:50:00* Test Item Value Reference Range Interpretation [...] CALCIUM (test code = CA) mg/dL 8.5-10.1 RNGRRIJH-Y0366-07-02 18:50:00* Test Item Value Reference Range Interpretation Comments TROPONIN-I (test code = TROPI) ng/mL 0-0.045 BASIC METABOLIC DMYXX8915-28-08 18:50:00* Test Item Value Reference Range Interpretation [...] code = CA) 9.0 mg/dL 8.5-10.1 N [id number]-A1406-15-02 18:50:00* Test Item Value Reference Range Interpretation Comments TROPONIN-I (test code = TROPI) ng/mL 0-0.045 CBC W/O [id number] 18:43:00* Test Item Value Reference Range Interpretation [...] MPV) 9.5 fL 6.7-11.0 N CBC W/O [id number] 18:41:00* Test Item Value Reference Range Interpretation [...] MPV) fL 6.7-11.0 - XR CHEST 1 [id number] 14:55:00 FAX: Koby Hadley MD [place]: St: PRE Name: MEÑO RYDER [facility] : [birth year] Age/S: 48/F [address] Unit #: [id number] Loc: [place] [address] Phys: Koby Hadley MD Acct: [id number] Dis Date: Status: PRE ER PHONE #: [phone] Exam Date: 09/13/2019 1445 FAX #: [phone] Reason: CHEST PAIN EXAMS: CPT CODE: [id number] XR CHEST 1 V 30862 HISTORY: Chest pain. COMPARISON: February 16, 2018. Location: [facility]. No acute infiltrates, effusion or congestion is noted. Suboptimal inspiration. Dep endent changes. Mild cardiomegaly. IMPRESSION: No acute infiltrates, effusion or congestion. Electronically Sign ed by Miriam Norman on 09/13/2019 at 7305 Reported a nd signed by: Jamil Norman M.D. CC: Koby Hadley MD Technologist: JORGE LEE(R) Trnscrd Date/Time/By: 09/13/2019 (6288) : By: Brianna [email or web address] Orig Print D/T: S: 09/13/2019 (6778) PAGE 1 Signed Report POLYP 2019-07-27 16:51:00 RUN DATE: 07/27/19 [facility] PAGE 1 RUN TIME: 1651 Specimen Inqui ry RUN USER: INTERFACE PATIENT: MEÑO MATA ACCT #: [id number] LOC: [place] U #: [id number] AGE/SX: 48/F ROOM: RE07/23/19REG DR: Saad Norris MD : 68 BED: DIS: [place] [facility] [place]: SPEC #: [id number] RECD: 07/23/19 STATUS: ALFONSOHilario JUNAID #: [id number] ROLAND: 07/23/19 [facility] DR: Saad Norris MD ENTERED: 07/23/19 SP TYPE: POLYP OTHR DR: No Doreen jolly or Family Physician No Primary Care PhysicianORDERED: GROSS COPIES TO: No Primary or Family Phys Saad Shepherd MD [address] [address] No Primary Care Physician Use by ED [...] MALIGNANCY MULTIPLE LEVELS EXAMINED RRB/ D 8 3545 CONTINUED ON NEXT PAGE R UN DATE: 07/27/19 [facility] PAGE 2 RUN TIME: 1650 Specimen Inquiry RUN USER: INTERFACE SPEC #: [id number] PATIENT: MEÑO MATA #[id number] (Continued) MACROSCOPIC The specim en is received in formalin, labeled with the patient's name, identified as "t tyler polyp bx", and consists of kent biopsy tissue measuring 0.3 cm, submi tted for histologic evaluation. GROSS PERFORMED AT [facility] [address] [place] [place] [address] (P)[phone] MICROSCOPIC All of the stains, including a ny controls performed, stain appropriately. MICROSCOPIC PERFORMED AT [facility] [address] [place] [address] (P)[phone] PERFORMING SITE Diagnosis performed at : [facility] [address] [place] [address] --- --------- Signed SIGNATURE ON FILE Jarrod Schofield MD [address]51 EN D OF REPORT BASIC METABOLIC [id number] 07:26:00* Test Item Value Reference Range Interpretation [...] code = CA) 8.5 mg/dL 8.5-10.1 N [id number] 07:11:00* Test Item Value Reference Range Interpretation Comments GLUBED (test code = GLUBED) 89 mg/dL 74-106 N Performed by certified dielectric machine operator at [facility] CBC W/AUTO [id number] 07:03:00* Test Item Value Reference Range Interpretation [...] MDIFF) NO - XR ABDOMEN AP 1 [id number] 11:55:00 FAX: Corinne Venegas DO [place]: St: [facility] FAX: ISAURO GLOVER NP Name: MEÑO MATA [facility] : 1970 Age/S: 48/F [address] [facility] Unit #: [id number] Loc: [place] [address] Phys: ISAURO GLOVER NP Acct: [id number] Dis Date: Status: REG ER PHONE #: [phone] Exam Date: 04/24/2019 1146 FAX #: [phone] Reason: constipation EXAMS: CPT CODE: [id number] XR ABDOMEN AP 1 V 62446 HISTORY: constipation TECHNIQUE: AP abdomen x-ray COMPARISON: None FINDINGS: Mild rectosigmoid fecal retention. Nonspecific nonobstructed bowel gas pattern. No intra-abdominal mass effect. Cholecystectomy clips. Pelvic phleboliths. Degenerative changes of the spine and hips. IMPRESSION: Mild rectosigmoid fecal retention. Nonobstructive bowel gas pattern. at 1155 Reported and signed by: Leida Riley D.O. CC: Corinne Venegas DO; ISAURO GLOVER NP Technologist: VASQUEZ SAMANIEGO) Trnscrd Date/Time/By: 04/24/2019 (1 155) : By: [email or web address] Orig Print D/T: S: 04/24/2019 (2120) PAGE 1 Signed Report BASIC METABOLIC [id number] 11:51:00* Test Item Value Reference Range Interpretation [...] CA) 8.8 mg/dL 8.5-10.1 N HEPATIC FUNCTION [id number] 11:51:00* Test Item Value Reference Range Interpretation [...] reference range due to change in reagent. [id number] 11:51:00* Test Item Value Reference Range Interpretation Comments LIPASE (test code = LIP) 34 U/L 73.0-393.0 L HCG SERUM [id number] 11:51:00* Test Item Value Reference Range Interpretation Comments HCG SERUM QUAL (test code = HCGQL) NEGATIVE NEGATIVE This HCGQL test is NOT applicable for MALE patients.Check with nurse about probable order error.If Tumor Marker Test needed, nurse should order test "HCGTU"(Test #550.58491) BASIC METABOLIC [id number] 11:44:00* Test Item Value Reference Range Interpretation [...] code = CA) mg/dL 8.5-10.1 HEPATIC FUNCTION [id number] 11:44:00* Test Item Value Reference Range Interpretation [...] TOTAL (test code = ALKP) IUnit/L 45-117 [id number] 11:44:00* Test Item Value Reference Range Interpretation Comments LIPASE (test code = LIP) U/L 73.0-393.0 HCG SERUM [id number] 11:44:00* Test Item Value Reference Range Interpretation Comments HCG SERUM QUAL (test code = HCGQL) NEGATIVE NEGATIVE This HCGQL test is NOT applicable for MALE patients.Check with nurse about probable order error.If Tumor Marker Test needed, nurse should order test "HCGTU"(Test #550.34739) BASIC METABOLIC [id number] 11:42:00* Test Item Value Reference Range Interpretation [...] code = CA) mg/dL 8.5-10.1 HEPATIC FUNCTION [id number] 11:42:00* Test Item Value Reference Range Interpretation [...] TOTAL (test code = ALKP) IUnit/L 45-117 [id number] 11:42:00* Test Item Value Reference Range Interpretation Comments LIPASE (test code = LIP) U/L 73.0-393.0 HCG SERUM [id number] 11:42:00* Test Item Value Reference Range Interpretation Comments HCG SERUM QUAL (test code = HCGQL) NEGATIVE NEGATIVE This HCGQL test is NOT applicable for MALE patients.Check with nurse about probable order error.If Tumor Marker Test needed, nurse should order test "HCGTU"(Test #550.34594) URINALYSIS [id number] 11:33:00* Test Item Value Reference Range Interpretation [...] #/LPF FEW Urine Source? Clean CatchCBC W/O [id number] 11:28:00* Test Item Value Reference Range Interpretation [...] = MPV) 9.5 fL 6.7-11.0 N URINALYSIS [id number] 19:17:00* Test Item Value Reference Range Interpretation [...] Source? Clean Catch- CT ABD PELVIS W/O [id number] 18:44:00 Name: MEÑO MATA [facility] : 1970 Age/S: 48 / F [address] [facility] Unit #: [id number] Loc: [place] [address] Phys: Romina Carey NP Acct: [id number] Di s Date: Status: REG ER PHONE #: Exam Date: 03/13/2019 1820 FAX #: [phone] Reason: Lower abdominal pain EXAMS: CPT CODE: [id number] CT ABD PELVIS W/O CONT 49911 HISTORY: Lower abdominal pain TECHNIQUE: 5mm axial [...] PAGE 1 Signed Report (CONTINUED) Nam e: ADOLFOMEÑO [facility] : 01/1971 Age/S: 48 / F [address] [facility] Unit #: [id number] Loc: [place] [address] Phys: Rachell Carey NP Acct: [id number] Dis Sharad e: Status: REG ER PHONE #: Exam Date: 03/13/20191819 FAX #: [phone] Reason: Lower abdominal pain EXAMS: CPT CODE: [id number] CT ABD PELVIS W/O CONT 88081 <Continued> CC: Rachell Carey INSTRUMENT ROOM TECHNICIAN; Vladimir Leon DO Technologist:Yolette Hinkle RT(R)(CT) CTDI: DLP: Trnscb Date/Time: 03/13/2019 (1843) [id number] Orig Print D/T: S: 03/13/2019 (1846) PAGE 2 Signed Report BASIC METABOLIC [id number] 18:08:00* Test Item Value Reference Range Interpretation [...] CA) 8.8 mg/dL 8.5-10.1 N HEPATIC FUNCTION [id number] 18:08:00* Test Item Value Reference Range Interpretation [...] reference range due to change in reagent. [id number] 18:08:00* Test Item Value Reference Range Interpretation Comments LIPASE (test code = LIP) 45 U/L 73.0-393.0 L HCG SERUM [id number] 18:08:00* Test Item Value Reference Range Interpretation Comments HCG SERUM QUAL (test code = HCGQL) NEGATIVE NEGATIVE This HCGQL test is NOT applicable for MALE patients.Check with nurse about probable order error.If Tumor Marker Test needed, nurse should order test "HCGTU"(Test #550.26281) [id number] 18:08:00* Test Item Value Reference Range Interpretation Comments TROPONIN-I (test code = TROPI) <0.015 ng/mL 0-0.045 N BASIC METABOLIC [id number] 17:48:00* Test Item Value Reference Range Interpretation [...] CA) 8.8 mg/dL 8.5-10.1 N HEPATIC FUNCTION [id number] 17:48:00* Test Item Value Reference Range Interpretation [...] reference range due to change in reagent. [id number] 17:48:00* Test Item Value Reference Range Interpretation Comments LIPASE (test code = LIP) 45 U/L 73.0-393.0 L HCG SERUM [id number] 17:48:00* Test Item Value Reference Range Interpretation Comments HCG SERUM QUAL (test code = HCGQL) NEGATIVE [id number] 17:48:00* Test Item Value Reference Range Interpretation Comments TROPONIN-I (test code = TROPI) <0.015 ng/mL 0-0.045 N BASIC METABOLIC [id number] 17:37:00* Test Item Value Reference Range Interpretation [...] code = CA) mg/dL 8.5-10.1 HEPATIC FUNCTION [id number] 17:37:00* Test Item Value Reference Range Interpretation [...] TOTAL (test code = ALKP) IUnit/L 45-117 [id number] 17:37:00* Test Item Value Reference Range Interpretation Comments LIPASE (test code = LIP) U/L 73.0-393.0 HCG SERUM [id number] 17:37:00* Test Item Value Reference Range Interpretation Comments HCG SERUM QUAL (test code = HCGQL) NEGATIVE [id number] 17:37:00* Test Item Value Reference Range Interpretation Comments TROPONIN-I (test code = TROPI) ng/mL 0-0.045 CBC W/O [id number] 16:59:00* Test Item Value Reference Range Interpretation [...] MPV) 9.4 fL 6.7-11.0 N CBC W/O [id number] 16:53:00* Test Item Value Reference Range Interpretation [...] MPV) fL 6.7-11.0 DRUGS OF ABUSE SCREEN [id number] 15:13:00* Test Item Value Reference Range Interpretation [...] NEGATIVE <300 ng/mL DRUGS OF ABUSE SCREEN [id number] 14:57:00* Test Item Value Reference Range Interpretation [...] code = [place]) NEGATIVE <300 ng/mL URINALYSIS [id number] 14:35:00* Test Item Value Reference Range Interpretation [...] HPF FEW Urine Source? Clean CatchUR HCG [id number] 14:35:00* Test Item Value Reference Range Interpretation Comments UR HCG QUAL (test code = HCGQLU) NEGATIVE This HCGQL test is NOT applicable for MALE patients.Check with nurse about probable order error.If Tumor Marker Test needed, nurse should order test "HCGTU"(Test #550.49232) Urine Source? Clean CatchURINALYSIS [id number] 14:32:00* Test Item Value Reference Range Interpretation [...] HPF 0-5 Urine Source? Clean CatchUR HCG [id number] 14:32:00* Test Item Value Reference Range Interpretation Comments UR HCG QUAL (test code = HCGQLU) NEGATIVE This HCGQL test is NOT applicable for MALE patients.Check with nurse about probable order error.If Tumor Marker Test needed, nurse should order test "HCGTU"(Test #550.44534) Urine Source? Clean CatchURINALYSIS [id number] 14:32:00* Test Item Value Reference Range Interpretation [...] HPF 0-5 Urine Source? Clean CatchUR HCG [id number] 14:32:00* Test Item Value Reference Range Interpretation Comments UR HCG QUAL (test code = HCGQLU) NEGATIVE This HCGQL test is NOT applicable for MALE patients.Check with nurse about probable order error.If Tumor Marker Test needed, nurse should order test "HCGTU"(Test #550.64386) Urine Source? Clean CatchCT ABDOMEN/PELVIS [place] [address] Patient Name: MEÑO MATA MR #: [id number] : 1970 Age/Sex: 46/F Req #: [id number] Adm Physician: Ordered by: YINKA BOYER MD Report #: [id number] Location: ER Room/Bed: Procedure: [id number] CT/CT ABDOMEN/PELVIS WO Exam Date: 07/20/17 Exam [...]
--- NOTE | 2019-12-13 17:50 | Emergency Department Note ---
History of Present Illnes History of Present Illness Chief Complaint: Abdominal Complaints History of Present Illness This is a 49 year old female arrived to the ED b/c her told her, her stool is black. Pt denies any complaints- no abdominal pain, no rectal bleeding. Pt recently seen in the ED, CT AP showed gastritis. Pt has a colonoscopy in July and had a polyp removed. Chief Complaint Comment PATIENT IN FROM HOME, REPORTING SPOUSE STATED THAT SHE HAD BLACK STOOL X 1 TODAY; PATIENT APPEARS IN NO DISTRESS, RESP EVEN AND NONLABORED; SEEN HERE 2 DAYS AGO FOR THE SAME Historian: Patient Arrival Mode: Car Onset quality: sudden Duration (how long): hour(s) Timing of current episode: unable to specify Context: recent illness, recent surgery, recent immobilization, recent travel, trauma/injury, new medications, hx of DVT/PE, non-compliance w/ medications, other Past Medical/Family History Physician Review I have reviewed the patient's past medical and family history. Any updates have been documented here. Past Medical History Recent Fever: No Clinical Suspicion of Infectio: No New/Unexplained Change in Ment: No Past Medical History: Hypertension, Diabetes, COPD, Asthma, Chronic Kidney Disease Other Medical History: HERPES STAGE 3 CKD Past Surgical History: None Other Surgery: I&D TO RLQ ABD - 2019 ABSCESS DRAINAGE TO NECK - 2018 Social History Smoking Cessation: Never Smoker Counseling Performed: No Alcohol Use: None Any Illegal Drug Use: No TB Exposure/Symptoms: No Physically hurt or threatened: No Family History Family history of heart diseas: No Other Last Tetanus: UNK Any Pre-Existing Lines (PICC,: No Is patient up to date on immun: Yes Last Flu: OOD Last Pneumovax: NA Review of Systems Review of Systems Constitutional: no symptoms EENTM: no symptoms Cardiovascular: no symptoms Respiratory: no symptoms Gastrointestinal: as per HPI, other (black stool); abdominal pain, constipation, diarrhea, nausea, vomiting Genitourinary: no symptoms Musculoskeletal: no symptoms Neurological: no symptoms Psychological: no symptoms Endocrine: no symptoms Hematological/Lymphatic: no symptoms Review of other systems All other systems reviewed and negative. Physical Exam Related Data Allergies: Coded Allergies: No Known Allergies (Verified , 08/22/07) Triage Vital Signs Vital Signs Date Time Temp Pulse Resp B/P (MAP) Pulse Ox O2 Delivery O2 Flow Rate FiO2 6/1/20 13:55 99.9 87 20 213/118 97 Vital signs reviewed: Yes Physical Exam CONSTITUTIONAL Constitutional: well-developed HENT HENT: normocephalic, atraumatic, oropharynx clear/moist, nose normal HENT L/R: left ext ear normal, right ext ear normal EYES Eyes: PERRL, conjunctivae normal NECK Neck: ROM normal PULMONARY Pulmonary: effort normal, breath sounds normal CARDIOVASCULAR Cardiovascular: regular rhythm, heart sounds normal, capillary refill normal, normal rate GASTROINTESTINAL Abdominal: soft, nontender, bowel sounds normal GENITOURINARY Genitourinary: exam deferred, guaiac result (no external hemmoroids, non blood stools, good tone) SKIN Skin: warm, dry MUSCULOSKELETAL Musculoskeletal: ROM normal NEUROLOGICAL Neurological: alert, oriented x 3, no gross motor or sensory deficits PSYCHOLOGICAL Psychological: mood/affect normal, judgement normal Results Laboratory Laboratory Laboratory Tests Test 12/13/19 15:33 Stool Occult Blood Negative (NEGATIVE) Lab results reviewed: Yes Critical Care Time Subsequent provider I assumed direction of critical care for this patient from another provider of my specialty. Assessment & Plan Reassessment Reassessment 49 yo F arrived to the ED with complaints of 1 epsiode of black stool per hus[place]. Pt with recent lab work and imaging that were reviewed me. Abdominal exam benign, negauve occular blood outpt GI appt made for her pt Assessment & Plan Final Impression: (1) GENERALIZED ABDOMINAL PAIN Assessment & Plan occult blood GI follow up, appt made for tomorrow morning for ot Last Vital Signs Date Time Temp Pulse Resp B/P (MAP) Pulse Ox O2 Delivery O2 Flow Rate FiO2 12/13/19 15:37 98.4 97 18 194/109 100 Home Meds Active Scripts Omeprazole (OMEPRAZOLE) 40 Mg Capsule.dr, 40 MG PO DAILY, #30 Prov:PADMARMARVIN, DO 12/13/19 Tramadol Hcl (ULTRAM) 50 Mg Tablet, 50 MG PO Q4HR PRN for Mild Pain (1-3) or Fever>100.8 for 14 Days, #30 TAB 0 Refills Prov:SHONA ARMENDARIZ NP 11/26/19 Metformin Hcl (METFORMIN HCL) 500 Mg Tablet, 1000 MG PO BID for 14 Days, #30 TAB 0 Refills Prov:SHONA ARMENDARIZ NP 11/26/19 Insulin Regular, Human (HUMULIN R) 100 Unit/1 Ml Vial, 0 UNIT SQ ACHS for 14 Days, #1 VIAL 0 Refills Prov:SHONA ARMENDARIZ BORING MACHINE OPERATOR DOUBLE END 11/26/19 Potassium Chloride (POTASSIUM CHLORIDE) 10 Meq Tab.er.prt, 10 MEQ PO q48hrs for 14 Days, #7 TAB 0 Refills Prov:SHONA ARMENDARIZ BORING MACHINE OPERATOR DOUBLE END 11/26/19 Furosemide (LASIX) 20 Mg Tablet, 20 MG PO DAILY for 14 Days, #14 TAB 0 Refills Prov:SHONA ARMENDARIZ BORING MACHINE OPERATOR DOUBLE END 11/26/19 Sulfamethoxazole/Trimethoprim (BACTRIM DS TABLET) 1 Each Tablet, 1 EACH PO BID for 10 Days, #20 TAB 0 Refills Prov:SHONA ARMENDARIZ NP 11/26/19 Ciprofloxacin Hcl (CIPRO) 500 Mg Tablet, 500 MG PO Q12H for 14 Days, #30 TAB 0 Refills Prov:SHONA ARMENDARIZ BORING MACHINE OPERATOR DOUBLE END 11/26/19 Reported Medications Gabapentin (GABAPENTIN) 600 Mg Tablet, 600 MG PO HS 11/22/19 Fenofibrate Nanocrystallized (Fenofibrate) 145 Mg Tablet, 145 MG PO DAILY 11/22/19 Montelukast Sodium (MONTELUKAST SODIUM) 10 Mg Tablet, 10 MG PO HS 11/22/19 Mometasone Furoate (Mometasone Furoate) 17 Gm [place].pump, 1 INH INH BID PRN for SHORTNESS OF BREATH 11/22/19 Omeprazole (OMEPRAZOLE) 20 Mg Capsule.dr, 20 MG PO BID 11/22/19 Atorvastatin Calcium (ATORVASTATIN CALCIUM) 20 Mg Tablet, 20 MG PO DAILY 11/22/19 Nifedipine (NIFEDIPINE ER) 90 Mg Tab.er.24, 90 MG PO DAILY 11/22/19 Ketoconazole (NIZORAL) 120 Ml Shampoo, 1 APPFUL TOP DAILY PRN for .DANDRUFF 11/22/19 Acetaminophen/Codeine* (TYLENOL # 3*) 1 Ea Tab, 1 TAB PO Q4HR PRN for MODERATE PAIN (4-6) 11/22/19 Lisinopril (PRINAVIL / ZESTRIL) 20 Mg Tablet, 20 MG PO DAILY 11/22/19 Clonidine Hcl (CLONIDINE HCL) 0.1 Mg Tablet, 0.1 MG PO TID 11/22/19 Linagliptin (TRADJENTA) 5 Mg Tablet, 5 MG PO DAILY 11/22/19 Levothyroxine Sodium (LEVOTHYROXINE SODIUM) 25 Mcg Tablet, 25 MCG PO DAILY 11/22/19 Acyclovir (ACYCLOVIR) 800 Mg Tablet, 800 MG PO Q8H PRN for .SORES OUTBREAK 11/22/19 Albuterol Sulfate (ALBUTEROL SULFATE) 2.5 Mg/3 Ml Vial.neb, 1 INH INH DAILY 11/22/19 Dicyclomine Hcl (DICYCLOMINE HCL) 10 Mg Capsule, 10 MG PO BID PRN for ABDOMINAL PAIN 11/22/19 Hydroxyzine Hcl (HYDROXYZINE HCL) 25 Mg Tablet, 50 MG PO HS 11/22/19 Insulin Detemir (Levemir Flextouch) 100 Unit/1 Ml Insuln.pen, 40 UNITS SC DAILY, UNIT 11/22/19 Insulin Detemir (Levemir Flextouch) 100 Unit/1 Ml Insuln.pen, 100 UNITS SQ HS 11/22/19 MARVIN HERNANDEZ, Dec 13, 2019 17:50
[2019-12-13 18:00] VITALS: BP 122/83
[2019-12-13] MEDS ORDERED: OMEPRAZOLE40 MG PO (18:01)
== END 2019-12-13 18:00 | disposition home or self-care (01) ==
LOC: ER 13:34
DX: R10.84 Generalized abdominal pain (principal); R19.5 Other fecal abnormalities; E11.22 Type 2 diabetes mellitus with diabetic chronic kidney disease; I12.9 Hypertensive chronic kidney disease with stage 1 through stage 4 chronic kidney disease, or unspecified chronic kidney disease; J44.9 Chronic obstructive pulmonary disease, unspecified
CPT/HCPCS: 82270; 99284

== ENCOUNTER 2020-09-20 14:43 | Emergency (ER) | payer MEDICARE ==
[~2020-09-20] VITALS: Ht 160 cm; Wt 154.2 kg
[~2020-09-20 14:43] MED LIST changes: +OMEPRAZOLE40 MG PO
== END 2020-09-20 15:55 | disposition home or self-care (01) ==
LOC: ER 15:36
DX: L02.818 Cutaneous abscess of other sites (principal); N18.30 Chronic kidney disease, stage 3 unspecified; E11.22 Type 2 diabetes mellitus with diabetic chronic kidney disease; I12.9 Hypertensive chronic kidney disease with stage 1 through stage 4 chronic kidney disease, or unspecified chronic kidney disease; J44.9 Chronic obstructive pulmonary disease, unspecified
CPT/HCPCS: 99282